=== PATIENT | female | born 1945 | race Caucasian/White ===

== ENCOUNTER → 2016-03-18 | Outpatient (CLI) | payer BC | END | disposition home or self-care (01) | LOC: LABWHC1 08:47 | PROVIDERS: ATTEND Internal Medicine Endocrinology, Diabetes & Metabolism | DX: E11.65 Type 2 diabetes mellitus with hyperglycemia (principal) | CPT/HCPCS: 36415; 82024; 82533 ==

== ENCOUNTER → 2016-03-22 | Outpatient (CLI) | payer BC ==
[2016-03-22 12:42] LABS: Basophils % (A) 0 %; CH 28.1; CHCM 30.5; Eosinophils # (A) 0.1 k/uL (0-0.7); Eosinophils % (A) 1 %; HCT 36.7 % (34.0-46.0); HDW 2.59; HGB 11.2 gm/dL (11.4-16.0); Hypochromasia Moderate; Luc # (Auto) 0.31; Luc % (Auto) 2; Lymphocytes # (A) 1.9 k/uL (1.0-4.8); Lymphocytes % (A) 14 %; MCH 28.3 pg (25.0-35.0); MCHC 30.6 g/dL (31.0-37.0); MCV 92.6 fL (80.0-100.0); Mean Platelet Volume 6.8; Monocytes # (A) 0.6 k/uL (0-1.0); Monocytes % (A) 5 %; Neutrophils # (A) 10.2 k/uL (1.3-7.7); Neutrophils % (A) 78 %; RBC 3.96 m/uL (3.80-5.40); RDW 13.5 % (11.5-15.5); WBC 13.2 k/uL (3.8-10.6); WBC (Perox) 13.33
[2016-03-22 12:56] LABS: Calcium 9.6 mg/dL (8.4-10.2); Magnesium 2.4 mg/dL (1.6-2.3); Phosphorous 4.3 mg/dL (2.5-4.5); Potassium 5.6 mmol/L (3.5-5.1)
[2016-03-22 13:05] LABS: % Iron Saturation 13.6 % (20-50)
[2016-03-22 13:43] LABS: Appearance,Urine Turbid (Clear); Bacteria,Urine Many /hpf; Bilirubin,Urine Negative (Negative); Glucose,Urine (UA) Negative (Negative); Ketones,Urine Negative (Negative); Leukocyte Esterase,Urine Large (Negative); Nitrite,Urine Negative (Negative); PH, Urine 5.5 (5.0-8.0); Particle Count 55118; Protein,Urine 3+ (Negative); RBC,Urine 21 /hpf (0-5); UA Billing (MACRO vs. MICRO) MICRO; WBC,Urine >182 /hpf (0-5)
[2016-03-22 13:49] LABS: Specific Gravity,Urine 1.022 (1.001-1.035)
== END | disposition home or self-care (01) ==
LOC: LABWHC1 12:08
PROVIDERS: ATTEND Nurse Practitioner Family
DX: N18.3 Chronic kidney disease, stage 3 (moderate) (principal); D64.9 Anemia, unspecified; N39.0 Urinary tract infection, site not specified; E55.9 Vitamin D deficiency, unspecified; M10.9 Gout, unspecified
CPT/HCPCS: 36415; 80048; 81001; 82306; 82728; 83540; 83550; 83735; 83970; 84100; 84550; 85025

== ENCOUNTER 2016-03-23 13:44 | Emergency (ER) | payer BC ==
[2016-03-23 15:06] LABS: Glucose,Whole Blood 53 mg/dL (75-99)
--- NOTE | 2016-03-23 15:11 | XR ---
EXAMINATION TYPE: XR chest 1V portable DATE OF EXAM: 03/23/2016 3:04 PM COMPARISON: NONE HISTORY: Altered mental status TECHNIQUE: Single frontal view of the chest is obtained. FINDINGS: Heart and mediastinum are normal. Lungs are clear. Diaphragm is normal. Bony thorax is int act. There are small calcified granulomata in the right lung. IMPRESSION: No active cardiopulmonary disease.
[2016-03-23] MEDS ORDERED: DEXTROSE 50%-WATER 50 ML SYRINGE IVP STA (15:36)
[2016-03-23 15:50] LABS: Glucose,Whole Blood 108 mg/dL (75-99)
[2016-03-23 15:57] LABS: Basophils % (A) 0 %; CH 28.3; CHCM 31.4; Eosinophils # (A) 0.1 k/uL (0-0.7); Eosinophils % (A) 1 %; HCT 34.7 % (34.0-46.0); HDW 2.73; HGB 10.7 gm/dL (11.4-16.0); Hypochromasia Slight; Luc # (Auto) 0.17; Luc % (Auto) 2; Lymphocytes # (A) 0.9 k/uL (1.0-4.8); Lymphocytes % (A) 9 %; MCH 27.9 pg (25.0-35.0); MCHC 30.9 g/dL (31.0-37.0); MCV 90.6 fL (80.0-100.0); Mean Platelet Volume 7.5; Monocytes # (A) 0.5 k/uL (0-1.0); Monocytes % (A) 5 %; Neutrophils # (A) 8.2 k/uL (1.3-7.7); Neutrophils % (A) 84 %; RBC 3.83 m/uL (3.80-5.40); RDW 13.5 % (11.5-15.5); WBC 9.8 k/uL (3.8-10.6); WBC (Perox) 10.24
[2016-03-23 16:06] LABS: INR 1.2 (<1.1); Partial Thromboplastin Time 23.4 sec (22.0-30.0); Prothrombin Time 11.6 sec (9.0-12.0)
--- NOTE | 2016-03-23 16:26 | ED ---
General Adult HPI - General Source: patient, EMS Mode of arrival: EMS - History of Present Illness -: week(s) Improves with: none Worsens with: none Associated Symptoms: denies other symptoms <Michele Marcus - Last Filed: 03/23/16 16:22> <Fransisco Childress - Last Filed: 03/23/16 18:55> - General Chief complaint: Recheck/Abnormal Lab/Rx Stated complaint: sugar is low Time Seen by Provider: 03/23/16 14:00 - History of Present Illness Initial comments: This patient is a 70-year-old woman who presents with complaint of hypoglycemia. The patient states that for approximately 2 weeks her sugar measurements have been trending low. She has been in touch with her physician who has adjusted her insulin pump dosing, but she continues to have episodes of hypoglycemia. The patient states that she believes is because she is not eating very much. The patient states she has had loss of appetite, and that she hasn't really eaten today since yesterday. The patient has had some chills as well today, but she attributed to this to waiting outside for a period of time. The patient is denying signs and symptoms of infection. She has not had fevers. She is not having congestion, rhinorrhea, sore throat, cough, chest pain or dyspnea. Patient is not having abdominal pain, nausea or vomiting. She denies change in urination. (Michele Marcus) - Related Data Home Medications Medication Instructions Recorded Confirmed Levothyroxine Sodium [Synthroid] 88 mcg PO DAILY 02/22/16 03/23/16 Metoprolol Tartrate 25 mg PO BID 02/22/16 03/23/16 Sertraline HCl [Zoloft] 50 mg PO DAILY 02/22/16 03/23/16 Doxercalciferol [Hectorol] 0.5 mcg PO Q7D 03/23/16 03/23/16 Insulin Aspart (For Pump) [NovoLOG 0.01 unit SQ-PUMP CONTINUOUS 03/23/16 (For Pump)] Lisinopril [Zestril] 10 mg PO DAILY 03/23/16 03/23/16 amLODIPine [Norvasc] 5 mg PO DAILY 03/23/16 03/23/16 Allergies Allergy/AdvReac Type Severity Reaction Status Date / Time Penicillins Allergy Rash/Hives Verified 03/23/16 14:04 Review of Systems ROS Other: All systems not noted in ROS Statement are negative. Constitutional: Reports: as per HPI, chills. Denies: fever ENT: Denies: throat pain, congestion Respiratory: Denies: cough, dyspnea Cardiovascular: Denies: chest pain, palpitations, edema, syncope Gastrointestinal: Denies: abdominal pain, vomiting, diarrhea Genitourinary: Denies: dysuria, frequency, hematuria Musculoskeletal: Denies: back pain Skin: Denies: rash Neurological: Denies: headache, weakness, numbness <AmritMichele - Last Filed: 03/23/16 16:22> ROS Other: All systems not noted in ROS Statement are negative. <Fransisco Childress - Last Filed: 03/23/16 18:55> ROS Statement: Those systems with pertinent positive or pertinent negative responses have been documented in the HPI. Past Medical History Past Medical History: Diabetes Mellitus, Hyperlipidemia, Hypertension, Thyroid Disorder History of Any Multi-Drug Resistant Organisms: None Reported Past Surgical History: Hysterectomy Past Psychological History: Depression Smoking Status: Former smoker Past Alcohol Use History: None Reported Past Drug Use History: None Reported <AmritMichele - Last Filed: 03/23/16 16:22> General Exam General appearance: alert, in no apparent distress Head exam: Present: atraumatic, normocephalic Eye exam: Present: normal appearance. Absent: scleral icterus, conjunctival injection ENT exam: Present: mucous membranes dry Neck exam: Present: normal inspection, full ROM Respiratory exam: Present: normal lung sounds bilaterally. Absent: respiratory distress, wheezes, rales, rhonchi, stridor Cardiovascular Exam: Present: regular rate, normal rhythm, normal heart sounds. Absent: systolic murmur, diastolic murmur, rubs, gallop GI/Abdominal exam: Present: soft. Absent: distended, tenderness, guarding, rebound, mass, pulsatile mass, hernia Extremities exam: Present: normal inspection, normal capillary refill. Absent: pedal edema, calf tenderness Back exam: Present: normal inspection. Absent: CVA tenderness (R), CVA tenderness (L) Neurological exam: Present: alert, oriented X3 Skin exam: Present: warm, dry, intact, pallor. Absent: rash, cyanosis, diaphoretic, erythema, petechiae, mottled <AmritMichele - Last Filed: 03/23/16 16:22> Medical Decision Making - Lab Data Result diagrams: 03/23/16 15:46 <Michele Marcus - Last Filed: 03/23/16 16:22> - Lab Data Result diagrams: 03/23/16 15:46 03/23/16 15:46 <Fransisco Childress - Last Filed: 03/23/16 18:55> - Lab Data Lab Results 03/23/16 03/23/16 03/23/16 Range/Units 13:48 15:41 15:46 WBC 9.8 (3.8-10.6) k/uL RBC 3.83 (3.80-5.40) m/uL Hgb 10.7 L (11.4-16.0) gm/dL Hct 34.7 (34.0-46.0) % MCV 90.6 (80.0-100.0) fL MCH 27.9 (25.0-35.0) pg MCHC 30.9 L (31.0-37.0) g/dL RDW 13.5 (11.5-15.5) % Plt Count 472 H (150-450) k/uL Neutrophils % 84 % Lymphocytes % 9 % Monocytes % 5 % Eosinophils % 1 % Basophils % 0 % Neutrophils # 8.2 H (1.3-7.7) k/uL Lymphocytes # 0.9 L (1.0-4.8) k/uL Monocytes # 0.5 (0-1.0) k/uL Eosinophils # 0.1 (0-0.7) k/uL Basophils # 0.0 (0-0.2) k/uL Hypochromasia Slight PT (9.0-12.0) sec INR (<1.1) APTT (22.0-30.0) sec Sodium (137-145) mmol/L Potassium (3.5-5.1) mmol/L Chloride (98-107) mmol/L Carbon Dioxide (22-30) mmol/L Anion Gap mmol/L BUN (7-17) mg/dL Creatinine (0.52-1.04) mg/dL Est GFR (MDRD) Af Amer (>60 ml/min/1.73 sqM) Est GFR (MDRD) Non-Af (>60 ml/min/1.73 sqM) Glucose (74-99) mg/dL POC Glucose (mg/dL) 53 L 108 H (75-99) mg/dL POC Glu Lock Stitch Channeler Lucy Leal Kristen Plasma Lactic Acid Steve (0.7-2.0) mmol/L Calcium (8.4-10.2) mg/dL Total Bilirubin (0.2-1.3) mg/dL AST (14-36) U/L ALT (9-52) U/L Alkaline Phosphatase (38-126) U/L Troponin I (0.000-0.034) ng/mL Total Protein (6.3-8.2) g/dL Albumin (3.5-5.0) g/dL Urine Color Urine Appearance (Clear) Urine pH (5.0-8.0) Ur Specific Orange (1.001-1.035) Urine Protein (Negative) Urine Glucose (UA) (Negative) Urine Ketones (Negative) Urine Blood (Negative) Urine Nitrate (Negative) Urine Bilirubin (Negative) Urine Urobilinogen (<2.0) mg/dL Ur Leukocyte Esterase (Negative) Urine RBC (0-5) /hpf Urine WBC (0-5) /hpf Urine WBC Clumps (None) /hpf Ur Squamous Epith Cells (0-4) /hpf Amorphous Sediment (None) /hpf Urine Bacteria (None) /hpf Hyaline Casts (0-2) /lpf Urine Mucus (None) /hpf 03/23/16 03/23/16 03/23/16 Range/Units 15:46 15:46 15:46 WBC (3.8-10.6) k/uL RBC (3.80-5.40) m/uL Hgb (11.4-16.0) gm/dL Hct (34.0-46.0) % MCV (80.0-100.0) fL MCH (25.0-35.0) pg MCHC (31.0-37.0) g/dL RDW (11.5-15.5) % Plt Count (150-450) k/uL Neutrophils % % Lymphocytes % % Monocytes % % Eosinophils % % Basophils % % Neutrophils # (1.3-7.7) k/uL Lymphocytes # (1.0-4.8) k/uL Monocytes # (0-1.0) k/uL Eosinophils # (0-0.7) k/uL Basophils # (0-0.2) k/uL Hypochromasia PT 11.6 (9.0-12.0) sec INR 1.2 (<1.1) APTT 23.4 (22.0-30.0) sec Sodium 145 (137-145) mmol/L Potassium 5.8 H (3.5-5.1) mmol/L Chloride 109 H (98-107) mmol/L Carbon Dioxide 24 (22-30) mmol/L Anion Gap 12 mmol/L BUN 30 H (7-17) mg/dL Creatinine 1.22 H (0.52-1.04) mg/dL Est GFR (MDRD) Af Amer 53 (>60 ml/min/1.73 sqM) Est GFR (MDRD) Non-Af 44 (>60 ml/min/1.73 sqM) Glucose 115 H (74-99) mg/dL POC Glucose (mg/dL) (75-99) mg/dL POC Glu Lock Stitch Channeler ID Plasma Lactic Acid Steve 1.3 (0.7-2.0) mmol/L Calcium 9.4 (8.4-10.2) mg/dL Total Bilirubin 0.5 (0.2-1.3) mg/dL AST 22 (14-36) U/L ALT 28 (9-52) U/L Alkaline Phosphatase 61 (38-126) U/L Troponin I (0.000-0.034) ng/mL Total Protein 7.3 (6.3-8.2) g/dL Albumin 3.4 L (3.5-5.0) g/dL Urine Color Urine Appearance (Clear) Urine pH (5.0-8.0) Ur Specific Orange (1.001-1.035) Urine Protein (Negative) Urine Glucose (UA) (Negative) Urine Ketones (Negative) Urine Blood (Negative) Urine Nitrate (Negative) Urine Bilirubin (Negative) Urine Urobilinogen (<2.0) mg/dL Ur Leukocyte Esterase (Negative) Urine RBC (0-5) /hpf Urine WBC (0-5) /hpf Urine WBC Clumps (None) /hpf Ur Squamous Epith Cells (0-4) /hpf Amorphous Sediment (None) /hpf Urine Bacteria (None) /hpf Hyaline Casts (0-2) /lpf Urine Mucus (None) /hpf 03/23/16 03/23/16 03/23/16 Range/Units 15:46 17:00 18:09 WBC (3.8-10.6) k/uL RBC (3.80-5.40) m/uL Hgb (11.4-16.0) gm/dL Hct (34.0-46.0) % MCV (80.0-100.0) fL MCH (25.0-35.0) pg MCHC (31.0-37.0) g/dL RDW (11.5-15.5) % Plt Count (150-450) k/uL Neutrophils % % Lymphocytes % % Monocytes % % Eosinophils % % Basophils % % Neutrophils # (1.3-7.7) k/uL Lymphocytes # (1.0-4.8) k/uL Monocytes # (0-1.0) k/uL Eosinophils # (0-0.7) k/uL Basophils # (0-0.2) k/uL Hypochromasia PT (9.0-12.0) sec INR (<1.1) APTT (22.0-30.0) sec Sodium (137-145) mmol/L Potassium (3.5-5.1) mmol/L Chloride (98-107) mmol/L Carbon Dioxide (22-30) mmol/L Anion Gap mmol/L BUN (7-17) mg/dL Creatinine (0.52-1.04) mg/dL Est GFR (MDRD) Af Amer (>60 ml/min/1.73 sqM) Est GFR (MDRD) Non-Af (>60 ml/min/1.73 sqM) Glucose (74-99) mg/dL POC Glucose (mg/dL) 234 H (75-99) mg/dL POC Glu Lock Stitch Channeler ID Phoebe Villasenor Plasma Lactic Acid Steve (0.7-2.0) mmol/L Calcium (8.4-10.2) mg/dL Total Bilirubin (0.2-1.3) mg/dL AST (14-36) U/L ALT (9-52) U/L Alkaline Phosphatase (38-126) U/L Troponin I <0.012 (0.000-0.034) ng/mL Total Protein (6.3-8.2) g/dL Albumin (3.5-5.0) g/dL Urine Color Yellow Urine Appearance Cloudy H (Clear) Urine pH 5.0 (5.0-8.0) Ur Specific Orange 1.015 (1.001-1.035) Urine Protein 1+ H (Negative) Urine Glucose (UA) 3+ H (Negative) Urine Ketones Negative (Negative) Urine Blood Negative (Negative) Urine Nitrate Positive H (Negative) Urine Bilirubin Negative (Negative) Urine Urobilinogen <2.0 (<2.0) mg/dL Ur Leukocyte Esterase Large H (Negative) Urine RBC 12 H (0-5) /hpf Urine WBC >182 H (0-5) /hpf Urine WBC Clumps Many H (None) /hpf Ur Squamous Epith Cells 9 H (0-4) /hpf Amorphous Sediment Occasional H (None) /hpf Urine Bacteria Many H (None) /hpf Hyaline Casts 10 H (0-2) /lpf Urine Mucus Rare H (None) /hpf Disposition <Michele Marcus - Last Filed: 03/23/16 16:22> <Fransisco Childress - Last Filed: 03/23/16 18:55> Clinical Impression: Hypoglycemia, UTI (urinary tract infection) Disposition: HOME SELF-CARE Condition: Good Instructions: Hypoglycemia in a Person with Diabetes (ED), Urinary Tract Infection in Women (ED) Referrals: Osbaldo Mace DO [Primary Care Provider] - 1-2 days
[2016-03-23 16:28] LABS: Calcium 9.4 mg/dL (8.4-10.2); Potassium 5.8 mmol/L (3.5-5.1); Total Bilirubin 0.5 mg/dL (0.2-1.3); Total Protein 7.3 g/dL (6.3-8.2)
[2016-03-23 16:59] VITALS: RESP 18
[2016-03-23] MEDS ORDERED: SODIUM POLYSTYRENE SULFONATE 15 GM/60 ML BOTTLE PO STA (17:11)
[2016-03-23 18:08] LABS: Amorphous Sediment,Urine Occasional /hpf; Appearance,Urine Cloudy (Clear); Bacteria,Urine Many /hpf; Bilirubin,Urine Negative (Negative); Glucose,Urine (UA) 3+ (Negative); Ketones,Urine Negative (Negative); Leukocyte Esterase,Urine Large (Negative); Mucus,Urine Rare /hpf; Nitrite,Urine Positive (Negative); Particle Count 14804; Protein,Urine 1+ (Negative); RBC,Urine 12 /hpf (0-5); Specific Gravity,Urine 1.015 (1.001-1.035); Squamous Epithelial Cell,Urine 9 /hpf (0-4); UA Billing (MACRO vs. MICRO) MICRO; Urobilinogen,Urine <2.0 mg/dL (<2.0); WBC,Urine >182 /hpf (0-5)
[2016-03-23 18:14] LABS: Glucose,Whole Blood 234 mg/dL (75-99)
[2016-03-23] MEDS ORDERED: NITROFURANTOIN MONOHYD/M-CRYST 100 MG CAP PO STA (18:56)
[2016-03-23 19:13] VITALS: BP 151/75; PULSE 75; TEMP 98.4
== END 2016-03-23 19:13 | disposition home or self-care (01) ==
LOC: EC 13:44
DX: E11.649 Type 2 diabetes mellitus with hypoglycemia without coma (principal); N39.0 Urinary tract infection, site not specified; I10 Essential (primary) hypertension; E07.9 Disorder of thyroid, unspecified; F32.9 Major depressive disorder, single episode, unspecified; E78.5 Hyperlipidemia, unspecified; Z87.891 Personal history of nicotine dependence; Z79.4 Long term (current) use of insulin; Z79.52 Long term (current) use of systemic steroids; Z79.899 Other long term (current) drug therapy; Z88.0 Allergy status to penicillin
CPT/HCPCS: 36415; 71010; 80053; 81001; 83605; 84484; 85025; 85610; 85730; 96374; 99285

== ENCOUNTER → 2016-03-31 | Outpatient (CLI) | payer BC ==
[2016-03-31 09:23] LABS: Calcium 9.7 mg/dL (8.4-10.2); Potassium 4.9 mmol/L (3.5-5.1); Total Bilirubin 0.6 mg/dL (0.2-1.3); Total Protein 7.4 g/dL (6.3-8.2)
== END | disposition home or self-care (01) ==
LOC: LABWHC1 08:13
PROVIDERS: ATTEND Internal Medicine Endocrinology, Diabetes & Metabolism
DX: N18.3 Chronic kidney disease, stage 3 (moderate) (principal); E11.65 Type 2 diabetes mellitus with hyperglycemia
CPT/HCPCS: 36415; 80053; 84681; 86337

== ENCOUNTER → 2016-07-25 | Outpatient (CLI) | payer BC ==
--- NOTE | 2016-07-25 14:09 | US ---
EXAMINATION TYPE: US thyroid st tissue head/neck DATE OF EXAM: 07/25/2016 COMPARISON: Previous study dated 01/02/2016. CLINICAL HISTORY: E04.1 SINGLE THYROID NODULE;Takes levothyroxin GLAND SIZE: Right Lobe: 4.6 x 1.2 x 1.1 cm Overall Parenchyma: homogenous Left Lobe: 4.4 x 1.0 x 1.1 cm Overall Parenchyma: homogeneous Isthmus Thickness: 0.3 cm NODULES RIGHT: # of nodules measured on right: 2 1. 0.9 x X 0.6 x 0.6 cm echogenic solid nodule at the lower pole with well-defined margins. This nodule is wide as is tall and shows no intranodular vascularity. Prior size: 1.1 x 0.7 x 0.8 cm 2. 0.6 X 0.4 x 0.4 cm echogenic solid nodule at the lower pole with well-defined margins. This nodu le is wide as is tall and shows no intranodular vascularity. Prior size: not seen prior US LEFT: # of nodules measured on left: 0 ISTHMUS: # of nodules measured in the isthmus: 1 1. 0.4 X 0.3 x 0.2 cm hypoechoic cystic nodule at the right lower pole with well-defined margins. T his nodule is wider than tall and shows no intranodular vascularity. Prior size: not seen Bilateral neck scanned, no evidence of lymphadenopathy. IMPRESSION: MULTINODULAR GOITER.
== END | disposition home or self-care (01) ==
LOC: RADUSWWP 13:17
PROVIDERS: ATTEND Family Medicine
DX: E04.2 Nontoxic multinodular goiter (principal)
CPT/HCPCS: 76536

== ENCOUNTER → 2016-08-07 | Outpatient (CLI) | payer BC ==
[2016-08-07 07:55] LABS: Basophils % (A) 1 %; CH 28.8; CHCM 32.4; Eosinophils # (A) 0.2 k/uL (0-0.7); Eosinophils % (A) 2 %; HCT 41.7 % (34.0-46.0); HDW 2.62; HGB 13.8 gm/dL (11.4-16.0); Luc # (Auto) 0.19; Luc % (Auto) 2; Lymphocytes # (A) 2.2 k/uL (1.0-4.8); Lymphocytes % (A) 27 %; MCH 29.5 pg (25.0-35.0); MCV 89.4 fL (80.0-100.0); Mean Platelet Volume 7.3; Monocytes # (A) 0.5 k/uL (0-1.0); Monocytes % (A) 6 %; Neutrophils # (A) 5.2 k/uL (1.3-7.7); Neutrophils % (A) 62 %; RBC 4.67 m/uL (3.80-5.40); RDW 14.2 % (11.5-15.5); WBC 8.3 k/uL (3.8-10.6); WBC (Perox) 8.25
[2016-08-07 08:08] LABS: Appearance,Urine Cloudy (Clear); Bacteria,Urine Few /hpf; Bilirubin,Urine Negative (Negative); Glucose,Urine (UA) 4+ (Negative); Ketones,Urine Negative (Negative); Leukocyte Esterase,Urine Large (Negative); Mucus,Urine Rare /hpf; Nitrite,Urine Positive (Negative); PH, Urine 5.5 (5.0-8.0); Particle Count 20387; Protein,Urine Trace (Negative); RBC,Urine 6 /hpf (0-5); Squamous Epithelial Cell,Urine 2 /hpf (0-4); UA Billing (MACRO vs. MICRO) MICRO; Urobilinogen,Urine <2.0 mg/dL (<2.0); WBC,Urine >182 /hpf (0-5)
[2016-08-07 11:11] LABS: Calcium 9.9 mg/dL (8.4-10.2); Magnesium 2.1 mg/dL (1.6-2.3); Phosphorous 4.4 mg/dL (2.5-4.5); Potassium 5.7 mmol/L (3.5-5.1); Total Bilirubin 0.5 mg/dL (0.2-1.3); Total Protein 7.1 g/dL (6.3-8.2); Uric Acid 5.7 mg/dL (3.7-7.4)
[2016-08-07 11:25] LABS: % Iron Saturation 22.4 % (20-50)
== END | disposition home or self-care (01) ==
LOC: LABWHC1 07:16
PROVIDERS: ATTEND Internal Medicine Endocrinology, Diabetes & Metabolism
DX: N39.0 Urinary tract infection, site not specified (principal); N18.3 Chronic kidney disease, stage 3 (moderate); D64.9 Anemia, unspecified; E11.65 Type 2 diabetes mellitus with hyperglycemia; E55.9 Vitamin D deficiency, unspecified; E03.8 Other specified hypothyroidism; E21.3 Hyperparathyroidism, unspecified; M10.9 Gout, unspecified
CPT/HCPCS: 36415; 80053; 80061; 81001; 82043; 82306; 82728; 83540; 83550; 83735; 83970; 84100; 84443; 84550; 85025; 87077; 87086; 87186

== ENCOUNTER → 2016-08-14 | Outpatient (CLI) | payer BC ==
[2016-08-14 08:07] LABS: Anion Gap 11 mmol/L; Blood Urea Nitrogen 21 mg/dL (7-17); Calcium 9.8 mg/dL (8.4-10.2); Carbon Dioxide 27 mmol/L (22-30); Chloride 105 mmol/L (98-107); Glucose 174 mg/dL (74-99); Non-African American GFR(MDRD) 52 (>60 ml/min/1.73 sqM); Potassium 5.1 mmol/L (3.5-5.1); Sodium 143 mmol/L (137-145)
[2016-08-14 08:16] LABS: Appearance,Urine Cloudy (Clear); Bacteria,Urine Many /hpf; Bilirubin,Urine Negative (Negative); Glucose,Urine (UA) Negative (Negative); Ketones,Urine Negative (Negative); Leukocyte Esterase,Urine Large (Negative); Mucus,Urine Rare /hpf; Nitrite,Urine Positive (Negative); PH, Urine 5.5 (5.0-8.0); Particle Count 14562; Protein,Urine Trace (Negative); RBC,Urine 6 /hpf (0-5); Specific Gravity,Urine 1.012 (1.001-1.035); Squamous Epithelial Cell,Urine 1 /hpf (0-4); UA Billing (MACRO vs. MICRO) MICRO; Urobilinogen,Urine <2.0 mg/dL (<2.0); WBC,Urine >182 /hpf (0-5)
== END | disposition home or self-care (01) ==
LOC: LABWHC1 06:51
PROVIDERS: ATTEND Family Medicine
DX: N39.0 Urinary tract infection, site not specified (principal); N18.9 Chronic kidney disease, unspecified
CPT/HCPCS: 36415; 80048; 81001; 87077; 87086; 87186

== ENCOUNTER → 2016-08-14 | Outpatient (CLI) | payer BC ==
--- NOTE | 2016-08-15 13:41 | MM ---
Reason for exam: screening (asymptomatic). Last mammogram was performed 1 year and 3 months ago. History: Patient is postmenopausal. Family history of breast cancer in mother at age 84. Took estrogen for 13 years 5 months. Physical Findings: A clinical breast exam by your physician is recommended on an annual basis and results should be correlated with mammographic findings. MG 3D Screening Mammo W/Cad Bilateral CC and MLO view(s) were taken. Prior study comparison: May 07, 2015, bilateral MG screening mammo w CAD. August 04, 2013, bilateral MG screening mammo w CAD. August 05, 2012, [facility] DIGITAL RIGHT MAMMOGRAM w/CAD. There are scattered fibroglandular densities. Finding: There are typically benign vascular, round calcifications in both breasts. There is no discrete abnormality. ASSESSMENT: Benign, BI-RAD 2 RECOMMENDATION: Routine screening mammogram of both breasts in 1 year.
== END | disposition home or self-care (01) ==
LOC: RADMAMWWP 07:12
PROVIDERS: ATTEND Family Medicine
DX: Z12.31 Encounter for screening mammogram for malignant neoplasm of breast (principal)
CPT/HCPCS: 77063; G0202

== ENCOUNTER → 2016-09-08 | Outpatient (CLI) | payer BC ==
--- NOTE | 2016-09-08 17:29 | US ---
EXAMINATION TYPE: US kidneys/renal and bladder DATE OF EXAM: 09/08/2016 COMPARISON: Previous study dated 02/08/2013. CLINICAL HISTORY: Chronic Kidney Disease Stage 3 N18.3. EXAM MEASUREMENTS: Right Kidney: 11.6 x 5.6 x 5.8 cm Left Kidney: 10.9 x 4.7 x 4.9 cm Right Kidney: cortical lobulation, heterogeneous cortex Left Kidney: cortical lobulation, heterogeneous cortex Bladder: wnl as seen There is no evidence of hydronephrosis or nephrolithiasis. The bladder is unremarkable. Neither urete ral jet was visualized. IMPRESSION: NO EVIDENCE OF HYDRONEPHROSIS OR NEPHROLITHIASIS.
== END | disposition home or self-care (01) ==
LOC: RADUSWWP 15:42
PROVIDERS: ATTEND Internal Medicine Nephrology
DX: N18.3 Chronic kidney disease, stage 3 (moderate) (principal)
CPT/HCPCS: 76770

== ENCOUNTER → 2017-06-17 | Outpatient (CLI) | payer MEDICARE | END | disposition home or self-care (01) | LOC: LABWHC1 07:33 | PROVIDERS: ATTEND Internal Medicine Endocrinology, Diabetes & Metabolism | DX: E78.5 Hyperlipidemia, unspecified (principal); E11.65 Type 2 diabetes mellitus with hyperglycemia | CPT/HCPCS: 36415; 82947; 84681 ==

== ENCOUNTER → 2017-06-29 | Outpatient (CLI) | payer MEDICARE ==
[2017-06-29 11:14] LABS: Basophils # (A) 0.1 k/uL (0-0.2); Basophils % (A) 1 %; Eosinophils # (A) 0.2 k/uL (0-0.7); Eosinophils % (A) 2 %; HCT 41.9 % (34.0-46.0); HGB 13.8 gm/dL (11.4-16.0); Lymphocytes # (A) 2.4 k/uL (1.0-4.8); Lymphocytes % (A) 25 %; MCH 28.7 pg (25.0-35.0); MCV 87.1 fL (80.0-100.0); Mean Platelet Volume 7.5; Monocytes # (A) 0.6 k/uL (0-1.0); Monocytes % (A) 7 %; Neutrophils % (A) 64 %; Platelet Count 306 k/uL (150-450); RBC 4.81 m/uL (3.80-5.40); RDW 13.7 % (11.5-15.5); WBC 9.3 k/uL (3.8-10.6)
[2017-06-29 11:31] LABS: Appearance,Urine Cloudy (Clear); Bacteria,Urine Occasional /hpf; Bilirubin,Urine Negative (Negative); Blood,Urine Trace (Negative); Color,Urine Yellow; Glucose,Urine (UA) Negative (Negative); Ketones,Urine Negative (Negative); Leukocyte Esterase,Urine Large (Negative); Mucus,Urine Rare /hpf; Nitrite,Urine Negative (Negative); PH, Urine 5.5 (5.0-8.0); Protein,Urine Trace (Negative); RBC,Urine 5 /hpf (0-5); Specific Gravity,Urine 1.015 (1.001-1.035); Squamous Epithelial Cell,Urine 5 /hpf (0-4); Urobilinogen,Urine <2.0 mg/dL (<2.0); WBC,Urine 8 /hpf (0-5)
[2017-06-29 11:37] LABS: Calcium 10.3 mg/dL (8.4-10.2); Potassium 4.7 mmol/L (3.5-5.1); Uric Acid 6.4 mg/dL (3.7-7.4)
[2017-06-29 17:42] LABS: Iron Saturation 19.78 (12.00-45.00); Parathyroid Hormone Intact 53.3 pg/mL (14.0-72.0)
[2017-06-29 17:55] LABS: Vitamin D 25 Hydroxy 12.6 ng/mL (30.0-100.0)
== END | disposition home or self-care (01) ==
LOC: LABWHC1 10:23
PROVIDERS: ATTEND Nurse Practitioner Family
DX: M10.9 Gout, unspecified (principal); N39.0 Urinary tract infection, site not specified; N25.81 Secondary hyperparathyroidism of renal origin; E55.9 Vitamin D deficiency, unspecified; D63.1 Anemia in chronic kidney disease; N18.3 Chronic kidney disease, stage 3 (moderate)
CPT/HCPCS: 36415; 80048; 81001; 82306; 82728; 83540; 83550; 83970; 84550; 85025

== ENCOUNTER → 2017-08-12 | Outpatient (CLI) | payer MEDICARE ==
[2017-08-12 17:29] LABS: Albumin 4.4 g/dL (3.5-5.0); Calcium 10.2 mg/dL (8.4-10.2); Potassium 5.3 mmol/L (3.5-5.1); Total Bilirubin 0.3 mg/dL (0.2-1.3); Total Protein 7.4 g/dL (6.3-8.2)
== END | disposition home or self-care (01) ==
LOC: LABWHC1 16:20
PROVIDERS: ATTEND Internal Medicine Endocrinology, Diabetes & Metabolism
DX: E11.65 Type 2 diabetes mellitus with hyperglycemia (principal); E78.5 Hyperlipidemia, unspecified
CPT/HCPCS: 36415; 80053

== ENCOUNTER → 2017-12-22 | Outpatient (CLI) | payer MEDICARE ==
[2017-12-22 11:24] LABS: Appearance,Urine Clear (Clear); Bacteria,Urine Rare /hpf; Bilirubin,Urine Negative (Negative); Blood,Urine Negative (Negative); Color,Urine Yellow; Glucose,Urine (UA) Negative (Negative); Ketones,Urine Negative (Negative); Leukocyte Esterase,Urine Large (Negative); Mucus,Urine Rare /hpf; Nitrite,Urine Negative (Negative); Protein,Urine Trace (Negative); RBC,Urine 1 /hpf (0-5); Specific Gravity,Urine 1.016 (1.001-1.035); Squamous Epithelial Cell,Urine 1 /hpf (0-4); Urobilinogen,Urine <2.0 mg/dL (<2.0); WBC,Urine 14 /hpf (0-5)
[2017-12-22 11:31] LABS: Basophils # (A) 0.1 k/uL (0-0.2); Basophils % (A) 1 %; Eosinophils # (A) 0.2 k/uL (0-0.7); Eosinophils % (A) 2 %; HCT 41.7 % (34.0-46.0); HGB 13.2 gm/dL (11.4-16.0); Lymphocytes # (A) 2.4 k/uL (1.0-4.8); Lymphocytes % (A) 26 %; MCH 29.8 pg (25.0-35.0); MCHC 31.7 g/dL (31.0-37.0); MCV 93.9 fL (80.0-100.0); Mean Platelet Volume 7.1; Monocytes # (A) 0.5 k/uL (0-1.0); Monocytes % (A) 6 %; Neutrophils % (A) 64 %; Platelet Count 313 k/uL (150-450); RBC 4.44 m/uL (3.80-5.40); WBC 9.4 k/uL (3.8-10.6)
[2017-12-22 16:49] LABS: Albumin 4.6 g/dL (3.80-4.90); Albumin/Globulin Ratio 1.84 (1.20-2.10); Anion Gap 9.2 mmol/L (4.00-12.00); Calcium 9.8 mg/dL (8.7-10.3); Carbon Dioxide 26.8 mmol/L (21.6-31.8); Globulin 2.5 g/dL (2.1-3.7); LDL Cholesterol,Calculated 102.2 mg/dL (0.0-131.0); Potassium 5.4 mmol/L (3.5-5.5); Total Bilirubin 0.4 mg/dL (0.3-1.2); Total Protein 7.1 g/dL (6.2-8.2); VLDL Calculation 27.8 mg/dL (5.00-40.00)
[2017-12-22 17:00] LABS: Uric Acid 6.4 mg/dL (2.9-7.7)
[2017-12-22 17:04] LABS: Parathyroid Hormone Intact 61.9 pg/mL (14.0-72.0)
[2017-12-22 17:52] LABS: Iron Saturation 18.52 (12.00-45.00)
[2017-12-22 17:59] LABS: Vitamin D 25 Hydroxy 57.7 ng/mL (30.0-100.0)
[2017-12-22 18:31] LABS: Hemoglobin A1C 8.5 % (4.0-6.0)
== END | disposition home or self-care (01) ==
LOC: LABWHC1 09:57
PROVIDERS: ATTEND Internal Medicine Endocrinology, Diabetes & Metabolism
DX: E11.22 Type 2 diabetes mellitus with diabetic chronic kidney disease (principal); N18.3 Chronic kidney disease, stage 3 (moderate); D63.1 Anemia in chronic kidney disease; E11.65 Type 2 diabetes mellitus with hyperglycemia; E55.9 Vitamin D deficiency, unspecified; E21.3 Hyperparathyroidism, unspecified; M10.9 Gout, unspecified; N39.0 Urinary tract infection, site not specified
CPT/HCPCS: 36415; 80053; 80061; 81001; 82043; 82306; 82570; 82728; 83036; 83540; 83550; 83970; 84550; 85025

== ENCOUNTER → 2018-04-20 | Outpatient (CLI) | payer MEDICARE ==
[2018-04-20 11:36] LABS: Basophils % (A) 0 %; Eosinophils # (A) 0.3 k/uL (0-0.7); Eosinophils % (A) 4 %; HCT 39.7 % (34.0-46.0); HGB 12.7 gm/dL (11.4-16.0); Lymphocytes # (A) 2.3 k/uL (1.0-4.8); Lymphocytes % (A) 28 %; MCV 93.6 fL (80.0-100.0); Mean Platelet Volume 6.8; Monocytes # (A) 0.5 k/uL (0-1.0); Monocytes % (A) 6 %; Neutrophils % (A) 60 %; Platelet Count 302 k/uL (150-450); RBC 4.25 m/uL (3.80-5.40); RDW 13.3 % (11.5-15.5); WBC 8.2 k/uL (3.8-10.6)
[2018-04-20 13:04] LABS: Appearance,Urine Clear (Clear); Bacteria,Urine Few /hpf; Bilirubin,Urine Negative (Negative); Blood,Urine Negative (Negative); Color,Urine Yellow; Glucose,Urine (UA) Negative (Negative); Ketones,Urine Negative (Negative); Leukocyte Esterase,Urine Large (Negative); Mucus,Urine Rare /hpf; Nitrite,Urine Positive (Negative); Protein,Urine Trace (Negative); RBC,Urine 1 /hpf (0-5); Specific Gravity,Urine 1.016 (1.001-1.035); Squamous Epithelial Cell,Urine 2 /hpf (0-4); Urobilinogen,Urine <2.0 mg/dL (<2.0); WBC,Urine 28 /hpf (0-5)
[2018-04-20 16:05] LABS: Iron Saturation 19.36 (12.00-45.00)
[2018-04-20 16:06] LABS: Anion Gap 10.7 mmol/L (4.00-12.00); Calcium 10.2 mg/dL (8.7-10.3); Carbon Dioxide 28.3 mmol/L (21.6-31.8); Potassium 5.4 mmol/L (3.5-5.5); Uric Acid 6.5 mg/dL (2.9-7.7)
[2018-04-20 16:13] LABS: Vitamin D 25 Hydroxy 78.4 ng/mL (30.0-100.0)
[2018-04-20 16:16] LABS: Parathyroid Hormone Intact 63.8 pg/mL (14.0-72.0)
== END | disposition home or self-care (01) ==
LOC: LABWHC1 10:20
PROVIDERS: ATTEND Nurse Practitioner Family
DX: N18.3 Chronic kidney disease, stage 3 (moderate) (principal); D63.1 Anemia in chronic kidney disease; E55.9 Vitamin D deficiency, unspecified; E21.3 Hyperparathyroidism, unspecified; M10.9 Gout, unspecified; N39.0 Urinary tract infection, site not specified
CPT/HCPCS: 36415; 80048; 81001; 82306; 82728; 83540; 83550; 83970; 84550; 85025

== ENCOUNTER → 2018-06-11 | Outpatient (CLI) | payer MEDICARE ==
--- NOTE | 2018-06-11 15:20 | US ---
EXAMINATION TYPE: US thyroid st tissue head/neck DATE OF EXAM: 06/11/2018 COMPARISON: 07/25/2016 CLINICAL HISTORY: E04.1 Nontoxic single nodule. GLAND SIZE: Right Lobe: 4.6 x 1.3 x 1.6 cm Overall Parenchyma: heterogenous Left Lobe: 3.4 x 1.7 x 0.9 cm Overall Parenchyma: heterogeneous Isthmus Thickness: 0.2 cm NODULES RIGHT: # of nodules measured on right: 1. 0.9 X 0.5 x 0.9 cm echogenic solid nodule at the lower pole with well-defined margins. This nod ule is wider than tall and shows no intranodular vascularity. Prior size: 0.9 x 0.6 x 0.6 cm LEFT: # of nodules measured on left: 0 ISTHMUS: # of nodules measured in the isthmus: 0 Bilateral neck scanned, no evidence of lymphadenopathy. Subcentimeter nodules seen on previous not identified on today's scan. IMPRESSION: Similar size of the 9 mm right thyroid nodule the prior of 07/26/2011. The other subcentimeter thyroid nodules were not reproduced on today's exam.
== END | disposition home or self-care (01) ==
LOC: RADUSWWP 14:07
PROVIDERS: ATTEND Family Medicine
DX: E04.1 Nontoxic single thyroid nodule (principal)
CPT/HCPCS: 76536

== ENCOUNTER → 2018-08-16 | Outpatient (CLI) | payer MEDICARE ==
[2018-08-16 09:13] LABS: Basophils % (A) 0 %; Eosinophils # (A) 0.2 k/uL (0-0.7); Eosinophils % (A) 3 %; HCT 38.5 % (34.0-46.0); HGB 12.4 gm/dL (11.4-16.0); Lymphocytes # (A) 2.1 k/uL (1.0-4.8); Lymphocytes % (A) 29 %; MCH 29.6 pg (25.0-35.0); MCHC 32.1 g/dL (31.0-37.0); MCV 92.2 fL (80.0-100.0); Mean Platelet Volume 7.7; Monocytes # (A) 0.5 k/uL (0-1.0); Monocytes % (A) 6 %; Neutrophils # (A) 4.2 k/uL (1.3-7.7); Neutrophils % (A) 59 %; Platelet Count 280 k/uL (150-450); RBC 4.18 m/uL (3.80-5.40); RDW 14.4 % (11.5-15.5); WBC 7.2 k/uL (3.8-10.6)
[2018-08-16 16:50] LABS: Iron Saturation 22.49 (12.00-45.00)
[2018-08-16 16:55] LABS: Uric Acid 6.2 mg/dL (2.9-7.7)
[2018-08-16 16:56] LABS: African American GFR (CKD) 47.8 (60.0-200.0); Albumin 4.2 g/dL (3.80-4.90); Albumin/Globulin Ratio 1.62 (1.60-3.17); Anion Gap 5.1 mmol/L (4.00-12.00); BUN/Creat Ratio 20.77 Ratio (12.00-20.00); Calcium 9.8 mg/dL (8.7-10.3); Carbon Dioxide 27.9 mmol/L (21.6-31.8); Globulin 2.6 g/dL (1.6-3.3); LDL Cholesterol,Calculated 100.8 mg/dL (0.0-131.0); Phosphorus 4.1 mg/dL (2.4-5.1); Potassium 5.5 mmol/L (3.5-5.5); Total Bilirubin 0.3 mg/dL (0.3-1.2); Total Protein 6.8 g/dL (6.2-8.2); VLDL Calculation 25.2 mg/dL (5.00-40.00)
[2018-08-16 16:58] LABS: Vitamin D 25 Hydroxy 49.8 ng/mL (30.0-100.0)
[2018-08-16 19:02] LABS: Hemoglobin A1C 9.3 % (4.0-6.0)
== END | disposition home or self-care (01) ==
LOC: LABWHC1 08:33
PROVIDERS: ATTEND Internal Medicine Endocrinology, Diabetes & Metabolism
DX: E11.65 Type 2 diabetes mellitus with hyperglycemia (principal); E55.9 Vitamin D deficiency, unspecified; M10.9 Gout, unspecified; R80.9 Proteinuria, unspecified; N18.3 Chronic kidney disease, stage 3 (moderate); D63.1 Anemia in chronic kidney disease
CPT/HCPCS: 36415; 80053; 80061; 82043; 82306; 82570; 82728; 83036; 83540; 83550; 83735; 84100; 84443; 84550; 85025

== ENCOUNTER → 2018-09-27 | Outpatient (CLI) | payer MEDICARE ==
[2018-09-27 16:14] LABS: African American GFR (CKD) 47.8 (60.0-200.0); Anion Gap 7.3 mmol/L (4.00-12.00); BUN/Creat Ratio 20.77 Ratio (12.00-20.00); Calcium 9.6 mg/dL (8.7-10.3); Carbon Dioxide 25.7 mmol/L (21.6-31.8)
== END | disposition home or self-care (01) ==
LOC: LABWHC1 10:04
PROVIDERS: ATTEND Internal Medicine Nephrology
DX: N18.3 Chronic kidney disease, stage 3 (moderate) (principal)
CPT/HCPCS: 36415; 80048

== ENCOUNTER → 2018-10-05 | Outpatient (CLI) | payer MEDICARE | END | disposition home or self-care (01) | LOC: LABWHC1 15:21 | PROVIDERS: ATTEND Internal Medicine Nephrology | DX: E87.5 Hyperkalemia (principal) | CPT/HCPCS: 36415; 84132 ==

== ENCOUNTER → 2018-10-13 | Outpatient (CLI) | payer MEDICARE | END | disposition home or self-care (01) | LOC: LABWHC1 09:11 | PROVIDERS: ATTEND Internal Medicine Nephrology | DX: E87.5 Hyperkalemia (principal) | CPT/HCPCS: 36415; 84132 ==

== ENCOUNTER → 2018-12-27 | Outpatient (CLI) | payer MEDICARE ==
[2018-12-27 17:53] LABS: African American GFR (CKD) 52.3 (60.0-200.0); Albumin 4.6 g/dL (3.80-4.90); Albumin/Globulin Ratio 1.92 (1.60-3.17); Anion Gap 7.9 mmol/L (4.00-12.00); Calcium 9.7 mg/dL (8.7-10.3); Carbon Dioxide 28.1 mmol/L (21.6-31.8); Chol/HDL Ratio 3.49; Globulin 2.4 g/dL (1.6-3.3); LDL Cholesterol,Calculated 92.8 mg/dL (0.0-131.0); Potassium 5.6 mmol/L (3.5-5.5); Total Bilirubin 0.3 mg/dL (0.3-1.2); VLDL Calculation 19.2 mg/dL (5.00-40.00)
[2018-12-27 19:44] LABS: Hemoglobin A1C 8.7 % (4.0-6.0)
== END | disposition home or self-care (01) ==
LOC: LABWHC1 09:40
PROVIDERS: ATTEND Internal Medicine Endocrinology, Diabetes & Metabolism
DX: E11.65 Type 2 diabetes mellitus with hyperglycemia (principal)
CPT/HCPCS: 36415; 80053; 80061; 82043; 82570; 83036; 84443

== ENCOUNTER → 2019-01-17 | Outpatient (CLI) | payer MEDICARE ==
[2019-01-17 08:17] LABS: Basophils % (A) 0 %; Eosinophils # (A) 0.2 k/uL (0-0.7); Eosinophils % (A) 2 %; HCT 39.2 % (34.0-46.0); HGB 12.1 gm/dL (11.4-16.0); Lymphocytes % (A) 25 %; MCH 29.2 pg (25.0-35.0); MCHC 30.8 g/dL (31.0-37.0); MCV 94.8 fL (80.0-100.0); Mean Platelet Volume 7.4; Monocytes # (A) 0.4 k/uL (0-1.0); Monocytes % (A) 5 %; Neutrophils # (A) 5.1 k/uL (1.3-7.7); Neutrophils % (A) 66 %; Platelet Count 263 k/uL (150-450); RBC 4.13 m/uL (3.80-5.40); RDW 13.1 % (11.5-15.5); WBC 7.8 k/uL (3.8-10.6)
[2019-01-17 09:18] LABS: Appearance,Urine Clear (Clear); Bacteria,Urine Rare /hpf; Bilirubin,Urine Negative (Negative); Blood,Urine Negative (Negative); Color,Urine Light Yellow; Glucose,Urine (UA) 4+ (Negative); Ketones,Urine Negative (Negative); Leukocyte Esterase,Urine Large (Negative); Mucus,Urine Rare /hpf; Nitrite,Urine Negative (Negative); PH, Urine 5.5 (5.0-8.0); Protein,Urine Negative (Negative); RBC,Urine 3 /hpf (0-5); Specific Gravity,Urine 1.021 (1.001-1.035); Squamous Epithelial Cell,Urine 2 /hpf (0-4); Urobilinogen,Urine <2.0 mg/dL (<2.0); WBC,Urine 39 /hpf (0-5)
[2019-01-17 11:36] LABS: Ferritin 145.2 ng/mL (10.0-291.0)
[2019-01-17 11:56] LABS: % Iron Saturation 18.21 (12.00-45.00); African American GFR (CKD) 47.5 (60.0-200.0); Albumin 4.1 g/dL (3.80-4.90); Anion Gap 5.9 mmol/L (4.00-12.00); BUN/Creat Ratio 20.77 Ratio (12.00-20.00); Calcium 9.7 mg/dL (8.7-10.3); Carbon Dioxide 27.1 mmol/L (21.6-31.8); Magnesium 1.8 mg/dL (1.5-2.4); Phosphorus 3.9 mg/dL (2.4-5.1); Potassium 5.2 mmol/L (3.5-5.5); Uric Acid 6.6 mg/dL (2.9-7.7)
[2019-01-17 18:02] LABS: Creatinine,Urine Random 60.2 mg/dL
[2019-01-17 18:03] LABS: Total Protein,Urine Random 19.3 mg/dL (0.0-13.5)
== END | disposition home or self-care (01) ==
LOC: LABWHC1 07:45
PROVIDERS: ATTEND Internal Medicine Nephrology
DX: E55.9 Vitamin D deficiency, unspecified (principal); N25.81 Secondary hyperparathyroidism of renal origin; M10.9 Gout, unspecified; N39.0 Urinary tract infection, site not specified; D64.9 Anemia, unspecified; N18.3 Chronic kidney disease, stage 3 (moderate); R80.9 Proteinuria, unspecified
CPT/HCPCS: 36415; 80048; 81001; 82040; 82306; 82570; 82728; 83540; 83550; 83735; 83970; 84100; 84156; 84550; 85025

== ENCOUNTER → 2019-03-07 | Outpatient (CLI) | payer MEDICARE ==
--- NOTE | 2019-03-08 14:10 | MM ---
Reason for exam: screening (asymptomatic). Last mammogram was performed 2 years and 7 months ago. History: Patient is postmenopausal. Family history of breast cancer in mother at age 84. Took estrogen for 13 years 5 months. Physical Findings: A clinical breast exam by your physician is recommended on an annual basis and results should be correlated with mammographic findings. MG 3D Screening Mammo W/Cad Bilateral CC and MLO view(s) were taken. Prior study comparison: August 14, 2016, bilateral MG 3d screening mammo w/cad. May 07, 2015, bilateral MG screening mammo w CAD. There are scattered fibroglandular densities. No significant changes when compared with prior studies. ASSESSMENT: Negative, BI-RAD 1 RECOMMENDATION: Routine screening mammogram of both breasts in 1 year.
== END | disposition home or self-care (01) ==
LOC: RADMAMWWP 14:25
PROVIDERS: ATTEND Family Medicine
DX: Z12.31 Encounter for screening mammogram for malignant neoplasm of breast (principal)
CPT/HCPCS: 77063; 77067

== ENCOUNTER → 2019-07-26 | Outpatient (CLI) | payer MEDICARE ==
[2019-07-26 09:58] LABS: Basophils % (A) 1 %; Eosinophils # (A) 0.2 k/uL (0-0.7); Eosinophils % (A) 3 %; HGB 13.5 gm/dL (11.4-16.0); Lymphocytes # (A) 2.3 k/uL (1.0-4.8); Lymphocytes % (A) 26 %; MCH 30.6 pg (25.0-35.0); MCHC 32.2 g/dL (31.0-37.0); MCV 95.2 fL (80.0-100.0); Mean Platelet Volume 7.8; Monocytes # (A) 0.6 k/uL (0-1.0); Monocytes % (A) 6 %; Neutrophils # (A) 5.5 k/uL (1.3-7.7); Neutrophils % (A) 63 %; Platelet Count 318 k/uL (150-450); RBC 4.41 m/uL (3.80-5.40); RDW 13.4 % (11.5-15.5); WBC 8.8 k/uL (3.8-10.6)
[2019-07-26 10:07] LABS: Protein/Creatinine Ratio,Urine 0.124
[2019-07-26 10:14] LABS: Appearance,Urine Clear (Clear); Bacteria,Urine Moderate /hpf; Bilirubin,Urine Negative (Negative); Blood,Urine Negative (Negative); Color,Urine Yellow; Glucose,Urine (UA) Negative (Negative); Ketones,Urine Negative (Negative); Leukocyte Esterase,Urine Large (Negative); Mucus,Urine Rare /hpf; Nitrite,Urine Negative (Negative); Protein,Urine Trace (Negative); RBC,Urine 3 /hpf (0-5); Specific Gravity,Urine 1.018 (1.001-1.035); Squamous Epithelial Cell,Urine 2 /hpf (0-4); Urobilinogen,Urine <2.0 mg/dL (<2.0); WBC,Urine 16 /hpf (0-5)
[2019-07-26 18:04] LABS: Ferritin 118.5 ng/mL (10.0-291.0)
[2019-07-26 18:05] LABS: % Iron Saturation 20.33 (12.00-45.00); African American GFR (CKD) 47.5 (60.0-200.0); Albumin 4.2 g/dL (3.80-4.90); Albumin/Globulin Ratio 1.62 (1.60-3.17); Anion Gap 6.3 mmol/L (4.00-12.00); BUN/Creat Ratio 17.69 Ratio (12.00-20.00); Calcium 9.8 mg/dL (8.7-10.3); Carbon Dioxide 26.7 mmol/L (21.6-31.8); Chol/HDL Ratio 4.04; Globulin 2.6 g/dL (1.6-3.3); LDL Cholesterol,Calculated 108.4 mg/dL (0.0-131.0); Potassium 4.7 mmol/L (3.5-5.5); Total Bilirubin 0.4 mg/dL (0.3-1.2); Total Protein 6.8 g/dL (6.2-8.2); VLDL Calculation 28.6 mg/dL (5.00-40.00)
[2019-07-26 18:09] LABS: Hemoglobin A1C 9.8 % (4.0-6.0)
[2019-07-27 00:39] LABS: Urine Creatinine 117.4 mg/dL
== END | disposition home or self-care (01) ==
LOC: LABWHC1 08:59
PROVIDERS: ATTEND Nurse Practitioner Family
DX: E11.65 Type 2 diabetes mellitus with hyperglycemia (principal); N18.3 Chronic kidney disease, stage 3 (moderate); D63.1 Anemia in chronic kidney disease; E11.22 Type 2 diabetes mellitus with diabetic chronic kidney disease; R80.9 Proteinuria, unspecified; E55.9 Vitamin D deficiency, unspecified; N39.0 Urinary tract infection, site not specified
CPT/HCPCS: 36415; 80053; 80061; 81001; 82043; 82306; 82570; 82728; 83036; 83540; 83550; 84156; 84443; 85025

== ENCOUNTER → 2020-01-04 | Outpatient (CLI) | payer MEDICARE ==
[2020-01-04 09:26] LABS: Basophils # (A) 0.1 k/uL (0-0.2); Basophils % (A) 1 %; Eosinophils # (A) 0.2 k/uL (0-0.7); Eosinophils % (A) 3 %; HCT 39.6 % (34.0-46.0); HGB 12.9 gm/dL (11.4-16.0); Lymphocytes # (A) 2.2 k/uL (1.0-4.8); Lymphocytes % (A) 32 %; MCH 30.8 pg (25.0-35.0); MCHC 32.6 g/dL (31.0-37.0); MCV 94.6 fL (80.0-100.0); Mean Platelet Volume 7.9; Monocytes # (A) 0.5 k/uL (0-1.0); Monocytes % (A) 7 %; Neutrophils # (A) 3.8 k/uL (1.3-7.7); Neutrophils % (A) 55 %; Platelet Count 278 k/uL (150-450); RBC 4.19 m/uL (3.80-5.40); WBC 6.9 k/uL (3.8-10.6)
[2020-01-04 14:14] LABS: Appearance,Urine Cloudy (Clear); Bacteria,Urine Many /hpf; Bilirubin,Urine Negative (Negative); Blood,Urine Trace (Negative); Color,Urine Yellow; Glucose,Urine (UA) Negative (Negative); Ketones,Urine Negative (Negative); Leukocyte Esterase,Urine Large (Negative); Mucus,Urine Rare /hpf; Nitrite,Urine Negative (Negative); Protein,Urine Trace (Negative); RBC,Urine 16 /hpf (0-5); Specific Gravity,Urine 1.022 (1.001-1.035); Squamous Epithelial Cell,Urine 12 /hpf (0-4); Urobilinogen,Urine <2.0 mg/dL (<2.0); WBC,Urine >182 /hpf (0-5)
[2020-01-04 15:00] LABS: % Iron Saturation 20.63 (12.00-45.00); African American GFR (CKD) 39.6 (60.0-200.0); Anion Gap 8.3 mmol/L (4.00-12.00); Calcium 9.7 mg/dL (8.7-10.3); Carbon Dioxide 26.7 mmol/L (21.6-31.8); Non-African American GFR(CKD) 34.2 (60.0-200.0); Phosphorus 4.8 mg/dL (2.4-5.1); Potassium 4.7 mmol/L (3.5-5.5)
[2020-01-04 15:09] LABS: Ferritin 137.1 ng/mL (10.0-291.0)
[2020-01-04 22:06] LABS: Creatinine,Urine Random 148.5 mg/dL
[2020-01-04 22:10] LABS: Total Protein,Urine Random 37.5 mg/dL (0.0-13.5)
== END | disposition home or self-care (01) ==
LOC: LABWHC1 08:06
PROVIDERS: ATTEND Nurse Practitioner Family
DX: N18.30 Chronic kidney disease, stage 3 unspecified (principal); E55.9 Vitamin D deficiency, unspecified; N39.0 Urinary tract infection, site not specified; D64.9 Anemia, unspecified; R80.9 Proteinuria, unspecified; N25.81 Secondary hyperparathyroidism of renal origin
CPT/HCPCS: 36415; 80048; 81001; 82306; 82570; 82728; 83540; 83550; 83735; 83970; 84100; 84156; 85025

== ENCOUNTER → 2020-02-09 | Outpatient (CLI) | payer MEDICARE ==
[2020-02-09 15:13] LABS: African American GFR (CKD) 47.1 (60.0-200.0); Anion Gap 4.7 mmol/L (4.00-12.00); BUN/Creat Ratio 24.62 Ratio (12.00-20.00); Calcium 9.2 mg/dL (8.7-10.3); Carbon Dioxide 28.3 mmol/L (21.6-31.8); Non-African American GFR(CKD) 40.7 (60.0-200.0); Potassium 4.8 mmol/L (3.5-5.5)
== END | disposition home or self-care (01) ==
LOC: LABWHC1 09:01
PROVIDERS: ATTEND Internal Medicine Nephrology
DX: N18.32 Chronic kidney disease, stage 3b (principal); E55.9 Vitamin D deficiency, unspecified
CPT/HCPCS: 36415; 80048; 82306

== ENCOUNTER 2020-04-21 17:59 | Inpatient (IN) | payer MEDICARE ==
[2020-04-21] MEDS ORDERED: SODIUM CHLORIDE 0.9% 1,000 ML IV STA (18:23)
[2020-04-21 18:25] LABS: Glucose,Whole Blood 569 mg/dL (75-99)
--- NOTE | 2020-04-21 18:26 | ED ---
General Adult HPI - General Chief complaint: Weakness Stated complaint: possible DKA Time Seen by Provider: 04/21/20 18:22 Source: patient, EMS Mode of arrival: EMS Limitations: no limitations - History of Present Illness Initial comments: Dictation was produced using [employer] dictation software. please excuse any grammatical, word or spelling errors. This patient was cared for during a federal and state declared state of emergency secondary to Covid 19 Chief Complaint: 74-year-old female presents with weakness and tremulousness History of Present Illness: 74-year-old female she has past medical history of insulin-dependent diabetes. Over the last week she's been feeling ill. She's been feeling very weak. Patient has insulin pump. She states over last 48 hours for symptoms of been progressively worse. Today she was in the bathroom after using the toilet when she stood up and felt severely weak. She had to sit back down in the chair. EMS was called by family patient was brought to the emergency department. As no pain complaints. She describes some mild nausea. No vomiting. States that she just had her insulin pump changed recently. Point of care blood glucose was measured by EMS was found to be over 600. The ROS documented in this emergency department record has been reviewed and confirmed by me. Those systems with pertinent positive or negative responses have been documented in the HPI. All other systems are other negative and/or noncontributory. PHYSICAL EXAM: General Impression: Alert and oriented x3, tremulous, smell of acetone HEENT: Normocephalic atraumatic, extra-ocular movements intact, pupils equal and reactive to light bilaterally, dry mucous membranes Cardiovascular: Tachycardic Chest: Able to complete full sentences, no retractions, no tachypnea Abdomen: abdomen soft, non-tender, non-distended, no organomegaly Musculoskeletal: Pulses present and equal in all extremities, no peripheral edema Motor: no focal deficits noted Neurological: CN II-XII grossly intact, no focal motor or sensory deficits noted Skin: Intact with no visualized rashes Psych: Normal affect and mood Insulin pump: It appears that there is no medicine and patient's insulin pump ED course: 74-year-old female presents today with generalized weakness and tremulousness. Vital signs upon arrival shows heart rate of 102, rest of vital signs within acceptable limits. Bony care blood glucose shows sugar of 569. Laboratory evaluation obtained. CBC is unremarkable. Venous blood gas shows pH of 7.28 with a bicarb of 20. Sodium 132, potassium 6.5, bicarb 19 with a gap of 17. Elevated renal markers. Glucose 593. Lactic acidosis 3.2. Urinalysis positive for nitrites and 180 white blood cells. Patient started on IV fluid boluses. She is given 1 g ceftriaxone started on insulin drip. Patient re evaluated at bedside approximately 9:10 PM in stable medical condition. Case was discussed with data conversion analyst Dr. Saldivar does not feel patient meets criteria for ICU admission. Patient will be admitted to cardiac telemetry. Case was discussed with Munira Montoya who is willing to accept patients care on behalf of [facility]. EKG interpretation: Ventricular rate 94 normal sinus rhythm, WI interval 176, QRS 80, QTC 427. No WI prolongation, no QTC prolongation, no ST or T-wave changes noted. No EKG for comparison. Overall, this EKG is unremarkable - Related Data Home Medications Medication Instructions Recorded Confirmed Levothyroxine Sodium [Synthroid] 88 mcg PO DAILY 02/22/16 04/21/20 Insulin Aspart (For Pump) [NovoLOG 0.01 unit SQ-PUMP CONTINUOUS 03/23/16 04/21/20 (For Pump)] Acetaminophen Tab [Tylenol Tab] 500 mg PO Q6H PRN 04/21/20 04/21/20 Carvedilol [Coreg] 12.5 mg PO BID 04/21/20 04/21/20 Ergocalciferol [Vitamin D2 (1250 See Taper PO DIRECTED 04/21/20 04/21/20 Mcg = [id number] Iu)] Pioglitazone [Actos] 15 mg PO DAILY 04/21/20 04/21/20 Simvastatin 80 mg PO HS 04/21/20 04/21/20 amLODIPine [Norvasc] 10 mg PO DAILY 04/21/20 04/21/20 metFORMIN HCL ER [Glucophage Xr] 500 mg PO BID 04/21/20 04/21/20 Allergies Allergy/AdvReac Type Severity Reaction Status Date / Time Penicillins Allergy Rash/Hives Verified 04/21/20 19:14 Review of Systems ROS Statement: Those systems with pertinent positive or pertinent negative responses have been documented in the HPI. ROS Other: All systems not noted in ROS Statement are negative. Past Medical History Past Medical History: Diabetes Mellitus, Hyperlipidemia, Hypertension, Thyroid Disorder History of Any Multi-Drug Resistant Organisms: None Reported Past Surgical History: Hysterectomy Past Psychological History: Depression Smoking Status: Smoker, current status unknown Past Alcohol Use History: None Reported Past Drug Use History: None Reported General Exam Limitations: no limitations Course Vital Signs 04/21/20 04/21/20 04/21/20 18:07 18:22 20:00 Temperature 97.7 F Pulse Rate 102 H 90 Respiratory 24 24 18 Rate Blood Pressure 165/66 152/40 O2 Sat by Pulse 93 L 92 L Oximetry Medical Decision Making - Lab Data Result diagrams: 04/21/20 18:39 04/21/20 18:39 Lab Results 04/21/20 04/21/20 04/21/20 Range/Units 18:19 18:39 18:39 WBC 8.2 (3.8-10.6) k/uL RBC 4.56 (3.80-5.40) m/uL Hgb 13.9 (11.4-16.0) gm/dL Hct 42.7 (34.0-46.0) % MCV 93.6 (80.0-100.0) fL MCH 30.5 (25.0-35.0) pg MCHC 32.6 (31.0-37.0) g/dL RDW 13.5 (11.5-15.5) % Plt Count 151 (150-450) k/uL MPV 8.8 Neutrophils % 83 % Lymphocytes % 10 % Monocytes % 4 % Eosinophils % 1 % Basophils % 1 % Neutrophils # 6.8 (1.3-7.7) k/uL Lymphocytes # 0.8 L (1.0-4.8) k/uL Monocytes # 0.4 (0-1.0) k/uL Eosinophils # 0.1 (0-0.7) k/uL Basophils # 0.1 (0-0.2) k/uL VBG pH (7.31-7.41) VBG pCO2 (37-51) mmHg VBG HCO3 (24-28) mmol/L Sodium 132 L (137-145) mmol/L Potassium 6.5 H* (3.5-5.1) mmol/L Chloride 96 L (98-107) mmol/L Carbon Dioxide 19 L (22-30) mmol/L Anion Gap 17 mmol/L BUN 67 H (7-17) mg/dL Creatinine 1.99 H (0.52-1.04) mg/dL Est GFR (CKD-EPI)AfAm 28 (>60 ml/min/1.73 sqM) Est GFR (CKD-EPI)NonAf 24 (>60 ml/min/1.73 sqM) Glucose 593 H* (74-99) mg/dL POC Glucose (mg/dL) 569 H (75-99) mg/dL POC Glu [employer] ID Trisha South Plasma Lactic Acid Steve (0.7-2.0) mmol/L Calcium 8.9 (8.4-10.2) mg/dL Magnesium 2.6 H (1.6-2.3) mg/dL Total Bilirubin 0.8 (0.2-1.3) mg/dL AST 81 H (14-36) U/L ALT 35 H (4-34) U/L Alkaline Phosphatase 46 (38-126) U/L Total Protein 7.7 (6.3-8.2) g/dL Albumin 4.4 (3.5-5.0) g/dL Urine Color Urine Appearance (Clear) Urine pH (5.0-8.0) Ur Specific [place] (1.001-1.035) Urine Protein (Negative) Urine Glucose (UA) (Negative) Urine Ketones (Negative) Urine Blood (Negative) Urine Nitrite (Negative) Urine Bilirubin (Negative) Urine Urobilinogen (<2.0) mg/dL Ur Leukocyte Esterase (Negative) Urine RBC (0-5) /hpf Urine WBC (0-5) /hpf Urine WBC Clumps (None) /hpf Amorphous Sediment (None) /hpf Urine Bacteria (None) /hpf Urine Yeast (Budding) (None) /hpf 04/21/20 04/21/20 04/21/20 Range/Units 18:39 18:39 20:04 WBC (3.8-10.6) k/uL RBC (3.80-5.40) m/uL Hgb (11.4-16.0) gm/dL Hct (34.0-46.0) % MCV (80.0-100.0) fL MCH (25.0-35.0) pg MCHC (31.0-37.0) g/dL RDW (11.5-15.5) % Plt Count (150-450) k/uL MPV Neutrophils % % Lymphocytes % % Monocytes % % Eosinophils % % Basophils % % Neutrophils # (1.3-7.7) k/uL Lymphocytes # (1.0-4.8) k/uL Monocytes # (0-1.0) k/uL Eosinophils # (0-0.7) k/uL Basophils # (0-0.2) k/uL VBG pH 7.28 L (7.31-7.41) VBG pCO2 44 (37-51) mmHg VBG HCO3 20 L (24-28) mmol/L Sodium (137-145) mmol/L Potassium (3.5-5.1) mmol/L Chloride (98-107) mmol/L Carbon Dioxide (22-30) mmol/L Anion Gap mmol/L BUN (7-17) mg/dL Creatinine (0.52-1.04) mg/dL Est GFR (CKD-EPI)AfAm (>60 ml/min/1.73 sqM) Est GFR (CKD-EPI)NonAf (>60 ml/min/1.73 sqM) Glucose (74-99) mg/dL POC Glucose (mg/dL) (75-99) mg/dL POC Glu [employer] ID Plasma Lactic Acid Steve 3.2 H* (0.7-2.0) mmol/L Calcium (8.4-10.2) mg/dL Magnesium (1.6-2.3) mg/dL Total Bilirubin (0.2-1.3) mg/dL AST (14-36) U/L ALT (4-34) U/L Alkaline Phosphatase (38-126) U/L Total Protein (6.3-8.2) g/dL Albumin (3.5-5.0) g/dL Urine Color Light Yellow Urine Appearance Cloudy H (Clear) Urine pH 5.5 (5.0-8.0) Ur Specific [place] 1.019 (1.001-1.035) Urine Protein 1+ H (Negative) Urine Glucose (UA) 4+ H (Negative) Urine Ketones 1+ H (Negative) Urine Blood Moderate H (Negative) Urine Nitrite Positive H (Negative) Urine Bilirubin Negative (Negative) Urine Urobilinogen <2.0 (<2.0) mg/dL Ur Leukocyte Esterase Large H (Negative) Urine RBC 5 (0-5) /hpf Urine WBC 180 H (0-5) /hpf Urine WBC Clumps Many H (None) /hpf Amorphous Sediment Rare H (None) /hpf Urine Bacteria Many H (None) /hpf Urine Yeast (Budding) Rare H (None) /hpf 04/21/20 Range/Units 20:27 WBC (3.8-10.6) k/uL RBC (3.80-5.40) m/uL Hgb (11.4-16.0) gm/dL Hct (34.0-46.0) % MCV (80.0-100.0) fL MCH (25.0-35.0) pg MCHC (31.0-37.0) g/dL RDW (11.5-15.5) % Plt Count (150-450) k/uL MPV Neutrophils % % Lymphocytes % % Monocytes % % Eosinophils % % Basophils % % Neutrophils # (1.3-7.7) k/uL Lymphocytes # (1.0-4.8) k/uL Monocytes # (0-1.0) k/uL Eosinophils # (0-0.7) k/uL Basophils # (0-0.2) k/uL VBG pH (7.31-7.41) VBG pCO2 (37-51) mmHg VBG HCO3 (24-28) mmol/L Sodium (137-145) mmol/L Potassium (3.5-5.1) mmol/L Chloride (98-107) mmol/L Carbon Dioxide (22-30) mmol/L Anion Gap mmol/L BUN (7-17) mg/dL Creatinine (0.52-1.04) mg/dL Est GFR (CKD-EPI)AfAm (>60 ml/min/1.73 sqM) Est GFR (CKD-EPI)NonAf (>60 ml/min/1.73 sqM) Glucose (74-99) mg/dL POC Glucose (mg/dL) 555 H (75-99) mg/dL POC Glu Dean Of [employer] ID Corey Potts Plasma Lactic Acid Steve (0.7-2.0) mmol/L Calcium (8.4-10.2) mg/dL Magnesium (1.6-2.3) mg/dL Total Bilirubin (0.2-1.3) mg/dL AST (14-36) U/L ALT (4-34) U/L Alkaline Phosphatase (38-126) U/L Total Protein (6.3-8.2) g/dL Albumin (3.5-5.0) g/dL Urine Color Urine Appearance (Clear) Urine pH (5.0-8.0) Ur Specific [place] (1.001-1.035) Urine Protein (Negative) Urine Glucose (UA) (Negative) Urine Ketones (Negative) Urine Blood (Negative) Urine Nitrite (Negative) Urine Bilirubin (Negative) Urine Urobilinogen (<2.0) mg/dL Ur Leukocyte Esterase (Negative) Urine RBC (0-5) /hpf Urine WBC (0-5) /hpf Urine WBC Clumps (None) /hpf Amorphous Sediment (None) /hpf Urine Bacteria (None) /hpf Urine Yeast (Budding) (None) /hpf Disposition Clinical Impression: DKA (diabetic ketoacidoses), UTI (urinary tract infection) Disposition: ADMITTED IP TO THIS [facility] Condition: Fair Referrals: Osbaldo Maec DO [Primary Care Provider] - 1-2 days Decision Time: 21:10
[2020-04-21 19:22] LABS: Basophils # (A) 0.1 k/uL (0-0.2); Basophils % (A) 1 %; Eosinophils # (A) 0.1 k/uL (0-0.7); Eosinophils % (A) 1 %; HCT 42.7 % (34.0-46.0); HGB 13.9 gm/dL (11.4-16.0); Lymphocytes # (A) 0.8 k/uL (1.0-4.8); Lymphocytes % (A) 10 %; MCH 30.5 pg (25.0-35.0); MCHC 32.6 g/dL (31.0-37.0); MCV 93.6 fL (80.0-100.0); Mean Platelet Volume 8.8; Monocytes # (A) 0.4 k/uL (0-1.0); Monocytes % (A) 4 %; Neutrophils # (A) 6.8 k/uL (1.3-7.7); Neutrophils % (A) 83 %; Platelet Count 151 k/uL (150-450); RBC 4.56 m/uL (3.80-5.40); RDW 13.5 % (11.5-15.5); WBC 8.2 k/uL (3.8-10.6)
[2020-04-21 19:27] LABS: VBG PH 7.28 (7.31-7.41)
[2020-04-21 19:45] LABS: Albumin 4.4 g/dL (3.5-5.0); Calcium 8.9 mg/dL (8.4-10.2); Magnesium 2.6 mg/dL (1.6-2.3); Total Bilirubin 0.8 mg/dL (0.2-1.3); Total Protein 7.7 g/dL (6.3-8.2)
[2020-04-21 19:46] LABS: Potassium 6.5 mmol/L (3.5-5.1)
[2020-04-21] MEDS ORDERED: INSULIN REGULAR BOLUS (FROM DRIP BAG) IV ONE (20:06)
[2020-04-21] MEDS ORDERED: INSULIN REGULAR 100 UNIT in SODIUM CHLORIDE 0.9% 100 ML IV SCH (20:15)
[2020-04-21] MEDS ORDERED: SODIUM CHLORIDE 0.9% 1,000 ML IV SCH (20:15)
[2020-04-21 20:20] LABS: Amorphous Sediment,Urine Rare /hpf; Appearance,Urine Cloudy (Clear); Bacteria,Urine Many /hpf; Bilirubin,Urine Negative (Negative); Blood,Urine Moderate (Negative); Budding Yeast,Urine Rare /hpf; Color,Urine Light Yellow; Glucose,Urine (UA) 4+ (Negative); Ketones,Urine 1+ (Negative); Leukocyte Esterase,Urine Large (Negative); Nitrite,Urine Positive (Negative); PH, Urine 5.5 (5.0-8.0); Protein,Urine 1+ (Negative); RBC,Urine 5 /hpf (0-5); Specific Gravity,Urine 1.019 (1.001-1.035); Urobilinogen,Urine <2.0 mg/dL (<2.0); WBC,Urine 180 /hpf (0-5)
[2020-04-21 20:28] LABS: Glucose,Whole Blood 555 mg/dL (75-99)
[2020-04-21] MEDS ORDERED: cefTRIAXone IN SWFI 1,000 MG/10 ML SYRINGE IVP STA (20:57)
[2020-04-21] MEDS ORDERED: NALOXONE 0.4 MG/ML 1 ML VIAL IV PRN (21:10)
[2020-04-21 21:36] LABS: Glucose,Whole Blood 474 mg/dL (75-99)
[2020-04-21 23:09] LABS: Glucose,Whole Blood 382 mg/dL (75-99)
[2020-04-21] MEDS ORDERED: Potassium Replacement Protocol 1 EACH MISC MISCELLANE PRN (23:17)
[2020-04-21] MEDS ORDERED: Magnesium Replacement Protocol 1 EACH MISC MISCELLANE PRN (23:17)
[2020-04-21] MEDS: SODIUM CHLORIDE 0.9% 1,000 ML IV SCH (23:30)
[2020-04-21] MEDS: INSULIN REGULAR 100 UNIT in SODIUM CHLORIDE 0.9% 100 ML IV SCH (23:32)
[2020-04-21 23:58] LABS: Glucose,Whole Blood 367 mg/dL (75-99)
[2020-04-22] MEDS: SODIUM CHLORIDE 0.9% 1,000 ML IV SCH ×3 (00:06→12:53)
[2020-04-22 00:52] LABS: African American GFR (CKD) 34 (>60 ml/min/1.73 sqM); Anion Gap 14 mmol/L; Blood Urea Nitrogen 60 mg/dL (7-17); Carbon Dioxide 17 mmol/L (22-30); Chloride 105 mmol/L (98-107); Glucose 432 mg/dL (74-99); Non-African American GFR(CKD) 30 (>60 ml/min/1.73 sqM); Phosphorus 2.8 mg/dL (2.5-4.5); Potassium 5.1 mmol/L (3.5-5.1); Sodium 136 mmol/L (137-145)
[2020-04-22 00:56] LABS: Glucose,Whole Blood 325 mg/dL (75-99)
[2020-04-22 01:57] LABS: Glucose,Whole Blood 281 mg/dL (75-99)
[2020-04-22 03:03] LABS: Glucose,Whole Blood 267 mg/dL (75-99)
[2020-04-22 04:13] LABS: Glucose,Whole Blood 195 mg/dL (75-99)
[2020-04-22 04:37] LABS: Phosphorus 2.5 mg/dL (2.5-4.5); Potassium 4.8 mmol/L (3.5-5.1)
[2020-04-22 05:17] LABS: Glucose,Whole Blood 167 mg/dL (75-99)
[2020-04-22 06:00] LABS: Glucose,Whole Blood 108 mg/dL (75-99)
[2020-04-22 07:18] LABS: Glucose,Whole Blood 73 mg/dL (75-99)
[2020-04-22 08:02] LABS: Glucose,Whole Blood 87 mg/dL (75-99)
[2020-04-22 08:36] LABS: Glucose,Whole Blood 104 mg/dL (75-99)
[2020-04-22] MEDS: ACETAMINOPHEN TAB 325 MG TAB PO PRN (08:48)
[2020-04-22 09:37] LABS: Glucose,Whole Blood 130 mg/dL (75-99)
[2020-04-22] MEDS ORDERED: ACETAMINOPHEN IV (For NPO) 1,000 MG in EMPTY BAG 1 BAG IVPB ONE (10:01)
[2020-04-22 10:40] LABS: Glucose,Whole Blood 137 mg/dL (75-99)
[2020-04-22] MEDS ORDERED: INSULIN DETEMIR (LEVEMIR) 100 UNIT/ML SYR SQ SCH (11:00)
[2020-04-22 11:34] LABS: Glucose,Whole Blood 188 mg/dL (75-99)
[2020-04-22] MEDS: ASCORBIC ACID 500 MG TAB PO SCH (11:38)
[2020-04-22] MEDS: dexAMETHasone 2 MG TAB PO SCH (11:38)
[2020-04-22] MEDS: ZINC SULFATE 220 MG CAP PO SCH (11:38)
[2020-04-22] MEDS: INSULIN ASPART (NovoLOG) 100 UNIT/ML VIAL SQ SCH ×6 (11:41→20:46)
[2020-04-22 11:50] LABS: Albumin 2.9 g/dL (3.5-5.0); Calcium 7.9 mg/dL (8.4-10.2); Potassium 4.8 mmol/L (3.5-5.1); Total Bilirubin 0.4 mg/dL (0.2-1.3); Total Protein 5.7 g/dL (6.3-8.2)
[2020-04-22] MEDS ORDERED: REMDESIVIR 200 MG in SODIUM CHLORIDE 0.9% 250 ML IVPB ONE (12:00)
[2020-04-22 12:08] LABS: C Reactive Protein 143.7 mg/L (<10.0)
--- NOTE | 2020-04-22 12:22 | XR ---
EXAMINATION TYPE: XR chest 1V portable DATE OF EXAM: 04/22/2020 CLINICAL HISTORY: Difficulty breathing progress study. Covid +. TECHNIQUE: Single AP portable upright view of the chest is obtained. COMPARISON: Chest x-ray from March 23, 2016 FINDINGS: There is diminished inspiration with multifocal bilateral opacities greatest in the left l [place]. No significant pleural effusion or pneumothorax seen bilaterally. Cardiac silhouette size f elt to remain within normal limits, silhouetting of left heart border noted. Osseous structures are i ntact. IMPRESSION: Diminished inspiration with bilateral multifocal acute opacities consistent with history of covid 19 infection.
[2020-04-22] MEDS: INSULIN REGULAR 100 UNIT in SODIUM CHLORIDE 0.9% 100 ML IV SCH (12:35)
[2020-04-22] MEDS: CHOLECALCIFEROL 10 MCG (400 IU) TABLET PO SCH (12:52)
--- NOTE | 2020-04-22 13:20 | P.CNPUL ---
History of Present Illness Consult date: 04/22/20 Requesting physician: Ernesto Portillo Reason for consult: dyspnea, abnormal CXR/CT Chief complaint: Generalized weakness, fatigue History of present illness: This is a pleasant 74-year-old female patient who follows with Dr. Mace as her primary care physician. She has a history of hypertension, hyperlipidemia, hypothyroidism, depression, chronic tobacco dependence, diabetes mellitus with insulin pump. Yesterday she was brought into the emergency room via EMS after developing progressive weakness over the past week. She was unable to get herself up from a chair. Point of care blood glucose measured by EMS was over 600. Urine was positive for nitrates and 180 WBCs. She was given IV fluid boluses. Ceftriaxone and initiated on a heparin drip and admitted to the selective care unit. White count 8.2. Hemoglobin 13.9. Lymphocytes 0.8. Sodium 132. Potassium initially 6.5, currently 4.8 bicarb 19. Anion gap 17 currently 6. Creatinine 1.99. Improved to 1.43. She was found to be positive for munoz virus by PCR. He is seen today in consultation as her oxygen requirements have increased from 6 L to AirVo this morning. Presently on 60 L and 90% FiO2. Temperature 101.7. She is quite weak and fatigued. Chest x-ray revealing bilateral multifocal acute opacities consistent with CoVID 19 infection. Stat labs revealed a d-dimer of 0.83. LDH 1518. C-reactive protein 143. Review of Systems REVIEW OF SYSTEMS: CONSTITUTIONAL: Generalized weakness, fatigue. Denies any recent significant weight loss or weight gain. EYES: Denies change in vision. EARS, NOSE, MOUTH, THROAT: Denies headaches, denies sore throat. CARDIOVASCULAR: Denies chest pain, palpitations or syncopal episodes. RESPIRATORY: Positive for shortness of breath, cough, congestion no hemoptysis. GASTROINTESTINAL: Positive for nausea, no vomiting GENITOURINARY: Denies hematuria, denies infections. MUSKULOSKELETAL: Denies pain, denies swelling. INTEGUMENTARY: Denies rash, denies eczema. NEUROLOGICAL: Denies recent memory loss, no recent seizure activity. PSYCHIATRIC: Denies anxiety, denies depression. HEMATOLOGIC/LYMPHATIC: Denies anemia, denies enlarged lymph nodes. Past Medical History Past Medical History: Diabetes Mellitus, Hyperlipidemia, Hypertension, Thyroid Disorder History of Any Multi-Drug Resistant Organisms: None Reported Past Surgical History: Hysterectomy Past Anesthesia/Blood Transfusion Reactions: No Reported Reaction Past Psychological History: Depression Smoking Status: Former smoker, Smoker, current status unknown Past Alcohol Use History: None Reported Past Drug Use History: None Reported Medications and Allergies Home Medications Medication Instructions Recorded Confirmed Type Levothyroxine Sodium [Synthroid] 88 mcg PO DAILY 02/22/16 04/21/20 History Insulin Aspart (For Pump) [NovoLOG 0.01 unit SQ-PUMP CONTINUOUS 03/23/16 04/21/20 History (For Pump)] Acetaminophen Tab [Tylenol Tab] 500 mg PO Q6H PRN 04/21/20 04/21/20 History Carvedilol [Coreg] 12.5 mg PO BID 04/21/20 04/21/20 History Ergocalciferol [Vitamin D2 (1250 See Taper PO DIRECTED 04/21/20 04/21/20 History Mcg = 18665 Iu)] Pioglitazone [Actos] 15 mg PO DAILY 04/21/20 04/21/20 History Simvastatin 80 mg PO HS 04/21/20 04/21/20 History amLODIPine [Norvasc] 10 mg PO DAILY 04/21/20 04/21/20 History metFORMIN HCL ER [Glucophage Xr] 500 mg PO BID 04/21/20 04/21/20 History Allergies Allergy/AdvReac Type Severity Reaction Status Date / Time Penicillins Allergy Rash/Hives Verified 04/21/20 19:14 Physical Exam Vitals: Vital Signs Temp Pulse Pulse Resp BP BP Pulse Ox 04/22/20 12:00 98.9 F 79 26 H 114/56 04/22/20 11:10 91 L 04/22/20 10:35 101.7 F H 04/22/20 10:13 91 L 04/22/20 09:14 94 L 04/22/20 08:50 26 H 93 L 04/22/20 08:40 103.2 F H 79 26 H 137/51 77 L 04/22/20 04:16 90 L 04/22/20 03:39 98.9 F 86 22 112/52 89 L 04/22/20 01:52 80 28 H 04/22/20 00:00 80 28 H 126/52 89 L 04/21/20 22:52 99.2 F 80 28 H 126/52 89 L 04/21/20 22:29 92 16 133/84 92 L 04/21/20 21:32 84 18 155/67 91 L 04/21/20 20:00 90 18 152/40 92 L 04/21/20 18:22 24 04/21/20 18:07 97.7 F 102 H 24 165/66 93 L Intake and Output 04/21/20 04/22/20 04/22/20 22:59 06:59 14:59 Intake Total 73.718 2413.737 Output Total 225 400 Balance -766.050 9398.737 Intake: IV 1600 Sodium Chloride 0.9% 1, 1600 000 ml @ 200 mls/hr IV . Q5H FIORDALIZA Rx#:[id number] Intake, IV Titration 73.718 13.737 Amount Insulin Regular 100 unit 73.718 13.737 In Sodium Chloride 0.9% 100 ml @ 0.1 UNITS/KG/HR 8.475 mls/hr IV .[id number] FIORDALIZA Rx#:[id number] Oral 800 Output: Urine 225 400 Other: Voiding Method Indwelling Catheter Indwelling Catheter Weight 83.915 kg 107.5 kg GENERAL EXAM: Alert, weak, fatigued 74-year-old female patient, on AirVo at 60 L and 90% FiO2, and mild aspiratory distress. HEAD: Normocephalic. EYES: Normal reaction of pupils, equal size. NOSE: Clear with pink turbinates. THROAT: No erythema or exudates. NECK: No masses, no JVD. CHEST: No chest wall deformity. LUNGS: Bilateral scattered rhonchi. CVS: S1 and S2 normal with no audible murmur, regular rhythm. ABDOMEN: No hepatosplenomegaly, normal bowel sounds, no guarding or rigidity. SPINE: No scoliosis or deformity SKIN: No rashes CENTRAL NERVOUS SYSTEM: No focal deficits, tone is normal in all 4 extremities. EXTREMITIES: There is no peripheral edema. No clubbing, no cyanosis. Peripheral pulses are intact. Results - Laboratory Findings CBC and BMP: 04/21/20 18:39 04/22/20 11:13 PT/INR, D-dimer D-Dimer 0.83 mg/L FEU (<0.60) H 04/22/20 11:13 Abnormal lab findings: Abnormal Labs 04/21/20 04/21/20 04/21/20 18:19 18:39 18:39 Lymphocytes # 0.8 L D-Dimer VBG pH VBG HCO3 Sodium 132 L Potassium 6.5 H* Chloride 96 L Carbon Dioxide 19 L BUN 67 H Creatinine 1.99 H Glucose 593 H* POC Glucose (mg/dL) 569 H Plasma Lactic Acid Steve Calcium Magnesium 2.6 H AST 81 H ALT 35 H Alkaline Phosphatase Lactate Dehydrogenase C-Reactive Protein Total Protein Albumin Urine Appearance Urine Protein Urine Glucose (UA) Urine Ketones Urine Blood Urine Nitrite Ur Leukocyte Esterase Urine WBC Urine WBC Clumps Amorphous Sediment Urine Bacteria Urine Yeast (Budding) Coronavirus (PCR) 04/21/20 04/21/20 04/21/20 18:39 18:39 20:04 Lymphocytes # D-Dimer VBG pH 7.28 L VBG HCO3 20 L Sodium Potassium Chloride Carbon Dioxide BUN Creatinine Glucose POC Glucose (mg/dL) Plasma Lactic Acid Steve 3.2 H* Calcium Magnesium AST ALT Alkaline Phosphatase Lactate Dehydrogenase C-Reactive Protein Total Protein Albumin Urine Appearance Cloudy H Urine Protein 1+ H Urine Glucose (UA) 4+ H Urine Ketones 1+ H Urine Blood Moderate H Urine Nitrite Positive H Ur Leukocyte Esterase Large H Urine WBC 180 H Urine WBC Clumps Many H Amorphous Sediment Rare H Urine Bacteria Many H Urine Yeast (Budding) Rare H Coronavirus (PCR) 04/21/20 04/21/20 04/21/20 20:27 21:27 21:34 Lymphocytes # D-Dimer VBG pH VBG HCO3 Sodium Potassium Chloride Carbon Dioxide BUN Creatinine Glucose POC Glucose (mg/dL) 555 H 474 H Plasma Lactic Acid Steve Calcium Magnesium AST ALT Alkaline Phosphatase Lactate Dehydrogenase C-Reactive Protein Total Protein Albumin Urine Appearance Urine Protein Urine Glucose (UA) Urine Ketones Urine Blood Urine Nitrite Ur Leukocyte Esterase Urine WBC Urine WBC Clumps Amorphous Sediment Urine Bacteria Urine Yeast (Budding) Coronavirus (PCR) Detected A 04/21/20 04/21/20 04/22/20 23:08 23:56 00:27 Lymphocytes # D-Dimer VBG pH VBG HCO3 Sodium 136 L Potassium Chloride Carbon Dioxide 17 L BUN 60 H Creatinine 1.70 H Glucose 432 H POC Glucose (mg/dL) 382 H 367 H Plasma Lactic Acid Steve Calcium Magnesium AST ALT Alkaline Phosphatase Lactate Dehydrogenase C-Reactive Protein Total Protein Albumin Urine Appearance Urine Protein Urine Glucose (UA) Urine Ketones Urine Blood Urine Nitrite Ur Leukocyte Esterase Urine WBC Urine WBC Clumps Amorphous Sediment Urine Bacteria Urine Yeast (Budding) Coronavirus (PCR) 04/22/20 04/22/20 04/22/20 00:55 01:56 03:01 Lymphocytes # D-Dimer VBG pH VBG HCO3 Sodium Potassium Chloride Carbon Dioxide BUN Creatinine Glucose POC Glucose (mg/dL) 325 H 281 H 267 H Plasma Lactic Acid Steve Calcium Magnesium AST ALT Alkaline Phosphatase Lactate Dehydrogenase C-Reactive Protein Total Protein Albumin Urine Appearance Urine Protein Urine Glucose (UA) Urine Ketones Urine Blood Urine Nitrite Ur Leukocyte Esterase Urine WBC Urine WBC Clumps Amorphous Sediment Urine Bacteria Urine Yeast (Budding) Coronavirus (PCR) 04/22/20 04/22/20 04/22/20 04:10 04:13 05:16 Lymphocytes # D-Dimer VBG pH VBG HCO3 Sodium Potassium Chloride Carbon Dioxide BUN 55 H Creatinine 1.54 H Glucose 221 H POC Glucose (mg/dL) 195 H 167 H Plasma Lactic Acid Steve Calcium Magnesium AST ALT Alkaline Phosphatase Lactate Dehydrogenase C-Reactive Protein Total Protein Albumin Urine Appearance Urine Protein Urine Glucose (UA) Urine Ketones Urine Blood Urine Nitrite Ur Leukocyte Esterase Urine WBC Urine WBC Clumps Amorphous Sediment Urine Bacteria Urine Yeast (Budding) Coronavirus (PCR) 04/22/20 04/22/20 04/22/20 05:59 07:16 08:24 Lymphocytes # D-Dimer VBG pH VBG HCO3 Sodium Potassium Chloride Carbon Dioxide BUN Creatinine Glucose POC Glucose (mg/dL) 108 H 73 L 104 H Plasma Lactic Acid Steve Calcium Magnesium AST ALT Alkaline Phosphatase Lactate Dehydrogenase C-Reactive Protein Total Protein Albumin Urine Appearance Urine Protein Urine Glucose (UA) Urine Ketones Urine Blood Urine Nitrite Ur Leukocyte Esterase Urine WBC Urine WBC Clumps Amorphous Sediment Urine Bacteria Urine Yeast (Budding) Coronavirus (PCR) 04/22/20 04/22/20 04/22/20 09:25 10:28 11:13 Lymphocytes # D-Dimer VBG pH VBG HCO3 Sodium Potassium Chloride 111 H Carbon Dioxide 21 L BUN 44 H Creatinine 1.43 H Glucose 138 H POC Glucose (mg/dL) 130 H 137 H Plasma Lactic Acid Steve Calcium 7.9 L Magnesium AST 65 H ALT Alkaline Phosphatase 31 L Lactate Dehydrogenase 1518 H C-Reactive Protein 143.7 H Total Protein 5.7 L Albumin 2.9 L Urine Appearance Urine Protein Urine Glucose (UA) Urine Ketones Urine Blood Urine Nitrite Ur Leukocyte Esterase Urine WBC Urine WBC Clumps Amorphous Sediment Urine Bacteria Urine Yeast (Budding) Coronavirus (PCR) 04/22/20 04/22/20 11:13 11:33 Lymphocytes # D-Dimer 0.83 H VBG pH VBG HCO3 Sodium Potassium Chloride Carbon Dioxide BUN Creatinine Glucose POC Glucose (mg/dL) 188 H Plasma Lactic Acid Steve Calcium Magnesium AST ALT Alkaline Phosphatase Lactate Dehydrogenase C-Reactive Protein Total Protein Albumin Urine Appearance Urine Protein Urine Glucose (UA) Urine Ketones Urine Blood Urine Nitrite Ur Leukocyte Esterase Urine WBC Urine WBC Clumps Amorphous Sediment Urine Bacteria Urine Yeast (Budding) Coronavirus (PCR) - Diagnostic Findings Chest x-ray: image reviewed Assessment and Plan Assessment: 1 Generalized weakness and fatigue secondary to hyperglycemia, maintained on insulin pump in the outpatient setting 2 Acute hypoxic respiratory failure secondary to acute CoVID 19 pneumonia. Currently on AirVo high flow at 60 L and 90% FiO2 3 Acute CoVID 19 infection, initiated on Remdesivir and convalescent plasma 04/22/2020 4 Elevated inflammatory markers secondary to above 5 Febrile illness secondary to above 6 Acute urinary tract infection, cultures pending 7 Diabetes mellitus 8 History of hypertension 9 Hyperlipidemia 10 Vitamin D deficiency Plan: The patient was seen and evaluated by Dr. Saldivar Chest x-ray and labs reviewed Transfer the patient to the intensive care unit Initiate Remdesivir, convalescent plasma Started on dexamethasone, Lovenox, vitamin supplements Continue AirVo, titrate FiO2 as tolerated Repeat chest x-ray and labs in a.m. Condition is guarded We'll continue to follow and make further recommendations based on her clinical status I, the cosigning physician, performed a history & physical examination of the patient. Lungs sounds bilateral scattered rhonchi. Maintaining good O2 saturations in the 90s on AirVo high flow at 60 L and 90% FiO2. I discussed the assessment and plan of care with my nurse practitioner, Mojgan Weston. I attest to the above consultation as dictated by her. Time with Patient: Greater than 30
[2020-04-22 13:29] LABS: Glucose,Whole Blood 187 mg/dL (75-99)
--- NOTE | 2020-04-22 14:08 | P.HPIM ---
History of Present Illness Patient is a pleasant 74-year-old the female came in with compensative generalized weakness and tiredness. Patient is found to be in diabetic ketoacidosis with anion gap of around 17 patient sugars was in 600 patient was started on DKA protocol was started on IV insulin. Patient also having fevers and patient is in respiratory failure requiring high flow oxygen via airvo. Patient is found to have elevated inflammatory markers and was found to have positive cough with 19. Presently anion gap resolved patient will be transiti oned to subcutaneous insulin. She does use insulin pump and patient is a poor historian cannot give me a very good history because of which I cannot figure out how much insulin she takes. Patient will be empirically started on 30 units of long-acting insulin as patient is being started on Decadron as well. Along with fair 5 units of pre-meal insulin and sliding scale. Patient will be closely monitored. Patient is also found to be in acute renal failure creatinine of 1.9 and improved to 1.43. Review of Systems Except those mentioned above rest of the review of systems is negative I would opt and much of the review of systems because of her overall clinical condition and the Past Medical History Past Medical History: Diabetes Mellitus, Hyperlipidemia, Hypertension, Thyroid Disorder History of Any Multi-Drug Resistant Organisms: None Reported Past Surgical History: Hysterectomy Past Anesthesia/Blood Transfusion Reactions: No Reported Reaction Past Psychological History: Depression Smoking Status: Former smoker, Smoker, current status unknown Past Alcohol Use History: None Reported Past Drug Use History: None Reported Medications and Allergies Home Medications Medication Instructions Recorded Confirmed Type Levothyroxine Sodium [Synthroid] 88 mcg PO DAILY 02/22/16 04/21/20 History Insulin Aspart (For Pump) [NovoLOG 0.01 unit SQ-PUMP CONTINUOUS 03/23/16 04/21/20 History (For Pump)] Acetaminophen Tab [Tylenol Tab] 500 mg PO Q6H PRN 04/21/20 04/21/20 History Carvedilol [Coreg] 12.5 mg PO BID 04/21/20 04/21/20 History Ergocalciferol [Vitamin D2 (1250 See Taper PO DIRECTED 04/21/20 04/21/20 History Mcg = 47341 Iu)] Pioglitazone [Actos] 15 mg PO DAILY 04/21/20 04/21/20 History Simvastatin 80 mg PO HS 04/21/20 04/21/20 History amLODIPine [Norvasc] 10 mg PO DAILY 04/21/20 04/21/20 History metFORMIN HCL ER [Glucophage Xr] 500 mg PO BID 04/21/20 04/21/20 History Allergies Allergy/AdvReac Type Severity Reaction Status Date / Time Penicillins Allergy Rash/Hives Verified 04/21/20 19:14 Physical Exam Vitals: Vital Signs Temp Pulse Pulse Resp BP BP Pulse Ox 04/22/20 12:00 98.9 F 79 26 H 114/56 04/22/20 11:10 91 L 04/22/20 10:35 101.7 F H 04/22/20 10:13 91 L 04/22/20 09:14 94 L 04/22/20 08:50 26 H 93 L 04/22/20 08:40 103.2 F H 79 26 H 137/51 77 L 04/22/20 04:16 90 L 04/22/20 03:39 98.9 F 86 22 112/52 89 L 04/22/20 01:52 80 28 H 04/22/20 00:00 80 28 H 126/52 89 L 04/21/20 22:52 99.2 F 80 28 H 126/52 89 L 04/21/20 22:29 92 16 133/84 92 L 04/21/20 21:32 84 18 155/67 91 L 04/21/20 20:00 90 18 152/40 92 L 04/21/20 18:22 24 04/21/20 18:07 97.7 F 102 H 24 165/66 93 L Intake and Output 04/21/20 04/22/20 04/22/20 22:59 06:59 14:59 Intake Total 73.718 2413.737 Output Total 225 400 Balance -385.372 3809.737 Intake: IV 1600 Sodium Chloride 0.9% 1, 1600 000 ml @ 200 mls/hr IV . Q5H FIORDALIZA Rx#:[id number] Intake, IV Titration 73.718 13.737 Amount Insulin Regular 100 unit 73.718 13.737 In Sodium Chloride 0.9% 100 ml @ 0.1 UNITS/KG/HR 8.475 mls/hr IV .[id number] FIORDALIZA Rx#:[id number] Oral 800 Output: Urine 225 400 Other: Voiding Method Indwelling Catheter Indwelling Catheter Weight 83.915 kg 107.5 kg PHYSICAL EXAMINATION: GENERAL: The patient is alert not in any acute distress. Well developed, well nourished. She is on high flow oxygen as mentioned above is in mild respiratory distress in spite of that HEENT: Pupils are round and equally reacting to light. EOMI. No scleral icterus. No conjunctival pallor. Normocephalic, atraumatic. No pharyngeal erythema. No thyromegaly. CARDIOVASCULAR: S1 and S2 present. No murmurs, rubs, or gallops. PULMONARY: Bilateral rhonchi crackles. ABDOMEN: Soft, nontender, nondistended, normoactive bowel sounds. No palpable organomegaly. MUSCULOSKELETAL: No joint swelling or deformity. EXTREMITIES: No cyanosis, clubbing, or pedal edema. NEUROLOGICAL: Gross neurological examination did not reveal any focal deficits. SKIN: No rashes. Results CBC & Chem 7: 04/21/20 18:39 04/22/20 11:13 Labs: Abnormal Lab Results - Last 24 Hours (Table) 04/21/20 04/21/20 04/21/20 Range/Units 18:19 18:39 18:39 Lymphocytes # 0.8 L (1.0-4.8) k/uL D-Dimer (<0.60) mg/L FEU VBG pH (7.31-7.41) VBG HCO3 (24-28) mmol/L Sodium 132 L (137-145) mmol/L Potassium 6.5 H* (3.5-5.1) mmol/L Chloride 96 L (98-107) mmol/L Carbon Dioxide 19 L (22-30) mmol/L BUN 67 H (7-17) mg/dL Creatinine 1.99 H (0.52-1.04) mg/dL Glucose 593 H* (74-99) mg/dL POC Glucose (mg/dL) 569 H (75-99) mg/dL Plasma Lactic Acid Steve (0.7-2.0) mmol/L Calcium (8.4-10.2) mg/dL Magnesium 2.6 H (1.6-2.3) mg/dL AST 81 H (14-36) U/L ALT 35 H (4-34) U/L Alkaline Phosphatase (38-126) U/L Lactate Dehydrogenase (313-618) U/L C-Reactive Protein (<10.0) mg/L Total Protein (6.3-8.2) g/dL Albumin (3.5-5.0) g/dL Urine Appearance (Clear) Urine Protein (Negative) Urine Glucose (UA) (Negative) Urine Ketones (Negative) Urine Blood (Negative) Urine Nitrite (Negative) Ur Leukocyte Esterase (Negative) Urine WBC (0-5) /hpf Urine WBC Clumps (None) /hpf Amorphous Sediment (None) /hpf Urine Bacteria (None) /hpf Urine Yeast (Budding) (None) /hpf Coronavirus (PCR) (Not Detectd) 04/21/20 04/21/20 04/21/20 Range/Units 18:39 18:39 20:04 Lymphocytes # (1.0-4.8) k/uL D-Dimer (<0.60) mg/L FEU VBG pH 7.28 L (7.31-7.41) VBG HCO3 20 L (24-28) mmol/L Sodium (137-145) mmol/L Potassium (3.5-5.1) mmol/L Chloride (98-107) mmol/L Carbon Dioxide (22-30) mmol/L BUN (7-17) mg/dL Creatinine (0.52-1.04) mg/dL Glucose (74-99) mg/dL POC Glucose (mg/dL) (75-99) mg/dL Plasma Lactic Acid Steve 3.2 H* (0.7-2.0) mmol/L Calcium (8.4-10.2) mg/dL Magnesium (1.6-2.3) mg/dL AST (14-36) U/L ALT (4-34) U/L Alkaline Phosphatase (38-126) U/L Lactate Dehydrogenase (313-618) U/L C-Reactive Protein (<10.0) mg/L Total Protein (6.3-8.2) g/dL Albumin (3.5-5.0) g/dL Urine Appearance Cloudy H (Clear) Urine Protein 1+ H (Negative) Urine Glucose (UA) 4+ H (Negative) Urine Ketones 1+ H (Negative) Urine Blood Moderate H (Negative) Urine Nitrite Positive H (Negative) Ur Leukocyte Esterase Large H (Negative) Urine WBC 180 H (0-5) /hpf Urine WBC Clumps Many H (None) /hpf Amorphous Sediment Rare H (None) /hpf Urine Bacteria Many H (None) /hpf Urine Yeast (Budding) Rare H (None) /hpf Coronavirus (PCR) (Not Detectd) 04/21/20 04/21/20 04/21/20 Range/Units 20:27 21:27 21:34 Lymphocytes # (1.0-4.8) k/uL D-Dimer (<0.60) mg/L FEU VBG pH (7.31-7.41) VBG HCO3 (24-28) mmol/L Sodium (137-145) mmol/L Potassium (3.5-5.1) mmol/L Chloride (98-107) mmol/L Carbon Dioxide (22-30) mmol/L BUN (7-17) mg/dL Creatinine (0.52-1.04) mg/dL Glucose (74-99) mg/dL POC Glucose (mg/dL) 555 H 474 H (75-99) mg/dL Plasma Lactic Acid Steve (0.7-2.0) mmol/L Calcium (8.4-10.2) mg/dL Magnesium (1.6-2.3) mg/dL AST (14-36) U/L ALT (4-34) U/L Alkaline Phosphatase (38-126) U/L Lactate Dehydrogenase (313-618) U/L C-Reactive Protein (<10.0) mg/L Total Protein (6.3-8.2) g/dL Albumin (3.5-5.0) g/dL Urine Appearance (Clear) Urine Protein (Negative) Urine Glucose (UA) (Negative) Urine Ketones (Negative) Urine Blood (Negative) Urine Nitrite (Negative) Ur Leukocyte Esterase (Negative) Urine WBC (0-5) /hpf Urine WBC Clumps (None) /hpf Amorphous Sediment (None) /hpf Urine Bacteria (None) /hpf Urine Yeast (Budding) (None) /hpf Coronavirus (PCR) Detected A (Not Detectd) 04/21/20 04/21/20 04/22/20 Range/Units 23:08 23:56 00:27 Lymphocytes # (1.0-4.8) k/uL D-Dimer (<0.60) mg/L FEU VBG pH (7.31-7.41) VBG HCO3 (24-28) mmol/L Sodium 136 L (137-145) mmol/L Potassium (3.5-5.1) mmol/L Chloride (98-107) mmol/L Carbon Dioxide 17 L (22-30) mmol/L BUN 60 H (7-17) mg/dL Creatinine 1.70 H (0.52-1.04) mg/dL Glucose 432 H (74-99) mg/dL POC Glucose (mg/dL) 382 H 367 H (75-99) mg/dL Plasma Lactic Acid Steve (0.7-2.0) mmol/L Calcium (8.4-10.2) mg/dL Magnesium (1.6-2.3) mg/dL AST (14-36) U/L ALT (4-34) U/L Alkaline Phosphatase (38-126) U/L Lactate Dehydrogenase (313-618) U/L C-Reactive Protein (<10.0) mg/L Total Protein (6.3-8.2) g/dL Albumin (3.5-5.0) g/dL Urine Appearance (Clear) Urine Protein (Negative) Urine Glucose (UA) (Negative) Urine Ketones (Negative) Urine Blood (Negative) Urine Nitrite (Negative) Ur Leukocyte Esterase (Negative) Urine WBC (0-5) /hpf Urine WBC Clumps (None) /hpf Amorphous Sediment (None) /hpf Urine Bacteria (None) /hpf Urine Yeast (Budding) (None) /hpf Coronavirus (PCR) (Not Detectd) 04/22/20 04/22/20 04/22/20 Range/Units 00:55 01:56 03:01 Lymphocytes # (1.0-4.8) k/uL D-Dimer (<0.60) mg/L FEU VBG pH (7.31-7.41) VBG HCO3 (24-28) mmol/L Sodium (137-145) mmol/L Potassium (3.5-5.1) mmol/L Chloride (98-107) mmol/L Carbon Dioxide (22-30) mmol/L BUN (7-17) mg/dL Creatinine (0.52-1.04) mg/dL Glucose (74-99) mg/dL POC Glucose (mg/dL) 325 H 281 H 267 H (75-99) mg/dL Plasma Lactic Acid Steve (0.7-2.0) mmol/L Calcium (8.4-10.2) mg/dL Magnesium (1.6-2.3) mg/dL AST (14-36) U/L ALT (4-34) U/L Alkaline Phosphatase (38-126) U/L Lactate Dehydrogenase (313-618) U/L C-Reactive Protein (<10.0) mg/L Total Protein (6.3-8.2) g/dL Albumin (3.5-5.0) g/dL Urine Appearance (Clear) Urine Protein (Negative) Urine Glucose (UA) (Negative) Urine Ketones (Negative) Urine Blood (Negative) Urine Nitrite (Negative) Ur Leukocyte Esterase (Negative) Urine WBC (0-5) /hpf Urine WBC Clumps (None) /hpf Amorphous Sediment (None) /hpf Urine Bacteria (None) /hpf Urine Yeast (Budding) (None) /hpf Coronavirus (PCR) (Not Detectd) 04/22/20 04/22/20 04/22/20 Range/Units 04:10 04:13 05:16 Lymphocytes # (1.0-4.8) k/uL D-Dimer (<0.60) mg/L FEU VBG pH (7.31-7.41) VBG HCO3 (24-28) mmol/L Sodium (137-145) mmol/L Potassium (3.5-5.1) mmol/L Chloride (98-107) mmol/L Carbon Dioxide (22-30) mmol/L BUN 55 H (7-17) mg/dL Creatinine 1.54 H (0.52-1.04) mg/dL Glucose 221 H (74-99) mg/dL POC Glucose (mg/dL) 195 H 167 H (75-99) mg/dL Plasma Lactic Acid Steve (0.7-2.0) mmol/L Calcium (8.4-10.2) mg/dL Magnesium (1.6-2.3) mg/dL AST (14-36) U/L ALT (4-34) U/L Alkaline Phosphatase (38-126) U/L Lactate Dehydrogenase (313-618) U/L C-Reactive Protein (<10.0) mg/L Total Protein (6.3-8.2) g/dL Albumin (3.5-5.0) g/dL Urine Appearance (Clear) Urine Protein (Negative) Urine Glucose (UA) (Negative) Urine Ketones (Negative) Urine Blood (Negative) Urine Nitrite (Negative) Ur Leukocyte Esterase (Negative) Urine WBC (0-5) /hpf Urine WBC Clumps (None) /hpf Amorphous Sediment (None) /hpf Urine Bacteria (None) /hpf Urine Yeast (Budding) (None) /hpf Coronavirus (PCR) (Not Detectd) 04/22/20 04/22/20 04/22/20 Range/Units 05:59 07:16 08:24 Lymphocytes # (1.0-4.8) k/uL D-Dimer (<0.60) mg/L FEU VBG pH (7.31-7.41) VBG HCO3 (24-28) mmol/L Sodium (137-145) mmol/L Potassium (3.5-5.1) mmol/L Chloride (98-107) mmol/L Carbon Dioxide (22-30) mmol/L BUN (7-17) mg/dL Creatinine (0.52-1.04) mg/dL Glucose (74-99) mg/dL POC Glucose (mg/dL) 108 H 73 L 104 H (75-99) mg/dL Plasma Lactic Acid Steve (0.7-2.0) mmol/L Calcium (8.4-10.2) mg/dL Magnesium (1.6-2.3) mg/dL AST (14-36) U/L ALT (4-34) U/L Alkaline Phosphatase (38-126) U/L Lactate Dehydrogenase (313-618) U/L C-Reactive Protein (<10.0) mg/L Total Protein (6.3-8.2) g/dL Albumin (3.5-5.0) g/dL Urine Appearance (Clear) Urine Protein (Negative) Urine Glucose (UA) (Negative) Urine Ketones (Negative) Urine Blood (Negative) Urine Nitrite (Negative) Ur Leukocyte Esterase (Negative) Urine WBC (0-5) /hpf Urine WBC Clumps (None) /hpf Amorphous Sediment (None) /hpf Urine Bacteria (None) /hpf Urine Yeast (Budding) (None) /hpf Coronavirus (PCR) (Not Detectd) 04/22/20 04/22/20 04/22/20 Range/Units 09:25 10:28 11:13 Lymphocytes # (1.0-4.8) k/uL D-Dimer (<0.60) mg/L FEU VBG pH (7.31-7.41) VBG HCO3 (24-28) mmol/L Sodium (137-145) mmol/L Potassium (3.5-5.1) mmol/L Chloride 111 H (98-107) mmol/L Carbon Dioxide 21 L (22-30) mmol/L BUN 44 H (7-17) mg/dL Creatinine 1.43 H (0.52-1.04) mg/dL Glucose 138 H (74-99) mg/dL POC Glucose (mg/dL) 130 H 137 H (75-99) mg/dL Plasma Lactic Acid Steve (0.7-2.0) mmol/L Calcium 7.9 L (8.4-10.2) mg/dL Magnesium (1.6-2.3) mg/dL AST 65 H (14-36) U/L ALT (4-34) U/L Alkaline Phosphatase 31 L (38-126) U/L Lactate Dehydrogenase 1518 H (313-618) U/L C-Reactive Protein 143.7 H (<10.0) mg/L Total Protein 5.7 L (6.3-8.2) g/dL Albumin 2.9 L (3.5-5.0) g/dL Urine Appearance (Clear) Urine Protein (Negative) Urine Glucose (UA) (Negative) Urine Ketones (Negative) Urine Blood (Negative) Urine Nitrite (Negative) Ur Leukocyte Esterase (Negative) Urine WBC (0-5) /hpf Urine WBC Clumps (None) /hpf Amorphous Sediment (None) /hpf Urine Bacteria (None) /hpf Urine Yeast (Budding) (None) /hpf Coronavirus (PCR) (Not Detectd) 04/22/20 04/22/20 04/22/20 Range/Units 11:13 11:33 13:17 Lymphocytes # (1.0-4.8) k/uL D-Dimer 0.83 H (<0.60) mg/L FEU VBG pH (7.31-7.41) VBG HCO3 (24-28) mmol/L Sodium (137-145) mmol/L Potassium (3.5-5.1) mmol/L Chloride (98-107) mmol/L Carbon Dioxide (22-30) mmol/L BUN (7-17) mg/dL Creatinine (0.52-1.04) mg/dL Glucose (74-99) mg/dL POC Glucose (mg/dL) 188 H 187 H (75-99) mg/dL Plasma Lactic Acid Steve (0.7-2.0) mmol/L Calcium (8.4-10.2) mg/dL Magnesium (1.6-2.3) mg/dL AST (14-36) U/L ALT (4-34) U/L Alkaline Phosphatase (38-126) U/L Lactate Dehydrogenase (313-618) U/L C-Reactive Protein (<10.0) mg/L Total Protein (6.3-8.2) g/dL Albumin (3.5-5.0) g/dL Urine Appearance (Clear) Urine Protein (Negative) Urine Glucose (UA) (Negative) Urine Ketones (Negative) Urine Blood (Negative) Urine Nitrite (Negative) Ur Leukocyte Esterase (Negative) Urine WBC (0-5) /hpf Urine WBC Clumps (None) /hpf Amorphous Sediment (None) /hpf Urine Bacteria (None) /hpf Urine Yeast (Budding) (None) /hpf Coronavirus (PCR) (Not Detectd) Microbiology - Last 24 Hours (Table) 04/21/20 20:04 Urine Culture - Preliminary Urine,Voided Thrombosis Risk Factor Assmnt - Choose All That Apply Any of the Below Risk Factors Present?: No Other Risk Factors: Yes Each Risk Factor Represents 2 Points: Age 61-74 years Other congenital or acquired thrombophilia - If yes, enter type in comment: No Thrombosis Risk Factor Assessment Total Risk Factor Score: 2 Thrombosis Risk Factor Assessment Level: Low Risk Assessment and Plan Plan: Sepsis secondary to Covid 19 infection. Patient was started on Decadron, Remdesivir, will receive convalescent plasma patient was also started on iron supplementation and Lovenox. -Acute hypoxic respiratory failure secondary to Covid 19 infection. -Possible asymptomatic bacteriuria although I cannot completely rule out a urinary tract infection patient was started on antibiotics by neurology that is Rocephin 1 g daily which will be continued -Type 2 diabetes mellitus uncontrolled I precipitous and diabetic ketoacidosis. Patient is insulin deficient type II diabetic patient's DKA resolved patient will be transitioned to subcutaneous insulin and patient will be started on normal saline. -Diabetic ketoacidosis -Hyperlipidemia - inflammatory markers secondary to Covid 19 - chronic kidney disease stage III secondary to diabetic nephropathy patient baseline creatinine is around 1.3. - hyperkalemia secondary to a colic acidosis and renal failure. -Acute renal failure secondary to prerenal azotemia from severe dehydration. Which improved at this time. -Hyponatremia pseudohyponatremia improved -DVT prophylaxis with Lovenox
[2020-04-22 17:03] LABS: Glucose,Whole Blood 295 mg/dL (75-99)
[2020-04-22 20:27] LABS: Glucose,Whole Blood 270 mg/dL (75-99)
[2020-04-22] MEDS: ATORVASTATIN 40 MG TAB PO SCH (20:46)
[2020-04-23] MEDS: SODIUM CHLORIDE 0.9% 1,000 ML IV SCH ×2 (00:18→12:12)
[2020-04-23 04:25] LABS: HCT 36.5 % (34.0-46.0); HGB 11.9 gm/dL (11.4-16.0); MCH 30.1 pg (25.0-35.0); MCHC 32.6 g/dL (31.0-37.0); MCV 92.5 fL (80.0-100.0); Mean Platelet Volume 8.8; Platelet Count 133 k/uL (150-450); RBC 3.94 m/uL (3.80-5.40); RDW 13.6 % (11.5-15.5); WBC 6.6 k/uL (3.8-10.6)
[2020-04-23 04:39] LABS: Calcium 8.1 mg/dL (8.4-10.2); Potassium 5.1 mmol/L (3.5-5.1)
[2020-04-23 04:58] LABS: C Reactive Protein 139.9 mg/L (<10.0)
[2020-04-23 06:40] LABS: Glucose,Whole Blood 232 mg/dL (75-99)
[2020-04-23] MEDS: LEVOTHYROXINE 88 MCG TAB PO SCH (06:41)
[2020-04-23] MEDS: INSULIN ASPART (NovoLOG) 100 UNIT/ML VIAL SQ SCH ×7 (06:41→21:18)
[2020-04-23] MEDS ORDERED: INSULIN DETEMIR (LEVEMIR) 100 UNIT/ML SYR SQ SCH (07:00)
--- NOTE | 2020-04-23 07:38 | XR ---
EXAMINATION TYPE: XR chest 1V portable DATE OF EXAM: 04/23/2020 Comparison: 04/22/2020 Clinical History: 74-year-old female CoVID pneumonia Findings: Heart normal size. Diffuse interstitial opacities and patchy peripheral and basilar opacities, left g reater than right show no significant change. No sizable effusion. Impression: Diffuse interstitial infiltrates and patchy peripheral and lower lung opacities, left greater than ri ght remain unchanged.
[2020-04-23] MEDS: ZINC SULFATE 220 MG CAP PO SCH (08:12)
[2020-04-23] MEDS: CHOLECALCIFEROL 10 MCG (400 IU) TABLET PO SCH (08:12)
[2020-04-23] MEDS: dexAMETHasone 2 MG TAB PO SCH ×2 (08:12→20:49)
[2020-04-23] MEDS: ASCORBIC ACID 500 MG TAB PO SCH (08:12)
[2020-04-23] MEDS ORDERED: TOCILIZUMAB 400 MG in SODIUM CHLORIDE 0.9% 80 ML IV ONE ×2 (10:02→23:00)
--- NOTE | 2020-04-23 10:03 | P.PN ---
Subjective Progress Note Date: 04/23/20 This is a pleasant 74-year-old female patient who follows with Dr. Mace as h er primary care physician. She has a history of hypertension, hyperlipidemia, hypothyroidism, depression, chronic tobacco dependence, diabetes mellitus with insulin pump. Yesterday she was brought into the emergency room via EMS after developing progressive weakness over the past week. She was unable to get herself up from a chair. Point of care blood glucose measured by EMS was over 600. Urine was positive for nitrates and 180 WBCs. She was given IV fluid boluses. Ceftriaxone and initiated on a heparin drip and admitted to the selective care unit. White count 8.2. Hemoglobin 13.9. Lymphocytes 0.8. Sodium 132. Potassium initially 6.5, currently 4.8 bicarb 19. Anion gap 17 currently 6. Creatinine 1.99. Improved to 1.43. She was found to be positive for munoz virus by PCR. He is seen today in consultation as her oxygen requirements have increased from 6 L to AirVo this morning. Presently on 60 L and 90% FiO2. Temperature 101.7. She is quite weak and fatigued. Chest x-ray revealing bilateral multifocal acute opacities consistent with CoVID 19 infection. Stat labs revealed a d-dimer of 0.83. LDH 1518. C-reactive protein 143. On today's evaluation of 04/23/2020, the patient remains on a combination of high flow oxygen and 100% nonrebreather facemask. The patient is on high flow oxygen at 60 L with an FiO2 of 90% and the patient is also on 100% nonrebreather facemask. Her pulse ox in the order of 92%. Her previous inflammatory markers including CRP and LDH were quite elevated. Repeat chest x-ray was done today and a chest x-ray was reviewed and revealed bilateral multifocal pulmonary opacities/infiltrates consistent with Covid 19 related pneumonia. The patient's is currently laying down supine in bed. She seems to be comfortable and there is no significant respiratory distress and her current pulse ox in the order of 92%. Upon comparing the chest x-rays, no major interval change compared to yesterday's findings. Meanwhile, the patient had further increase for LVH which is up to 1684 and the CRP is at 139. White cell count of 6.6. The patient is currently on Decadron 6 mg, Remdesivir and she is a #2 of treatment. She is also on anticoagulation and she is receiving not receiving anticoagulation and the d-dimer today is at 1.03. Lovenox will be started. She has no specific complaints. She feels tired. She is alert and orientated 3. She is diabetic and she is on a insulin pump on outpatient basis and currently she is receiving Levemir insulin 30 units daily along with NovoLog 7 units 3 times a day with meals and a sliding scale coverage. Blood sugars are in the 200 range and the patient is not having adequate amount of food. She had an acute kidney injury which recovered and the creatinine is normalized. She has a gram-negative bacillus in her urine and the patient is currently on Rocephin. Objective - Vital Signs Vital signs: Vital Signs Temp 98.7 F 04/23/20 08:00 Pulse 61 04/23/20 09:00 Resp 24 04/23/20 09:00 BP 127/57 04/23/20 09:00 Pulse Ox 91 L 04/23/20 09:20 Intake & Output 04/22/20 04/23/20 04/23/20 18:59 06:59 18:59 Intake Total 3314.737 1200 200 Output Total 720 930 200 Balance 2594.737 270 0 Weight 108 kg Intake: IV 2200 200 200 Sodium Chloride 0.9% 1, 200 000 ml @ 100 mls/hr IV . Q10H [facility] Rx#:[id number] Sodium Chloride 0.9% 1, 2200 200 000 ml @ 200 mls/hr IV . Q5H [facility] Rx#:[id number] Intake, IV Titration 13.737 1000 Amount Insulin Regular 100 unit 13.737 In Sodium Chloride 0.9% 100 ml @ 0.1 UNITS/KG/HR 8.475 mls/hr IV .[id number] [facility] Rx#:[id number] Sodium Chloride 0.9% 1, 1000 000 ml @ 100 mls/hr IV . Q10H [facility] Rx#:[id number] Oral 800 Blood Product 301 Ffp Convalescent Plasma 301 Cpd Unit [id number] Output: Urine 720 930 200 Other: Voiding Method Indwelling Catheter Indwelling Catheter Indwelling Catheter - Exam GENERAL EXAM: Alert, weak, fatigued 74-year-old female patient, on AirVo at 60 L and 90% FiO2, and mild aspiratory distress. HEAD: Normocephalic. EYES: Normal reaction of pupils, equal size. NOSE: Clear with pink turbinates. THROAT: No erythema or exudates. NECK: No masses, no JVD. CHEST: No chest wall deformity. LUNGS: Bilateral scattered rhonchi. CVS: S1 and S2 normal with no audible murmur, regular rhythm. ABDOMEN: No hepatosplenomegaly, normal bowel sounds, no guarding or rigidity. SPINE: No scoliosis or deformity SKIN: No rashes CENTRAL NERVOUS SYSTEM: No focal deficits, tone is normal in all 4 extremities. EXTREMITIES: There is no peripheral edema. No clubbing, no cyanosis. Peripheral pulses are intact. - Labs CBC & Chem 7: 04/23/20 03:22 04/23/20 03:22 Labs: Abnormal Lab Results - Last 24 Hours (Table) 04/22/20 04/22/20 04/22/20 Range/Units 10:28 11:13 11:13 Plt Count (150-450) k/uL D-Dimer 0.83 H (<0.60) mg/L FEU Chloride 111 H (98-107) mmol/L Carbon Dioxide 21 L (22-30) mmol/L BUN 44 H (7-17) mg/dL Creatinine 1.43 H (0.52-1.04) mg/dL Glucose 138 H (74-99) mg/dL POC Glucose (mg/dL) 137 H (75-99) mg/dL Calcium 7.9 L (8.4-10.2) mg/dL AST 65 H (14-36) U/L Alkaline Phosphatase 31 L (38-126) U/L Lactate Dehydrogenase 1518 H (313-618) U/L C-Reactive Protein 143.7 H (<10.0) mg/L Total Protein 5.7 L (6.3-8.2) g/dL Albumin 2.9 L (3.5-5.0) g/dL Procalcitonin (0.02-0.09) ng/mL 04/22/20 04/22/20 04/22/20 Range/Units 11:13 11:33 13:17 Plt Count (150-450) k/uL D-Dimer (<0.60) mg/L FEU Chloride (98-107) mmol/L Carbon Dioxide (22-30) mmol/L BUN (7-17) mg/dL Creatinine (0.52-1.04) mg/dL Glucose (74-99) mg/dL POC Glucose (mg/dL) 188 H 187 H (75-99) mg/dL Calcium (8.4-10.2) mg/dL AST (14-36) U/L Alkaline Phosphatase (38-126) U/L Lactate Dehydrogenase (313-618) U/L C-Reactive Protein (<10.0) mg/L Total Protein (6.3-8.2) g/dL Albumin (3.5-5.0) g/dL Procalcitonin 1.18 H (0.02-0.09) ng/mL 04/22/20 04/22/20 04/23/20 Range/Units 17:02 20:26 03:22 Plt Count 133 L (150-450) k/uL D-Dimer (<0.60) mg/L FEU Chloride (98-107) mmol/L Carbon Dioxide (22-30) mmol/L BUN (7-17) mg/dL Creatinine (0.52-1.04) mg/dL Glucose (74-99) mg/dL POC Glucose (mg/dL) 295 H 270 H (75-99) mg/dL Calcium (8.4-10.2) mg/dL AST (14-36) U/L Alkaline Phosphatase (38-126) U/L Lactate Dehydrogenase (313-618) U/L C-Reactive Protein (<10.0) mg/L Total Protein (6.3-8.2) g/dL Albumin (3.5-5.0) g/dL Procalcitonin (0.02-0.09) ng/mL 04/23/20 04/23/20 04/23/20 Range/Units 03:22 03:22 06:39 Plt Count (150-450) k/uL D-Dimer 1.03 H (<0.60) mg/L FEU Chloride 110 H (98-107) mmol/L Carbon Dioxide 21 L (22-30) mmol/L BUN 37 H (7-17) mg/dL Creatinine 1.08 H (0.52-1.04) mg/dL Glucose 225 H (74-99) mg/dL POC Glucose (mg/dL) 232 H (75-99) mg/dL Calcium 8.1 L (8.4-10.2) mg/dL AST (14-36) U/L Alkaline Phosphatase (38-126) U/L Lactate Dehydrogenase 1684 H (313-618) U/L C-Reactive Protein 139.9 H (<10.0) mg/L Total Protein (6.3-8.2) g/dL Albumin (3.5-5.0) g/dL Procalcitonin (0.02-0.09) ng/mL Microbiology - Last 24 Hours (Table) 04/21/20 20:04 Urine Culture - Preliminary Urine,Voided Gram Neg Bacilli Assessment and Plan Plan: 1 DKA Generalized weakness and fatigue secondary to DKA/ hyperglycemia, maintained on insulin pump in the outpatient setting, the AG has closed and the patient has been switched to Levemir insulin for BS control remained insulin. The Levemir was started today and we'll going to monitor the blood sugars. 2 Acute hypoxic respiratory failure secondary to acute CoVID 19 pneumonia. Currently on AirVo high flow at 60 L and 90% FiO2 the patient is also on THE PERCENT NONREBREATHER FACEMASK. UPON FURTHER INQUIRY , the patient was sick around to 3 weeks prior to her hospital stay and I suspect that she was infected with Covid earlier. Nevertheless, she got confirmed with Covid 19 on 04/21/2020. 3 Acute CoVID 19 infection, initiated on Remdesivir , Decadron and convalescent plasma 04/22/2020, 1 unit 4 Elevated inflammatory markers secondary to above 5 Febrile illness secondary to above 6 Acute urinary tract infection, cultures pending, gram-negative bacteria 7 Diabetes mellitus 8 History of hypertension 9 Hyperlipidemia 10 Vitamin D deficiency Plan: Continue Decadron and Remdesivir date 2, and the patient was given convalescent plasma (1 unit) Lovenox started at a dose of 40 mg subcu daily vitamin supplements Continue AirVo, titrate FiO2 as tolerated, and the patient is also on 100% nonrebreather facemask Repeat chest x-ray and labs in a.m. and repeat inflammatory markers in a.m. Will discuss the possibility of putting this patient also on Actemra, LEVEL IS AT 1.18, and the patient is also on IV Rocephin Condition is guarded We'll continue to follow and make further recommendations based on her clinical status
[2020-04-23 11:33] LABS: Glucose,Whole Blood 203 mg/dL (75-99)
[2020-04-23] MEDS: REMDESIVIR 100 MG in SODIUM CHLORIDE 0.9% 250 ML IVPB SCH (12:09)
[2020-04-23] MEDS: ENOXAPARIN 40 MG/0.4 ML SYRINGE SQ SCH (14:49)
[2020-04-23 16:36] LABS: Glucose,Whole Blood 224 mg/dL (75-99)
--- NOTE | 2020-04-23 18:32 | PN ---
PROGRESS NOTE DATE OF SERVICE: 04/23/2020 This 74-year-old woman who was admitted with acute diabetic ketoacidosis also had bilateral COVID-19 pneumonia with sepsis as well as hypoxia. The patient was evaluated by Dr. Bobo. The patient was started on remdesivir and the usual medications, including dexamethasone and zinc. The patient is also on Rocephin. The C-reactive protein is 139.9. D-dimer is also elevated. I ordered a CT scan of the chest and V/Q scan to complete the workup at this time. The patient is on AIRVO and the patient is monitored in ICU at this time. Past medical history reviewed. REVIEW OF SYSTEMS: CARDIOVASCULAR SYSTEM: No angina, palpitations. RESPIRATORY SYSTEM: As mentioned earlier. GI: As mentioned earlier. : No dysuria or retention. NERVOUS SYSTEM: No numbness, weakness. CURRENT MEDICATIONS: Reviewed. They include Tylenol, vitamin C, Lipitor, Rocephin, Hexadrol, Lovenox, NovoLog, Levemir, Synthroid. Doses are reviewed. Remdesivir. PHYSICAL EXAMINATION: Patient alert and oriented x3. Pulse 75, blood pressure 111/63, respiration 20, temperature normal, pulse ox 87% on high-flow oxygen . HEENT: Conjunctivae normal. NECK: No jugular venous distention. CARDIOVASCULAR SYSTEM: S1, S2 muffled. RESPIRATORY SYSTEM: Breath sounds diminished at the bases. Bilateral scattered rhonchi and crackles. ABDOMEN: Soft, non-tender. NERVOUS SYSTEM: No focal deficit. LABS: WBC 6.6, hemoglobin 11.9, platelets 133. Sodium 140, potassium 5.1. D-dimer is 1.03, glucose 225. LDH is 1684. C-reactive protein is 139.9. ASSESSMENT: 1. Acute COVID-19 infection with bilateral interstitial pneumonia with acute hypoxic respiratory failure, on high-flow oxygen, with sepsis. 2. Urinary tract infection. 3. Diabetes mellitus, type 2. 4. Acute diabetic ketoacidosis. 5. Hyperlipidemia. 6. Elevated inflammatory markers secondary to COVID-19. 7. Chronic kidney disease, stage 3. 8. Hyperkalemia. 9. Acute renal failure. 10.Hyponatremia. 11.History of hypertension. 12.Depression. 13.Remote history of nicotine dependence. 14.Obesity with body mass index of 40.9. 15.Mild thrombocytopenia. 16.Elevated D-dimer. 17.Elevated ALT, AST. RECOMMENDATIONS AND DISCUSSION: In this 74-year-old woman who presented with multiple complex medical issues, we will monitor the patient closely, continue the current medications. Continue with symptomatic treatment. Continue the remdesivir. Continue with empiric antibiotics. Continue the dexamethasone. Monitor blood sugars closely. Continue with zinc. Continue the rest of the medications. The patient is also on Lovenox. The patient is on Levemir 30 units subcutaneously daily. I will increase the dose to 40 daily for better glucose control. Otherwise, prognosis is extremely guarded because of multiple complex medical issues. Further recommendations to follow. A copy of this dictation is being forwarded to Dr. Mace, who is the primary physician. PAMELA / ELÍAS: [id number] / MTDD
[2020-04-23] MEDS: ACETAMINOPHEN TAB 325 MG TAB PO PRN (20:48)
[2020-04-23] MEDS: ATORVASTATIN 40 MG TAB PO SCH (20:49)
[2020-04-23 20:56] LABS: Glucose,Whole Blood 247 mg/dL (75-99)
--- NOTE | 2020-04-23 23:54 | CONS ---
CONSULTATION DATE OF SERVICE: 04/23/2020 REASON FOR CONSULTATION: COVID-19 infection, UTI. HISTORY OF PRESENT ILLNESS: The patient is a 74-year-old female who presented to the ER on April 21 for evaluation of not feeling well. The patient has been feeling very weak and her symptoms have been getting worse for 48 hours before presentation to hospital. The patient went to the bathroom, afterwards on the toilet, she stood up and felt severely weak. She sat back down in her chair. EMS was called and the patient subsequently was brought into the ER. On arrival to the ER, the patient blood sugar checked more than 600. The patient denies having any headache or URI symptoms. No chest pain. Has been complaining of shortness of breath with occasional cough. No sputum production, nausea, but no vomiting. No abdominal pain. No diarrhea. The patient on presentation to the hospital was afebrile. Subsequently, spiked a fever of 103 degrees Fahrenheit. The patient was hypoxic, requiring high-flow oxygen and is currently on BiPAP. The patient Covid testing came back positive and the patient started on Remdesivir. The patient also had a positive UA with urine now showing Gram- negative bacilli. The patient is on Rocephin. Infectious Disease was consulted for further management of antibiotic therapy. REVIEW OF SYSTEMS: Positive points have been mentioned in HPI. Rest of systems are negative. PAST MEDICAL HISTORY: Insulin dependent diabetes mellitus, hypertension, hyperlipidemia, hypothyroidism, and depression. PAST SURGICAL HISTORY: Hysterectomy. SOCIAL HISTORY: No drinking or drug use. FAMILY HISTORY: No pertinent findings noticed. ALLERGIES: TO PENICILLIN with a rash. No history of anaphylaxis. MEDICATION: Include the patient is currently on Tylenol, vitamin C, Lipitor, Rocephin 1 g daily, vitamin D3, Dexamethasone, Lovenox, NovoLog, Levemir, Synthroid, Narcan and zinc. PHYSICAL EXAMINATION: Blood pressure is 119/68 with a pulse of 73, temperature 98.1. She is 94% on BiPAP. General description is an elderly female lying in bed in no distress. HEENT examination: No pallor or scleral icterus. Oral mucosal membranes dry. NECK: Trachea central. No thyromegaly. LUNGS: Unlabored breathing, decreased breath sounds in the base, with no wheeze. HEART S1, S2. Regular rate and rhythm. ABDOMEN: Soft, no tenderness. No guarding. No rigidity. EXTREMITIES: No edema of the feet. SKIN examination: No rash or mass palpable. NEUROLOGICAL: The patient is currently awake, alert, oriented times three. Mood and affect normal. LABS: Hemoglobin 11.8, white count 6.6, BUN of 37, creatinine 1.08, and CRP are elevated. AST mildly elevated. Yu PCR was positive. Urine is positive. Urine culture with E coli. DIAGNOSTIC IMPRESSION AND PLAN: 1. Patient admitted to the hospital with generalized weakness which is likely multifactorial in this patient who did have evidence of COVID-19 infection with worsening respiratory status requiring a BiPAP and high-flow oxygen. Overall no clinical improvement with Remdesivir in this Covid therapy and no evidence of any secondary bacterial pneumonia. 2. Patient with E coli urinary tract infection contributing to some of her symptoms during this admission. PLAN: 1. Rocephin 1 g IV piggyback daily to continue. 2. For her Covid 19 infection, patient is covered with Remdesivir, zinc, Dexamethasone and Lovenox. 3. Droplet isolation and respiratory support. 4. We will follow on clinical condition and further adjust medication if needed. Thank you for this consultation. We will follow this patient along with you. MMODL / IJN: [id number] / MTDD
[2020-04-24 04:19] LABS: Basophils % (A) 0 %; Eosinophils % (A) 0 %; HCT 35.5 % (34.0-46.0); HGB 11.4 gm/dL (11.4-16.0); Lymphocytes # (A) 0.9 k/uL (1.0-4.8); Lymphocytes % (A) 9 %; MCH 29.7 pg (25.0-35.0); MCHC 32.2 g/dL (31.0-37.0); MCV 92.4 fL (80.0-100.0); Monocytes # (A) 0.4 k/uL (0-1.0); Monocytes % (A) 4 %; Neutrophils # (A) 8.9 k/uL (1.3-7.7); Neutrophils % (A) 85 %; Platelet Count 172 k/uL (150-450); RBC 3.84 m/uL (3.80-5.40); RDW 13.6 % (11.5-15.5); WBC 10.4 k/uL (3.8-10.6)
[2020-04-24 04:33] LABS: Albumin 2.8 g/dL (3.5-5.0); C Reactive Protein 68.7 mg/L (<10.0); Calcium 8.2 mg/dL (8.4-10.2); Potassium 5.1 mmol/L (3.5-5.1); Total Bilirubin 0.4 mg/dL (0.2-1.3); Total Protein 5.6 g/dL (6.3-8.2)
[2020-04-24 06:55] LABS: Glucose,Whole Blood 225 mg/dL (75-99)
[2020-04-24] MEDS: INSULIN ASPART (NovoLOG) 100 UNIT/ML VIAL SQ SCH ×7 (06:57→21:39)
[2020-04-24] MEDS: LEVOTHYROXINE 88 MCG TAB PO SCH (06:58)
[2020-04-24] MEDS ORDERED: INSULIN DETEMIR (LEVEMIR) 100 UNIT/ML SYR SQ SCH (07:00)
--- NOTE | 2020-04-24 08:05 | XR ---
EXAMINATION TYPE: XR chest 1V portable DATE OF EXAM: 04/24/2020 COMPARISON: 04/23/2020 INDICATION: COVID Pna TECHNIQUE: Single frontal view of the chest is obtained. FINDINGS: The heart size is normal. The pulmonary vasculature is prominent. There are patchy bilateral infiltrates which can be compatible with atypical pneumonia. IMPRESSION: 1. Patchy bilateral lung infiltrates, similar to prior
[2020-04-24] MEDS: CHOLECALCIFEROL 10 MCG (400 IU) TABLET PO SCH (08:21)
[2020-04-24] MEDS: ZINC SULFATE 220 MG CAP PO SCH (08:21)
[2020-04-24] MEDS: ENOXAPARIN 40 MG/0.4 ML SYRINGE SQ SCH (08:21)
[2020-04-24] MEDS: ASCORBIC ACID 500 MG TAB PO SCH (08:21)
[2020-04-24] MEDS: dexAMETHasone 2 MG TAB PO SCH ×2 (08:21→21:21)
--- NOTE | 2020-04-24 09:16 | P.PN ---
Subjective Progress Note Date: 04/24/20 This is a pleasant 74-year-old female patient who follows with Dr. Mace as her primary care physician. She has a history of hypertension, hyperlipidemia, hypothyroidism, depression, chronic tobacco dependence, diabetes mellitus with insulin pump. Yesterday she was brought into the emergency room via EMS after developing progressive weakness over the past week. She was unable to get herself up from a chair. Point of care blood glucose measured by EMS was over 600. Urine was positive for nitrates and 180 WBCs. She was given IV fluid boluses. Ceftriaxone and initiated on a heparin drip and admitted to the selective care unit. White count 8.2. Hemoglobin 13.9. Lymphocytes 0.8. Sodium 132. Potassium initially 6.5, currently 4.8 bicarb 19. Anion gap 17 currently 6. Creatinine 1.99. Improved to 1.43. She was found to be positive for munoz virus by PCR. He is seen today in consultation as her oxygen requirements have increased from 6 L to AirVo this morning. Presently on 60 L and 90% FiO2. Temperature 101.7. She is quite weak and fatigued. Chest x-ray revealing bilateral multifocal acute opacities consistent with CoVID 19 infection. Stat labs revealed a d-dimer of 0.83. LDH 1518. C-reactive protein 143. On today's evaluation of 04/23/2020, the patient remains on a combination of high flow oxygen and 100% nonrebreather facemask. The patient is on high flow oxygen at 60 L with an FiO2 of 90% and the patient is also on 100% nonrebreather facemask. Her pulse ox in the order of 92%. Her previous inflammatory markers including CRP and LDH were quite elevated. Repeat chest x-ray was done today and a chest x-ray was reviewed and revealed bilateral multifocal pulmonary opacities/infiltrates consistent with Covid 19 related pneumonia. The patient's is currently laying down supine in bed. She seems to be comfortable and there is no significant respiratory distress and her current pulse ox in the order of 92%. Upon comparing the chest x-rays, no major interval change compared to yesterday's findings. Meanwhile, the patient had further increase for LVH which is up to 1684 and the CRP is at 139. White cell count of 6.6. The patient is currently on Decadron 6 mg, Remdesivir and she is a #2 of treatment. She is also on anticoagulation and she is receiving not receiving anticoagulation and the d-dimer today is at 1.03. Lovenox will be started. She has no specific complaints. She feels tired. She is alert and orientated 3. She is diabetic and she is on a insulin pump on outpatient basis and currently she is receiving Levemir insulin 30 units daily along with NovoLog 7 units 3 times a day with meals and a sliding scale coverage. Blood sugars are in the 200 range and the patient is not having adequate amount of food. She had an acute kidney injury which recovered and the creatinine is normalized. She has a gram-negative bacillus in her urine and the patient is currently on Rocephin. On 04/24/2020, seeing the patient for a follow-up. As mentioned earlier, the patient is a case of Covid 19 infection with extensive bilateral pneumonia and hypoxic respiratory failure. The patient was 100% nonrebreather facemask addition to high flow oxygen. She was still hypoxemic and based on that the patient was switched to a BiPAP and currently pressures are 12/6 with an FiO2 of 100%. She seems to be much more comfortable with the setting of his saturations around 95% and her current respiratory rate is 21 with a minute ventilation of around 8-9 L. The patient is afebrile. The patient's inflammatory markers from today showed an LDH level which is on the rise at 2200 have any to and the CRP level is at 68.7. The patient's white cell count is at 10.4 with a hemoglobin of 11.4. The chest x-ray from today is showing diffuse bilateral pulmonary infiltrates and the infiltrates are essentially perihilar, very much compatible to the chest x-ray from yesterday without any interval worsening. The patient is on Decadron and will increase the dose up to 60 mg IV every 12 hours. The patient is on Lovenox 40 mg subcu for DVT prophylaxis d-dimer is at 1.04. Urine cultures still positive for E. coli and the patient is currently on IV Rocephin. She remains on Levemir insulin 40 units daily and she is also on NovoLog 7 units 3 times a day with meals. Monitor the blood sugar control otherwise for now. No other significant events overnight. She is awake. She is oriented. She is following commands. No nausea. No vomiting. She did have a bout of diarrhea. She is lethargic. Objective - Vital Signs Vital signs: Vital Signs Temp 98.5 F 04/24/20 04:00 Pulse 53 L 04/24/20 07:00 Resp 19 04/24/20 07:00 BP 114/57 04/24/20 07:00 Pulse Ox 96 04/24/20 07:00 Intake & Output 04/23/20 04/24/20 04/24/20 18:59 06:59 18:59 Intake Total 1300 1240 100 Output Total 1075 835 60 Balance 225 405 40 Weight 108 kg 107.5 kg Intake: IV 1300 1200 100 Remdesivir 100 mg In 250 Sodium Chloride 0.9% 250 ml @ 250 mls/hr IVPB DAILY@1200 [facility] Rx#: [id number] Sodium Chloride 0.9% 1, 950 1200 100 000 ml @ 100 mls/hr IV . Q10H [facility] Rx#:[id number] cefTRIAXone 1 gm In 100 Sodium Chloride 0.9% 50 ml @ 100 mls/hr IVPB Q24H [facility] Rx#:[id number] Oral 40 Output: Urine 1075 835 60 Other: Voiding Method Indwelling Catheter Indwelling Catheter - Exam GENERAL EXAM: Alert, weak, fatigued 74-year-old female patient, on BiPAP at a pressure of 12/6 cm of water with an FiO2 of 100% HEAD: Normocephalic. EYES: Normal reaction of pupils, equal size. NOSE: Clear with pink turbinates. THROAT: No erythema or exudates. NECK: No masses, no JVD. CHEST: No chest wall deformity. LUNGS: Bilateral scattered rhonchi. CVS: S1 and S2 normal with no audible murmur, regular rhythm. ABDOMEN: No hepatosplenomegaly, normal bowel sounds, no guarding or rigidity. SPINE: No scoliosis or deformity SKIN: No rashes CENTRAL NERVOUS SYSTEM: No focal deficits, tone is normal in all 4 extremities. EXTREMITIES: There is no peripheral edema. No clubbing, no cyanosis. Peripheral pulses are intact. - Labs CBC & Chem 7: 04/24/20 03:17 04/24/20 03:17 Labs: Abnormal Lab Results - Last 24 Hours (Table) 04/23/20 04/23/20 04/23/20 Range/Units 11:32 16:34 20:54 Neutrophils # (1.3-7.7) k/uL Lymphocytes # (1.0-4.8) k/uL D-Dimer (<0.60) mg/L FEU Chloride (98-107) mmol/L Carbon Dioxide (22-30) mmol/L BUN (7-17) mg/dL Glucose (74-99) mg/dL POC Glucose (mg/dL) 203 H 224 H 247 H (75-99) mg/dL Calcium (8.4-10.2) mg/dL AST (14-36) U/L Alkaline Phosphatase (38-126) U/L Lactate Dehydrogenase (313-618) U/L C-Reactive Protein (<10.0) mg/L Total Protein (6.3-8.2) g/dL Albumin (3.5-5.0) g/dL 04/24/20 04/24/20 04/24/20 Range/Units 03:17 03:17 03:17 Neutrophils # 8.9 H (1.3-7.7) k/uL Lymphocytes # 0.9 L (1.0-4.8) k/uL D-Dimer 1.04 H (<0.60) mg/L FEU Chloride 114 H (98-107) mmol/L Carbon Dioxide 21 L (22-30) mmol/L BUN 31 H (7-17) mg/dL Glucose 168 H (74-99) mg/dL POC Glucose (mg/dL) (75-99) mg/dL Calcium 8.2 L (8.4-10.2) mg/dL AST 88 H (14-36) U/L Alkaline Phosphatase 36 L (38-126) U/L Lactate Dehydrogenase 2272 H (313-618) U/L C-Reactive Protein 68.7 H (<10.0) mg/L Total Protein 5.6 L (6.3-8.2) g/dL Albumin 2.8 L (3.5-5.0) g/dL 04/24/20 Range/Units 06:53 Neutrophils # (1.3-7.7) k/uL Lymphocytes # (1.0-4.8) k/uL D-Dimer (<0.60) mg/L FEU Chloride (98-107) mmol/L Carbon Dioxide (22-30) mmol/L BUN (7-17) mg/dL Glucose (74-99) mg/dL POC Glucose (mg/dL) 225 H (75-99) mg/dL Calcium (8.4-10.2) mg/dL AST (14-36) U/L Alkaline Phosphatase (38-126) U/L Lactate Dehydrogenase (313-618) U/L C-Reactive Protein (<10.0) mg/L Total Protein (6.3-8.2) g/dL Albumin (3.5-5.0) g/dL Microbiology - Last 24 Hours (Table) 04/21/20 20:04 Urine Culture - Final Urine,Voided Escherichia coli Assessment and Plan Plan: 1 DKA Generalized weakness and fatigue secondary to DKA/ hyperglycemia, maintained on insulin pump in the outpatient setting, the AG has closed and the patient has been switched to Levemir insulin for BS control remained insulin. The Levemir was started today and we'll going to monitor the blood sugars. The patient is also on steroids in her Levemir insulin was increased up to 40 units and she is on 7 units 3 times a day with meals. She is also taking a sliding scale coverage. 2 Acute hypoxic respiratory failure secondary to acute CoVID 19 pneumonia. The patient was having hypoxemia despite being on high flow oxygen along with 100% nonrebreather patient was moved to a BiPAP currently at pressures of 12/6 with an FiO2 of 100% and the patient is able to maintain a saturation above 90%. She seems to be much more comfortable on the BiPAP for now. She is on treatment with a combination of Decadron 60 mg IV every 12 hours and the patient is also on Remdesivir date. The patient received a unit of convalescent plasma 3 Acute CoVID 19 infection, initiated on Remdesivir , Decadron and convalescent plasma 04/22/2020, 1 unit 4 Elevated inflammatory markers secondary to above 5 Febrile illness secondary to above 6 Acute urinary tract infection, cultures pending, gram-negative bacteria 7 Diabetes mellitus 8 History of hypertension 9 Hyperlipidemia 10 Vitamin D deficiency Plan: Continue Decadron and Remdesivir day 3, and the patient was given convalescent plasma (1 unit) Lovenox started at a dose of 40 mg subcu daily vitamin supplements Continue BiPAP therapy for respiratory support, the LDH level is elevated and minimal elevation of the d-dimer and the patient is on prophylactic dose of Lovenox, and the patient will be switched to a BiPAP at a pressure of 10/6 and FiO2 will be cut down to 80% and will monitor the oxygenation and wean down the FiO2 further to maintain a saturation above 90%. Repeat chest x-ray and labs in a.m. and repeat inflammatory markers in a.m. Condition is guarded, critical We'll continue to follow and make further recommendations based on her clinical status
[2020-04-24] MEDS: REMDESIVIR 100 MG in SODIUM CHLORIDE 0.9% 250 ML IVPB SCH (11:29)
[2020-04-24 11:34] LABS: Glucose,Whole Blood 247 mg/dL (75-99)
[2020-04-24] MEDS ORDERED: INSULIN DETEMIR (LEVEMIR) 100 UNIT/ML SYR SQ ONE (12:30)
--- NOTE | 2020-04-24 15:32 | PN ---
PROGRESS NOTE DATE OF SERVICE: 04/24/2020 This 74-year-old woman who was admitted with COVID-19 pneumonia as well as acute hypoxic respiratory failure also had diabetic ketoacidosis. The patient is being closely monitored. The patient is on remdesivir. The patient also had convalescent plasma and dexamethasone. Inflammatory markers for COVID-19 are elevated at this time. Procalcitonin is also elevated. The patient has also been covered with broad-spectrum IV antibiotics. Past medical history reviewed. REVIEW OF SYSTEMS: CARDIOVASCULAR SYSTEM: No angina, palpitations. RESPIRATORY SYSTEM: As mentioned earlier. GI: As mentioned earlier. : No dysuria or retention. NERVOUS SYSTEM: No numbness, weakness. CURRENT MEDICATIONS: Reviewed. They include Tylenol, vitamins, Lipitor, Rocephin, Hexadrol, NovoLog, Levemir, Synthroid. Doses are reviewed. PHYSICAL EXAMINATION: Patient alert and oriented x3. Pulse 72, blood pressure 130/60, respiration 14, temperature 97.6, pulse ox 91% on high-flow oxygen. BiPAP settings are noted. HEENT: Conjunctivae normal. NECK: No jugular venous distention. CARDIOVASCULAR SYSTEM: S1, S2 muffled. RESPIRATORY SYSTEM: Breath sounds diminished at the bases. Scattered rhonchi. ABDOMEN: Soft, non-tender. NERVOUS SYSTEM: No focal deficit. LABS: CBC within normal limits and D-dimer is 1.04. Other labs are noted. ASSESSMENT: 1. Acute COVID-19 infection with bilateral interstitial pneumonia with acute hypoxic respiratory failure, on high-flow oxygen and BiPAP, with sepsis. 2. Urinary tract infection. 3. Diabetic ketoacidosis, acute, present on admission. 4. Diabetes mellitus, type 2, uncontrolled with hyperglycemia. 5. Hyperlipidemia. 6. Elevated inflammatory markers secondary to COVID-19. 7. Chronic kidney disease, stage 3. 8. Hyperkalemia. 9. Acute renal failure. 10.Hyponatremia. 11.History of hypertension. 12.Depression. 13.Remote history of nicotine dependence. 14.Obesity with body mass index of 40.9. 15.Mild thrombocytopenia. 16.Elevated D-dimer. 17.Elevated ALT, AST. RECOMMENDATIONS AND DISCUSSION: I recommend to continue current medications, continue with the monitoring, symptomatic treatment. Continue with the bronchodilators. Continue with remdesivir. Continue with dexamethasone. Patient received convalescent plasma, also. Monitor electrolytes closely. Continue with BiPAP and weaning. Prognosis is guarded because of multiple complex medical issues. Further recommendations to follow. MMODL / IJN: [id number] /
[2020-04-24 16:25] LABS: Glucose,Whole Blood 187 mg/dL (75-99)
[2020-04-24] MEDS: ATORVASTATIN 40 MG TAB PO SCH (21:21)
[2020-04-24 21:40] LABS: Glucose,Whole Blood 136 mg/dL (75-99)
[2020-04-25 05:23] LABS: C Reactive Protein 57.2 mg/L (<10.0)
--- NOTE | 2020-04-25 07:35 | XR ---
EXAMINATION TYPE: XR chest 1V portable DATE OF EXAM: 04/25/2020 Comparison: 04/24/2020 Clinical History: 74-year-old female CoVID pneumonia Findings: Heart borderline in size. Patchy and confluent bilateral airspace opacities persist without significa nt change. No sizable effusion. Impression: Stable bilateral diffuse airspace disease.
[2020-04-25 07:47] LABS: Glucose,Whole Blood 173 mg/dL (75-99)
[2020-04-25 07:50] LABS: Basophils # (A) 0.1 k/uL (0-0.2); Basophils % (A) 0 %; Eosinophils % (A) 0 %; HCT 37.6 % (34.0-46.0); HGB 12.3 gm/dL (11.4-16.0); Lymphocytes # (A) 0.8 k/uL (1.0-4.8); Lymphocytes % (A) 5 %; MCH 30.2 pg (25.0-35.0); MCHC 32.7 g/dL (31.0-37.0); MCV 92.5 fL (80.0-100.0); Mean Platelet Volume 9.8; Monocytes # (A) 0.5 k/uL (0-1.0); Monocytes % (A) 4 %; Neutrophils # (A) 12.5 k/uL (1.3-7.7); Neutrophils % (A) 89 %; Platelet Count 232 k/uL (150-450); RBC 4.06 m/uL (3.80-5.40); RDW 13.7 % (11.5-15.5)
[2020-04-25 08:06] LABS: Albumin 2.7 g/dL (3.5-5.0); Calcium 8.6 mg/dL (8.4-10.2); Potassium 4.8 mmol/L (3.5-5.1); Total Bilirubin 0.5 mg/dL (0.2-1.3); Total Protein 5.7 g/dL (6.3-8.2)
--- NOTE | 2020-04-25 08:30 | P.PN ---
Subjective Progress Note Date: 04/25/20 This is a pleasant 74-year-old female patient who follows with Dr. Mace as her primary care physician. She has a history of hypertension, hyperlipidemia, hypothyroidism, depression, chronic tobacco dependence, diabetes mellitus with insulin pump. Yesterday she was brought into the emergency room via EMS after developing progressive weakness over the past week. She was unable to get herself up from a chair. Point of care blood glucose measured by EMS was over 600. Urine was positive for nitrates and 180 WBCs. She was given IV fluid boluses. Ceftriaxone and initiated on a heparin drip and admitted to the selective care unit. White count 8.2. Hemoglobin 13.9. Lymphocytes 0.8. Sodium 132. Potassium initially 6.5, currently 4.8 bicarb 19. Anion gap 17 currently 6. Creatinine 1.99. Improved to 1.43. She was found to be positive for munoz virus by PCR. He is seen today in consultation as her oxygen requirements have increased from 6 L to AirVo this morning. Presently on 60 L and 90% FiO2. Temperature 101.7. She is quite weak and fatigued. Chest x-ray revealing bilateral multifocal acute opacities consistent with CoVID 19 infection. Stat labs revealed a d-dimer of 0.83. LDH 1518. C-reactive protein 143. On today's evaluation of 04/23/2020, the patient remains on a combination of high flow oxygen and 100% nonrebreather facemask. The patient is on high flow oxygen at 60 L with an FiO2 of 90% and the patient is also on 100% nonrebreather facemask. Her pulse ox in the order of 92%. Her previous inflammatory markers including CRP and LDH were quite elevated. Repeat chest x-ray was done today and a chest x-ray was reviewed and revealed bilateral multifocal pulmonary opacities/infiltrates consistent with Covid 19 related pneumonia. The patient's is currently laying down supine in bed. She seems to be comfortable and there is no significant respiratory distress and her current pulse ox in the order of 92%. Upon comparing the chest x-rays, no major interval change compared to yesterday's findings. Meanwhile, the patient had further increase for LVH which is up to 1684 and the CRP is at 139. White cell count of 6.6. The patient is currently on Decadron 6 mg, Remdesivir and she is a #2 of treatment. She is also on anticoagulation and she is receiving not receiving anticoagulation and the d-dimer today is at 1.03. Lovenox will be started. She has no specific complaints. She feels tired. She is alert and orientated 3. She is diabetic and she is on a insulin pump on outpatient basis and currently she is receiving Levemir insulin 30 units daily along with NovoLog 7 units 3 times a day with meals and a sliding scale coverage. Blood sugars are in the 200 range and the patient is not having adequate amount of food. She had an acute kidney injury which recovered and the creatinine is normalized. She has a gram-negative bacillus in her urine and the patient is currently on Rocephin. On 04/24/2020, seeing the patient for a follow-up. As mentioned earlier, the patient is a case of Covid 19 infection with extensive bilateral pneumonia and hypoxic respiratory failure. The patient was 100% nonrebreather facemask addition to high flow oxygen. She was still hypoxemic and based on that the patient was switched to a BiPAP and currently pressures are 12/6 with an FiO2 of 100%. She seems to be much more comfortable with the setting of his saturations around 95% and her current respiratory rate is 21 with a minute ventilation of around 8-9 L. The patient is afebrile. The patient's inflammatory markers from today showed an LDH level which is on the rise at 2200 have any to and the CRP level is at 68.7. The patient's white cell count is at 10.4 with a hemoglobin of 11.4. The chest x-ray from today is showing diffuse bilateral pulmonary infiltrates and the infiltrates are essentially perihilar, very much compatible to the chest x-ray from yesterday without any interval worsening. The patient is on Decadron and will increase the dose up to 60 mg IV every 12 hours. The patient is on Lovenox 40 mg subcu for DVT prophylaxis d-dimer is at 1.04. Urine cultures still positive for E. coli and the patient is currently on IV Rocephin. She remains on Levemir insulin 40 units daily and she is also on NovoLog 7 units 3 times a day with meals. Monitor the blood sugar control otherwise for now. No other significant events overnight. She is awake. She is oriented. She is following commands. No nausea. No vomiting. She did have a bout of diarrhea. She is lethargic. 3 2020 the patient is being seen in a follow-up. This morning, the patient is on back on BiPAP. Note that yesterday afternoon she was able to go back to high flow oxygen and she was able to do that until p.m. and subsequently placed back on a BiPAP at a pressure of 10/6 with an FiO2 of 100%. This switch was changes the patient was getting more short of breath. The chest x-ray shows bilateral pulmonary infiltrates scattered throughout the lung franklin bilaterally, perihilar and affecting the upper and lower lobes. No major interval change compared to yesterday's chest x-ray. The patient is still on Decadron 6 mg IV every 12 hours. She is on day #4 of Remdesivir. Her LDH level is up to 2679 and the CRP level is down to 57.2. Her progesterone level was only at 0.42. Her d- dimer is at 0.93. Note that she has already received a unit of, less than plasma. She did not qualify for Actemra the patient had a suspected UTI with E. coli and she remains on IV Rocephin. Note that her pro-calcitonin level has been declining. In terms of blood sugar control, she is on Levemir insulin 60 units daily and she is also taking 7 units with meals and a sliding scale coverage. Unfortunately, her ability to eat is very limited as the patient is very much dependent on the BiPAP. She spent the entire night on BiPAP and this morning, she is able to a tidal volume of 500 and her respiratory rate is in the high 20s to low 30s and she is generating a minute ventilation of at least 15 L. Objective - Vital Signs Vital signs: Vital Signs Temp 98.9 F 04/25/20 04:00 Pulse 71 04/25/20 07:00 Resp 35 H 04/25/20 07:00 BP 141/74 04/25/20 07:00 Pulse Ox 89 L 04/25/20 07:00 Intake & Output 04/24/20 04/25/20 04/25/20 18:59 06:59 18:59 Intake Total 250 50 50 Output Total 885 930 50 Balance -635 -880 0 Weight 106.8 kg Intake: IV 100 Sodium Chloride 0.9% 1, 100 000 ml @ 100 mls/hr IV . Q10H [facility] Rx#:[id number] Oral 150 50 50 Output: Urine 885 930 50 Other: Voiding Method Indwelling Catheter Indwelling Catheter Indwelling Catheter # Bowel Movements 1 - Exam GENERAL EXAM: Alert, weak, fatigued 74-year-old female patient, on BiPAP at a pressure of 10/6 cm of water with an FiO2 of 100% HEAD: Normocephalic. EYES: Normal reaction of pupils, equal size. NOSE: Clear with pink turbinates. THROAT: No erythema or exudates. NECK: No masses, no JVD. CHEST: No chest wall deformity. LUNGS: Bilateral scattered rhonchi. The patient has practically lung base bilaterally and she end up having a coughing spell upon generating deep breath. CVS: S1 and S2 normal with no audible murmur, regular rhythm. ABDOMEN: No hepatosplenomegaly, normal bowel sounds, no guarding or rigidity. SPINE: No scoliosis or deformity SKIN: No rashes CENTRAL NERVOUS SYSTEM: No focal deficits, tone is normal in all 4 extremities. EXTREMITIES: There is no peripheral edema. No clubbing, no cyanosis. Peripheral pulses are intact. - Labs CBC & Chem 7: 04/25/20 03:50 04/25/20 03:50 Labs: Abnormal Lab Results - Last 24 Hours (Table) 04/24/20 04/24/20 04/24/20 Range/Units 03:17 11:33 16:24 WBC (3.8-10.6) k/uL Neutrophils # (1.3-7.7) k/uL Lymphocytes # (1.0-4.8) k/uL D-Dimer (<0.60) mg/L FEU Chloride (98-107) mmol/L BUN (7-17) mg/dL Glucose (74-99) mg/dL POC Glucose (mg/dL) 247 H 187 H (75-99) mg/dL AST (14-36) U/L Lactate Dehydrogenase (313-618) U/L C-Reactive Protein (<10.0) mg/L Total Protein (6.3-8.2) g/dL Albumin (3.5-5.0) g/dL Procalcitonin 0.42 H (0.02-0.09) ng/mL 04/24/20 04/25/20 04/25/20 Range/Units 21:37 03:50 03:50 WBC (3.8-10.6) k/uL Neutrophils # (1.3-7.7) k/uL Lymphocytes # (1.0-4.8) k/uL D-Dimer 0.93 H (<0.60) mg/L FEU Chloride (98-107) mmol/L BUN (7-17) mg/dL Glucose (74-99) mg/dL POC Glucose (mg/dL) 136 H (75-99) mg/dL AST (14-36) U/L Lactate Dehydrogenase 2679 H (313-618) U/L C-Reactive Protein 57.2 H (<10.0) mg/L Total Protein (6.3-8.2) g/dL Albumin (3.5-5.0) g/dL Procalcitonin (0.02-0.09) ng/mL 04/25/20 04/25/20 04/25/20 Range/Units 03:50 03:50 07:45 WBC 14.0 H (3.8-10.6) k/uL Neutrophils # 12.5 H (1.3-7.7) k/uL Lymphocytes # 0.8 L (1.0-4.8) k/uL D-Dimer (<0.60) mg/L FEU Chloride 113 H (98-107) mmol/L BUN 32 H (7-17) mg/dL Glucose 125 H (74-99) mg/dL POC Glucose (mg/dL) 173 H (75-99) mg/dL AST 82 H (14-36) U/L Lactate Dehydrogenase (313-618) U/L C-Reactive Protein (<10.0) mg/L Total Protein 5.7 L (6.3-8.2) g/dL Albumin 2.7 L (3.5-5.0) g/dL Procalcitonin (0.02-0.09) ng/mL Assessment and Plan Plan: 1 Covid 19 related pneumonia with secondary hypoxic respiratory failure. [facility] and the patient was pushed against a BiPAP which is running at a pressure of 10/6 with an FiO2 of 100%. X-rays showing stable bilateral pulmonary infiltrates. The patient is currently on Decadron 6 mg IV every 12 hours and the patient is also completing a course of Remdesivir and she is on day #4. Unfortunately, she was unable to tolerate high flow oxygen yesterday and she remains in the intensive care unit. She has already received 2 units of convalescent plasma. Not candidate for Actemra due to underlying infection 2 DM with DKA at the time of admission, recovered and the patient is currently on 60 units of Levemir insulin addition to 7 units with meals and his son's Coverage. 3 Acute CoVID 19 infection, initiated on Remdesivir , Decadron and convalescent plasma 04/22/2020, 1 unit 4 Elevated inflammatory markers secondary to above 5 Febrile illness secondary to above 6 Acute urinary tract infection, cultures pending, gram-negative bacteria with E. coli and the patient remains on IV Rocephin the pro-calcitonin level has been declining. 7 Diabetes mellitus, maintained on an insulin pump on outpatient basis 8 History of hypertension 9 Hyperlipidemia 10 Vitamin D deficiency Plan: Continue Decadron and Remdesivir day 4, and the patient was given convalescent plasma (1 unit) Decadron dose will be increased up to 20 mg IV and switch this patient an insulin drip for blood sugar control Lovenox started at a dose of 40 mg subcu daily vitamin supplements Continue BiPAP therapy for respiratory support, the LDH level is elevated and minimal elevation of the d-dimer and the patient is on prophylactic dose of Lovenox, and the patient will be switched to a BiPAP at a pressure of 10/6 and FiO2 will be cut down to 100% and will monitor the oxygenation and wean down the FiO2 further to maintain a saturation above 90%. Repeat chest x-ray and labs in a.m. and repeat inflammatory markers in a.m. the chest x-ray from today is essentially stable Condition is guarded, critical We'll continue to follow and make further recommendations based on her clinical status, I contacted the son and had a discussion with him. I told him that the patient's condition is very critical and borderline and she may ultimately require a mechanical ventilator. For the time being, she is hanging in there and she is still stable on BiPAP which will be continued. I will suggest insertion of a PICC line for any potential TPN at the later stages the patient is unable to keep up with her caloric requirements. She sees a BiPAP dependent and she can come off the BiPAP and as such she is unable to eat. Condition is critical. We'll continue to follow. Critical care time, more than 30 minutes, Time with Patient: Greater than 30
--- NOTE | 2020-04-25 08:33 | PN ---
PROGRESS NOTE DATE OF SERVICE: 04/24/2020 REASON FOR FOLLOWUP: 1. COVID-19 infection. 2. E coli urinary tract infection. INTERVAL HISTORY: The patient is currently afebrile. The patient remains on BiPAP. Denies having any chest pain , the patient did have occasional cough which is dry. No nausea, no vomiting, no abdominal pain or diarrhea. PHYSICAL EXAMINATION: Blood pressure 121/53 with a pulse of 57, temperature 98.4. She is 90% on BiPAP. General description is an elderly female lying in bed in no distress. RESPIRATORY SYSTEM: Unlabored breathing. Bilateral coarse breath sounds HEART: S1, S2. Regular rate and rhythm. ABDOMEN: Soft. No tenderness. LABS: Hemoglobin 11.4, white count 10.04, BUN of 31, creatinine 0.96. DIAGNOSTIC IMPRESSION AND PLAN: 1. Patient with acute respiratory failure, multifactorial, in this patient who did have COVID-19 infection, currently being treated with remdesivir along with zinc, vitamin C, Lovenox and dexamethasone. 2. Escherichia coli urinary tract infection, covered with Rocephin. Continue with supportive care. MMODL / IJN: [id number] / MTDD
[2020-04-25] MEDS: ZINC SULFATE 220 MG CAP PO SCH (08:38)
[2020-04-25] MEDS: INSULIN DETEMIR (LEVEMIR) 100 UNIT/ML SYR SQ SCH (08:38)
[2020-04-25] MEDS: INSULIN ASPART (NovoLOG) 100 UNIT/ML VIAL SQ SCH ×7 (08:39→20:40)
[2020-04-25] MEDS: ASCORBIC ACID 500 MG TAB PO SCH (08:40)
[2020-04-25] MEDS: LEVOTHYROXINE 88 MCG TAB PO SCH (08:40)
[2020-04-25] MEDS: ENOXAPARIN 40 MG/0.4 ML SYRINGE SQ SCH (08:41)
[2020-04-25] MEDS: CHOLECALCIFEROL 10 MCG (400 IU) TABLET PO SCH (08:41)
[2020-04-25] MEDS: DEXAMETHASONE SOD PHOSPHATE 10 MG/ML 1 ML VIAL IV SCH (08:45)
[2020-04-25] MEDS ORDERED: LIDOCAINE 1% INJ 10MG/ML (20 ML MDV) SQ ONE (10:11)
--- NOTE | 2020-04-25 11:04 | XR ---
EXAMINATION TYPE: XR chest 1V portable DATE OF EXAM: 04/25/2020 COMPARISON: Prior chest x-ray same dated earlier time HISTORY: There is interval line placement TECHNIQUE: Single frontal view of the chest is obtained. FINDINGS: Left-sided PICC line is been place, distal tip is coursing into the right innominate vein IMPRESSION: PICC line as described
--- NOTE | 2020-04-25 11:05 | XR ---
EXAMINATION TYPE: XR chest 1V portable DATE OF EXAM: 04/25/2020 COMPARISON: Prior chest x-rays same dated earlier time HISTORY: PICC line placement TECHNIQUE: Single frontal view of the chest is obtained. FINDINGS: Interval repositioning the PICC line is present, distal tip is at the level of the cavoatr ial junction. No significant interval change. IMPRESSION: No evident complication status post PICC line placement.
[2020-04-25] MEDS: REMDESIVIR 100 MG in SODIUM CHLORIDE 0.9% 250 ML IVPB SCH (11:15)
[2020-04-25 11:35] LABS: Glucose,Whole Blood 174 mg/dL (75-99)
--- NOTE | 2020-04-25 13:01 | IR ---
EXAMINATION TYPE: IR cvc insert >=5 years DATE OF EXAM: 04/25/2020 COMPARISON: NONE HISTORY: Needs long-term intravenous access for total parenteral nutrition FINDINGS: Maximal barrier technique was utilized. Hand hygiene obtained with soap and water and alco hol-based hand rub. The skin overlying the left basilic vein was localized with ultrasound and noted to be compressible and patent by ultrasound. An ultrasound image was obtained [facility]. Sterile technique utilized with the ultrasound machine. The skin overlying was prepped an d draped and Lidocaine used for local anesthesia. A skin tanna was made with a scalpel. Access was g ained to the vein under direct ultrasound guidance with a 21-gauge needle and a 0.018 inch wire was a dvanced. Access site was dilated with a peel-away sheath and the catheter tailored to length. Svetlana ter advanced centrally and a post procedure chest x-ray verified placement with the tip at the cavoat rial junction. Catheter was fixed to the skin and a sterile dressing placed. Hemostasis achieved an d the catheter was aspirated and flushed with sterile saline. The patient remained in stable conditi on. IMPRESSION: STATUS POST ULTRASOUND GUIDED PICC LINE PLACEMENT, READY FOR USE. THIS PROCEDURE WAS PER FORMED BY THE UNDERSIGNED.
[2020-04-25 15:13] LABS: Phosphorus 2.9 mg/dL (2.5-4.5)
--- NOTE | 2020-04-25 15:45 | PN ---
PROGRESS NOTE DATE OF SERVICE: 04/25/2020 This 74-year-old woman was admitted with COVID-19 pneumonia and bilateral extensive interstitial pneumonic process continues to be severely hypoxic. At this time, the patient is on BiPAP on 100% BiPAP and Dr. Bobo is following the patient closely. The patient is started on remdesivir and the patient also had diabetic ketoacidosis present on admission. High blood pressure is also elevated. Urine culture showed E. Coli. PAST MEDICAL HISTORY: Reviewed. REVIEW OF SYSTEMS: Could not be taken, the patient is on BiPAP. CURRENT MEDICATIONS: Current medications are reviewed and include: Tylenol, vitamin C, Lipitor, Rocephin, dexamethasone, Lovenox, NovoLog. Other medications reviewed. PHYSICAL EXAMINATION: The patient is alert. Pulse 80, blood pressure is 162/80, respiration 30, temperature 98.2, pulse ox 88% on 100%. HEENT: Conjunctivae normal. NECK: No jugular venous distention. CARDIOVASCULAR: S1, S2 muffled. RESPIRATORY: Breath sounds diminished at the bases. Bilateral scattered rhonchi and crackles. ABDOMEN: Soft, obese. LEGS: No edema, no swelling. NERVOUS SYSTEM: No focal deficits. LABS: WBC 14. D-dimer is 0.93. Glucose 173 and 174. LDH is ntd. C-reactive protein is 57.2. Albumin is 2.7. ASSESSMENT: 1. Acute COVID-19 infection with bilateral interstitial pneumonia with acute hypoxic respiratory failure on high-flow oxygen, BiPAP, sepsis. 2. Urinary tract infection with Escherichia coli. 3. Diabetic ketoacidosis, acute, present on admission. 4. Diabetes mellitus type 2, uncontrolled with hyperglycemia. 5. Hyperlipidemia. 6. Elevated inflammatory markers secondary to COVID-19. 7. Chronic kidney disease, stage 3. 8. Hyperkalemia. 9. Acute renal failure. 10.Hyponatremia. 11.History of hypertension. 12.Depression. 13.Remote history of nicotine dependence. 14.Obesity with body mass index of 40.9. 15.Mild thrombocytopenia. 16.Elevated D-dimer. 17.Elevated ALT, AST. RECOMMENDATIONS AND DISCUSSION: Recommend to continue current medications, continue symptomatic treatment, continue with remdesivir, continue the rest of the medications. Infectious Disease and Pulmonary are following the patient closely. Prognosis guarded. We will continue to monitor. We will also order a IL-6 level and will closely follow with Infectious Disease regarding that. The patient continues to be extremely sick at this time. MMODL / IJN: [id number] / IRMA
[2020-04-25] MEDS ORDERED: MVI, ADULT NO.4 WITH VIT K 10 ML, TRACE (CONC-1ML/DOSE) 1 ML in AMINO ACID 5%-D20W+LYTE... IV ONE ×3 (16:00)
[2020-04-25] MEDS ORDERED: FAT EMULSION 20% 250 ML in EMPTY BAG 1 BAG IV SCH (16:00)
[2020-04-25] MEDS: amLODIPine 10 MG TAB PO SCH (16:42)
[2020-04-25 17:03] LABS: Glucose,Whole Blood 128 mg/dL (75-99)
--- NOTE | 2020-04-25 18:50 | PN ---
PROGRESS NOTE DATE OF SERVICE: 04/25/2020 REASON FOR FOLLOWUP: COVID-19 infection. INTERVAL HISTORY: The patient is currently afebrile. The patient is hemodynamically stable, not on pressor support. The patient did have worsening of respiratory status requiring 100% FiO2 and BiPAP O2 sats are borderline. No vomiting, diarrhea or any other changes reported by the nursing staff. PHYSICAL EXAMINATION: Blood pressure 152/74 with a pulse of 74, temperature 98.5. She is 88% on 100% and BiPAP. General description is an elderly female up in the bed in no distress. No tachypnea or accessory muscle of respiration use. RESPIRATORY SYSTEM: Unlabored breathing. Bilateral scattered rhonchi. HEART: S1, S2. Regular rate and rhythm. ABDOMEN: Soft. No tenderness. EXTREMITIES: No edema of the feet. LABS: Hemoglobin is 12.3, white count 14,000. D-dimer is 0.93, creatinine 0.88. Did have elevated inflammatory markers with LDH of 2679. DIAGNOSTIC IMPRESSION AND PLAN: 1. Patient with acute respiratory failure secondary to acute COVID-19 infection. This patient seems to have shown worsening of her respiratory status, possibly progressing to cytokine storm, currently covered with decadron, Lovenox, and remdesivir along with zinc sulfate. May benefit from Actemra. Will discuss with Pulmonary. 2. Escherichia coli urinary tract infection. Continue with the Rocephin. MMODL / IJN: [id number] / MTDD
[2020-04-25 20:58] LABS: Glucose,Whole Blood 178 mg/dL (75-99)
[2020-04-25] MEDS: ATORVASTATIN 40 MG TAB PO SCH (21:05)
[2020-04-26 05:58] LABS: Basophils # (A) 0.1 k/uL (0-0.2); Basophils % (A) 0 %; Eosinophils % (A) 0 %; HCT 40.4 % (34.0-46.0); HGB 13.1 gm/dL (11.4-16.0); Lymphocytes # (A) 0.9 k/uL (1.0-4.8); Lymphocytes % (A) 5 %; MCH 29.5 pg (25.0-35.0); MCHC 32.5 g/dL (31.0-37.0); MCV 90.8 fL (80.0-100.0); Mean Platelet Volume 8.3; Monocytes # (A) 0.7 k/uL (0-1.0); Monocytes % (A) 4 %; Neutrophils # (A) 17.1 k/uL (1.3-7.7); Neutrophils % (A) 90 %; Platelet Count 307 k/uL (150-450); RBC 4.45 m/uL (3.80-5.40); RDW 13.8 % (11.5-15.5)
[2020-04-26 06:39] LABS: C Reactive Protein 62.5 mg/L (<10.0); Calcium 8.8 mg/dL (8.4-10.2); Magnesium 1.9 mg/dL (1.6-2.3); Phosphorus 3.5 mg/dL (2.5-4.5); Potassium 4.4 mmol/L (3.5-5.1); Total Bilirubin 0.6 mg/dL (0.2-1.3)
[2020-04-26 06:49] LABS: Glucose,Whole Blood 306 mg/dL (75-99)
[2020-04-26] MEDS: INSULIN ASPART (NovoLOG) 100 UNIT/ML VIAL SQ SCH ×7 (06:51→23:22)
[2020-04-26] MEDS: INSULIN DETEMIR (LEVEMIR) 100 UNIT/ML SYR SQ SCH (06:52)
[2020-04-26] MEDS: LEVOTHYROXINE 88 MCG TAB PO SCH (06:52)
[2020-04-26 07:06] LABS: Ionized Calcium 5.1 mg/dL (4.5-5.3)
--- NOTE | 2020-04-26 08:30 | P.PN ---
Subjective Progress Note Date: 04/26/20 This is a pleasant 74-year-old female patient who follows with Dr. Mace as her primary care physician. She has a history of hypertension, hyperlipidemia, hypothyroidism, depression, chronic tobacco dependence, diabetes mellitus with insulin pump. Yesterday she was brought into the emergency room via EMS after developing progressive weakness over the past week. She was unable to get herself up from a chair. Point of care blood glucose measured by EMS was over 600. Urine was positive for nitrates and 180 WBCs. She was given IV fluid boluses. Ceftriaxone and initiated on a heparin drip and admitted to the selective care unit. White count 8.2. Hemoglobin 13.9. Lymphocytes 0.8. Sodium 132. Potassium initially 6.5, currently 4.8 bicarb 19. Anion gap 17 currently 6. Creatinine 1.99. Improved to 1.43. She was found to be positive for munoz virus by PCR. He is seen today in consultation as her oxygen requirements have increased from 6 L to AirVo this morning. Presently on 60 L and 90% FiO2. Temperature 101.7. She is quite weak and fatigued. Chest x-ray revealing bilateral multifocal acute opacities consistent with CoVID 19 infection. Stat labs revealed a d-dimer of 0.83. LDH 1518. C-reactive protein 143. On today's evaluation of 04/23/2020, the patient remains on a combination of high flow oxygen and 100% nonrebreather facemask. The patient is on high flow oxygen at 60 L with an FiO2 of 90% and the patient is also on 100% nonrebreather facemask. Her pulse ox in the order of 92%. Her previous inflammatory markers including CRP and LDH were quite elevated. Repeat chest x-ray was done today and a chest x-ray was reviewed and revealed bilateral multifocal pulmonary opacities/infiltrates consistent with Covid 19 related pneumonia. The patient's is currently laying down supine in bed. She seems to be comfortable and there is no significant respiratory distress and her current pulse ox in the order of 92%. Upon comparing the chest x-rays, no major interval change compared to yesterday's findings. Meanwhile, the patient had further increase for LVH which is up to 1684 and the CRP is at 139. White cell count of 6.6. The patient is currently on Decadron 6 mg, Remdesivir and she is a #2 of treatment. She is also on anticoagulation and she is receiving not receiving anticoagulation and the d-dimer today is at 1.03. Lovenox will be started. She has no specific complaints. She feels tired. She is alert and orientated 3. She is diabetic and she is on a insulin pump on outpatient basis and currently she is receiving Levemir insulin 30 units daily along with NovoLog 7 units 3 times a day with meals and a sliding scale coverage. Blood sugars are in the 200 range and the patient is not having adequate amount of food. She had an acute kidney injury which recovered and the creatinine is normalized. She has a gram-negative bacillus in her urine and the patient is currently on Rocephin. On 04/24/2020, seeing the patient for a follow-up. As mentioned earlier, the patient is a case of Covid 19 infection with extensive bilateral pneumonia and hypoxic respiratory failure. The patient was 100% nonrebreather facemask addition to high flow oxygen. She was still hypoxemic and based on that the patient was switched to a BiPAP and currently pressures are 12/6 with an FiO2 of 100%. She seems to be much more comfortable with the setting of his saturations around 95% and her current respiratory rate is 21 with a minute ventilation of around 8-9 L. The patient is afebrile. The patient's inflammatory markers from today showed an LDH level which is on the rise at 2200 have any to and the CRP level is at 68.7. The patient's white cell count is at 10.4 with a hemoglobin of 11.4. The chest x-ray from today is showing diffuse bilateral pulmonary infiltrates and the infiltrates are essentially perihilar, very much compatible to the chest x-ray from yesterday without any interval worsening. The patient is on Decadron and will increase the dose up to 60 mg IV every 12 hours. The patient is on Lovenox 40 mg subcu for DVT prophylaxis d-dimer is at 1.04. Urine cultures still positive for E. coli and the patient is currently on IV Rocephin. She remains on Levemir insulin 40 units daily and she is also on NovoLog 7 units 3 times a day with meals. Monitor the blood sugar control otherwise for now. No other significant events overnight. She is awake. She is oriented. She is following commands. No nausea. No vomiting. She did have a bout of diarrhea. She is lethargic. 3 2020 the patient is being seen in a follow-up. This morning, the patient is on back on BiPAP. Note that yesterday afternoon she was able to go back to high flow oxygen and she was able to do that until p.m. and subsequently placed back on a BiPAP at a pressure of 10/6 with an FiO2 of 100%. This switch was changes the patient was getting more short of breath. The chest x-ray shows bilateral pulmonary infiltrates scattered throughout the lung franklin bilaterally, perihilar and affecting the upper and lower lobes. No major interval change compared to yesterday's chest x-ray. The patient is still on Decadron 6 mg IV every 12 hours. She is on day #4 of Remdesivir. Her LDH level is up to 2679 and the CRP level is down to 57.2. Her progesterone level was only at 0.42. Her d- dimer is at 0.93. Note that she has already received a unit of, less than plasma. She did not qualify for Actemra the patient had a suspected UTI with E. coli and she remains on IV Rocephin. Note that her pro-calcitonin level has been declining. In terms of blood sugar control, she is on Levemir insulin 60 units daily and she is also taking 7 units with meals and a sliding scale coverage. Unfortunately, her ability to eat is very limited as the patient is very much dependent on the BiPAP. She spent the entire night on BiPAP and this morning, she is able to a tidal volume of 500 and her respiratory rate is in the high 20s to low 30s and she is generating a minute ventilation of at least 15 L. 04/26/2020, the patient Is being seen in follow-up in the intensive care unit. As mentioned earlier, this is a case of bilateral pneumonia secondary to Covid 19. The patient respiratory failure. After being on high flow oxygen along with 100% the patient got switched to BiPAP initiated at pressures of 10/6 with an FiO2 of 100% and subsequently the pressure was brought up to 12/8 cm of water with an FiO2 of 100%. This morning her pulse ox was at 97%, I dropped her down to 90% and the current pulse ox is 93%. She continues to have a high respiratory rate and she was noted to have an elevated respiratory throughout the night. Her respiratory rate is in the mid 20s when she is calm and quiet and it goes up any time she is trying to talk or getting to move in bed. Her current respiratory rate is in the low to mid 30s. Tidal volumes above 700 and she has a high minute ventilation in the order of 18 L per minute. Hemodynamically stable. Afebrile. No significant tachycardia. Blood pressure is stable for now. She is awake and alert. She is a bit anxious. She is on IV fluids running at [employer] and she is on TPN for nutritional support and she is post PICC line insertion was inserted in the left upper extremity. TPN was initiated and the patient is unable to take any form of enteral feeding or oral feeding due to her extreme BiPAP dependence. I also increased her Decadron up to 20 mg IV on a daily basis and the patient is also onn Remdesivir day 5 and Lovenox at a dose of 40 mg by mouth daily. The inflammatory markers on today's evaluation show a d-dimer of 0.9 from yesterday, her CRP is up at 62.5 and LDH is still pending for now. Pro-calcitonin level is down to 0.4 as the patient is being treated for a E. coli urinary tract infection. I talked to her son yesterday and I updated her on the condition. She is extremely critical. We are still avoiding intubation mechanical ventilation on her as long as she is able to tolerate the BiPAP. Sugar is elevated. The patient would benefit from a insulin drip of the blood sugar is elevated. The patient is currently on Levemir insulin 60 units along with a sliding scale coverage. We'll evaluate her blood sugar during the day and decide on insulin drip Objective - Vital Signs Vital signs: Vital Signs Temp 98.2 F 04/26/20 00:00 Pulse 69 04/26/20 07:00 Resp 23 04/26/20 07:00 BP 159/73 04/26/20 07:00 Pulse Ox 96 04/26/20 07:00 Intake & Output 04/25/20 04/26/20 04/26/20 18:59 06:59 18:59 Intake Total 753 540 30 Output Total 1105 665 35 Balance -352 -125 -5 Weight 106.8 kg 107 kg Intake: IV 403 540 30 Fat Emulsion 20% 250 ml 63 210 In Empty Bag 1 bag @ 21 mls/hr IV MoWeFr@1600 [facility] Rx#:[id number] Mvi, Adult No.4 with Vit 90 330 30 K 10 ml Trace (Conc-1Ml/ Dose) 1 ml In Amino Acid 5%-D20w+Lytes*E* 1,000 ml @ 30 mls/hr IV .Q24H ONE Rx#:[id number] Remdesivir 100 mg In 250 Sodium Chloride 0.9% 250 ml @ 250 mls/hr IVPB DAILY@1200 [facility] Rx#: [id number] Oral 350 Output: Urine 1105 665 35 Other: Voiding Method Indwelling Catheter Indwelling Catheter Indwelling Catheter - Exam GENERAL EXAM: Alert, weak, fatigued 74-year-old female patient, on BiPAP at a pressure of 12/8 cm of water with an FiO2 of 90% the patient is anxious, the patient is tachypneic, she is hard to communicate with through her BiPAP mask, however she is awake and alert. She is following commands and answer simple questions. She is very much BiPAP dependent and she would easily desaturating get more short of breath if she is taken off. HEAD: Normocephalic. EYES: Normal reaction of pupils, equal size. NOSE: Clear with pink turbinates. THROAT: No erythema or exudates. NECK: No masses, no JVD. CHEST: No chest wall deformity. LUNGS: Bilateral scattered rhonchi. The patient has practically lung base bilaterally and she end up having a coughing spell upon generating deep breath. CVS: S1 and S2 normal with no audible murmur, regular rhythm. ABDOMEN: No hepatosplenomegaly, normal bowel sounds, no guarding or rigidity. SPINE: No scoliosis or deformity SKIN: No rashes CENTRAL NERVOUS SYSTEM: No focal deficits, tone is normal in all 4 extremities. EXTREMITIES: There is no peripheral edema. No clubbing, no cyanosis. Peripheral pulses are intact. The patient has a PICC line in the left upper extremity. - Labs CBC & Chem 7: 04/26/20 05:23 04/26/20 05:23 Labs: Abnormal Lab Results - Last 24 Hours (Table) 04/25/20 04/25/20 04/25/20 Range/Units 11:34 17:01 20:56 WBC (3.8-10.6) k/uL Neutrophils # (1.3-7.7) k/uL Lymphocytes # (1.0-4.8) k/uL BUN (7-17) mg/dL Glucose (74-99) mg/dL POC Glucose (mg/dL) 174 H 128 H 178 H (75-99) mg/dL AST (14-36) U/L C-Reactive Protein (<10.0) mg/L Total Protein (6.3-8.2) g/dL Albumin (3.5-5.0) g/dL 04/26/20 04/26/20 04/26/20 Range/Units 05:23 05:23 06:47 WBC 19.0 H (3.8-10.6) k/uL Neutrophils # 17.1 H (1.3-7.7) k/uL Lymphocytes # 0.9 L (1.0-4.8) k/uL BUN 26 H (7-17) mg/dL Glucose 297 H (74-99) mg/dL POC Glucose (mg/dL) 306 H (75-99) mg/dL AST 82 H (14-36) U/L C-Reactive Protein 62.5 H (<10.0) mg/L Total Protein 6.0 L (6.3-8.2) g/dL Albumin 3.0 L (3.5-5.0) g/dL Assessment and Plan Plan: 1 Covid 19 related pneumonia with secondary hypoxic respiratory failure. The p atient failed high flow oxygen and she is currently on BiPAP which is running at a pressure of 12/8 with an FiO2 of 90%. X-rays showing stable bilateral pulmonary infiltrates. The patient is currently on Decadron 20 mg IV every 24 hours and the patient is also completing a course of Remdesivir and she is on day #5. Unfortunately, she was unable to tolerate high flow oxygen yesterday and she remains in the intensive care unit. She has already received 1 units of convalescent plasma. Not candidate for Actemra due to underlying infection. I'm going to be discussed this again with pharmacy 9 of that infection is being treated with IV Rocephin and the patient has no septic signs of the patient's pro-calcitonin level is on the decline. 2 DM with DKA at the time of admission, recovered and the patient is currently on 60 units of Levemir insulin addition to 7 units with meals and his son's Coverage. 3 Acute CoVID 19 infection, initiated on Remdesivir , Decadron and convalescent plasma 04/22/2020, 1 units 4 Elevated inflammatory markers secondary to above 5 Febrile illness secondary to above 6 Acute urinary tract infection, cultures pending, gram-negative bacteria with E. coli and the patient remains on IV Rocephin the pro-calcitonin level has been declining. 7 Diabetes mellitus, maintained on an insulin pump on outpatient basis 8 History of hypertension 9 Hyperlipidemia 10 Vitamin D deficiency 11 TPN for nutritional support as the patient is unable to take any form of enteral nutrition. Blood sugar is elevated and may consider insulin drip. Currently she is on Levemir 60 units along with a scale. Plan: Continue Decadron 20 mg daily and Remdesivir day 5, and the patient was given convalescent plasma (1 unit) Will discuss IL-6 treatment, Actemra, especially the patient's infection is under control and the patient's UTI has been treated and appropriate calcitonin level is declining. Lovenox started at a dose of 40 mg subcu daily vitamin supplements Continue BiPAP therapy for respiratory support, the LDH level is elevated and minimal elevation of the d-dimer and the patient is on prophylactic dose of Lovenox, and the patient will be switched to a BiPAP at a pressure of 12/8 and FiO2 will be cut down to 90% and will monitor the oxygenation and wean down the FiO2 further to maintain a saturation above 90%. Repeat chest x-ray in am Awaiting LDH level Continue TPN for nutritional support May switched to an insulin drip for tighter blood sugar control discussed the case with the family and I had a lengthy discussion with her son and explained to her the critical nature of her condition and the possibility of her ending up by mechanical ventilator. Condition is guarded, critical Critical care time, more than 30 minutes, Time with Patient: Greater than 30
[2020-04-26] MEDS: DEXAMETHASONE SOD PHOSPHATE 10 MG/ML 1 ML VIAL IV SCH (08:57)
[2020-04-26] MEDS: ENOXAPARIN 40 MG/0.4 ML SYRINGE SQ SCH (08:57)
[2020-04-26] MEDS: ASCORBIC ACID 500 MG TAB PO SCH (08:57)
[2020-04-26] MEDS: amLODIPine 10 MG TAB PO SCH (08:57)
[2020-04-26] MEDS: ZINC SULFATE 220 MG CAP PO SCH (08:57)
[2020-04-26] MEDS: CHOLECALCIFEROL 10 MCG (400 IU) TABLET PO SCH (08:58)
[2020-04-26] MEDS: REMDESIVIR 100 MG in SODIUM CHLORIDE 0.9% 250 ML IVPB SCH (11:23)
[2020-04-26 11:33] LABS: Glucose,Whole Blood 300 mg/dL (75-99)
[2020-04-26] MEDS ORDERED: INSULIN DETEMIR (LEVEMIR) 100 UNIT/ML SYR SQ ONE (13:10)
--- NOTE | 2020-04-26 15:17 | PN ---
PROGRESS NOTE DATE OF SERVICE: 04/26/2020 This 74-year-old woman was admitted with severe COVID-19 pneumonia and acute hypoxic respiratory failure is being closely monitored at this time. The patient had bilateral extensive lesions, multiple consultants are following the patient closely. The patient has received remdesivir and convalescent plasma. The patient is on multiple medications for COVID as well. The patient is being closely monitored at this time. The patient is on BiPAP with 100% FiO2 and 12/8 reading could not be weaned off because of severe hypoxia. The pulse ox was dipping into 82s, while trying to wean off according to the staff. Jonasemra is being evaluated by Infectious Disease and Dr. Bobo. PAST MEDICAL HISTORY: Reviewed. REVIEW OF SYSTEMS: Could not be taken. CURRENT MEDICATIONS: Current medications are reviewed and include Tylenol, vitamin C, Norvasc, Lipitor, Rocephin, Decadron, NovoLog Narcan. PHYSICAL EXAMINATION: Patient is sedated. The pulse is 69, blood pressure is 131/62, respiration 25, temperature 98.5, pulse ox is 89% and 90% on 100% BiPAP at 12/8 setting. HEENT: Conjunctivae normal. NECK: No jugular venous distention. CARDIOVASCULAR: S1, S2 muffled. RESPIRATORY: Breath sounds diminished at the bases. A few scattered rhonchi and crackles. ABDOMEN: Soft, obese. LEGS: No edema. No swelling. NERVOUS SYSTEM: No focal deficits. LABS: WBC 19, sodium 140, potassium 4.4, otherwise other labs are noted. ASSESSMENT: 1. Acute COVID-19 infection with bilateral interstitial pneumonia with acute hypoxic respiratory failure on high-flow oxygen and BiPAP with sepsis, present on admission. 2. Urinary tract infection with Escherichia coli .. 3. Diabetic ketoacidosis, acute, present on admission. 4. Diabetes mellitus type 2, uncontrolled with hyperglycemia. 5. Hyperlipidemia. 6. Elevated inflammatory markers secondary to COVID-19. 7. Chronic kidney disease stage 3. 8. Hyperkalemia. 9. Acute renal failure. 10.Hyponatremia. 11.History of hypertension. 12.History of depression. 13.Remote history of nicotine dependence. 14.Obesity with body mass index of 40.9. 15.Mild thrombocytopenia. 16.Elevated D-dimer. 17.Elevated AST, ALT. RECOMMENDATIONS AND DISCUSSION: Recommend to continue current medication, continue symptomatic treatment. Otherwise, I would recommend continue with remdesivir. Monitor blood sugars closely. We will increase the dose to 75 mg. Patient is ordered on high-dose dexamethasone and we will also increase the dose of NovoLog scale also and continue to monitor. Prognosis guarded because of multiple complex medical issues. Further recommendations to follow. MMODL / IJN: [id number] /
[2020-04-26] MEDS ORDERED: 1: MVI, ADULT NO.4 WITH VIT K 10 ML, TRACE (CONC-1ML/DOSE) 1 ML in AMINO ACID 5%-D20W+LY IV SCH ×3 (16:00)
[2020-04-26 17:04] LABS: Glucose,Whole Blood 229 mg/dL (75-99)
[2020-04-26] MEDS: ATORVASTATIN 40 MG TAB PO SCH (20:14)
--- NOTE | 2020-04-26 23:04 | PN ---
PROGRESS NOTE DATE OF SERVICE: 04/26/2020 REASON FOR FOLLOWUP: Acute COVID-19 infection. INTERVAL HISTORY: The patient is currently afebrile. Patient is hemodynamically stable. The patient remains to be BiPAP dependent. Still tends to be hypoxic. No vomiting. No diarrhea or any other changes reported by the nursing staff. PHYSICAL EXAMINATION: Blood pressure 134/70 with a pulse of 77, temperature 98.6. She is 99% on BiPAP. General description is an elderly female who is lying in bed in no distress. Respiratory system: Unlabored breathing, bilateral scattered rhonchi. Heart: S1-S2 regular rate and rhythm. ABDOMEN: Soft. No tenderness. LABS: Hemoglobin 13.9, white count 19,000. BUN of 26, creatinine 0.79. DIAGNOSTIC IMPRESSION AND PLAN: 1. Patient with acute COVID-19 infection. This patient currently covered with dexamethasone, Lovenox, zinc, ascorbic acid, to continue. 2. Patient with E. coli urinary tract infection currently covered with Rocephin. 3. Monitor clinical course closely. MMODL / IJN: [id number] / MTDD
[2020-04-26 23:31] LABS: Glucose,Whole Blood 286 mg/dL (75-99)
[2020-04-27 05:00] LABS: ABG Base Excess 3.4 mmol/L; ABG HCO3 27 mmol/L (21-25); ABG Oxygen Saturation 93.6 % (94-97); ABG PCO2 36 mmHg (35-45); ABG PH 7.49 (7.35-7.45); ABG PO2 65 mmHg (83-108); ABG TCO2 28 mmol/L (19-24); Allen Test Performed? Yes
[2020-04-27 05:34] LABS: C Reactive Protein 61.5 mg/L (<10.0); Calcium 8.9 mg/dL (8.4-10.2); Magnesium 2.1 mg/dL (1.6-2.3); Phosphorus 3.4 mg/dL (2.5-4.5)
[2020-04-27 06:13] LABS: Glucose,Whole Blood 325 mg/dL (75-99)
[2020-04-27] MEDS ORDERED: LORazepam 2 MG/ML INJ IV PRN (06:13)
[2020-04-27] MEDS: INSULIN ASPART (NovoLOG) 100 UNIT/ML VIAL SQ SCH ×2 (06:17→06:18)
[2020-04-27] MEDS: LEVOTHYROXINE 88 MCG TAB PO SCH (06:48)
[2020-04-27] MEDS: DEXAMETHASONE SOD PHOSPHATE 10 MG/ML 1 ML VIAL IV SCH (08:06)
[2020-04-27] MEDS: ENOXAPARIN 40 MG/0.4 ML SYRINGE SQ SCH (08:06)
[2020-04-27] MEDS: CHOLECALCIFEROL 10 MCG (400 IU) TABLET PO SCH (08:07)
[2020-04-27] MEDS: amLODIPine 10 MG TAB PO SCH (08:07)
[2020-04-27] MEDS: ASCORBIC ACID 500 MG TAB PO SCH (08:07)
[2020-04-27] MEDS: INSULIN DETEMIR (LEVEMIR) 100 UNIT/ML SYR SQ SCH (08:08)
[2020-04-27] MEDS: ZINC SULFATE 220 MG CAP PO SCH (08:09)
[2020-04-27] MEDS ORDERED: NOREPINEPHRIN 4 MG-0.9% NS PMX 4 MG/250 ML ML IV ONE (08:25)
[2020-04-27] MEDS ORDERED: propofoL 50 ML IV ONE (08:25)
[2020-04-27] MEDS ORDERED: SUCCINYLCHOLINE CHLORIDE VIAL 200 MG/10 ML VIAL IV ONE (08:45)
[2020-04-27] MEDS ORDERED: ETOMIDATE 2 MG/ML 10 ML VIAL ONE (08:45)
[2020-04-27] MEDS ORDERED: ROCURONIUM 10 MG/ML (5 ML VIAL) IV ONE (08:45)
--- NOTE | 2020-04-27 08:54 | P.PN ---
Subjective Progress Note Date: 04/27/20 This is a pleasant 74-year-old female patient who follows with Dr. Mace as her primary care physician. She has a history of hypertension, hyperlipidemia, hypothyroidism, depression, chronic tobacco dependence, diabetes mellitus with insulin pump. Yesterday she was brought into the emergency room via EMS after developing progressive weakness over the past week. She was unable to get herself up from a chair. Point of care blood glucose measured by EMS was over 600. Urine was positive for nitrates and 180 WBCs. She was given IV fluid boluses. Ceftriaxone and initiated on a heparin drip and admitted to the selective care unit. White count 8.2. Hemoglobin 13.9. Lymphocytes 0.8. Sodium 132. Potassium initially 6.5, currently 4.8 bicarb 19. Anion gap 17 currently 6. Creatinine 1.99. Improved to 1.43. She was found to be positive for munoz virus by PCR. He is seen today in consultation as her oxygen requirements have increased from 6 L to AirVo this morning. Presently on 60 L and 90% FiO2. Temperature 101.7. She is quite weak and fatigued. Chest x-ray revealing bilateral multifocal acute opacities consistent with CoVID 19 infection. Stat labs revealed a d-dimer of 0.83. LDH 1518. C-reactive protein 143. On today's evaluation of 04/23/2020, the patient remains on a combination of high flow oxygen and 100% nonrebreather facemask. The patient is on high flow oxygen at 60 L with an FiO2 of 90% and the patient is also on 100% nonrebreather facemask. Her pulse ox in the order of 92%. Her previous inflammatory markers including CRP and LDH were quite elevated. Repeat chest x-ray was done today and a chest x-ray was reviewed and revealed bilateral multifocal pulmonary opacities/infiltrates consistent with Covid 19 related pneumonia. The patient's is currently laying down supine in bed. She seems to be comfortable and there is no significant respiratory distress and her current pulse ox in the order of 92%. Upon comparing the chest x-rays, no major interval change compared to yesterday's findings. Meanwhile, the patient had further increase for LVH which is up to 1684 and the CRP is at 139. White cell count of 6.6. The patient is currently on Decadron 6 mg, Remdesivir and she is a #2 of treatment. She is also on anticoagulation and she is receiving not receiving anticoagulation and the d-dimer today is at 1.03. Lovenox will be started. She has no specific complaints. She feels tired. She is alert and orientated 3. She is diabetic and she is on a insulin pump on outpatient basis and currently she is receiving Levemir insulin 30 units daily along with NovoLog 7 units 3 times a day with meals and a sliding scale coverage. Blood sugars are in the 200 range and the patient is not having adequate amount of food. She had an acute kidney injury which recovered and the creatinine is normalized. She has a gram-negative bacillus in her urine and the patient is currently on Rocephin. On 04/24/2020, seeing the patient for a follow-up. As mentioned earlier, the patient is a case of Covid 19 infection with extensive bilateral pneumonia and hypoxic respiratory failure. The patient was 100% nonrebreather facemask addition to high flow oxygen. She was still hypoxemic and based on that the patient was switched to a BiPAP and currently pressures are 12/6 with an FiO2 of 100%. She seems to be much more comfortable with the setting of his saturations around 95% and her current respiratory rate is 21 with a minute ventilation of around 8-9 L. The patient is afebrile. The patient's inflammatory markers from today showed an LDH level which is on the rise at 2200 have any to and the CRP level is at 68.7. The patient's white cell count is at 10.4 with a hemoglobin of 11.4. The chest x-ray from today is showing diffuse bilateral pulmonary infiltrates and the infiltrates are essentially perihilar, very much compatible to the chest x-ray from yesterday without any interval worsening. The patient is on Decadron and will increase the dose up to 60 mg IV every 12 hours. The patient is on Lovenox 40 mg subcu for DVT prophylaxis d-dimer is at 1.04. Urine cultures still positive for E. coli and the patient is currently on IV Rocephin. She remains on Levemir insulin 40 units daily and she is also on NovoLog 7 units 3 times a day with meals. Monitor the blood sugar control otherwise for now. No other significant events overnight. She is awake. She is oriented. She is following commands. No nausea. No vomiting. She did have a bout of diarrhea. She is lethargic. 3 2020 the patient is being seen in a follow-up. This morning, the patient is on back on BiPAP. Note that yesterday afternoon she was able to go back to high flow oxygen and she was able to do that until p.m. and subsequently placed back on a BiPAP at a pressure of 10/6 with an FiO2 of 100%. This switch was changes the patient was getting more short of breath. The chest x-ray shows bilateral pulmonary infiltrates scattered throughout the lung franklin bilaterally, perihilar and affecting the upper and lower lobes. No major interval change compared to yesterday's chest x-ray. The patient is still on Decadron 6 mg IV every 12 hours. She is on day #4 of Remdesivir. Her LDH level is up to 2679 and the CRP level is down to 57.2. Her progesterone level was only at 0.42. Her d- dimer is at 0.93. Note that she has already received a unit of, less than plasma. She did not qualify for Actemra the patient had a suspected UTI with E. coli and she remains on IV Rocephin. Note that her pro-calcitonin level has been declining. In terms of blood sugar control, she is on Levemir insulin 60 units daily and she is also taking 7 units with meals and a sliding scale coverage. Unfortunately, her ability to eat is very limited as the patient is very much dependent on the BiPAP. She spent the entire night on BiPAP and this morning, she is able to a tidal volume of 500 and her respiratory rate is in the high 20s to low 30s and she is generating a minute ventilation of at least 15 L. 04/26/2020, the patient Is being seen in follow-up in the intensive care unit. As mentioned earlier, this is a case of bilateral pneumonia secondary to Covid 19. The patient respiratory failure. After being on high flow oxygen along with 100% the patient got switched to BiPAP initiated at pressures of 10/6 with an FiO2 of 100% and subsequently the pressure was brought up to 12/8 cm of water with an FiO2 of 100%. This morning her pulse ox was at 97%, I dropped her down to 90% and the current pulse ox is 93%. She continues to have a high respiratory rate and she was noted to have an elevated respiratory throughout the night. Her respiratory rate is in the mid 20s when she is calm and quiet and it goes up any time she is trying to talk or getting to move in bed. Her current respiratory rate is in the low to mid 30s. Tidal volumes above 700 and she has a high minute ventilation in the order of 18 L per minute. Hemodynamically stable. Afebrile. No significant tachycardia. Blood pressure is stable for now. She is awake and alert. She is a bit anxious. She is on IV fluids running at [facility] and she is on TPN for nutritional support and she is post PICC line insertion was inserted in the left upper extremity. TPN was initiated and the patient is unable to take any form of enteral feeding or oral feeding due to her extreme BiPAP dependence. I also increased her Decadron up to 20 mg IV on a daily basis and the patient is also onn Remdesivir day 5 and Lovenox at a dose of 40 mg by mouth daily. The inflammatory markers on today's evaluation show a d-dimer of 0.9 from yesterday, her CRP is up at 62.5 and LDH is still pending for now. Pro-calcitonin level is down to 0.4 as the patient is being treated for a E. coli urinary tract infection. I talked to her son yesterday and I updated her on the condition. She is extremely critical. We are still avoiding intubation mechanical ventilation on her as long as she is able to tolerate the BiPAP. Sugar is elevated. The patient would benefit from a insulin drip of the blood sugar is elevated. The patient is currently on Levemir insulin 60 units along with a sliding scale coverage. We'll evaluate her blood sugar during the day and decide on insulin drip 2020, the patient is obviously decompensated and she's been having worsening shortness of breath and increased difficulty in breathing since yesterday evening. This started around 3 AM where she and some desaturation. At around 5 AM, blood gases was done that showed a pH of 7.49 with a pCO2 of 36 and pO2 of 65 and this was done on a BiPAP of 12/8 with an FiO2 of 100%. She is quite tachypneic with a high minute ventilation and she has become more confused and struggling to breathe and pulling on her lines. LDH level is up to 2947, CRP level is at 61.5. She is afebrile. She is on high dose Decadron and she is also completed one units of, less than plasma and the patient received Remdesi vir per protocol. The patient remains hemodynamically stable on no pressors. Based on the rest of the blood work, the patient has a stable renal function with a creatinine of 0.8 with a mean of 32. Electrodes are all within normal limits. The white cell count today is at 19 and this was not listed from yesterday. The d-dimer is up to 3.89. The patient is on Lovenox prophylactic dose of 40 mg subcu every 12 hours. Objective - Vital Signs Vital signs: Vital Signs Temp 98.4 F 04/27/20 04:00 Pulse 101 H 04/27/20 07:00 Resp 35 H 04/27/20 07:00 BP 151/97 04/27/20 07:00 Pulse Ox 89 L 04/27/20 07:00 Intake & Output 04/26/20 04/27/20 04/27/20 18:59 06:59 18:59 Intake Total 330 720 60 Output Total 880 915 55 Balance -550 -195 5 Weight 107.5 kg Intake: IV 330 720 60 Amino Acid 5%-D20w+Lytes* 720 60 E* 1,000 ml @ 60 mls/hr IV .BY DURATION [facility] Rx#: [id number] Mvi, Adult No.4 with Vit 330 K 10 ml Trace (Conc-1Ml/ Dose) 1 ml In Amino Acid 5%-D20w+Lytes*E* 1,000 ml @ 30 mls/hr IV .Q24H [facility] Rx#:[id number] Output: Urine 880 915 55 Other: Voiding Method Indwelling Catheter Indwelling Catheter Indwelling Catheter - Exam GENERAL EXAM: Alert, weak, fatigued 74-year-old female patient, on BiPAP at a pressure of 12/8 cm of water with an FiO2 of 100% and the patient is quite restless, tachypneic, using azithromycin of breathing even while on the BiPAP and the patient is thrashing in bed. Her respiratory status as decompensated. Her pulse ox is currently at 90%. She easily desaturates. Were able to put that on a left lateral position which is improved oxygenation. Her current pulse ox is around 90%. HEAD: Normocephalic. EYES: Normal reaction of pupils, equal size. NOSE: Clear with pink turbinates. THROAT: No erythema or exudates. NECK: No masses, no JVD. CHEST: No chest wall deformity. LUNGS: Bilateral scattered rhonchi. The patient has practically lung base bilaterally and she end up having a coughing spell upon generating deep breath. CVS: S1 and S2 normal with no audible murmur, regular rhythm. ABDOMEN: No hepatosplenomegaly, normal bowel sounds, no guarding or rigidity. SPINE: No scoliosis or deformity SKIN: No rashes CENTRAL NERVOUS SYSTEM: No focal deficits, tone is normal in all 4 extremities. EXTREMITIES: There is no peripheral edema. No clubbing, no cyanosis. Peripheral pulses are intact. The patient has a PICC line in the left upper extremity.Less responsive compared to yesterday and the patient is responding to painful stimulation all 4 extremities. No focal neurological deficits. - Labs CBC & Chem 7: 04/26/20 05:23 04/27/20 04:09 Labs: Abnormal Lab Results - Last 24 Hours (Table) 04/26/20 04/26/20 04/26/20 Range/Units 11:31 16:59 23:19 D-Dimer (<0.60) mg/L FEU ABG pH (7.35-7.45) ABG pO2 (83-108) mmHg ABG HCO3 (21-25) mmol/L ABG Total CO2 (19-24) mmol/L ABG O2 Saturation (94-97) % BUN (7-17) mg/dL Glucose (74-99) mg/dL POC Glucose (mg/dL) 300 H 229 H 286 H (75-99) mg/dL Lactate Dehydrogenase (313-618) U/L C-Reactive Protein (<10.0) mg/L 04/27/20 04/27/20 04/27/20 Range/Units 04:09 04:10 04:55 D-Dimer 3.89 H (<0.60) mg/L FEU ABG pH 7.49 H (7.35-7.45) ABG pO2 65 L (83-108) mmHg ABG HCO3 27 H (21-25) mmol/L ABG Total CO2 28 H (19-24) mmol/L ABG O2 Saturation 93.6 L (94-97) % BUN 32 H (7-17) mg/dL Glucose 322 H (74-99) mg/dL POC Glucose (mg/dL) (75-99) mg/dL Lactate Dehydrogenase 2947 H (313-618) U/L C-Reactive Protein 61.5 H (<10.0) mg/L 04/27/20 Range/Units 06:12 D-Dimer (<0.60) mg/L FEU ABG pH (7.35-7.45) ABG pO2 (83-108) mmHg ABG HCO3 (21-25) mmol/L ABG Total CO2 (19-24) mmol/L ABG O2 Saturation (94-97) % BUN (7-17) mg/dL Glucose (74-99) mg/dL POC Glucose (mg/dL) 325 H (75-99) mg/dL Lactate Dehydrogenase (313-618) U/L C-Reactive Protein (<10.0) mg/L Assessment and Plan Plan: 1 Covid 19 related pneumonia with secondary hypoxic respiratory failure. The patient is currently on Decadron 20 mg IV every 24 hours and the patient is also completing a course of Remdesivir obliterated a total of 5 day protocol and she received a unit of less than plasma. Her condition is further decompensated. Chest x-ray showing diffuse bilateral pulmonary infiltrates. D-dimer is elevated. LDH is on the rise. Respiratory status is worse and the patient is struggling to breathe with a high minute ventilation and use of accessory muscles of breathing. Her mentation is altered and she has become more restless and agitated. This is atypical respiratory failure. Blood gases was noted. Discussed with the family. Decided to proceed with intubation mechanical ventilation.. 2 DM , we'll need an insulin drip for blood sugar control. The patient will be intubated and started on enteral feeding for nutritional support and the tibia will be discontinued. 3 Acute CoVID 19 infection, completed Remdesivir , Decadron and convalescent plasma 04/22/2020, 1 units 4 Elevated inflammatory markers secondary to above 5 Febrile illness secondary to above 6 Acute urinary tract infection, cultures pending, gram-negative bacteria with E. coli and the patient remains on IV Rocephin the pro-calcitonin level has been declining. 7 Diabetes mellitus, maintained on an insulin pump on outpatient basis 8 History of hypertension 9 Hyperlipidemia 10 Vitamin D deficiency 11 TPN for nutritional support as the patient is unable to take any form of enteral nutrition. Plan: Intubate the patient We'll start the patient on a tidal volume of 400, PEEP of 15 with a respiratory rate of 26 and FiO2 of 100%. She will likely need sedation with propofol and the dose will be titrated to maintain adequate sedation May use paralytics if needed Continue Decadron 20 mg daily and Remdesivir completed a total of 5 day course, and the patient was given convalescent plasma (1 unit) Lovenox started at a dose of 50 mg subcu twice a day and the dose was modified based on elevation of the d-dimer vitamin supplements Stop TPN and switch this patient to enteral feeding for nutritional support Insulin drip for blood sugar support and stop long-acting insulin Repeat chest x-ray in am Awaiting LDH level discussed the case with the family and I had a lengthy discussion with her son and explained to her the critical nature of her condition and the possibility of her ending up by mechanical ventilator. I updated the son today on the phone and informed of proceeding with intubation mechanical ventilation. Condition is guarded, critical Critical care time, more than 30 minutes, Time with Patient: Greater than 30
[2020-04-27] MEDS ORDERED: INSULIN REGULAR BOLUS (FROM DRIP BAG) IV PRN (08:59)
--- NOTE | 2020-04-27 09:02 | XR ---
EXAMINATION TYPE: XR chest 1V portable DATE OF EXAM: 04/27/2020 COMPARISON: 04/25/2020 INDICATION: Cough and pneumonia TECHNIQUE: Single frontal view of the chest is obtained. FINDINGS: The heart size is normal. The pulmonary vasculature is prominent. Diffuse increased lung markings are present bilaterally. Findings are nonspecific but can be compatib le with atypical pneumonia. Similar to comparison IMPRESSION: 1. Diffuse bilateral lung infiltrates can be compatible with atypical pneumonia.
[2020-04-27 09:30] LABS: ABG Base Excess 0.4 mmol/L; ABG HCO3 26 mmol/L (21-25); ABG PCO2 46 mmHg (35-45); ABG PH 7.36 (7.35-7.45); ABG PO2 63 mmHg (83-108); ABG TCO2 27 mmol/L (19-24); Allen Test Performed? Yes
--- NOTE | 2020-04-27 09:31 | XR ---
EXAMINATION TYPE: XR chest 1V portable DATE OF EXAM: 04/27/2020 COMPARISON: 04/27/2020 INDICATION: Tube placement TECHNIQUE: Single frontal view of the chest is obtained. FINDINGS: The heart size is normal. The pulmonary vasculature is prominent. Diffuse patchy infiltrates are present bilaterally. This appears to be worsening. There is placement of an endotracheal tube with the tip 4.8 cm above the pollo. Nasogastric tube is in place with tip in left upper quadrant of the abdomen. EKG leads overlie the chest. IMPRESSION: 1. Worsening bilateral lung infiltrates. 2. Lines and catheters discussed above.
[2020-04-27] MEDS: ENOXAPARIN 60 MG/0.6 ML SYRINGE SQ SCH ×2 (09:58→19:38)
[2020-04-27] MEDS: CHLORHEXIDINE GLUCONATE 15 ML CUP MUCOUS MEM SCH ×2 (09:58→19:38)
[2020-04-27] MEDS: NOREPINEPHRINE 8 MG in SODIUM CHLORIDE 0.9% 250 ML IV SCH ×2 (10:22→23:13)
[2020-04-27] MEDS: INSULIN REGULAR 100 UNIT in SODIUM CHLORIDE 0.9% 100 ML IV SCH ×2 (10:54→15:25)
[2020-04-27 10:55] LABS: Glucose,Whole Blood 424 mg/dL (75-99)
[2020-04-27 11:42] LABS: Glucose,Whole Blood 365 mg/dL (75-99)
--- NOTE | 2020-04-27 11:43 | P.PCN ---
Date of Procedure: 04/27/20 Preoperative Diagnosis: Acute hypoxic respiratory failure Postoperative Diagnosis: Acute hypoxic respiratory failure Procedure(s) Performed: Insertion of an arterial line Anesthesia: local Surgeon: Criss Bobo Estimated Blood Loss (ml): 0 Pathology: other Condition: critical Disposition: ICU Operative Findings: Indication: Hemodynamic monitoring. A time-out was completed verifying correct patient, procedure, site, positioning, and implant(s) or special equipment if applicable. Allens test was performed to ensure adequate perfusion. The patients right wrist was prepped and draped in sterile fashion. 1% Lidocaine was used to anesthetize the area. An 18G Arrow arterial line was introduced into the radial artery. The catheter was threaded over the guide wire and the needle was removed with appropriate pulsatile blood return. Blood loss was minimal. The catheter was then sutured in place to the skin and a sterile dressing applied. Perfusion to the extremity distal to the point of catheter insertion was checked and found to be adequate. The patient tolerated the procedure well and there were no complications.
[2020-04-27 13:02] LABS: Glucose,Whole Blood 384 mg/dL (75-99)
[2020-04-27 14:14] LABS: Glucose,Whole Blood 277 mg/dL (75-99)
[2020-04-27 14:58] LABS: Glucose,Whole Blood 248 mg/dL (75-99)
[2020-04-27 15:18] LABS: ABG Base Excess -0.4 mmol/L; ABG HCO3 26 mmol/L (21-25); ABG Oxygen Saturation 98.8 % (94-97); ABG PCO2 48 mmHg (35-45); ABG PH 7.33 (7.35-7.45); ABG PO2 122 mmHg (83-108); ABG TCO2 27 mmol/L (19-24); Allen Test Performed? Yes
[2020-04-27] MEDS: SODIUM CHLORIDE 0.9% 1,000 ML IV SCH (15:31)
[2020-04-27 16:12] LABS: Glucose,Whole Blood 197 mg/dL (75-99)
[2020-04-27 17:04] LABS: Glucose,Whole Blood 195 mg/dL (75-99)
--- NOTE | 2020-04-27 17:16 | PN ---
PROGRESS NOTE DATE OF SERVICE: 04/27/2020 REASON FOR FOLLOWUP: COVID-19 pneumonia and UTI. INTERVAL HISTORY: Patient did go into respiratory distress failure and ended up getting intubated. The patient is currently on 80% FiO2. Patient is hemodynamically stable, not on pressor support. No significant purulence through the ET or any diarrhea reported by nursing staff. PHYSICAL EXAMINATION: Her blood pressure is 135/58, pulse of 69, temperature 98.6, pulse ox 93%. General description is an elderly female lying in bed in no distress. Respiratory system: Unlabored breathing. Bilateral scattered rhonchi. Heart S1-S2 regular rate and rhythm. Abdomen is soft, no tenderness. EXTREMITIES: No edema feet. LABS: Hemoglobin 13.1, white count 19,000. BUN of 32, creatinine 0.80. Patient did have a chest x-ray with worsening bilateral lung infiltrates. DIAGNOSTIC IMPRESSION AND PLAN: 1. Patient with acute respiratory failure which is multifactorial. The patient did have COVID-19 infection. The patient has been treated with remdesivir. The patient completed course along with Lovenox and zinc and dexamethasone, now with worsening respiratory status and failure. Sputum culture will be requested and clinically course will monitored closely. 2. E coli urinary tract infection, covered with Rocephin. MMODL / IJN: [id number] / MTDD
[2020-04-27 18:21] LABS: Glucose,Whole Blood 173 mg/dL (75-99)
[2020-04-27] MEDS: ATORVASTATIN 40 MG TAB PO SCH (19:39)
[2020-04-27 20:03] LABS: Glucose,Whole Blood 139 mg/dL (75-99)
[2020-04-27 21:30] LABS: Glucose,Whole Blood 125 mg/dL (75-99)
[2020-04-27 22:35] LABS: Glucose,Whole Blood 129 mg/dL (75-99)
--- NOTE | 2020-04-27 22:58 | P.PN ---
Progress Note - Text Progress Note Date: 04/27/20 History of presenting complaint: Patient was admitted with severe COVID 19 pneumonia, acute hypoxic respiratory failure. Patient was intubated. Today-in the ICU colon. On the ventilator: FiO2 75% a PEEP of 16. Telemetry- sinus rhythm. OG tube in place. Drips include norepinephrine propofol, insulin. Patient sedated Progress review of systems cannot be done, patient intubated Active Medications Acetaminophen (Acetaminophen Tab 325 Mg Tab) 650 mg PO Q6HR PRN PRN Reason: Mild Pain or Fever > 100.5 Last Admin: 04/23/20 20:48 Dose: 650 mg Documented by: Amlodipine Besylate (Amlodipine 10 Mg Tab) 10 mg PO DAILY [facility] Last Admin: 04/27/20 08:07 Dose: 10 mg Documented by: Ascorbic Acid (Ascorbic Acid 500 Mg Tab) 1,000 mg PO DAILY [facility] Last Admin: 04/27/20 08:07 Dose: 1,000 mg Documented by: Atorvastatin Calcium (Atorvastatin 40 Mg Tab) 40 mg PO HS [facility] Last Admin: 04/27/20 19:39 Dose: 40 mg Documented by: Chlorhexidine Gluconate (Chlorhexidine Gluconate 15 Ml Cup) 15 ml MUCOUS MEM BID [facility] Last Admin: 04/27/20 19:38 Dose: 15 ml Documented by: Cholecalciferol (Cholecalciferol 10 Mcg (400 Iu) Tablet) 10 mcg PO DAILY [facility] Last Admin: 04/27/20 08:07 Dose: 10 mcg Documented by: Enoxaparin Sodium (Enoxaparin 60 Mg/0.6 Ml Syringe) 50 mg SQ BID [facility] Last Admin: 04/27/20 19:38 Dose: 50 mg Documented by: Ceftriaxone Sodium 1 gm/ (Sodium Chloride) 50 mls @ 100 mls/hr IVPB Q24H [facility] Last Admin: 04/27/20 14:37 Dose: 100 mls/hr Documented by: Propofol 1,000 mg/ IV Solution 100 mls @ 0 mls/hr IV .Q0M [facility]; Protocol Last Admin: 04/27/20 18:31 Dose: 50 mcg/kg/min, 32.25 mls/hr Documented by: Insulin Human Regular 100 unit (/ Sodium Chloride) 101 mls @ 0 mls/hr IV .Q0M [facility]; Protocol Last Titration: 04/27/20 20:10 Dose: 0 units/hr, 0 mls/hr Documented by: Norepinephrine Bitartrate 8 mg (/ Sodium Chloride) 258 mls @ 10.401 mls/hr IV .Q24H [facility]; Protocol Last Titration: 04/27/20 15:16 Dose: 0.04 mcg/kg/min, 8.321 mls/hr Documented by: Sodium Chloride (Saline 0.9%) 1,000 mls @ 125 mls/hr IV .Q8H [facility] Last Admin: 04/27/20 15:31 Dose: 125 mls/hr Documented by: Insulin Detemir (Insulin Detemir (Levemir) 100 Unit/Ml Syr) 75 unit SQ DAILY@0700 [facility] Last Admin: 04/27/20 08:08 Dose: 75 unit Documented by: Levothyroxine Sodium (Levothyroxine 88 Mcg Tab) 88 mcg PO DAILY@0630 [facility] Last Admin: 04/27/20 06:48 Dose: Not Given Documented by: Miscellaneous Information (Magnesium Replacement Protocol 1 Each Misc) 1 each MISCELLANE DAILY PRN; Protocol PRN Reason: Per Protocol Miscellaneous Information (Potassium Replacement Protocol 1 Each Misc) 1 each MISCELLANE DAILY PRN PRN Reason: Per Protocol Naloxone HCl (Naloxone 0.4 Mg/Ml 1 Ml Vial) 0.2 mg IV Q2M PRN PRN Reason: Opioid Reversal Zinc Sulfate (Zinc Sulfate 220 Mg Cap) 220 mg PO DAILY [facility] Last Admin: 04/27/20 08:09 Dose: 220 mg Documented by: On examination: VITAL SIGNS: 98.6, 24, 137/60, 96% on the ventilator GENERAL APPEARANCE: BMI 40.7, laying in bed, intubated HEENT: Normal external appearance of nose and ear. Oral cavity ET tube and OG tube EYES: Pupils equal. Conjunctiva normal. NECK: JVD not raised. Mass not palpable. RESPIRATORY: Respiratory effort increased Lungs -decreased breath sounds CARDIOVASCULAR: First and second sounds normal. No edema. ABDOMEN: Soft. Liver and spleen not palpable. No tenderness. No mass palpable. PSYCHIATRY: Unable to assess, patient sedated. INVESTIGATIONS, reviewed in the clinical context: Potassium 4 creatinine 0.8 CRP 61.5, d-dimer 3.89 Chest x-ray film shows worsening bilateral infiltrates Assessment and plan: -COVID 19 bilateral pneumonia severe causing secondary hypoxic respiratory failure. She has received Remdesivir, convalescent plasma one unit, Decadron, subcu Lovenox-slow to respond -Septic shock patient requiring norepinephrine-slow to respond -Hypothyroid continue with Synthroid -Acute UTI with cystitis secondary to E. coli-IV ceftriaxone -Essential hypertension, continue with amlodipine -Hyperlipidemia -Vitamin D deficiency -Acute hypoxic respiratory failure, not improving patient will intubated today on April 27, with ventilator support -Diabetes mellitus type 2, uncontrolled with hyperglycemia put on insulin drip- slow to respond -Morbid obesity BMI 40.7
[2020-04-27 23:44] LABS: Glucose,Whole Blood 114 mg/dL (75-99)
[2020-04-27] MEDS ORDERED: CISATRACURIUM 2 MG/ML 5 ML VIAL IV ONE (23:58)
[2020-04-28] MEDS: CISATRACURIUM 200 MG in SODIUM CHLORIDE 0.9% 180 ML IV SCH (00:13)
--- NOTE | 2020-04-28 00:41 | XR ---
EXAMINATION TYPE: XR chest 1V portable DATE OF EXAM: 04/28/2020 COMPARISON: Yesterday HISTORY: Short of breath TECHNIQUE: Single view FINDINGS: There is pulmonary interstitial and airspace edema. There is nasogastric tube in the stomac h. Endotracheal tube is 3.5 cm from the pollo. There are chest leads. Heart size is normal. IMPRESSION: There is pulmonary airspace edema that is slightly improved compared to yesterday.
[2020-04-28 00:46] LABS: Glucose,Whole Blood 134 mg/dL (75-99)
[2020-04-28] MEDS ORDERED: ATROPINE SULFATE 0.1 MG/ML 10ML SYRINGE ONE ×2 (01:12→01:15)
[2020-04-28 02:13] LABS: Glucose,Whole Blood 171 mg/dL (75-99)
[2020-04-28 03:07] LABS: Glucose,Whole Blood 215 mg/dL (75-99)
[2020-04-28 04:47] LABS: Glucose,Whole Blood 170 mg/dL (75-99)
[2020-04-28 05:29] LABS: Basophils # (A) 0.1 k/uL (0-0.2); Basophils % (A) 0 %; Eosinophils % (A) 0 %; HCT 38.1 % (34.0-46.0); HGB 12.1 gm/dL (11.4-16.0); Lymphocytes % (A) 3 %; MCH 29.9 pg (25.0-35.0); MCHC 31.8 g/dL (31.0-37.0); MCV 94.1 fL (80.0-100.0); Mean Platelet Volume 8.7; Monocytes % (A) 3 %; Neutrophils % (A) 92 %; Platelet Count 337 k/uL (150-450); RBC 4.05 m/uL (3.80-5.40); RDW 14.2 % (11.5-15.5); WBC 30.3 k/uL (3.8-10.6)
[2020-04-28 05:49] LABS: ABG HCO3 25 mmol/L (21-25); ABG PCO2 52 mmHg (35-45); ABG PO2 79 mmHg (83-108); ABG TCO2 27 mmol/L (19-24); Allen Test Performed? Yes
[2020-04-28 05:50] LABS: ABG Base Excess -1.1 mmol/L
[2020-04-28] MEDS: LEVOTHYROXINE 88 MCG TAB PO SCH (06:10)
[2020-04-28 06:19] LABS: Glucose,Whole Blood 144 mg/dL (75-99)
[2020-04-28 06:20] LABS: C Reactive Protein 59.4 mg/L (<10.0); Calcium 8.1 mg/dL (8.4-10.2); Magnesium 2.1 mg/dL (1.6-2.3)
[2020-04-28] MEDS: SODIUM CHLORIDE 0.9% 1,000 ML IV SCH ×4 (06:31→22:43)
[2020-04-28] MEDS: INSULIN REGULAR 100 UNIT in SODIUM CHLORIDE 0.9% 100 ML IV SCH (06:34)
[2020-04-28] MEDS: INSULIN DETEMIR (LEVEMIR) 100 UNIT/ML SYR SQ SCH (07:02)
[2020-04-28 07:11] LABS: Glucose,Whole Blood 144 mg/dL (75-99)
[2020-04-28] MEDS: CHOLECALCIFEROL 10 MCG (400 IU) TABLET PO SCH (08:00)
[2020-04-28] MEDS: CHLORHEXIDINE GLUCONATE 15 ML CUP MUCOUS MEM SCH ×2 (08:00→20:23)
[2020-04-28] MEDS: ENOXAPARIN 60 MG/0.6 ML SYRINGE SQ SCH ×2 (08:00→20:23)
[2020-04-28] MEDS: ASCORBIC ACID 500 MG TAB PO SCH (08:00)
[2020-04-28] MEDS: amLODIPine 10 MG TAB PO SCH (08:00)
[2020-04-28] MEDS: ZINC SULFATE 220 MG CAP PO SCH (08:00)
[2020-04-28 08:10] LABS: Glucose,Whole Blood 151 mg/dL (75-99)
[2020-04-28 09:06] LABS: Glucose,Whole Blood 151 mg/dL (75-99)
--- NOTE | 2020-04-28 10:01 | P.PN ---
Subjective Progress Note Date: 04/28/20 This is a pleasant 74-year-old female patient who follows with Dr. Mace as her primary care physician. She has a history of hypertension, hyperlipidemia, hypothyroidism, depression, chronic tobacco dependence, diabetes mellitus with insulin pump. Yesterday she was brought into the emergency room via EMS after developing progressive weakness over the past week. She was unable to get herself up from a chair. Point of care blood glucose measured by EMS was over 600. Urine was positive for nitrates and 180 WBCs. She was given IV fluid boluses. Ceftriaxone and initiated on a heparin drip and admitted to the selective care unit. White count 8.2. Hemoglobin 13.9. Lymphocytes 0.8. Sodium 132. Potassium initially 6.5, currently 4.8 bicarb 19. Anion gap 17 currently 6. Creatinine 1.99. Improved to 1.43. She was found to be positive for munoz virus by PCR. He is seen today in consultation as her oxygen requirements have increased from 6 L to AirVo this morning. Presently on 60 L and 90% FiO2. Temperature 101.7. She is quite weak and fatigued. Chest x-ray revealing bilateral multifocal acute opacities consistent with CoVID 19 infection. Stat labs revealed a d-dimer of 0.83. LDH 1518. C-reactive protein 143. On today's evaluation of 04/23/2020, the patient remains on a combination of high flow oxygen and 100% nonrebreather facemask. The patient is on high flow oxygen at 60 L with an FiO2 of 90% and the patient is also on 100% nonrebreather facemask. Her pulse ox in the order of 92%. Her previous inflammatory markers including CRP and LDH were quite elevated. Repeat chest x-ray was done today and a chest x-ray was reviewed and revealed bilateral multifocal pulmonary opacities/infiltrates consistent with Covid 19 related pneumonia. The patient's is currently laying down supine in bed. She seems to be comfortable and there is no significant respiratory distress and her current pulse ox in the order of 92%. Upon comparing the chest x-rays, no major interval change compared to yesterday's findings. Meanwhile, the patient had further increase for LVH which is up to 1684 and the CRP is at 139. White cell count of 6.6. The patient is currently on Decadron 6 mg, Remdesivir and she is a #2 of treatment. She is also on anticoagulation and she is receiving not receiving anticoagulation and the d-dimer today is at 1.03. Lovenox will be started. She has no specific complaints. She feels tired. She is alert and orientated 3. She is diabetic and she is on a insulin pump on outpatient basis and currently she is receiving Levemir insulin 30 units daily along with NovoLog 7 units 3 times a day with meals and a sliding scale coverage. Blood sugars are in the 200 range and the patient is not having adequate amount of food. She had an acute kidney injury which recovered and the creatinine is normalized. She has a gram-negative bacillus in her urine and the patient is currently on Rocephin. On 04/24/2020, seeing the patient for a follow-up. As mentioned earlier, the patient is a case of Covid 19 infection with extensive bilateral pneumonia and hypoxic respiratory failure. The patient was 100% nonrebreather facemask addition to high flow oxygen. She was still hypoxemic and based on that the patient was switched to a BiPAP and currently pressures are 12/6 with an FiO2 of 100%. She seems to be much more comfortable with the setting of his saturations around 95% and her current respiratory rate is 21 with a minute ventilation of around 8-9 L. The patient is afebrile. The patient's inflammatory markers from today showed an LDH level which is on the rise at 2200 have any to and the CRP level is at 68.7. The patient's white cell count is at 10.4 with a hemoglobin of 11.4. The chest x-ray from today is showing diffuse bilateral pulmonary infiltrates and the infiltrates are essentially perihilar, very much compatible to the chest x-ray from yesterday without any interval worsening. The patient is on Decadron and will increase the dose up to 60 mg IV every 12 hours. The patient is on Lovenox 40 mg subcu for DVT prophylaxis d-dimer is at 1.04. Urine cultures still positive for E. coli and the patient is currently on IV Rocephin. She remains on Levemir insulin 40 units daily and she is also on NovoLog 7 units 3 times a day with meals. Monitor the blood sugar control otherwise for now. No other significant events overnight. She is awake. She is oriented. She is following commands. No nausea. No vomiting. She did have a bout of diarrhea. She is lethargic. 3 2020 the patient is being seen in a follow-up. This morning, the patient is on back on BiPAP. Note that yesterday afternoon she was able to go back to high flow oxygen and she was able to do that until p.m. and subsequently placed back on a BiPAP at a pressure of 10/6 with an FiO2 of 100%. This switch was changes the patient was getting more short of breath. The chest x-ray shows bilateral pulmonary infiltrates scattered throughout the lung franklin bilaterally, perihilar and affecting the upper and lower lobes. No major interval change compared to yesterday's chest x-ray. The patient is still on Decadron 6 mg IV every 12 hours. She is on day #4 of Remdesivir. Her LDH level is up to 2679 and the CRP level is down to 57.2. Her progesterone level was only at 0.42. Her d- dimer is at 0.93. Note that she has already received a unit of, less than plasma. She did not qualify for Actemra the patient had a suspected UTI with E. coli and she remains on IV Rocephin. Note that her pro-calcitonin level has been declining. In terms of blood sugar control, she is on Levemir insulin 60 units daily and she is also taking 7 units with meals and a sliding scale coverage. Unfortunately, her ability to eat is very limited as the patient is very much dependent on the BiPAP. She spent the entire night on BiPAP and this morning, she is able to a tidal volume of 500 and her respiratory rate is in the high 20s to low 30s and she is generating a minute ventilation of at least 15 L. 04/26/2020, the patient Is being seen in follow-up in the intensive care unit. As mentioned earlier, this is a case of bilateral pneumonia secondary to Covid 19. The patient respiratory failure. After being on high flow oxygen along with 100% the patient got switched to BiPAP initiated at pressures of 10/6 with an FiO2 of 100% and subsequently the pressure was brought up to 12/8 cm of water with an FiO2 of 100%. This morning her pulse ox was at 97%, I dropped her down to 90% and the current pulse ox is 93%. She continues to have a high respiratory rate and she was noted to have an elevated respiratory throughout the night. Her respiratory rate is in the mid 20s when she is calm and quiet and it goes up any time she is trying to talk or getting to move in bed. Her current respiratory rate is in the low to mid 30s. Tidal volumes above 700 and she has a high minute ventilation in the order of 18 L per minute. Hemodynamically stable. Afebrile. No significant tachycardia. Blood pressure is stable for now. She is awake and alert. She is a bit anxious. She is on IV fluids running at [facility] and she is on TPN for nutritional support and she is post PICC line insertion was inserted in the left upper extremity. TPN was initiated and the patient is unable to take any form of enteral feeding or oral feeding due to her extreme BiPAP dependence. I also increased her Decadron up to 20 mg IV on a daily basis and the patient is also onn Remdesivir day 5 and Lovenox at a dose of 40 mg by mouth daily. The inflammatory markers on today's evaluation show a d-dimer of 0.9 from yesterday, her CRP is up at 62.5 and LDH is still pending for now. Pro-calcitonin level is down to 0.4 as the patient is being treated for a E. coli urinary tract infection. I talked to her son yesterday and I updated her on the condition. She is extremely critical. We are still avoiding intubation mechanical ventilation on her as long as she is able to tolerate the BiPAP. Sugar is elevated. The patient would benefit from a insulin drip of the blood sugar is elevated. The patient is currently on Levemir insulin 60 units along with a sliding scale coverage. We'll evaluate her blood sugar during the day and decide on insulin drip 2020, the patient is obviously decompensated and she's been having worsening shortness of breath and increased difficulty in breathing since yesterday evening. This started around 3 AM where she and some desaturation. At around 5 AM, blood gases was done that showed a pH of 7.49 with a pCO2 of 36 and pO2 of 65 and this was done on a BiPAP of 12/8 with an FiO2 of 100%. She is quite tachypneic with a high minute ventilation and she has become more confused and struggling to breathe and pulling on her lines. LDH level is up to 2947, CRP level is at 61.5. She is afebrile. She is on high dose Decadron and she is also completed one units of, less than plasma and the patient received Remdesi vir per protocol. The patient remains hemodynamically stable on no pressors. Based on the rest of the blood work, the patient has a stable renal function with a creatinine of 0.8 with a mean of 32. Electrodes are all within normal limits. The white cell count today is at 19 and this was not listed from yesterday. The d-dimer is up to 3.89. The patient is on Lovenox prophylactic dose of 40 mg subcu every 12 hours. on 04/28/2020 the patient is intubated on a mechanical ventilator for: 19 re lated pneumonia and the patient is being seen for a follow-up. On today's evaluation, the patient is sedated with propofol at 20 mcg/kg per minute.. Overnight, the patient was asynchronous with a mechanical ventilator. As such, the patient was started on Nimbex which is currently running at 1 mcg/kg per minute. The patient is well sedated and paralyzed for now. She is calm and comfortable. She is on assist control mode of ventilation at the rate of 26 with a tidal volume of 400 and FiO2 of 75% with a PEEP of 16. The peak airway pressure is 38-40 and is static airway pressures around 37. The patient is on IV fluids and currently she is on normal saline running at 25 mL an hour. The patient is also on insulin drip running at 5 units an hour. She has adequate urine output. She remains on high-dose Decadron 20 mg IV 24 hours. She also received remdesivir and convalescent plasma.The blood gases from today showed a pH of 7.3 with a pCO2 of 52 and pO2 of 79 on the above-mentioned vascular resistance 8. The patient has a white cell count of 30.3. Hemoglobin 12.1. D- dimer is up to 7.55. The patient remains on Lovenox 50 mg subcu every 12 hours. The inflammatory markers show a CRP level of 59, LDH level is still elevated at 2260 and the patient's interleukin-6 level is at 96.7. Total stone on Levaquin for a few days ago was down to 0.42. Urine culture was positive for E. coli and the patient is covered with IV Rocephin. The patient is afebrile for now. The neck fluid balance over the past 24 hours has been +2.3 L. Objective - Vital Signs Vital signs: Vital Signs Temp 97.5 F L 04/28/20 08:00 Pulse 59 L 04/28/20 08:00 Resp 26 H 04/28/20 08:00 BP 136/59 04/28/20 08:00 Pulse Ox 96 04/28/20 08:00 Intake & Output 04/27/20 04/28/20 04/28/20 18:59 06:59 18:59 Intake Total 3683.792 5919.474 300 Output Total 695 575 85 Balance 138.173 9793.474 215 Weight 107.5 kg 103 kg Intake: IV 1220 1500 250 0.9 750 1500 250 Amino Acid 5%-D20w+Lytes* 420 E* 1,000 ml @ 60 mls/hr IV .BY DURATION [facility] Rx#: [id number] cefTRIAXone 1 gm In 50 Sodium Chloride 0.9% 50 ml @ 100 mls/hr IVPB Q24H [facility] Rx#:[id number] Intake, IV Titration 384.891 370.474 Amount Cisatracurium 200 mg In 42.033 Sodium Chloride 0.9% 180 ml @ 1 MCG/KG/MIN 6.45 mls/hr IV .Q24H [facility] Rx#: [id number] Insulin Regular 100 unit 133.926 46.966 In Sodium Chloride 0.9% 100 ml @ Per Protocol IV .Q0M [facility] Rx#:[id number] Norepinephrine 8 mg In 50.965 80.991 Sodium Chloride 0.9% 250 ml @ 0.05 MCG/KG/MIN 10. 401 mls/hr IV .Q24H [facility] Rx#:[id number] propofoL 1,000 mg In 200.000 200.484 Empty Bag 1 bag @ Titrate IV .Q0M [facility] Rx#: [id number] Tube Feeding 100 20 Other 60 30 Output: Urine 695 575 85 Other: Voiding Method Indwelling Catheter Indwelling Catheter Indwelling Catheter ABP, PAP, CO, CI - Last Documented Arterial Blood Pressure 139/39 - Exam GENERAL EXAM: Alert, weak, fatigued 74-year-old female patient, sedated, paralyzed, intubated on a mechanical ventilator and quiet synchronous with the mechanical ventilator for now. HEAD: Normocephalic. EYES: Normal reaction of pupils, equal size. NOSE: Clear with pink turbinates. THROAT: No erythema or exudates. NECK: No masses, no JVD. CHEST: No chest wall deformity. LUNGS: Bilateral scattered rhonchi. The patient has practically lung base bilaterally and she end up having a coughing spell upon generating deep breath. CVS: S1 and S2 normal with no audible murmur, regular rhythm. ABDOMEN: No hepatosplenomegaly, normal bowel sounds, no guarding or rigidity. SPINE: No scoliosis or deformity SKIN: No rashes CENTRAL NERVOUS SYSTEMthe patient is sedated and paralyzed for now. the p atient's pupils were equal and the reactive to light. EXTREMITIES: There is no peripheral edema. No clubbing, no cyanosis. Peripheral pulses are intact. The patient has a PICC line in the left upper extremity.Less responsive compared to yesterday and the patient is responding to painful stimulation all 4 extremities. No focal neurological deficits. - Labs CBC & Chem 7: 04/28/20 04:35 04/28/20 04:35 Labs: Abnormal Lab Results - Last 24 Hours (Table) 04/26/20 04/27/20 04/27/20 Range/Units 05:23 10:52 11:41 WBC (3.8-10.6) k/uL Neutrophils # (1.3-7.7) k/uL D-Dimer (<0.60) mg/L FEU ABG pH (7.35-7.45) ABG pCO2 (35-45) mmHg ABG pO2 (83-108) mmHg ABG HCO3 (21-25) mmol/L ABG Total CO2 (19-24) mmol/L ABG O2 Saturation (94-97) % Chloride (98-107) mmol/L BUN (7-17) mg/dL Glucose (74-99) mg/dL POC Glucose (mg/dL) 424 H 365 H (75-99) mg/dL Calcium (8.4-10.2) mg/dL Phosphorus (2.5-4.5) mg/dL Lactate Dehydrogenase (313-618) U/L C-Reactive Protein (<10.0) mg/L Interleukin 6 96.7 H (<6.4) pg/mL 04/27/20 04/27/20 04/27/20 Range/Units 13:01 14:13 14:56 WBC (3.8-10.6) k/uL Neutrophils # (1.3-7.7) k/uL D-Dimer (<0.60) mg/L FEU ABG pH (7.35-7.45) ABG pCO2 (35-45) mmHg ABG pO2 (83-108) mmHg ABG HCO3 (21-25) mmol/L ABG Total CO2 (19-24) mmol/L ABG O2 Saturation (94-97) % Chloride (98-107) mmol/L BUN (7-17) mg/dL Glucose (74-99) mg/dL POC Glucose (mg/dL) 384 H 277 H 248 H (75-99) mg/dL Calcium (8.4-10.2) mg/dL Phosphorus (2.5-4.5) mg/dL Lactate Dehydrogenase (313-618) U/L C-Reactive Protein (<10.0) mg/L Interleukin 6 (<6.4) pg/mL 04/27/20 04/27/20 04/27/20 Range/Units 15:16 16:10 17:03 WBC (3.8-10.6) k/uL Neutrophils # (1.3-7.7) k/uL D-Dimer (<0.60) mg/L FEU ABG pH 7.33 L (7.35-7.45) ABG pCO2 48 H (35-45) mmHg ABG pO2 122 H (83-108) mmHg ABG HCO3 26 H (21-25) mmol/L ABG Total CO2 27 H (19-24) mmol/L ABG O2 Saturation 98.8 H (94-97) % Chloride (98-107) mmol/L BUN (7-17) mg/dL Glucose (74-99) mg/dL POC Glucose (mg/dL) 197 H 195 H (75-99) mg/dL Calcium (8.4-10.2) mg/dL Phosphorus (2.5-4.5) mg/dL Lactate Dehydrogenase (313-618) U/L C-Reactive Protein (<10.0) mg/L Interleukin 6 (<6.4) pg/mL 04/27/20 04/27/2021 Range/Units 18:20 19:51 21:19 WBC (3.8-10.6) k/uL Neutrophils # (1.3-7.7) k/uL D-Dimer (<0.60) mg/L FEU ABG pH (7.35-7.45) ABG pCO2 (35-45) mmHg ABG pO2 (83-108) mmHg ABG HCO3 (21-25) mmol/L ABG Total CO2 (19-24) mmol/L ABG O2 Saturation (94-97) % Chloride (98-107) mmol/L BUN (7-17) mg/dL Glucose (74-99) mg/dL POC Glucose (mg/dL) 173 H 139 H 125 H (75-99) mg/dL Calcium (8.4-10.2) mg/dL Phosphorus (2.5-4.5) mg/dL Lactate Dehydrogenase (313-618) U/L C-Reactive Protein (<10.0) mg/L Interleukin 6 (<6.4) pg/mL 04/27/20 04/27/20 04/28/20 Range/Units 22:23 23:32 00:44 WBC (3.8-10.6) k/uL Neutrophils # (1.3-7.7) k/uL D-Dimer (<0.60) mg/L FEU ABG pH (7.35-7.45) ABG pCO2 (35-45) mmHg ABG pO2 (83-108) mmHg ABG HCO3 (21-25) mmol/L ABG Total CO2 (19-24) mmol/L ABG O2 Saturation (94-97) % Chloride (98-107) mmol/L BUN (7-17) mg/dL Glucose (74-99) mg/dL POC Glucose (mg/dL) 129 H 114 H 134 H (75-99) mg/dL Calcium (8.4-10.2) mg/dL Phosphorus (2.5-4.5) mg/dL Lactate Dehydrogenase (313-618) U/L C-Reactive Protein (<10.0) mg/L Interleukin 6 (<6.4) pg/mL 04/28/20 04/28/20 04/28/20 Range/Units 02:01 02:55 04:34 WBC (3.8-10.6) k/uL Neutrophils # (1.3-7.7) k/uL D-Dimer (<0.60) mg/L FEU ABG pH (7.35-7.45) ABG pCO2 (35-45) mmHg ABG pO2 (83-108) mmHg ABG HCO3 (21-25) mmol/L ABG Total CO2 (19-24) mmol/L ABG O2 Saturation (94-97) % Chloride (98-107) mmol/L BUN (7-17) mg/dL Glucose (74-99) mg/dL POC Glucose (mg/dL) 171 H 215 H 170 H (75-99) mg/dL Calcium (8.4-10.2) mg/dL Phosphorus (2.5-4.5) mg/dL Lactate Dehydrogenase (313-618) U/L C-Reactive Protein (<10.0) mg/L Interleukin 6 (<6.4) pg/mL 04/28/20 04/28/20 04/28/20 Range/Units 04:35 04:35 04:35 WBC 30.3 H (3.8-10.6) k/uL Neutrophils # 28.0 H (1.3-7.7) k/uL D-Dimer 7.55 H (<0.60) mg/L FEU ABG pH (7.35-7.45) ABG pCO2 (35-45) mmHg ABG pO2 (83-108) mmHg ABG HCO3 (21-25) mmol/L ABG Total CO2 (19-24) mmol/L ABG O2 Saturation (94-97) % Chloride 111 H (98-107) mmol/L BUN 37 H (7-17) mg/dL Glucose 181 H (74-99) mg/dL POC Glucose (mg/dL) (75-99) mg/dL Calcium 8.1 L (8.4-10.2) mg/dL Phosphorus 5.0 H (2.5-4.5) mg/dL Lactate Dehydrogenase 2260 H (313-618) U/L C-Reactive Protein 59.4 H (<10.0) mg/L Interleukin 6 (<6.4) pg/mL 04/28/20 04/28/20 04/28/20 Range/Units 05:05 06:18 07:00 WBC (3.8-10.6) k/uL Neutrophils # (1.3-7.7) k/uL D-Dimer (<0.60) mg/L FEU ABG pH 7.30 L (7.35-7.45) ABG pCO2 52 H (35-45) mmHg ABG pO2 79 L (83-108) mmHg ABG HCO3 (21-25) mmol/L ABG Total CO2 27 H (19-24) mmol/L ABG O2 Saturation (94-97) % Chloride (98-107) mmol/L BUN (7-17) mg/dL Glucose (74-99) mg/dL POC Glucose (mg/dL) 144 H 144 H (75-99) mg/dL Calcium (8.4-10.2) mg/dL Phosphorus (2.5-4.5) mg/dL Lactate Dehydrogenase (313-618) U/L C-Reactive Protein (<10.0) mg/L Interleukin 6 (<6.4) pg/mL 04/28/20 04/28/20 Range/Units 08:08 09:05 WBC (3.8-10.6) k/uL Neutrophils # (1.3-7.7) k/uL D-Dimer (<0.60) mg/L FEU ABG pH (7.35-7.45) ABG pCO2 (35-45) mmHg ABG pO2 (83-108) mmHg ABG HCO3 (21-25) mmol/L ABG Total CO2 (19-24) mmol/L ABG O2 Saturation (94-97) % Chloride (98-107) mmol/L BUN (7-17) mg/dL Glucose (74-99) mg/dL POC Glucose (mg/dL) 151 H 151 H (75-99) mg/dL Calcium (8.4-10.2) mg/dL Phosphorus (2.5-4.5) mg/dL Lactate Dehydrogenase (313-618) U/L C-Reactive Protein (<10.0) mg/L Interleukin 6 (<6.4) pg/mL Assessment and Plan Plan: 1 Covid 19 related pneumonia with secondary hypoxic respiratory failure. The patient is currently on Decadron 20 mg IV every 24 hours and the patient is also completed a course of Remdesivir 5 day protocol and she received a unit convalescent plasma. currently, the patient is intubated on mechanical ventilator. She had to be intubated yesterday because of worsening respiratory status and she has been intubated on 04/27/2020. She is currently sedated, paralyzed, adequate oxygenation on 16 PEEP with an FiO2 of 75%. Requiring low- dose norepinephrine infusion or hemodynamic support. 2 DM , currently on insulin drip running at 5 units an hour 3 Acute CoVID 19 infection, completed Remdesivir , Decadron and convalescent plasma 04/22/2020, 1 unit 4 Elevated inflammatory markers secondary to above, were persistent elevation of the LDH, CRP and further rise in the d-dimer. Currently on Lovenox 50 mg subcu every 12 hours. 5 Febrile illness secondary to above 6 Acute urinary tract infection, cultures pending, gram-negative bacteria with E. coli and the patient remains on IV Rocephin the pro-calcitonin level has been declining. 7 Diabetes mellitus, maintained on an insulin pump on outpatient basis 8 History of hypertension 9 Hyperlipidemia 10 Vitamin D deficiency 11 enteral feeding for nutritional support was initiated with vital high prot ein at the rate of 20 mL an hour. Plan: continue ventilator support and the patient is currently on a PEEP of 16 with an FiO2 of 35% and a tidal volume of 375 The patient sedated with propofol Give the patient her left holiday and decide if she needs paralysis for now Continue Decadron 20 mg daily and Remdesivir completed a total of 5 day course, and the patient was given convalescent plasma (1 unit) Lovenox 50 mg subcu twice a day and the dose was modified based on elevation of the d-dimer vitamin supplements Vital high protein for enteral feeding and nutritional support Insulin drip for blood sugar support Repeat chest x-ray in am LDH, CRP and d-dimer is markedly elevated wean off norepinephrine infusion and discontinue Continue ventilator support and the family will be updated on her condition Continue enteral feeding for nutritional support Condition is critical and prognosis poor based on the above Critical care time, more than 30 minutes, Time with Patient: Greater than 30
[2020-04-28 10:14] LABS: Glucose,Whole Blood 169 mg/dL (75-99)
[2020-04-28 11:15] LABS: Glucose,Whole Blood 174 mg/dL (75-99)
[2020-04-28 12:10] LABS: Glucose,Whole Blood 179 mg/dL (75-99)
[2020-04-28 13:21] LABS: Glucose,Whole Blood 167 mg/dL (75-99)
[2020-04-28 14:13] LABS: Glucose,Whole Blood 160 mg/dL (75-99)
[2020-04-28 14:59] LABS: Glucose,Whole Blood 168 mg/dL (75-99)
[2020-04-28] MEDS: DEXAMETHASONE SOD PHOSPHATE 20 MG in DEXTROSE 5% IN WATER 50 ML IV SCH ×2 (16:16)
[2020-04-28 16:35] LABS: LD Isoenzymes 1 16 % (19-38); LD Isoenzymes 2 31 % (30-43); LD Isoenzymes 3 27 % (16-26); LD Isoenzymes 4 14 % (3-12); LD Isoenzymes 5 12 % (3-14); Lactacte Dehydrogenase(LD) ISO 1039 U/L (120-250)
[2020-04-28 16:53] LABS: Glucose,Whole Blood 175 mg/dL (75-99)
[2020-04-28 19:06] LABS: Glucose,Whole Blood 190 mg/dL (75-99)
[2020-04-28 20:17] LABS: Glucose,Whole Blood 221 mg/dL (75-99)
[2020-04-28] MEDS: ATORVASTATIN 40 MG TAB PO SCH (20:23)
[2020-04-28 21:03] LABS: Glucose,Whole Blood 197 mg/dL (75-99)
[2020-04-28] MEDS ORDERED: SODIUM CHLORIDE 0.9% 1,000 ML IV ONE (21:38)
--- NOTE | 2020-04-28 22:19 | P.PN ---
Progress Note - Text Progress Note Date: 04/28/20 History of presenting complaint: Patient was admitted with severe COVID 19 pneumonia, acute hypoxic respiratory failure. Patient was intubated. Today-in the ICU . Ventilator: FiO2 75. He was 16. Telemetry-sinus rhythm. Does include propofol, insulin, Nimbex, norepinephrine. Progress review of systems cannot be done, patient intubated Active Medications Acetaminophen (Acetaminophen Tab 325 Mg Tab) 650 mg PO Q6HR PRN PRN Reason: Mild Pain or Fever > 100.5 Last Admin: 04/23/20 20:48 Dose: 650 mg Documented by: Amlodipine Besylate (Amlodipine 10 Mg Tab) 10 mg PO DAILY [facility] Last Admin: 04/28/20 08:00 Dose: Not Given Documented by: Ascorbic Acid (Ascorbic Acid 500 Mg Tab) 1,000 mg PO DAILY [facility] Last Admin: 04/28/20 08:00 Dose: 1,000 mg Documented by: Atorvastatin Calcium (Atorvastatin 40 Mg Tab) 40 mg PO HS [facility] Last Admin: 04/28/20 20:23 Dose: 40 mg Documented by: Chlorhexidine Gluconate (Chlorhexidine Gluconate 15 Ml Cup) 15 ml MUCOUS MEM BID [facility] Last Admin: 04/28/20 20:23 Dose: 15 ml Documented by: Cholecalciferol (Cholecalciferol 10 Mcg (400 Iu) Tablet) 10 mcg PO DAILY [facility] Last Admin: 04/28/20 08:00 Dose: 10 mcg Documented by: Enoxaparin Sodium (Enoxaparin 60 Mg/0.6 Ml Syringe) 50 mg SQ BID [facility] Last Admin: 04/28/20 20:23 Dose: 50 mg Documented by: Ceftriaxone Sodium 1 gm/ (Sodium Chloride) 50 mls @ 100 mls/hr IVPB Q24H [facility] Last Admin: 04/28/20 16:17 Dose: 100 mls/hr Documented by: Propofol 1,000 mg/ IV Solution 100 mls @ 0 mls/hr IV .Q0M [facility]; Protocol Last Titration: 04/28/20 16:07 Dose: Infused Documented by: Insulin Human Regular 100 unit (/ Sodium Chloride) 101 mls @ 0 mls/hr IV .Q0M [facility]; Protocol Last Titration: 04/28/20 21:09 Dose: 5 units/hr, 5.05 mls/hr Documented by: Norepinephrine Bitartrate 8 mg (/ Sodium Chloride) 258 mls @ 10.401 mls/hr IV .Q24H [facility]; Protocol Last Titration: 04/28/20 19:07 Dose: 0.04 mcg/kg/min, 8.321 mls/hr Documented by: Cisatracurium Besylate 200 mg/ (Sodium Chloride) 200 mls @ 6.45 mls/hr IV .Q24H [facility]; Protocol Last Titration: 04/28/20 18:23 Dose: 1 mcg/kg/min, 6.45 mls/hr Documented by: Dexamethasone Sodium Phosphate (20 mg/ Dextrose/Water) 52 mls @ 100 mls/hr IV DAILY [facility] Last Admin: 04/28/20 16:16 Dose: 100 mls/hr Documented by: Sodium Chloride (Saline 0.9%) 1,000 mls @ 999 mls/hr IV .Q1H1M ONE Stop: 04/28/20 22:38 Last Admin: 04/28/20 21:46 Dose: 999 mls/hr Documented by: Sodium Chloride (Saline 0.9%) 1,000 mls @ 75 mls/hr IV .[id number] [facility] Insulin Detemir (Insulin Detemir (Levemir) 100 Unit/Ml Syr) 75 unit SQ DAILY@0700 [facility] Last Admin: 04/28/20 07:02 Dose: 75 unit Documented by: Levothyroxine Sodium (Levothyroxine 88 Mcg Tab) 88 mcg PO DAILY@0630 [facility] Last Admin: 04/28/20 06:10 Dose: 88 mcg Documented by: Miscellaneous Information (Magnesium Replacement Protocol 1 Each Misc) 1 each MISCELLANE DAILY PRN; Protocol PRN Reason: Per Protocol Miscellaneous Information (Potassium Replacement Protocol 1 Each Misc) 1 each MISCELLANE DAILY PRN PRN Reason: Per Protocol Naloxone HCl (Naloxone 0.4 Mg/Ml 1 Ml Vial) 0.2 mg IV Q2M PRN PRN Reason: Opioid Reversal Zinc Sulfate (Zinc Sulfate 220 Mg Cap) 220 mg PO DAILY [facility] Last Admin: 04/28/20 08:00 Dose: 220 mg Documented by: On examination: VITAL SIGNS: 37.8, 58, 26, 108/57, 99% on the ventilator GENERAL APPEARANCE: BMI 40.7, laying in bed, intubated HEENT: Normal external appearance of nose and ear. Oral cavity ET tube and OG tube EYES: Pupils equal. Conjunctiva normal. NECK: JVD not raised. Mass not palpable. RESPIRATORY: Respiratory effort increased Lungs -decreased breath sounds CARDIOVASCULAR: First and second sounds normal. No edema. ABDOMEN: Soft. Liver and spleen not palpable. No tenderness. No mass palpable. PSYCHIATRY: Unable to assess, patient sedated. INVESTIGATIONS, reviewed in the clinical context: April 28: WBC 30.3 hemoglobin 12.1 potassium 4 creatinine 0.85 d-dimer 7.55 CRP 59.4 Potassium 4 creatinine 0.8 CRP 61.5, d-dimer 3.89 Chest x-ray film shows worsening bilateral infiltrates Assessment and plan: -COVID 19 bilateral pneumonia severe causing secondary hypoxic respiratory failure. She has received Remdesivir, convalescent plasma one unit, Decadron, subcu Lovenox-slow to respond -Septic shock patient requiring norepinephrine-slow to respond -Hypothyroid continue with Synthroid -Acute UTI with cystitis secondary to E. coli-IV ceftriaxone -Essential hypertension, continue with amlodipine -Hyperlipidemia -Vitamin D deficiency -Acute hypoxic respiratory failure, intubated today on April 27, with ventilator support-slow to respond -Diabetes mellitus type 2, uncontrolled with hyperglycemia put on insulin drip- slow to respond -Morbid obesity BMI 40.7 Prognosis guarded. Continue current medications. Including propofol, insulin drip, Nimbex, norepinephrine
[2020-04-28 23:43] LABS: Glucose,Whole Blood 192 mg/dL (75-99)
[2020-04-29] MEDS: INSULIN REGULAR 100 UNIT in SODIUM CHLORIDE 0.9% 100 ML IV SCH ×3 (00:02→19:12)
[2020-04-29] MEDS: CISATRACURIUM 200 MG in SODIUM CHLORIDE 0.9% 180 ML IV SCH ×2 (00:02→23:39)
[2020-04-29 01:22] LABS: Glucose,Whole Blood 210 mg/dL (75-99)
[2020-04-29 03:15] LABS: Glucose,Whole Blood 185 mg/dL (75-99)
[2020-04-29 04:01] LABS: Glucose,Whole Blood 213 mg/dL (75-99)
[2020-04-29 04:25] LABS: Basophils % (A) 0 %; Eosinophils % (A) 0 %; HCT 37.7 % (34.0-46.0); HGB 11.9 gm/dL (11.4-16.0); Hypochromasia Slight; Lymphocytes # (A) 0.5 k/uL (1.0-4.8); Lymphocytes % (A) 4 %; MCH 30.4 pg (25.0-35.0); MCHC 31.6 g/dL (31.0-37.0); MCV 96.1 fL (80.0-100.0); Mean Platelet Volume 8.6; Monocytes # (A) 0.7 k/uL (0-1.0); Monocytes % (A) 4 %; Neutrophils # (A) 13.5 k/uL (1.3-7.7); Neutrophils % (A) 91 %; Platelet Count 225 k/uL (150-450); RBC 3.93 m/uL (3.80-5.40); RDW 13.8 % (11.5-15.5); WBC 14.9 k/uL (3.8-10.6)
[2020-04-29 04:44] LABS: ALT 42 U/L (4-34); AST 123 U/L (14-36); African American GFR (CKD) >90 (>60 ml/min/1.73 sqM); Albumin 2.2 g/dL (3.5-5.0); Alkaline Phosphatase 53 U/L (38-126); Anion Gap 2 mmol/L; Blood Urea Nitrogen 37 mg/dL (7-17); C Reactive Protein 45.5 mg/L (<10.0); Calcium 7.6 mg/dL (8.4-10.2); Carbon Dioxide 26 mmol/L (22-30); Chloride 114 mmol/L (98-107); Glucose 210 mg/dL (74-99); LDH 1915 U/L (313-618); Non-African American GFR(CKD) 81 (>60 ml/min/1.73 sqM); Potassium 4.3 mmol/L (3.5-5.1); Sodium 142 mmol/L (137-145); Total Bilirubin 0.3 mg/dL (0.2-1.3); Total Protein 4.9 g/dL (6.3-8.2)
[2020-04-29 05:19] LABS: ABG Base Excess -1.9 mmol/L; ABG HCO3 25 mmol/L (21-25); ABG Oxygen Saturation 90.1 % (94-97); ABG PCO2 54 mmHg (35-45); ABG PH 7.27 (7.35-7.45); ABG PO2 61 mmHg (83-108); ABG TCO2 27 mmol/L (19-24)
[2020-04-29 05:21] LABS: Allen Test Performed? yes
[2020-04-29 05:27] LABS: Glucose,Whole Blood 195 mg/dL (75-99)
[2020-04-29 05:57] LABS: Glucose,Whole Blood 181 mg/dL (75-99)
[2020-04-29 06:10] LABS: Creatine Kinase 6715 U/L (30-135)
[2020-04-29] MEDS: LEVOTHYROXINE 88 MCG TAB PO SCH (06:16)
[2020-04-29] MEDS: INSULIN DETEMIR (LEVEMIR) 100 UNIT/ML SYR SQ SCH (06:16)
[2020-04-29 06:48] LABS: Glucose,Whole Blood 172 mg/dL (75-99)
--- NOTE | 2020-04-29 07:37 | XR ---
EXAMINATION TYPE: XR chest 1V portable DATE OF EXAM: 04/29/2020 COMPARISON: Chest x-ray 04/28/2020 HISTORY: Intubated TECHNIQUE: Single frontal view of the chest is obtained. FINDINGS: Endotracheal tube, NG tube, left-sided PICC line are overlying appropriate positions. Diff use groundglass opacity, airspace disease present within the lungs. There is no evident pneumothorax. The hemidiaphragms are obscured in the interval, cardiac mediastinal silhouette thought likely to be stable accounting for differences in technique, the aorta is dense. IMPRESSION: Progression of bilateral airspace disease, correlate for pneumonia, pulmonary edema, [place] S
[2020-04-29 07:42] LABS: Glucose,Whole Blood 162 mg/dL (75-99)
[2020-04-29] MEDS: CHLORHEXIDINE GLUCONATE 15 ML CUP MUCOUS MEM SCH ×2 (08:22→20:50)
[2020-04-29] MEDS: ASCORBIC ACID 500 MG TAB PO SCH (08:22)
[2020-04-29] MEDS: CHOLECALCIFEROL 10 MCG (400 IU) TABLET PO SCH (08:22)
[2020-04-29] MEDS: ENOXAPARIN 60 MG/0.6 ML SYRINGE SQ SCH ×2 (08:22→20:50)
[2020-04-29] MEDS: ZINC SULFATE 220 MG CAP PO SCH (08:22)
[2020-04-29] MEDS: amLODIPine 10 MG TAB PO SCH (08:23)
[2020-04-29] MEDS: DEXAMETHASONE SOD PHOSPHATE 20 MG in DEXTROSE 5% IN WATER 50 ML IV SCH ×2 (08:30)
[2020-04-29] MEDS ORDERED: FUROSEMIDE 10 MG/ML 4 ML VIAL IV STA (08:37)
--- NOTE | 2020-04-29 08:45 | P.PN ---
Subjective Progress Note Date: 04/29/20 This is a pleasant 74-year-old female patient who follows with Dr. Mace as her primary care physician. She has a history of hypertension, hyperlipidemia, hypothyroidism, depression, chronic tobacco dependence, diabetes mellitus with insulin pump. Yesterday she was brought into the emergency room via EMS after developing progressive weakness over the past week. She was unable to get herself up from a chair. Point of care blood glucose measured by EMS was over 600. Urine was positive for nitrates and 180 WBCs. She was given IV fluid boluses. Ceftriaxone and initiated on a heparin drip and admitted to the selective care unit. White count 8.2. Hemoglobin 13.9. Lymphocytes 0.8. Sodium 132. Potassium initially 6.5, currently 4.8 bicarb 19. Anion gap 17 currently 6. Creatinine 1.99. Improved to 1.43. She was found to be positive for munoz virus by PCR. He is seen today in consultation as her oxygen requirements have increased from 6 L to AirVo this morning. Presently on 60 L and 90% FiO2. Temperature 101.7. She is quite weak and fatigued. Chest x-ray revealing bilateral multifocal acute opacities consistent with CoVID 19 infection. Stat labs revealed a d-dimer of 0.83. LDH 1518. C-reactive protein 143. On today's evaluation of 04/23/2020, the patient remains on a combination of high flow oxygen and 100% nonrebreather facemask. The patient is on high flow oxygen at 60 L with an FiO2 of 90% and the patient is also on 100% nonrebreather facemask. Her pulse ox in the order of 92%. Her previous inflammatory markers including CRP and LDH were quite elevated. Repeat chest x-ray was done today and a chest x-ray was reviewed and revealed bilateral multifocal pulmonary opacities/infiltrates consistent with Covid 19 related pneumonia. The patient's is currently laying down supine in bed. She seems to be comfortable and there is no significant respiratory distress and her current pulse ox in the order of 92%. Upon comparing the chest x-rays, no major interval change compared to yesterday's findings. Meanwhile, the patient had further increase for LVH which is up to 1684 and the CRP is at 139. White cell count of 6.6. The patient is currently on Decadron 6 mg, Remdesivir and she is a #2 of treatment. She is also on anticoagulation and she is receiving not receiving anticoagulation and the d-dimer today is at 1.03. Lovenox will be started. She has no specific complaints. She feels tired. She is alert and orientated 3. She is diabetic and she is on a insulin pump on outpatient basis and currently she is receiving Levemir insulin 30 units daily along with NovoLog 7 units 3 times a day with meals and a sliding scale coverage. Blood sugars are in the 200 range and the patient is not having adequate amount of food. She had an acute kidney injury which recovered and the creatinine is normalized. She has a gram-negative bacillus in her urine and the patient is currently on Rocephin. On 04/24/2020, seeing the patient for a follow-up. As mentioned earlier, the patient is a case of Covid 19 infection with extensive bilateral pneumonia and hypoxic respiratory failure. The patient was 100% nonrebreather facemask addition to high flow oxygen. She was still hypoxemic and based on that the patient was switched to a BiPAP and currently pressures are 12/6 with an FiO2 of 100%. She seems to be much more comfortable with the setting of his saturations around 95% and her current respiratory rate is 21 with a minute ventilation of around 8-9 L. The patient is afebrile. The patient's inflammatory markers from today showed an LDH level which is on the rise at 2200 have any to and the CRP level is at 68.7. The patient's white cell count is at 10.4 with a hemoglobin of 11.4. The chest x-ray from today is showing diffuse bilateral pulmonary infiltrates and the infiltrates are essentially perihilar, very much compatible to the chest x-ray from yesterday without any interval worsening. The patient is on Decadron and will increase the dose up to 60 mg IV every 12 hours. The patient is on Lovenox 40 mg subcu for DVT prophylaxis d-dimer is at 1.04. Urine cultures still positive for E. coli and the patient is currently on IV Rocephin. She remains on Levemir insulin 40 units daily and she is also on NovoLog 7 units 3 times a day with meals. Monitor the blood sugar control otherwise for now. No other significant events overnight. She is awake. She is oriented. She is following commands. No nausea. No vomiting. She did have a bout of diarrhea. She is lethargic. 3 2020 the patient is being seen in a follow-up. This morning, the patient is on back on BiPAP. Note that yesterday afternoon she was able to go back to high flow oxygen and she was able to do that until p.m. and subsequently placed back on a BiPAP at a pressure of 10/6 with an FiO2 of 100%. This switch was changes the patient was getting more short of breath. The chest x-ray shows bilateral pulmonary infiltrates scattered throughout the lung franklin bilaterally, perihilar and affecting the upper and lower lobes. No major interval change compared to yesterday's chest x-ray. The patient is still on Decadron 6 mg IV every 12 hours. She is on day #4 of Remdesivir. Her LDH level is up to 2679 and the CRP level is down to 57.2. Her progesterone level was only at 0.42. Her d- dimer is at 0.93. Note that she has already received a unit of, less than plasma. She did not qualify for Actemra the patient had a suspected UTI with E. coli and she remains on IV Rocephin. Note that her pro-calcitonin level has been declining. In terms of blood sugar control, she is on Levemir insulin 60 units daily and she is also taking 7 units with meals and a sliding scale coverage. Unfortunately, her ability to eat is very limited as the patient is very much dependent on the BiPAP. She spent the entire night on BiPAP and this morning, she is able to a tidal volume of 500 and her respiratory rate is in the high 20s to low 30s and she is generating a minute ventilation of at least 15 L. 04/26/2020, the patient Is being seen in follow-up in the intensive care unit. As mentioned earlier, this is a case of bilateral pneumonia secondary to Covid 19. The patient respiratory failure. After being on high flow oxygen along with 100% the patient got switched to BiPAP initiated at pressures of 10/6 with an FiO2 of 100% and subsequently the pressure was brought up to 12/8 cm of water with an FiO2 of 100%. This morning her pulse ox was at 97%, I dropped her down to 90% and the current pulse ox is 93%. She continues to have a high respiratory rate and she was noted to have an elevated respiratory throughout the night. Her respiratory rate is in the mid 20s when she is calm and quiet and it goes up any time she is trying to talk or getting to move in bed. Her current respiratory rate is in the low to mid 30s. Tidal volumes above 700 and she has a high minute ventilation in the order of 18 L per minute. Hemodynamically stable. Afebrile. No significant tachycardia. Blood pressure is stable for now. She is awake and alert. She is a bit anxious. She is on IV fluids running at [employer] and she is on TPN for nutritional support and she is post PICC line insertion was inserted in the left upper extremity. TPN was initiated and the patient is unable to take any form of enteral feeding or oral feeding due to her extreme BiPAP dependence. I also increased her Decadron up to 20 mg IV on a daily basis and the patient is also onn Remdesivir day 5 and Lovenox at a dose of 40 mg by mouth daily. The inflammatory markers on today's evaluation show a d-dimer of 0.9 from yesterday, her CRP is up at 62.5 and LDH is still pending for now. Pro-calcitonin level is down to 0.4 as the patient is being treated for a E. coli urinary tract infection. I talked to her son yesterday and I updated her on the condition. She is extremely critical. We are still avoiding intubation mechanical ventilation on her as long as she is able to tolerate the BiPAP. Sugar is elevated. The patient would benefit from a insulin drip of the blood sugar is elevated. The patient is currently on Levemir insulin 60 units along with a sliding scale coverage. We'll evaluate her blood sugar during the day and decide on insulin drip 2020, the patient is obviously decompensated and she's been having worsening shortness of breath and increased difficulty in breathing since yesterday evening. This started around 3 AM where she and some desaturation. At around 5 AM, blood gases was done that showed a pH of 7.49 with a pCO2 of 36 and pO2 of 65 and this was done on a BiPAP of 12/8 with an FiO2 of 100%. She is quite tachypneic with a high minute ventilation and she has become more confused and struggling to breathe and pulling on her lines. LDH level is up to 2947, CRP level is at 61.5. She is afebrile. She is on high dose Decadron and she is also completed one units of, less than plasma and the patient received Remdesi vir per protocol. The patient remains hemodynamically stable on no pressors. Based on the rest of the blood work, the patient has a stable renal function with a creatinine of 0.8 with a mean of 32. Electrodes are all within normal limits. The white cell count today is at 19 and this was not listed from yesterday. The d-dimer is up to 3.89. The patient is on Lovenox prophylactic dose of 40 mg subcu every 12 hours. on 04/28/2020 the patient is intubated on a mechanical ventilator for: 19 re lated pneumonia and the patient is being seen for a follow-up. On today's evaluation, the patient is sedated with propofol at 20 mcg/kg per minute.. Overnight, the patient was asynchronous with a mechanical ventilator. As such, the patient was started on Nimbex which is currently running at 1 mcg/kg per minute. The patient is well sedated and paralyzed for now. She is calm and comfortable. She is on assist control mode of ventilation at the rate of 26 with a tidal volume of 400 and FiO2 of 75% with a PEEP of 16. The peak airway pressure is 38-40 and is static airway pressures around 37. The patient is on IV fluids and currently she is on normal saline running at 25 mL an hour. The patient is also on insulin drip running at 5 units an hour. She has adequate urine output. She remains on high-dose Decadron 20 mg IV 24 hours. She also received remdesivir and convalescent plasma.The blood gases from today showed a pH of 7.3 with a pCO2 of 52 and pO2 of 79 on the above-mentioned vascular resistance 8. The patient has a white cell count of 30.3. Hemoglobin 12.1. D- dimer is up to 7.55. The patient remains on Lovenox 50 mg subcu every 12 hours. The inflammatory markers show a CRP level of 59, LDH level is still elevated at 2260 and the patient's interleukin-6 level is at 96.7. Total stone on Levaquin for a few days ago was down to 0.42. Urine culture was positive for E. coli and the patient is covered with IV Rocephin. The patient is afebrile for now. The neck fluid balance over the past 24 hours has been +2.3 L. 7 2020, the patient is still intubated on mechanical ventilation. She got intubated on the 2020 for complications related to COVID 19 related pneumonia and respiratory failure with hypoxic respiratory failure as the patient developed diffuse bilateral pulmonary infiltrates, she failed high flow oxygen, she failed BiPAP and ultimately she had to be intubated and placed on a mechanical ventilator. The patient has a peak airway pressure of 40, static airway pressure is 38, and the patient is headed into ARDS. She was given high- dose Decadron. She was given a definitive convalescent plasma and she was also given Remdesivir unfortunately, her condition progressed and she had to be intubated. This morning, she is sedated with propofol running at 45 mg/kg per minute. She is also paralyzed and the patient was given Nimbex over the past 48 hours and Nimbex is running at 1 mcg/kg per minute. She is an assist-control mode of ventilation at the rate of 26 with a tidal volume of 400 and the feet is currently at 16 with an FiO2 of 75. Her blood gases from today showed a pH of 7.27 with a pCO2 54 and pO2 of 60. The chest x-ray still showing diffuse bilateral pulmonary infiltrates, probably slightly worse and ET tube is in a good location. The patient is also on Lovenox a dose of 50 mg subcutaneous every 12 hours. Inflammatory markers from today showing a LDH level of 1915 which is slightly lower, her CRP is 45, nevertheless, the patient has developed an acute rhabdomyolysis with a CPK level of 6715. She is also on Lovenox for a d-dimer of 3.51 which is improving compared to yesterday. She is afebrile. She is on low-dose pressors and norepinephrine is running at 0.04 mcg/kg per minute. She has an adequate urine output. Infected urine output dropped yesterday and she was given a liter bolus and she was maintained on normal saline at the rate of 75 an hour. The fluid balance is been +4.8 L over the past 24 hours. She is afebrile. She remains on Rocephin for an E. coli in her urine. She is receiving enteral feeding for nutritional support in the form of vital high protein at the rate of 20 mL an hour. Objective - Vital Signs Vital signs: Vital Signs Temp 97.8 F 04/29/20 04:00 Pulse 73 04/29/20 07:00 Resp 26 H 04/29/20 07:00 BP 140/58 04/29/20 07:00 Pulse Ox 94 L 04/29/20 07:00 Intake & Output 04/28/20 04/29/20 04/29/20 18:59 06:59 18:59 Intake Total 3523.487 2774.453 112.17 Output Total 435 450 50 Balance 0200.142 6342.453 62.17 Weight 104.9 kg Intake: IV 760 590 75 0.9 @ 75 mL/hr 600 450 75 Insulin Regular 100 unit 50 In Sodium Chloride 0.9% 100 ml @ Per Protocol IV .Q0M [facility] Rx#:[id number] Sodium Chloride 0.9% 1, 60 140 000 ml @ 20 mls/hr IV . Q24H [facility] Rx#:[id number] cefTRIAXone 1 gm In 50 Sodium Chloride 0.9% 50 ml @ 100 mls/hr IVPB Q24H [facility] Rx#:[id number] Intake, IV Titration 921.466 3063.453 17.17 Amount Cisatracurium 200 mg In 58.093 36.443 Sodium Chloride 0.9% 180 ml @ 1 MCG/KG/MIN 6.45 mls/hr IV .Q24H [facility] Rx#: [id number] Insulin Regular 100 unit 19.19 139.010 17.17 In Sodium Chloride 0.9% 100 ml @ Per Protocol IV .Q0M [facility] Rx#:[id number] Norepinephrine 8 mg In 157.575 0 Sodium Chloride 0.9% 250 ml @ 0.05 MCG/KG/MIN 10. 401 mls/hr IV .Q24H [facility] Rx#:[id number] Sodium Chloride 0.9% 1, 3000 000 ml @ 999 mls/hr IV . Q1H1M ONE Rx#:[id number] propofoL 1,000 mg In 200 100 Empty Bag 1 bag @ Titrate IV .Q0M FIORD[facility] Rx#: [id number] Tube Feeding 260 240 20 Other 90 90 Output: Urine 435 450 50 Other: Voiding Method Indwelling Catheter Indwelling Catheter ABP, PAP, CO, CI - Last Documented Arterial Blood Pressure 113/35 - Exam GENERAL EXAM: Alert, weak, fatigued 74-year-old female patient, sedated, paralyzed, intubated on a mechanical ventilator and quiet synchronous with the mechanical ventilator for now. HEAD: Normocephalic. EYES: Normal reaction of pupils, equal size. NOSE: Clear with pink turbinates. THROAT: No erythema or exudates. NECK: No masses, no JVD. CHEST: No chest wall deformity. LUNGS: Bilateral scattered rhonchi. The patient has practically lung base bilaterally and she end up having a coughing spell upon generating deep breath. CVS: S1 and S2 normal with no audible murmur, regular rhythm. ABDOMEN: No hepatosplenomegaly, normal bowel sounds, no guarding or rigidity. SPINE: No scoliosis or deformity SKIN: No rashes CENTRAL NERVOUS SYSTEMthe patient is sedated and paralyzed for now. the patient's pupils were equal and the reactive to light. EXTREMITIES: There is no peripheral edema. No clubbing, no cyanosis. Peripheral pulses are intact. The patient has a PICC line in the left upper extremity.Less responsive compared to yesterday and the patient is responding to painful stimulation all 4 extremities. No focal neurological deficits. - Labs CBC & Chem 7: 04/29/20 04:00 04/29/20 04:00 Labs: Abnormal Lab Results - Last 24 Hours (Table) 04/26/20 04/28/20 04/28/20 Range/Units 05:23 09:05 10:13 WBC (3.8-10.6) k/uL Neutrophils # (1.3-7.7) k/uL Lymphocytes # (1.0-4.8) k/uL D-Dimer (<0.60) mg/L FEU ABG pH (7.35-7.45) ABG pCO2 (35-45) mmHg ABG pO2 (83-108) mmHg ABG Total CO2 (19-24) mmol/L ABG O2 Saturation (94-97) % Chloride (98-107) mmol/L BUN (7-17) mg/dL Glucose (74-99) mg/dL POC Glucose (mg/dL) 151 H 169 H (75-99) mg/dL Calcium (8.4-10.2) mg/dL AST (14-36) U/L ALT (4-34) U/L Lactate Dehydrogenase (313-618) U/L LD Isoenzymes 1039 H (120-250) U/L LD 1 16 L (19-38) % LD 3 27 H (16-26) % LD 4 14 H (3-12) % Creatine Kinase (30-135) U/L C-Reactive Protein (<10.0) mg/L Total Protein (6.3-8.2) g/dL Albumin (3.5-5.0) g/dL 04/28/20 04/28/20 04/28/20 Range/Units 11:01 12:09 13:20 WBC (3.8-10.6) k/uL Neutrophils # (1.3-7.7) k/uL Lymphocytes # (1.0-4.8) k/uL D-Dimer (<0.60) mg/L FEU ABG pH (7.35-7.45) ABG pCO2 (35-45) mmHg ABG pO2 (83-108) mmHg ABG Total CO2 (19-24) mmol/L ABG O2 Saturation (94-97) % Chloride (98-107) mmol/L BUN (7-17) mg/dL Glucose (74-99) mg/dL POC Glucose (mg/dL) 174 H 179 H 167 H (75-99) mg/dL Calcium (8.4-10.2) mg/dL AST (14-36) U/L ALT (4-34) U/L Lactate Dehydrogenase (313-618) U/L LD Isoenzymes (120-250) U/L LD 1 (19-38) % LD 3 (16-26) % LD 4 (3-12) % Creatine Kinase (30-135) U/L C-Reactive Protein (<10.0) mg/L Total Protein (6.3-8.2) g/dL Albumin (3.5-5.0) g/dL 04/28/20 04/28/20 04/28/20 Range/Units 14:11 14:57 16:52 WBC (3.8-10.6) k/uL Neutrophils # (1.3-7.7) k/uL Lymphocytes # (1.0-4.8) k/uL D-Dimer (<0.60) mg/L FEU ABG pH (7.35-7.45) ABG pCO2 (35-45) mmHg ABG pO2 (83-108) mmHg ABG Total CO2 (19-24) mmol/L ABG O2 Saturation (94-97) % Chloride (98-107) mmol/L BUN (7-17) mg/dL Glucose (74-99) mg/dL POC Glucose (mg/dL) 160 H 168 H 175 H (75-99) mg/dL Calcium (8.4-10.2) mg/dL AST (14-36) U/L ALT (4-34) U/L Lactate Dehydrogenase (313-618) U/L LD Isoenzymes (120-250) U/L LD 1 (19-38) % LD 3 (16-26) % LD 4 (3-12) % Creatine Kinase (30-135) U/L C-Reactive Protein (<10.0) mg/L Total Protein (6.3-8.2) g/dL Albumin (3.5-5.0) g/dL 04/28/20 04/28/20 04/28/20 Range/Units 19:04 20:16 21:02 WBC (3.8-10.6) k/uL Neutrophils # (1.3-7.7) k/uL Lymphocytes # (1.0-4.8) k/uL D-Dimer (<0.60) mg/L FEU ABG pH (7.35-7.45) ABG pCO2 (35-45) mmHg ABG pO2 (83-108) mmHg ABG Total CO2 (19-24) mmol/L ABG O2 Saturation (94-97) % Chloride (98-107) mmol/L BUN (7-17) mg/dL Glucose (74-99) mg/dL POC Glucose (mg/dL) 190 H 221 H 197 H (75-99) mg/dL Calcium (8.4-10.2) mg/dL AST (14-36) U/L ALT (4-34) U/L Lactate Dehydrogenase (313-618) U/L LD Isoenzymes (120-250) U/L LD 1 (19-38) % LD 3 (16-26) % LD 4 (3-12) % Creatine Kinase (30-135) U/L C-Reactive Protein (<10.0) mg/L Total Protein (6.3-8.2) g/dL Albumin (3.5-5.0) g/dL 04/28/20 04/29/20 04/29/20 Range/Units 23:41 01:21 03:14 WBC (3.8-10.6) k/uL Neutrophils # (1.3-7.7) k/uL Lymphocytes # (1.0-4.8) k/uL D-Dimer (<0.60) mg/L FEU ABG pH (7.35-7.45) ABG pCO2 (35-45) mmHg ABG pO2 (83-108) mmHg ABG Total CO2 (19-24) mmol/L ABG O2 Saturation (94-97) % Chloride (98-107) mmol/L BUN (7-17) mg/dL Glucose (74-99) mg/dL POC Glucose (mg/dL) 192 H 210 H 185 H (75-99) mg/dL Calcium (8.4-10.2) mg/dL AST (14-36) U/L ALT (4-34) U/L Lactate Dehydrogenase (313-618) U/L LD Isoenzymes (120-250) U/L LD 1 (19-38) % LD 3 (16-26) % LD 4 (3-12) % Creatine Kinase (30-135) U/L C-Reactive Protein (<10.0) mg/L Total Protein (6.3-8.2) g/dL Albumin (3.5-5.0) g/dL 04/29/20 04/29/20 04/29/20 Range/Units 03:59 04:00 04:00 WBC (3.8-10.6) k/uL Neutrophils # (1.3-7.7) k/uL Lymphocytes # (1.0-4.8) k/uL D-Dimer 3.51 H (<0.60) mg/L FEU ABG pH (7.35-7.45) ABG pCO2 (35-45) mmHg ABG pO2 (83-108) mmHg ABG Total CO2 (19-24) mmol/L ABG O2 Saturation (94-97) % Chloride 114 H (98-107) mmol/L BUN 37 H (7-17) mg/dL Glucose 210 H (74-99) mg/dL POC Glucose (mg/dL) 213 H (75-99) mg/dL Calcium 7.6 L (8.4-10.2) mg/dL AST 123 H (14-36) U/L ALT 42 H (4-34) U/L Lactate Dehydrogenase 1915 H (313-618) U/L LD Isoenzymes (120-250) U/L LD 1 (19-38) % LD 3 (16-26) % LD 4 (3-12) % Creatine Kinase 6715 H* (30-135) U/L C-Reactive Protein 45.5 H (<10.0) mg/L Total Protein 4.9 L (6.3-8.2) g/dL Albumin 2.2 L (3.5-5.0) g/dL 04/29/20 04/29/20 04/29/20 Range/Units 04:00 05:12 05:16 WBC 14.9 H (3.8-10.6) k/uL Neutrophils # 13.5 H (1.3-7.7) k/uL Lymphocytes # 0.5 L (1.0-4.8) k/uL D-Dimer (<0.60) mg/L FEU ABG pH 7.27 L (7.35-7.45) ABG pCO2 54 H (35-45) mmHg ABG pO2 61 L (83-108) mmHg ABG Total CO2 27 H (19-24) mmol/L ABG O2 Saturation 90.1 L (94-97) % Chloride (98-107) mmol/L BUN (7-17) mg/dL Glucose (74-99) mg/dL POC Glucose (mg/dL) 195 H (75-99) mg/dL Calcium (8.4-10.2) mg/dL AST (14-36) U/L ALT (4-34) U/L Lactate Dehydrogenase (313-618) U/L LD Isoenzymes (120-250) U/L LD 1 (19-38) % LD 3 (16-26) % LD 4 (3-12) % Creatine Kinase (30-135) U/L C-Reactive Protein (<10.0) mg/L Total Protein (6.3-8.2) g/dL Albumin (3.5-5.0) g/dL 04/29/20 04/29/20 04/29/20 Range/Units 05:55 06:46 07:40 WBC (3.8-10.6) k/uL Neutrophils # (1.3-7.7) k/uL Lymphocytes # (1.0-4.8) k/uL D-Dimer (<0.60) mg/L FEU ABG pH (7.35-7.45) ABG pCO2 (35-45) mmHg ABG pO2 (83-108) mmHg ABG Total CO2 (19-24) mmol/L ABG O2 Saturation (94-97) % Chloride (98-107) mmol/L BUN (7-17) mg/dL Glucose (74-99) mg/dL POC Glucose (mg/dL) 181 H 172 H 162 H (75-99) mg/dL Calcium (8.4-10.2) mg/dL AST (14-36) U/L ALT (4-34) U/L Lactate Dehydrogenase (313-618) U/L LD Isoenzymes (120-250) U/L LD 1 (19-38) % LD 3 (16-26) % LD 4 (3-12) % Creatine Kinase (30-135) U/L C-Reactive Protein (<10.0) mg/L Total Protein (6.3-8.2) g/dL Albumin (3.5-5.0) g/dL Microbiology - Last 24 Hours (Table) 04/28/20 03:26 Gram Stain - Preliminary Sputum Sputum Culture - Preliminary Assessment and Plan Plan: 1 Covid 19 related pneumonia with secondary ARDS and hypoxic respiratory failure. The patient is currently on Decadron 20 mg IV every 24 hours and the patient is also completed a course of Remdesivir 5 day protocol and she received a unit convalescent plasma. currently, the patient is intubated on mechanical ventilator. He was of her timing and underlying infection, we were unable to provide any other treatment such as [id number] treatment for this patient. In any rate, the patient is currently in ARDS. We'll going to utilize a lowvolume high PEEP system to optimize her respiratory status. Her peak and static pressures are quite elevated. The patient has diffuse bilateral pulmonary infiltrates consistent with ARDS. P/F shows less than 100. 2 DM , currently on insulin drip running at 9 units an hour addition to a Levemir insulin at a dose of 75 units daily basis. 3 Acute CoVID 19 infection, completed Remdesivir , Decadron and convalescent plasma 04/22/2020, 1 unit 4 Elevated inflammatory markers secondary to above, were persistent elevation of the LDH, CRP and further rise in the d-dimer. Currently on Lovenox 50 mg subcu every 12 hours. The LDH/ d-dimer is slightly lower on today's evaluation. 5 Febrile illness secondary to above 6 Acute urinary tract infection, cultures pending, gram-negative bacteria with E. coli and the patient remains on IV Rocephin the pro-calcitonin level has been declining. 7 Diabetes mellitus, maintained on an insulin pump on outpatient basis 8 History of hypertension 9 Hyperlipidemia 10 Vitamin D deficiency 11 enteral feeding for nutritional support was initiated with vital high protein at the rate of 20 mL an hour. 12 mild rhabdomyolysis with elevation of the CPK levels Plan: continue ventilator support and the patient is the current ventilator settings will include a PEEP of 16 with an FiO2 of 60% and a tidal volume of 375 The patient sedated with propofol mild my plan is to add fentanyl and gradually wean off the propofol lower-level specially the patient is having some mild rhabdomyolysis. We'll monitor CPK. We'll take this patient also off paralytics and the patient will be given a paralytic holiday today. Continue Decadron as a dose of 6 mg IV every 24 hours and Remdesivir completed a total of 5 day course, and the patient was given convalescent plasma (1 unit) Lovenox 50 mg subcu twice a day and the dose was modified based on elevation of the d-dimer vitamin supplements Vital high protein for enteral feeding and nutritional support Insulin drip for blood sugar support in combination with Levemir insulin at a dose of 75 units a daily basis Repeat chest x-ray in am LDH, CRP and d-dimer is markedly elevated wean off norepinephrine infusion and discontinue IV fluids to KVO Give the patient Lasix 40 mg IV 2 doses over the next 24 hours Continue ventilator support and the family will be updated on her condition Continue enteral feeding for nutritional support Condition is critical and prognosis poor based on the above Critical care time, more than 30 minutes, Time with Patient: Greater than 30
[2020-04-29] MEDS: SODIUM CHLORIDE 0.9% 1,000 ML IV SCH (08:48)
[2020-04-29] MEDS: PANTOPRAZOLE 40 MG/10 ML VIAL IVP SCH (08:50)
[2020-04-29] MEDS: NOREPINEPHRINE 8 MG in SODIUM CHLORIDE 0.9% 250 ML IV SCH (08:52)
[2020-04-29 09:13] LABS: Glucose,Whole Blood 165 mg/dL (75-99)
[2020-04-29] MEDS: fentaNYL (PF) 1,000 MCG in SODIUM CHLORIDE 0.9% 80 ML IV SCH ×3 (09:28→21:13)
[2020-04-29 09:54] LABS: Ferritin 973.7 ng/mL (10.0-291.0)
[2020-04-29 10:08] LABS: Glucose,Whole Blood 186 mg/dL (75-99)
[2020-04-29 10:58] LABS: Glucose,Whole Blood 188 mg/dL (75-99)
[2020-04-29 12:04] LABS: Glucose,Whole Blood 175 mg/dL (75-99)
[2020-04-29 14:09] LABS: Glucose,Whole Blood 165 mg/dL (75-99)
[2020-04-29 15:06] LABS: Glucose,Whole Blood 169 mg/dL (75-99)
[2020-04-29 16:16] LABS: Glucose,Whole Blood 172 mg/dL (75-99)
[2020-04-29 17:07] LABS: Glucose,Whole Blood 163 mg/dL (75-99)
[2020-04-29 18:09] LABS: Glucose,Whole Blood 180 mg/dL (75-99)
[2020-04-29 19:08] LABS: Glucose,Whole Blood 184 mg/dL (75-99)
--- NOTE | 2020-04-29 19:09 | P.PN ---
Progress Note - Text Progress Note Date: 04/29/20 History of presenting complaint: Patient was admitted with severe COVID 19 pneumonia, acute hypoxic respiratory failure. Patient was intubated. Today-in the ICU . Ventilator-FiO2 6 and a PEEP of 16. Telemetry sinus rhythm. Drips include insulin, propofol, we will fed. Nimbex was discontinued. Today. Started on fentanyl drip by Dr. Bobo. Patient is having moderate cream- colored thick secretions. Otherwise sedated. Progress review of systems cannot be done, patient intubated Active Medications Acetaminophen (Acetaminophen Tab 325 Mg Tab) 650 mg PO Q6HR PRN PRN Reason: Mild Pain or Fever > 100.5 Last Admin: 04/23/20 20:48 Dose: 650 mg Documented by: Amlodipine Besylate (Amlodipine 10 Mg Tab) 10 mg PO DAILY [facility] Last Admin: 04/29/20 08:23 Dose: Not Given Documented by: Ascorbic Acid (Ascorbic Acid 500 Mg Tab) 1,000 mg PO DAILY [facility] Last Admin: 04/29/20 08:22 Dose: 1,000 mg Documented by: Atorvastatin Calcium (Atorvastatin 40 Mg Tab) 40 mg PO HS [facility] Last Admin: 04/28/20 20:23 Dose: 40 mg Documented by: Chlorhexidine Gluconate (Chlorhexidine Gluconate 15 Ml Cup) 15 ml MUCOUS MEM BID [facility] Last Admin: 04/29/20 08:22 Dose: 15 ml Documented by: Cholecalciferol (Cholecalciferol 10 Mcg (400 Iu) Tablet) 10 mcg PO DAILY [facility] Last Admin: 04/29/20 08:22 Dose: 10 mcg Documented by: Dexamethasone Sodium Phosphate (Dexamethasone Sod Phosphate 10 Mg/Ml 1 Ml Vial) 6 mg IV DAILY [facility] Enoxaparin Sodium (Enoxaparin 60 Mg/0.6 Ml Syringe) 50 mg SQ BID [facility] Last Admin: 04/29/20 08:22 Dose: 50 mg Documented by: Furosemide (Furosemide 10 Mg/Ml 4 Ml Vial) 40 mg IV DAILY [facility] Stop: 04/29/20 21:01 Propofol 1,000 mg/ IV Solution 100 mls @ 0 mls/hr IV .Q0M [facility]; Protocol Last Titration: 04/29/20 13:31 Dose: 40 mcg/kg/min, 25.176 mls/hr Documented by: Insulin Human Regular 100 unit (/ Sodium Chloride) 101 mls @ 0 mls/hr IV .Q0M [facility]; Protocol Last Titration: 04/29/20 12:25 Dose: 10 units/hr, 10.1 mls/hr Documented by: Norepinephrine Bitartrate 8 mg (/ Sodium Chloride) 258 mls @ 10.401 mls/hr IV .Q24H [facility]; Protocol Last Titration: 04/29/20 13:51 Dose: 0.05 mcg/kg/min, 10.401 mls/hr Documented by: Cisatracurium Besylate 200 mg/ (Sodium Chloride) 200 mls @ 6.45 mls/hr IV .Q24H [facility]; Protocol Last Titration: 04/29/20 09:37 Dose: 0 mcg/kg/min, 0 mls/hr Documented by: Sodium Chloride (Saline 0.9%) 1,000 mls @ 20 mls/hr IV .Q24H [facility] Last Admin: 04/29/20 08:48 Dose: 20 mls/hr Documented by: Fentanyl Citrate 1,000 mcg/ (Sodium Chloride) 100 mls @ 0 mls/hr IV .Q0M [facility]; Protocol Last Admin: 04/29/20 14:03 Dose: 1.3 mcg/kg/hr, 13.637 mls/hr Documented by: Insulin Detemir (Insulin Detemir (Levemir) 100 Unit/Ml Syr) 75 unit SQ DAILY@0700 [facility] Last Admin: 04/29/20 06:16 Dose: 75 unit Documented by: Levothyroxine Sodium (Levothyroxine 88 Mcg Tab) 88 mcg PO DAILY@0630 [facility] Last Admin: 04/29/20 06:16 Dose: 88 mcg Documented by: Miscellaneous Information (Magnesium Replacement Protocol 1 Each Misc) 1 each MISCELLANE DAILY PRN; Protocol PRN Reason: Per Protocol Miscellaneous Information (Potassium Replacement Protocol 1 Each Misc) 1 each MISCELLANE DAILY PRN PRN Reason: Per Protocol Naloxone HCl (Naloxone 0.4 Mg/Ml 1 Ml Vial) 0.2 mg IV Q2M PRN PRN Reason: Opioid Reversal Pantoprazole Sodium (Pantoprazole 40 Mg/10 Ml Vial) 40 mg IVP DAILY [facility] Last Admin: 04/29/20 08:50 Dose: 40 mg Documented by: Zinc Sulfate (Zinc Sulfate 220 Mg Cap) 220 mg PO DAILY [facility] Last Admin: 04/29/20 08:22 Dose: 220 mg Documented by: On examination: VITAL SIGNS: 97.3, 55, 27, 135/42, 93% on the ventilator GENERAL APPEARANCE: BMI 40.7, laying in bed, intubated HEENT: Normal external appearance of nose and ear. Oral cavity ET tube and OG tube EYES: Pupils equal. Conjunctiva normal. NECK: JVD not raised. Mass not palpable. RESPIRATORY: Respiratory effort increased Lungs -decreased breath sounds CARDIOVASCULAR: First and second sounds normal. No edema. ABDOMEN: Soft. Liver and spleen not palpable. No tenderness. No mass palpable. PSYCHIATRY: Unable to assess, patient sedated. INVESTIGATIONS, reviewed in the clinical context: April 29: WBC 14.9 hemoglobin 11.9 d-dimer 3.51 potassium 4.3 creatinine 0.74 CRP 45.5 April 28: WBC 30.3 hemoglobin 12.1 potassium 4 creatinine 0.85 d-dimer 7.55 CRP 59.4 Potassium 4 creatinine 0.8 CRP 61.5, d-dimer 3.89 Chest x-ray film shows worsening bilateral infiltrates Assessment and plan: -COVID 19 bilateral pneumonia severe causing secondary hypoxic respiratory failure. She has received Remdesivir, convalescent plasma one unit, Decadron, subcu Lovenox-slow to respond -Septic shock patient requiring norepinephrine-slow to respond -Hypothyroid continue with Synthroid -Acute UTI with cystitis secondary to E. coli-IV ceftriaxone -Essential hypertension, currently blood pressures running low. -Hyperlipidemia -Vitamin D deficiency -Acute hypoxic respiratory failure, intubated on April 27, with ventilator support-slow to respond -Diabetes mellitus type 2, uncontrolled with hyperglycemia ;on insulin drip-slow to respond -Morbid obesity BMI 40.7 Prognosis guarded. Continue current medications. Including propofol, insulin drip, fentanyl, norepinephrine
[2020-04-29 20:00] LABS: Glucose,Whole Blood 153 mg/dL (75-99)
[2020-04-29] MEDS: ATORVASTATIN 40 MG TAB PO SCH (20:50)
[2020-04-29] MEDS ORDERED: FUROSEMIDE 10 MG/ML 4 ML VIAL IV SCH (21:00)
[2020-04-29 21:04] LABS: Glucose,Whole Blood 164 mg/dL (75-99)
--- NOTE | 2020-04-29 22:25 | PN ---
PROGRESS NOTE DATE OF SERVICE: 04/29/2020 REASON FOR FOLLOWUP: 1. Pneumonia. 2. UTI. INTERVAL HISTORY: The patient remains to be afebrile. The patient is hemodynamically stable, not on pressor support. FiO2 is currently stable to 60%. No significant purulent secretions in the ET or any diarrhea reported by the nursing staff. The patient on the vent, unable to provide any history. PHYSICAL EXAMINATION: Blood pressure 136/51, pulse of 51, temperature 98. She is 92% on 50% FiO2. GENERAL description is an elderly female lying in bed in no distress. RESPIRATORY system: Unlabored breathing with decreased intensity of breath sounds. HEART: S1-S2 regular. ABDOMEN: Soft, no tenderness. LABS: Hemoglobin 11.1, white count 14.9, BUN of 37, creatinine 0.74. Sputum pending. DIAGNOSTIC IMPRESSION AND PLAN: 1. Patient with acute respiratory failure, likely complication of acute COVID-19 infection with possible acute respiratory distress syndrome pattern. The patient is currently being monitored and treated closely. Currently on dexamethasone, Lovenox, zinc, ascorbic acid that will be continued. Clinical suspicion low for secondary bacterial pneumonia. We will obtain sputum culture and adjust antibiotic if needed. 2. Patient with E coli urinary tract infection that has been adequately treated. MMODL / IJN: [id number] / MTDD
[2020-04-29 22:57] LABS: Glucose,Whole Blood 150 mg/dL (75-99)
[2020-04-30 01:03] LABS: Glucose,Whole Blood 124 mg/dL (75-99)
[2020-04-30 02:09] LABS: Glucose,Whole Blood 165 mg/dL (75-99)
[2020-04-30 03:05] LABS: Glucose,Whole Blood 154 mg/dL (75-99)
[2020-04-30] MEDS: INSULIN REGULAR 100 UNIT in SODIUM CHLORIDE 0.9% 100 ML IV SCH ×2 (03:41→13:15)
[2020-04-30] MEDS: fentaNYL (PF) 1,000 MCG in SODIUM CHLORIDE 0.9% 80 ML IV SCH ×3 (03:42→18:24)
[2020-04-30 03:55] LABS: Glucose,Whole Blood 140 mg/dL (75-99)
[2020-04-30 04:06] LABS: Basophils # (A) 0.1 k/uL (0-0.2); Basophils % (A) 0 %; Eosinophils % (A) 0 %; HCT 38.5 % (34.0-46.0); HGB 12.2 gm/dL (11.4-16.0); Lymphocytes # (A) 0.8 k/uL (1.0-4.8); Lymphocytes % (A) 3 %; MCH 30.2 pg (25.0-35.0); MCHC 31.6 g/dL (31.0-37.0); MCV 95.4 fL (80.0-100.0); Mean Platelet Volume 8.5; Monocytes # (A) 0.8 k/uL (0-1.0); Monocytes % (A) 3 %; Neutrophils # (A) 24.3 k/uL (1.3-7.7); Neutrophils % (A) 93 %; Platelet Count 348 k/uL (150-450); RBC 4.04 m/uL (3.80-5.40); RDW 14.1 % (11.5-15.5); WBC 26.2 k/uL (3.8-10.6)
[2020-04-30 04:22] LABS: Albumin 2.4 g/dL (3.5-5.0); C Reactive Protein 32.5 mg/L (<10.0); Calcium 7.7 mg/dL (8.4-10.2); Potassium 4.5 mmol/L (3.5-5.1); Total Bilirubin 0.3 mg/dL (0.2-1.3); Total Protein 5.2 g/dL (6.3-8.2)
[2020-04-30 05:11] LABS: Glucose,Whole Blood 170 mg/dL (75-99)
[2020-04-30 05:36] LABS: ABG Base Excess 0.4 mmol/L; ABG HCO3 27 mmol/L (21-25); ABG Oxygen Saturation 94.6 % (94-97); ABG PCO2 55 mmHg (35-45); ABG PO2 73 mmHg (83-108); ABG TCO2 29 mmol/L (19-24); Allen Test Performed? Yes
[2020-04-30 05:56] LABS: Glucose,Whole Blood 167 mg/dL (75-99)
[2020-04-30] MEDS: LEVOTHYROXINE 88 MCG TAB PO SCH (06:56)
[2020-04-30] MEDS: INSULIN DETEMIR (LEVEMIR) 100 UNIT/ML SYR SQ SCH (06:56)
[2020-04-30 07:03] LABS: Glucose,Whole Blood 167 mg/dL (75-99)
--- NOTE | 2020-04-30 07:22 | XR ---
EXAMINATION TYPE: XR chest 1V portable DATE OF EXAM: 04/30/2020 Comparison: 04/29/2020 Clinical History: 74-year-old female Tube placement Findings: ET tube is satisfactory. NG tube courses below the diaphragm. Left CVC tip in the upper right atrium. Heart limits of normal in size. Diffuse airspace opacities have become slightly less confluent steve red to prior exam. Small effusions. Impression: 1. Diffuse bilateral airspace disease persists but has shown some improvement as compared to prior ex am. 2. Continued small effusions with adjacent atelectasis and/or consolidation.
[2020-04-30] MEDS: ASCORBIC ACID 500 MG TAB PO SCH (08:04)
[2020-04-30] MEDS: CHOLECALCIFEROL 10 MCG (400 IU) TABLET PO SCH (08:04)
[2020-04-30] MEDS: PANTOPRAZOLE 40 MG/10 ML VIAL IVP SCH (08:05)
[2020-04-30] MEDS: DEXAMETHASONE SOD PHOSPHATE 10 MG/ML 1 ML VIAL IV SCH (08:05)
[2020-04-30] MEDS: ZINC SULFATE 220 MG CAP PO SCH (08:05)
[2020-04-30] MEDS: ENOXAPARIN 60 MG/0.6 ML SYRINGE SQ SCH ×2 (08:05→21:02)
[2020-04-30] MEDS: CHLORHEXIDINE GLUCONATE 15 ML CUP MUCOUS MEM SCH ×2 (08:06→21:02)
[2020-04-30] MEDS: amLODIPine 10 MG TAB PO SCH (08:06)
[2020-04-30 08:26] LABS: Glucose,Whole Blood 157 mg/dL (75-99)
[2020-04-30] MEDS: NOREPINEPHRINE 8 MG in SODIUM CHLORIDE 0.9% 250 ML IV SCH (08:59)
[2020-04-30 10:00] LABS: Glucose,Whole Blood 144 mg/dL (75-99)
[2020-04-30] MEDS ORDERED: FUROSEMIDE 10 MG/ML 4 ML VIAL IV STA (10:02)
[2020-04-30 11:02] LABS: Glucose,Whole Blood 144 mg/dL (75-99)
[2020-04-30 12:20] LABS: Glucose,Whole Blood 156 mg/dL (75-99)
[2020-04-30] MEDS: SODIUM CHLORIDE 0.9% 1,000 ML IV SCH (13:14)
[2020-04-30 13:49] VITALS: BMI 40.3
[2020-04-30 14:00] LABS: Glucose,Whole Blood 135 mg/dL (75-99)
--- NOTE | 2020-04-30 14:21 | P.PN ---
Subjective Progress Note Date: 04/30/20 Principal diagnosis: Acute hypoxic respiratory failure with ARDS secondary to covid 19 pneumonitis. This is a pleasant 74-year-old female patient who follows with Dr. Mace as h er primary care physician. She has a history of hypertension, hyperlipidemia, hypothyroidism, depression, chronic tobacco dependence, diabetes mellitus with insulin pump. Yesterday she was brought into the emergency room via EMS after developing progressive weakness over the past week. She was unable to get herself up from a chair. Point of care blood glucose measured by EMS was over 600. Urine was positive for nitrates and 180 WBCs. She was given IV fluid boluses. Ceftriaxone and initiated on a heparin drip and admitted to the selective care unit. White count 8.2. Hemoglobin 13.9. Lymphocytes 0.8. Sodium 132. Potassium initially 6.5, currently 4.8 bicarb 19. Anion gap 17 currently 6. Creatinine 1.99. Improved to 1.43. She was found to be positive for munoz virus by PCR. He is seen today in consultation as her oxygen requirements have increased from 6 L to AirVo this morning. Presently on 60 L and 90% FiO2. Temperature 101.7. She is quite weak and fatigued. Chest x-ray revealing bilateral multifocal acute opacities consistent with CoVID 19 infection. Stat labs revealed a d-dimer of 0.83. LDH 1518. C-reactive protein 143. On today's evaluation of 04/23/2020, the patient remains on a combination of high flow oxygen and 100% nonrebreather facemask. The patient is on high flow oxygen at 60 L with an FiO2 of 90% and the patient is also on 100% nonrebreather facemask. Her pulse ox in the order of 92%. Her previous inflammatory markers including CRP and LDH were quite elevated. Repeat chest x-ray was done today and a chest x-ray was reviewed and revealed bilateral multifocal pulmonary opacities/infiltrates consistent with Covid 19 related pneumonia. The patient's is currently laying down supine in bed. She seems to be comfortable and there is no significant respiratory distress and her current pulse ox in the order of 92%. Upon comparing the chest x-rays, no major interval change compared to yesterday's findings. Meanwhile, the patient had further increase for LVH which is up to 1684 and the CRP is at 139. White cell count of 6.6. The patient is currently on Decadron 6 mg, Remdesivir and she is a #2 of treatment. She is also on anticoagulation and she is receiving not receiving anticoagulation and the d-dimer today is at 1.03. Lovenox will be started. She has no specific complaints. She feels tired. She is alert and orientated 3. She is diabetic and she is on a insulin pump on outpatient basis and currently she is receiving Levemir insulin 30 units daily along with NovoLog 7 units 3 times a day with meals and a sliding scale coverage. Blood sugars are in the 200 range and the patient is not having adequate amount of food. She had an acute kidney injury which recovered and the creatinine is normalized. She has a gram-negative bacillus in her urine and the patient is currently on Rocephin. 7 2020, the patient is still intubated on mechanical ventilation. She got intubated on the 2020 for complications related to COVID 19 related pneumonia and respiratory failure with hypoxic respiratory failure as the patient developed diffuse bilateral pulmonary infiltrates, she failed high flow oxygen, she failed BiPAP and ultimately she had to be intubated and placed on a mechanical ventilator. The patient has a peak airway pressure of 40, static airway pressure is 38, and the patient is headed into ARDS. She was given high- dose Decadron. She was given a definitive convalescent plasma and she was also given Remdesivir unfortunately, her condition progressed and she had to be intubated. This morning, she is sedated with propofol running at 45 mg/kg per minute. She is also paralyzed and the patient was given Nimbex over the past 48 hours and Nimbex is running at 1 mcg/kg per minute. She is an assist-control mode of ventilation at the rate of 26 with a tidal volume of 400 and the feet is currently at 16 with an FiO2 of 75. Her blood gases from today showed a pH of 7.27 with a pCO2 54 and pO2 of 60. The chest x-ray still showing diffuse bilateral pulmonary infiltrates, probably slightly worse and ET tube is in a good location. The patient is also on Lovenox a dose of 50 mg subcutaneous ev giovana 12 hours. Inflammatory markers from today showing a LDH level of 1915 which is slightly lower, her CRP is 45, nevertheless, the patient has developed an acute rhabdomyolysis with a CPK level of 6715. She is also on Lovenox for a d- dimer of 3.51 which is improving compared to yesterday. She is afebrile. She is on low-dose pressors and norepinephrine is running at 0.04 mcg/kg per minute. She has an adequate urine output. Infected urine output dropped yesterday and she was given a liter bolus and she was maintained on normal saline at the rate of 75 an hour. The fluid balance is been +4.8 L over the past 24 hours. She is afebrile. She remains on Rocephin for an E. coli in her urine. She is receiving enteral feeding for nutritional support in the form of vital high protein at the rate of 20 mL an hour. Patient was reevaluated today on 04/29/2020, remains intubated and mechanically ventilated. Patient is on assist control rate of 26, tidal volume of 375 FiO2 is 50% and PEEP is 16. ABG showed a pO2 of 73 pCO2 of 55 pH of 7.30. Hence the patient was maintained on the same ventilator settings. Her on 50% and PEEP of 16. She is on multiple drips including norepinephrine at 0.03 mcg/kg/m. She is on propofol at 40 mcg/kg/m. Fentanyl 1.3 mcg/kg/h. And she went off Nimbex yesterday. Patient is receiving Lasix to keep her dry, and her BNP level is pending echocardiogram is pending only because the chest x-ray showed dramatic improvement overnight, and I'm not really sure whether the patient had significant pulmonary edema or is at the higher PEEP that is causing significant improvement in the chest x-ray appearance. I did order another dose of Lasix to be given. WBC count is 26.2 hemoglobin is 12.2. D-dimer is 3.10 coming down nicely. Electrolytes are normal, bicarb is 27. BUN is 41 and creatinine 0.93. Interleukin-6 was noted to be high at 96.7. C-reactive protein is down to 32.5. LDH is down to 1915 from 2260 2 days ago. Again her chest x-ray did show significant improvement in her bilateral arms. Disease with continued small effusions and atelectasis at the bases. Objective - Vital Signs Vital signs: Vital Signs Temp 97.6 F 04/30/20 12:00 Pulse 51 L 04/30/20 14:00 Resp 26 H 04/30/20 14:00 BP 137/57 04/30/20 14:00 Pulse Ox 92 L 04/30/20 14:00 Intake & Output 04/29/20 04/30/20 04/30/20 18:59 06:59 18:59 Intake Total 0353.522 3834.614 932.265 Output Total 940 1030 535 Balance 348.489 296.614 397.265 Weight 106.5 kg 106.5 kg Intake: IV 450 273 184 0.9 @ 75 mL/hr 75 Dexamethasone Sod 50 Phosphate 20 mg In Dextrose 5% in Water 50 ml @ 100 mls/hr IV DAILY [facility] Rx#:[id number] Sodium Chloride 0.9% 1, 275 240 160 000 ml @ 20 mls/hr IV . Q24H [facility] Rx#:[id number] a-line flush 33 24 cefTRIAXone 1 gm In 50 Sodium Chloride 0.9% 50 ml @ 100 mls/hr IVPB Q24H [facility] Rx#:[id number] Intake, IV Titration 508.489 703.614 434.265 Amount Cisatracurium 200 mg In 58.641 Sodium Chloride 0.9% 180 ml @ 1 MCG/KG/MIN 6.45 mls/hr IV .Q24H [facility] Rx#: [id number] Insulin Regular 100 unit 71.693 167.071 85.749 In Sodium Chloride 0.9% 100 ml @ Per Protocol IV .Q0M [facility] Rx#:[id number] Norepinephrine 8 mg In 118.904 150.398 101.546 Sodium Chloride 0.9% 250 ml @ 0.05 MCG/KG/MIN 10. 401 mls/hr IV .Q24H [facility] Rx#:[id number] fentaNYL (PF) 1,000 mcg 59.251 186.145 100 In Sodium Chloride 0.9% 80 ml @ Per Protocol IV . Q0M [facility] Rx#:[id number] propofoL 1,000 mg In 200.000 200 146.970 Empty Bag 1 bag @ Titrate IV .Q0M [facility] Rx#: [id number] Tube Feeding 240 260 214 Other 90 90 100 Output: Urine 940 1030 535 Other: Voiding Method Indwelling Catheter Indwelling Catheter Indwelling Catheter ABP, PAP, CO, CI - Last Documented Arterial Blood Pressure 129/41 - Exam GENERAL EXAM: Revealed 74-year-old female intubated, mechanically ventilated, sedated, calm. On propofol and fentanyl, off Nimbex HEAD: Normocephalic. Endotracheal tube and orogastric tube are intact. EYES: Normal reaction of pupils, equal size. NOSE: Clear with pink turbinates. THROAT: No erythema or exudates. NECK: No masses, no JVD. CHEST: No chest wall deformity. LUNGS: Bilateral scattered rhonchi. Noted mostly at the bases bilaterally. CVS: S1 and S2 normal with no audible murmur, regular rhythm. ABDOMEN: Flat soft nontender no megaly no rebound no guarding. SKIN: No rashes CENTRAL NERVOUS : Could not be assessed. A shunt is sedated but not paralyzed Extremities: a PICC line in the left upper extremity.otherwise no significant findings - Labs CBC & Chem 7: 04/30/20 03:50 04/30/20 03:50 Labs: Abnormal Lab Results - Last 24 Hours (Table) 04/29/20 04/29/20 04/29/20 Range/Units 14:08 15:05 16:15 WBC (3.8-10.6) k/uL Neutrophils # (1.3-7.7) k/uL Lymphocytes # (1.0-4.8) k/uL D-Dimer (<0.60) mg/L FEU ABG pH (7.35-7.45) ABG pCO2 (35-45) mmHg ABG pO2 (83-108) mmHg ABG HCO3 (21-25) mmol/L ABG Total CO2 (19-24) mmol/L Sodium (137-145) mmol/L Chloride (98-107) mmol/L BUN (7-17) mg/dL Glucose (74-99) mg/dL POC Glucose (mg/dL) 165 H 169 H 172 H (75-99) mg/dL Calcium (8.4-10.2) mg/dL AST (14-36) U/L ALT (4-34) U/L C-Reactive Protein (<10.0) mg/L Total Protein (6.3-8.2) g/dL Albumin (3.5-5.0) g/dL 04/29/20 04/29/20 04/29/20 Range/Units 17:06 18:08 19:07 WBC (3.8-10.6) k/uL Neutrophils # (1.3-7.7) k/uL Lymphocytes # (1.0-4.8) k/uL D-Dimer (<0.60) mg/L FEU ABG pH (7.35-7.45) ABG pCO2 (35-45) mmHg ABG pO2 (83-108) mmHg ABG HCO3 (21-25) mmol/L ABG Total CO2 (19-24) mmol/L Sodium (137-145) mmol/L Chloride (98-107) mmol/L BUN (7-17) mg/dL Glucose (74-99) mg/dL POC Glucose (mg/dL) 163 H 180 H 184 H (75-99) mg/dL Calcium (8.4-10.2) mg/dL AST (14-36) U/L ALT (4-34) U/L C-Reactive Protein (<10.0) mg/L Total Protein (6.3-8.2) g/dL Albumin (3.5-5.0) g/dL 04/29/20 04/29/20 04/29/20 Range/Units 19:59 21:03 22:55 WBC (3.8-10.6) k/uL Neutrophils # (1.3-7.7) k/uL Lymphocytes # (1.0-4.8) k/uL D-Dimer (<0.60) mg/L FEU ABG pH (7.35-7.45) ABG pCO2 (35-45) mmHg ABG pO2 (83-108) mmHg ABG HCO3 (21-25) mmol/L ABG Total CO2 (19-24) mmol/L Sodium (137-145) mmol/L Chloride (98-107) mmol/L BUN (7-17) mg/dL Glucose (74-99) mg/dL POC Glucose (mg/dL) 153 H 164 H 150 H (75-99) mg/dL Calcium (8.4-10.2) mg/dL AST (14-36) U/L ALT (4-34) U/L C-Reactive Protein (<10.0) mg/L Total Protein (6.3-8.2) g/dL Albumin (3.5-5.0) g/dL 04/30/20 04/30/20 04/30/20 Range/Units 01:01 02:08 03:03 WBC (3.8-10.6) k/uL Neutrophils # (1.3-7.7) k/uL Lymphocytes # (1.0-4.8) k/uL D-Dimer (<0.60) mg/L FEU ABG pH (7.35-7.45) ABG pCO2 (35-45) mmHg ABG pO2 (83-108) mmHg ABG HCO3 (21-25) mmol/L ABG Total CO2 (19-24) mmol/L Sodium (137-145) mmol/L Chloride (98-107) mmol/L BUN (7-17) mg/dL Glucose (74-99) mg/dL POC Glucose (mg/dL) 124 H 165 H 154 H (75-99) mg/dL Calcium (8.4-10.2) mg/dL AST (14-36) U/L ALT (4-34) U/L C-Reactive Protein (<10.0) mg/L Total Protein (6.3-8.2) g/dL Albumin (3.5-5.0) g/dL 04/30/20 04/30/20 04/30/20 Range/Units 03:50 03:50 03:50 WBC 26.2 H (3.8-10.6) k/uL Neutrophils # 24.3 H (1.3-7.7) k/uL Lymphocytes # 0.8 L (1.0-4.8) k/uL D-Dimer 3.10 H (<0.60) mg/L FEU ABG pH (7.35-7.45) ABG pCO2 (35-45) mmHg ABG pO2 (83-108) mmHg ABG HCO3 (21-25) mmol/L ABG Total CO2 (19-24) mmol/L Sodium 146 H (137-145) mmol/L Chloride 113 H (98-107) mmol/L BUN 41 H (7-17) mg/dL Glucose 162 H (74-99) mg/dL POC Glucose (mg/dL) (75-99) mg/dL Calcium 7.7 L (8.4-10.2) mg/dL AST 82 H (14-36) U/L ALT 45 H (4-34) U/L C-Reactive Protein 32.5 H (<10.0) mg/L Total Protein 5.2 L (6.3-8.2) g/dL Albumin 2.4 L (3.5-5.0) g/dL 04/30/20 04/30/20 04/30/20 Range/Units 03:53 05:09 05:30 WBC (3.8-10.6) k/uL Neutrophils # (1.3-7.7) k/uL Lymphocytes # (1.0-4.8) k/uL D-Dimer (<0.60) mg/L FEU ABG pH 7.30 L (7.35-7.45) ABG pCO2 55 H (35-45) mmHg ABG pO2 73 L (83-108) mmHg ABG HCO3 27 H (21-25) mmol/L ABG Total CO2 29 H (19-24) mmol/L Sodium (137-145) mmol/L Chloride (98-107) mmol/L BUN (7-17) mg/dL Glucose (74-99) mg/dL POC Glucose (mg/dL) 140 H 170 H (75-99) mg/dL Calcium (8.4-10.2) mg/dL AST (14-36) U/L ALT (4-34) U/L C-Reactive Protein (<10.0) mg/L Total Protein (6.3-8.2) g/dL Albumin (3.5-5.0) g/dL 04/30/20 04/30/20 04/30/20 Range/Units 05:53 07:01 08:17 WBC (3.8-10.6) k/uL Neutrophils # (1.3-7.7) k/uL Lymphocytes # (1.0-4.8) k/uL D-Dimer (<0.60) mg/L FEU ABG pH (7.35-7.45) ABG pCO2 (35-45) mmHg ABG pO2 (83-108) mmHg ABG HCO3 (21-25) mmol/L ABG Total CO2 (19-24) mmol/L Sodium (137-145) mmol/L Chloride (98-107) mmol/L BUN (7-17) mg/dL Glucose (74-99) mg/dL POC Glucose (mg/dL) 167 H 167 H 157 H (75-99) mg/dL Calcium (8.4-10.2) mg/dL AST (14-36) U/L ALT (4-34) U/L C-Reactive Protein (<10.0) mg/L Total Protein (6.3-8.2) g/dL Albumin (3.5-5.0) g/dL 04/30/20 04/30/20 04/30/20 Range/Units 09:57 10:58 12:17 WBC (3.8-10.6) k/uL Neutrophils # (1.3-7.7) k/uL Lymphocytes # (1.0-4.8) k/uL D-Dimer (<0.60) mg/L FEU ABG pH (7.35-7.45) ABG pCO2 (35-45) mmHg ABG pO2 (83-108) mmHg ABG HCO3 (21-25) mmol/L ABG Total CO2 (19-24) mmol/L Sodium (137-145) mmol/L Chloride (98-107) mmol/L BUN (7-17) mg/dL Glucose (74-99) mg/dL POC Glucose (mg/dL) 144 H 144 H 156 H (75-99) mg/dL Calcium (8.4-10.2) mg/dL AST (14-36) U/L ALT (4-34) U/L C-Reactive Protein (<10.0) mg/L Total Protein (6.3-8.2) g/dL Albumin (3.5-5.0) g/dL 04/30/20 Range/Units 13:57 WBC (3.8-10.6) k/uL Neutrophils # (1.3-7.7) k/uL Lymphocytes # (1.0-4.8) k/uL D-Dimer (<0.60) mg/L FEU ABG pH (7.35-7.45) ABG pCO2 (35-45) mmHg ABG pO2 (83-108) mmHg ABG HCO3 (21-25) mmol/L ABG Total CO2 (19-24) mmol/L Sodium (137-145) mmol/L Chloride (98-107) mmol/L BUN (7-17) mg/dL Glucose (74-99) mg/dL POC Glucose (mg/dL) 135 H (75-99) mg/dL Calcium (8.4-10.2) mg/dL AST (14-36) U/L ALT (4-34) U/L C-Reactive Protein (<10.0) mg/L Total Protein (6.3-8.2) g/dL Albumin (3.5-5.0) g/dL Microbiology - Last 24 Hours (Table) 04/28/20 03:26 Gram Stain - Final Sputum Sputum Culture - Final Assessment and Plan Assessment: Impression: Acute hypoxic respiratory failure secondary to covid 19 pneumonitis and ARDS. Patient is still requiring relatively high PEEP and FiO2 at 50% at present. Acute covid 19 pneumonia, patient completed remdesivir, remains on Decadron, and she received 1 unit of convalescent plasma. Elevated inflammatory markers secondary to above. Patient remains on Lovenox subcu every 12 hours. Acute urinary tract infection secondary to E. coli. Remains on IV Rocephin. Type 2 diabetes. Patient has insulin pump on outpatient basis. Benign essential hypertension. Suspect some component of acute diastolic congestive heart failure, echocardiogram is pending, BNP level is pending, in the meantime diuretics. Mild rhabdomyolysis with elevation of CPK levels. History of vitamin D deficiency. Recommendation: Continue ventilatory support. No changes made, FiO2 remains at 50% PEEP is at 16. Continue sedation. Continue nutritional support. Continue GI and DVT prophylaxis/remains on Lovenox 50 mg subcu twice a day. Continue Decadron. Completed a total of 5 day course of remdesivir and 1 unit of convalescent plasma. Continue enteral feeding. Continue insulin as per protocol as well as Levemir insulin. Continue to monitor inflammatory markers. Wean off pressors if possible. Continue Lasix. Patient remains critically ill, prognosis is guarded. Critical care time is over 30 minutes Time with Patient: Greater than 30
[2020-04-30 14:53] LABS: Glucose,Whole Blood 141 mg/dL (75-99)
[2020-04-30 16:20] LABS: Glucose,Whole Blood 145 mg/dL (75-99)
[2020-04-30 18:07] LABS: Glucose,Whole Blood 152 mg/dL (75-99)
[2020-04-30 20:23] LABS: Glucose,Whole Blood 184 mg/dL (75-99)
--- NOTE | 2020-04-30 20:56 | P.PN ---
Progress Note - Text Progress Note Date: 04/30/20 History of presenting complaint: Patient was admitted with severe COVID 19 pneumonia, acute hypoxic respiratory failure. Patient was intubated. Today-in the ICU . On the ventilator. 2 feeding at 20 mL an hour. Endotracheal tube and OG tube. Drips include insulin, propofol, fentanyl, norepinephrine. Telemetry shows sinus rhythm. Progress review of systems cannot be done, patient intubated Active Medications Acetaminophen (Acetaminophen Tab 325 Mg Tab) 650 mg PO Q6HR PRN PRN Reason: Mild Pain or Fever > 100.5 Last Admin: 04/23/20 20:48 Dose: 650 mg Documented by: Amlodipine Besylate (Amlodipine 10 Mg Tab) 10 mg PO DAILY [facility] Last Admin: 04/30/20 08:06 Dose: Not Given Documented by: Ascorbic Acid (Ascorbic Acid 500 Mg Tab) 1,000 mg PO DAILY [facility] Last Admin: 04/30/20 08:04 Dose: 1,000 mg Documented by: Atorvastatin Calcium (Atorvastatin 40 Mg Tab) 40 mg PO HS [facility] Last Admin: 04/29/20 20:50 Dose: 40 mg Documented by: Chlorhexidine Gluconate (Chlorhexidine Gluconate 15 Ml Cup) 15 ml MUCOUS MEM BID [facility] Last Admin: 04/30/20 08:06 Dose: 15 ml Documented by: Cholecalciferol (Cholecalciferol 10 Mcg (400 Iu) Tablet) 10 mcg PO DAILY [facility] Last Admin: 04/30/20 08:04 Dose: 10 mcg Documented by: Dexamethasone Sodium Phosphate (Dexamethasone Sod Phosphate 10 Mg/Ml 1 Ml Vial) 6 mg IV DAILY [facility] Last Admin: 04/30/20 08:05 Dose: 6 mg Documented by: Enoxaparin Sodium (Enoxaparin 60 Mg/0.6 Ml Syringe) 50 mg SQ BID [facility] Last Admin: 04/30/20 08:05 Dose: 50 mg Documented by: Propofol 1,000 mg/ IV Solution 100 mls @ 0 mls/hr IV .Q0M [facility]; Protocol Last Admin: 04/30/20 18:09 Dose: 40 mcg/kg/min, 25.56 mls/hr Documented by: Insulin Human Regular 100 unit (/ Sodium Chloride) 101 mls @ 0 mls/hr IV .Q0M [facility]; Protocol Last Titration: 04/30/20 14:57 Dose: 8 units/hr, 8.08 mls/hr Documented by: Norepinephrine Bitartrate 8 mg (/ Sodium Chloride) 258 mls @ 10.401 mls/hr IV .Q24H [facility]; Protocol Last Titration: 04/30/20 16:00 Dose: 0.02 mcg/kg/min, 4.16 mls/hr Documented by: Cisatracurium Besylate 200 mg/ (Sodium Chloride) 200 mls @ 6.45 mls/hr IV .Q24H [facility]; Protocol Last Admin: 04/29/20 23:39 Dose: Not Given Documented by: Sodium Chloride (Saline 0.9%) 1,000 mls @ 20 mls/hr IV .Q24H [facility] Last Admin: 04/30/20 13:14 Dose: 20 mls/hr Documented by: Fentanyl Citrate 1,000 mcg/ (Sodium Chloride) 100 mls @ 0 mls/hr IV .Q0M [facility]; Protocol Last Admin: 04/30/20 18:24 Dose: 1.3 mcg/kg/hr, 13.637 mls/hr Documented by: Insulin Detemir (Insulin Detemir (Levemir) 100 Unit/Ml Syr) 75 unit SQ DAILY@0700 [facility] Last Admin: 04/30/20 06:56 Dose: 75 unit Documented by: Levothyroxine Sodium (Levothyroxine 88 Mcg Tab) 88 mcg PO DAILY@0630 [facility] Last Admin: 04/30/20 06:56 Dose: 88 mcg Documented by: Miscellaneous Information (Magnesium Replacement Protocol 1 Each Misc) 1 each MISCELLANE DAILY PRN; Protocol PRN Reason: Per Protocol Miscellaneous Information (Potassium Replacement Protocol 1 Each Misc) 1 each MISCELLANE DAILY PRN PRN Reason: Per Protocol Naloxone HCl (Naloxone 0.4 Mg/Ml 1 Ml Vial) 0.2 mg IV Q2M PRN PRN Reason: Opioid Reversal Pantoprazole Sodium (Pantoprazole 40 Mg/10 Ml Vial) 40 mg IVP DAILY [facility] Last Admin: 04/30/20 08:05 Dose: 40 mg Documented by: Zinc Sulfate (Zinc Sulfate 220 Mg Cap) 220 mg PO DAILY [facility] Last Admin: 04/30/20 08:05 Dose: 220 mg Documented by: On examination: VITAL SIGNS: 97.9, 48, 26, 1 22 x 50, 104 x 34, 93% on the ventilator GENERAL APPEARANCE: BMI 40.7, laying in bed, intubated HEENT: Normal external appearance of nose and ear. Oral cavity ET tube and OG tube EYES: Pupils equal. Conjunctiva normal. NECK: JVD not raised. Mass not palpable. RESPIRATORY: Respiratory effort increased Lungs -decreased breath sounds CARDIOVASCULAR: First and second sounds normal. No edema. ABDOMEN: Soft. Liver and spleen not palpable. No tenderness. No mass palpable. PSYCHIATRY: Unable to assess, patient sedated. INVESTIGATIONS, reviewed in the clinical context: April 30: Obesity 26.2 hemoglobin 12.2 d-dimer 3.1 potassium 4.5 creatinine 0.93 CRP 32.5. Check stat x-ray diffuse bilateral airspace disease. April 29: WBC 14.9 hemoglobin 11.9 d-dimer 3.51 potassium 4.3 creatinine 0.74 CRP 45.5 April 28: WBC 30.3 hemoglobin 12.1 potassium 4 creatinine 0.85 d-dimer 7.55 CRP 59.4 Potassium 4 creatinine 0.8 CRP 61.5, d-dimer 3.89 Chest x-ray film shows worsening bilateral infiltrates Assessment and plan: -COVID 19 bilateral pneumonia severe causing secondary hypoxic respiratory failure. received Remdesivir, convalescent plasma one unit, Decadron, subcu Lovenox-slow to respond -Septic shock patient requiring norepinephrine-slow to respond -Hypothyroid continue with Synthroid -Acute UTI with cystitis secondary to E. coli-IV ceftriaxone -Essential hypertension, currently blood pressures running low. -Hyperlipidemia -Vitamin D deficiency -Acute hypoxic respiratory failure, intubated on April 27, with ventilator support-slow to respond -Diabetes mellitus type 2, uncontrolled with hyperglycemia ;on insulin drip-slow to respond -Morbid obesity BMI 40.7 Prognosis guarded. Continue current medications. Including propofol, insulin drip, fentanyl, norepinephrine
[2020-04-30] MEDS: ATORVASTATIN 40 MG TAB PO SCH (21:02)
[2020-04-30 21:08] LABS: Glucose,Whole Blood 161 mg/dL (75-99)
[2020-04-30 22:03] LABS: Glucose,Whole Blood 156 mg/dL (75-99)
[2020-04-30] MEDS: CISATRACURIUM 200 MG in SODIUM CHLORIDE 0.9% 180 ML IV SCH (22:25)
[2020-05-01 00:07] LABS: Glucose,Whole Blood 165 mg/dL (75-99)
[2020-05-01] MEDS: INSULIN REGULAR 100 UNIT in SODIUM CHLORIDE 0.9% 100 ML IV SCH ×2 (00:56→13:46)
[2020-05-01] MEDS: fentaNYL (PF) 1,000 MCG in SODIUM CHLORIDE 0.9% 80 ML IV SCH ×4 (00:57→20:36)
[2020-05-01 02:02] LABS: Glucose,Whole Blood 166 mg/dL (75-99)
[2020-05-01 03:59] LABS: Glucose,Whole Blood 158 mg/dL (75-99)
--- NOTE | 2020-05-01 04:27 | PN ---
PROGRESS NOTE DATE OF SERVICE: 04/30/2020 REASON FOR FOLLOWUP: Pneumonia. INTERVAL HISTORY: The patient is currently afebrile. The patient is hemodynamically stable. FiO2 is currently stable at 50%. No significant purulent secretions through the ET or any diarrhea reported by nursing staff. PHYSICAL EXAMINATION: Blood pressure 120/50 with a pulse of 48. Temperature 97.6. She is 96% on 50% FIO2. General description is an elderly female lying in bed, intubated on the vent. Respiratory system: Unlabored breathing. Mild scattered rhonchi in the bases. Heart S1-S2 regular rhythm. ABDOMEN: Soft no tenderness. LABS: Hemoglobin is 12.9, white count 6.2, BUN of 41, creatinine 0.93. DIAGNOSTIC IMPRESSION AND PLAN: 1. Patient with acute respiratory failure which is multifactorial in this patient who did have COVID-19 infection with worsening respiratory status. Clinical suspicion low for underlying secondary bacterial pneumonia. Elevated white count more likely due to steroid effect. We will repeat a CRP and procalcitonin in the morning. Did spike a fever. Check cultures before starting any further antibiotics. 2. E coli urinary tract infection that has been adequately treated. MMODL / IJN: [id number] /
[2020-05-01 05:52] LABS: ABG Base Excess 1.3 mmol/L; ABG HCO3 28 mmol/L (21-25); ABG Oxygen Saturation 92.2 % (94-97); ABG PCO2 60 mmHg (35-45); ABG PH 7.28 (7.35-7.45); ABG PO2 66 mmHg (83-108); ABG TCO2 30 mmol/L (19-24); Allen Test Performed? Yes
[2020-05-01 06:02] LABS: Basophils # (A) 0.1 k/uL (0-0.2); Basophils % (A) 0 %; Eosinophils % (A) 0 %; HCT 35.1 % (34.0-46.0); HGB 11.6 gm/dL (11.4-16.0); Hypochromasia Slight; Lymphocytes % (A) 4 %; MCH 31.7 pg (25.0-35.0); MCV 95.9 fL (80.0-100.0); Mean Platelet Volume 8.9; Monocytes # (A) 0.9 k/uL (0-1.0); Monocytes % (A) 4 %; Neutrophils # (A) 19.7 k/uL (1.3-7.7); Neutrophils % (A) 90 %; Platelet Count 246 k/uL (150-450); RBC 3.66 m/uL (3.80-5.40); WBC 21.9 k/uL (3.8-10.6)
[2020-05-01 06:06] LABS: Glucose,Whole Blood 176 mg/dL (75-99)
[2020-05-01 06:20] LABS: Albumin 2.4 g/dL (3.5-5.0); C Reactive Protein 23.8 mg/L (<10.0); Calcium 7.6 mg/dL (8.4-10.2); Total Bilirubin 0.3 mg/dL (0.2-1.3)
--- NOTE | 2020-05-01 06:30 | XR ---
EXAMINATION TYPE: XR chest 1V portable DATE OF EXAM: 05/01/2020 CLINICAL HISTORY: Difficulty breathing progress study. Covid positive. TECHNIQUE: Single AP portable semiupright view of the chest is obtained. COMPARISON: Chest x-ray from one day earlier and older studies. FINDINGS: Stable endotracheal tube, orogastric tube, and left-sided PICC line. Persistent bilateral multifocal increased opacities greatest in the bases right greater than left. Cardiac silhouette size stable and within normal limits without prescribed change aortic knob. Multilevel spurring in the sp ine redemonstrated. IMPRESSION: Persistent bilateral multifocal acute opacities consistent with history of covid-19 infec tion. No significant change from one day earlier.
[2020-05-01] MEDS: INSULIN DETEMIR (LEVEMIR) 100 UNIT/ML SYR SQ SCH (07:39)
[2020-05-01] MEDS: LEVOTHYROXINE 88 MCG TAB PO SCH (07:39)
[2020-05-01 07:46] LABS: Glucose,Whole Blood 155 mg/dL (75-99)
[2020-05-01] MEDS: ZINC SULFATE 220 MG CAP PO SCH (07:51)
[2020-05-01] MEDS: ASCORBIC ACID 500 MG TAB PO SCH (07:51)
[2020-05-01] MEDS: PANTOPRAZOLE 40 MG/10 ML VIAL IVP SCH (07:52)
[2020-05-01] MEDS: amLODIPine 10 MG TAB PO SCH ×2 (07:52→10:08)
[2020-05-01] MEDS: DEXAMETHASONE SOD PHOSPHATE 10 MG/ML 1 ML VIAL IV SCH ×2 (07:53→20:06)
[2020-05-01] MEDS: CHLORHEXIDINE GLUCONATE 15 ML CUP MUCOUS MEM SCH ×2 (07:54→20:05)
[2020-05-01] MEDS: CHOLECALCIFEROL 10 MCG (400 IU) TABLET PO SCH (09:05)
[2020-05-01 10:24] LABS: Glucose,Whole Blood 154 mg/dL (75-99)
[2020-05-01] MEDS: LACTULOSE 20 GM/30 ML CUP PO SCH ×2 (10:29→20:05)
--- NOTE | 2020-05-01 11:00 | ECHOF ---
Referral Reason:COVID, RESP FAILURE MEASUREMENTS -------- HEIGHT: 170.2 cm WEIGHT: 108.9 kg BP: IVSd: 1.4 cm (0.6 - 1.1) LVIDd: 3.8 cm (3.9 - 5.3) LVPWd: 1.1 cm (0.6 - 1.1) IVSs: 1.7 cm LVIDs: 2.7 cm LVPWs: 1.6 cm LA Diam: 3.2 cm (2.7 - 3.8) MV EXCURSION: 13.666 mm (> 18.000) MV EF SLOPE: 55 mm/s (70 - 150) MV E Clarence: 0.58 m/s MV DecT: 221 ms MV A Clarence: 0.73 m/s MV E/A Ratio: 0.79 RAP: 10.00 mmHg RVSP: 25.96 mmHg FINDINGS -------- Sinus rhythm. This was a technically adequate study. Pt. is positive for Covid. The left ventricular size is normal. There is mild concentric left ventricular hypertrophy. Overa ll left ventricular systolic function is normal with, an EF between 55 - 60 %. The right ventricle is normal in size. The left atrial size is normal. The right atrial size is normal. The aortic valve is trileaflet, and appears structurally normal. No aortic stenosis or regurgitation. The mitral valve is normal. Mild mitral regurgitation is present. Mild tricuspid regurgitation present. Right ventricular systolic pressure is normal at < 35 mmHg. There is no evidence of pulmonary hypertension. The pulmonic valve was not well visualized. There is no pulmonic regurgitation present. The aortic root size is normal. There is a trivial pericardial effusion present. CONCLUSIONS -------- 1. Pt. is positive for Covid. 2. There is mild concentric left ventricular hypertrophy. 3. Overall left ventricular systolic function is normal with, an EF between 55 - 60 %. 4. The left atrial size is normal. 5. The aortic valve is trileaflet, and appears structurally normal. No aortic stenosis or regurgitati on. 6. Mild mitral regurgitation is present. 7. Mild tricuspid regurgitation present. DIRECTOR OF LABOR RELATIONS: Jayne Betancourt RDCS
[2020-05-01] MEDS: ENOXAPARIN 60 MG/0.6 ML SYRINGE SQ SCH ×2 (11:27→20:05)
[2020-05-01 11:42] LABS: Glucose,Whole Blood 155 mg/dL (75-99)
[2020-05-01] MEDS: NOREPINEPHRINE 8 MG in SODIUM CHLORIDE 0.9% 250 ML IV SCH (12:14)
[2020-05-01] MEDS: SODIUM CHLORIDE 0.9% 1,000 ML IV SCH (13:11)
[2020-05-01 13:54] LABS: Glucose,Whole Blood 162 mg/dL (75-99)
--- NOTE | 2020-05-01 14:55 | P.PN ---
Subjective Progress Note Date: 05/01/20 Principal diagnosis: Acute hypoxic respiratory failure with ARDS secondary to covid 19 pneumonitis. This is a pleasant 74-year-old female patient who follows with Dr. Mace as h er primary care physician. She has a history of hypertension, hyperlipidemia, hypothyroidism, depression, chronic tobacco dependence, diabetes mellitus with insulin pump. Yesterday she was brought into the emergency room via EMS after developing progressive weakness over the past week. She was unable to get herself up from a chair. Point of care blood glucose measured by EMS was over 600. Urine was positive for nitrates and 180 WBCs. She was given IV fluid boluses. Ceftriaxone and initiated on a heparin drip and admitted to the selective care unit. White count 8.2. Hemoglobin 13.9. Lymphocytes 0.8. Sodium 132. Potassium initially 6.5, currently 4.8 bicarb 19. Anion gap 17 currently 6. Creatinine 1.99. Improved to 1.43. She was found to be positive for munoz virus by PCR. He is seen today in consultation as her oxygen requirements have increased from 6 L to AirVo this morning. Presently on 60 L and 90% FiO2. Temperature 101.7. She is quite weak and fatigued. Chest x-ray revealing bilateral multifocal acute opacities consistent with CoVID 19 infection. Stat labs revealed a d-dimer of 0.83. LDH 1518. C-reactive protein 143. On today's evaluation of 04/23/2020, the patient remains on a combination of high flow oxygen and 100% nonrebreather facemask. The patient is on high flow oxygen at 60 L with an FiO2 of 90% and the patient is also on 100% nonrebreather facemask. Her pulse ox in the order of 92%. Her previous inflammatory markers including CRP and LDH were quite elevated. Repeat chest x-ray was done today and a chest x-ray was reviewed and revealed bilateral multifocal pulmonary opacities/infiltrates consistent with Covid 19 related pneumonia. The patient's is currently laying down supine in bed. She seems to be comfortable and there is no significant respiratory distress and her current pulse ox in the order of 92%. Upon comparing the chest x-rays, no major interval change compared to yesterday's findings. Meanwhile, the patient had further increase for LVH which is up to 1684 and the CRP is at 139. White cell count of 6.6. The patient is currently on Decadron 6 mg, Remdesivir and she is a #2 of treatment. She is also on anticoagulation and she is receiving not receiving anticoagulation and the d-dimer today is at 1.03. Lovenox will be started. She has no specific complaints. She feels tired. She is alert and orientated 3. She is diabetic and she is on a insulin pump on outpatient basis and currently she is receiving Levemir insulin 30 units daily along with NovoLog 7 units 3 times a day with meals and a sliding scale coverage. Blood sugars are in the 200 range and the patient is not having adequate amount of food. She had an acute kidney injury which recovered and the creatinine is normalized. She has a gram-negative bacillus in her urine and the patient is currently on Rocephin. 7 2020, the patient is still intubated on mechanical ventilation. She got intubated on the 2020 for complications related to COVID 19 related pneumonia and respiratory failure with hypoxic respiratory failure as the patient developed diffuse bilateral pulmonary infiltrates, she failed high flow oxygen, she failed BiPAP and ultimately she had to be intubated and placed on a mechanical ventilator. The patient has a peak airway pressure of 40, static airway pressure is 38, and the patient is headed into ARDS. She was given high- dose Decadron. She was given a definitive convalescent plasma and she was also given Remdesivir unfortunately, her condition progressed and she had to be intubated. This morning, she is sedated with propofol running at 45 mg/kg per minute. She is also paralyzed and the patient was given Nimbex over the past 48 hours and Nimbex is running at 1 mcg/kg per minute. She is an assist-control mode of ventilation at the rate of 26 with a tidal volume of 400 and the feet is currently at 16 with an FiO2 of 75. Her blood gases from today showed a pH of 7.27 with a pCO2 54 and pO2 of 60. The chest x-ray still showing diffuse bilateral pulmonary infiltrates, probably slightly worse and ET tube is in a good location. The patient is also on Lovenox a dose of 50 mg subcutaneous ev giovana 12 hours. Inflammatory markers from today showing a LDH level of 1915 which is slightly lower, her CRP is 45, nevertheless, the patient has developed an acute rhabdomyolysis with a CPK level of 6715. She is also on Lovenox for a d- dimer of 3.51 which is improving compared to yesterday. She is afebrile. She is on low-dose pressors and norepinephrine is running at 0.04 mcg/kg per minute. She has an adequate urine output. Infected urine output dropped yesterday and she was given a liter bolus and she was maintained on normal saline at the rate of 75 an hour. The fluid balance is been +4.8 L over the past 24 hours. She is afebrile. She remains on Rocephin for an E. coli in her urine. She is receiving enteral feeding for nutritional support in the form of vital high protein at the rate of 20 mL an hour. Patient was reevaluated today on 04/29/2020, remains intubated and mechanically ventilated. Patient is on assist control rate of 26, tidal volume of 375 FiO2 is 50% and PEEP is 16. ABG showed a pO2 of 73 pCO2 of 55 pH of 7.30. Hence the patient was maintained on the same ventilator settings. Her on 50% and PEEP of 16. She is on multiple drips including norepinephrine at 0.03 mcg/kg/m. She is on propofol at 40 mcg/kg/m. Fentanyl 1.3 mcg/kg/h. And she went off Nimbex yesterday. Patient is receiving Lasix to keep her dry, and her BNP level is pending echocardiogram is pending only because the chest x-ray showed dramatic improvement overnight, and I'm not really sure whether the patient had significant pulmonary edema or is at the higher PEEP that is causing significant improvement in the chest x-ray appearance. I did order another dose of Lasix to be given. WBC count is 26.2 hemoglobin is 12.2. D-dimer is 3.10 coming down nicely. Electrolytes are normal, bicarb is 27. BUN is 41 and creatinine 0.93. Interleukin-6 was noted to be high at 96.7. C-reactive protein is down to 32.5. LDH is down to 1915 from 2260 2 days ago. Again her chest x-ray did show significant improvement in her bilateral arms. Disease with continued small effusions and atelectasis at the bases. Patient was reevaluated today on 05/01/2020, patient remains in the ICU, intubated and mechanically ventilated. Her ventilator settings are tidal volume of 375, FiO2 is 50%, PEEP is 16. ABG showed a pO2 of 66 pCO2 of 60 pH of 7.28, tidal volume was increased to 400, FiO2 was increased to 55%, patient remains on fentanyl at 1.3 mcg/kg/m, propofol 40 mcg/kg/m, insulin at 8 units per hour. She is on enteral feeding via orogastric tube, tolerating feeding well. Chest x-ray continues to show bilateral infiltrates, labs were reviewed, CPK is improving. Decadron was increased to 6 mg twice a day. C-reactive protein, LDH, and d-dimer were all noted. Her C-reactive protein is down to 23.8, and LDH is 1915 from 2 days ago. WBC count is 21.9 hemoglobin is 11.6. Electrol ytes are normal BUN is 54 creatinine 0.92. Objective - Vital Signs Vital signs: Vital Signs Temp 97.8 F 05/01/20 04:00 Pulse 52 L 05/01/20 14:00 Resp 26 H 05/01/20 14:00 BP 114/56 05/01/20 12:00 Pulse Ox 81 L 05/01/20 14:00 Intake & Output 04/30/20 05/01/20 05/01/20 18:59 06:59 18:59 Intake Total 3545.506 9056.001 977.757 Output Total 785 565 380 Balance 643.676 700.001 597.757 Weight 106.5 kg Intake: IV 276 276 184 Sodium Chloride 0.9% 1, 240 240 160 000 ml @ 20 mls/hr IV . Q24H [facility] Rx#:[id number] a-line flush 36 36 24 Intake, IV Titration 638.676 457.001 461.757 Amount Insulin Regular 100 unit 85.749 80.665 101 In Sodium Chloride 0.9% 100 ml @ Per Protocol IV .Q0M [facility] Rx#:[id number] Norepinephrine 8 mg In 107.543 70.928 Sodium Chloride 0.9% 250 ml @ 0.05 MCG/KG/MIN 10. 401 mls/hr IV .Q24H [facility] Rx#:[id number] fentaNYL (PF) 1,000 mcg 198.414 89.322 177.049 In Sodium Chloride 0.9% 80 ml @ Per Protocol IV . Q0M [facility] Rx#:[id number] propofoL 1,000 mg In 246.970 287.014 112.78 Empty Bag 1 bag @ Titrate IV .Q0M [facility] Rx#: [id number] Tube Feeding 384 442 272 Other 130 90 60 Output: Urine 785 565 380 Other: Voiding Method Indwelling Catheter Indwelling Catheter Indwelling Catheter ABP, PAP, CO, CI - Last Documented Arterial Blood Pressure 126/41 - Exam GENERAL EXAM: Revealed 74-year-old female intubated, mechanically ventilated, sedated, calm. Remains On propofol and fentanyl HEAD: Normocephalic. Endotracheal tube and orogastric tube are intact. EYES: Normal reaction of pupils, equal size. NOSE: Clear with pink turbinates. THROAT: No erythema or exudates. NECK: No masses, no JVD. CHEST: No chest wall deformity. LUNGS: Bilateral scattered rhonchi. Noted mostly at the bases bilaterally. CVS: S1 and S2 normal with no audible murmur, regular rhythm. ABDOMEN: Flat soft nontender no megaly no rebound no guarding. SKIN: No rashes CENTRAL NERVOUS : Could not be assessed. Patient is quite sedated. Extremities: No clubbing, no edema or cyanosis - Labs CBC & Chem 7: 05/01/20 05:37 05/01/20 05:37 Labs: Abnormal Lab Results - Last 24 Hours (Table) 04/30/20 04/30/20 04/30/20 Range/Units 14:51 16:19 18:05 WBC (3.8-10.6) k/uL RBC (3.80-5.40) m/uL Neutrophils # (1.3-7.7) k/uL ABG pH (7.35-7.45) ABG pCO2 (35-45) mmHg ABG pO2 (83-108) mmHg ABG HCO3 (21-25) mmol/L ABG Total CO2 (19-24) mmol/L ABG O2 Saturation (94-97) % Chloride (98-107) mmol/L BUN (7-17) mg/dL Glucose (74-99) mg/dL POC Glucose (mg/dL) 141 H 145 H 152 H (75-99) mg/dL Calcium (8.4-10.2) mg/dL AST (14-36) U/L ALT (4-34) U/L Creatine Kinase (30-135) U/L C-Reactive Protein (<10.0) mg/L Total Protein (6.3-8.2) g/dL Albumin (3.5-5.0) g/dL 04/30/20 04/30/20 04/30/20 Range/Units 20:22 21:07 22:01 WBC (3.8-10.6) k/uL RBC (3.80-5.40) m/uL Neutrophils # (1.3-7.7) k/uL ABG pH (7.35-7.45) ABG pCO2 (35-45) mmHg ABG pO2 (83-108) mmHg ABG HCO3 (21-25) mmol/L ABG Total CO2 (19-24) mmol/L ABG O2 Saturation (94-97) % Chloride (98-107) mmol/L BUN (7-17) mg/dL Glucose (74-99) mg/dL POC Glucose (mg/dL) 184 H 161 H 156 H (75-99) mg/dL Calcium (8.4-10.2) mg/dL AST (14-36) U/L ALT (4-34) U/L Creatine Kinase (30-135) U/L C-Reactive Protein (<10.0) mg/L Total Protein (6.3-8.2) g/dL Albumin (3.5-5.0) g/dL 05/01/20 05/01/20 05/01/20 Range/Units 00:06 02:01 03:58 WBC (3.8-10.6) k/uL RBC (3.80-5.40) m/uL Neutrophils # (1.3-7.7) k/uL ABG pH (7.35-7.45) ABG pCO2 (35-45) mmHg ABG pO2 (83-108) mmHg ABG HCO3 (21-25) mmol/L ABG Total CO2 (19-24) mmol/L ABG O2 Saturation (94-97) % Chloride (98-107) mmol/L BUN (7-17) mg/dL Glucose (74-99) mg/dL POC Glucose (mg/dL) 165 H 166 H 158 H (75-99) mg/dL Calcium (8.4-10.2) mg/dL AST (14-36) U/L ALT (4-34) U/L Creatine Kinase (30-135) U/L C-Reactive Protein (<10.0) mg/L Total Protein (6.3-8.2) g/dL Albumin (3.5-5.0) g/dL 05/01/20 05/01/20 05/01/20 Range/Units 05:37 05:37 05:45 WBC 21.9 H (3.8-10.6) k/uL RBC 3.66 L (3.80-5.40) m/uL Neutrophils # 19.7 H (1.3-7.7) k/uL ABG pH 7.28 L (7.35-7.45) ABG pCO2 60 H (35-45) mmHg ABG pO2 66 L (83-108) mmHg ABG HCO3 28 H (21-25) mmol/L ABG Total CO2 30 H (19-24) mmol/L ABG O2 Saturation 92.2 L (94-97) % Chloride 111 H (98-107) mmol/L BUN 54 H (7-17) mg/dL Glucose 167 H (74-99) mg/dL POC Glucose (mg/dL) (75-99) mg/dL Calcium 7.6 L (8.4-10.2) mg/dL AST 107 H (14-36) U/L ALT 53 H (4-34) U/L Creatine Kinase 2623 H* (30-135) U/L C-Reactive Protein 23.8 H (<10.0) mg/L Total Protein 5.0 L (6.3-8.2) g/dL Albumin 2.4 L (3.5-5.0) g/dL 05/01/20 05/01/20 05/01/20 Range/Units 06:04 07:45 10:23 WBC (3.8-10.6) k/uL RBC (3.80-5.40) m/uL Neutrophils # (1.3-7.7) k/uL ABG pH (7.35-7.45) ABG pCO2 (35-45) mmHg ABG pO2 (83-108) mmHg ABG HCO3 (21-25) mmol/L ABG Total CO2 (19-24) mmol/L ABG O2 Saturation (94-97) % Chloride (98-107) mmol/L BUN (7-17) mg/dL Glucose (74-99) mg/dL POC Glucose (mg/dL) 176 H 155 H 154 H (75-99) mg/dL Calcium (8.4-10.2) mg/dL AST (14-36) U/L ALT (4-34) U/L Creatine Kinase (30-135) U/L C-Reactive Protein (<10.0) mg/L Total Protein (6.3-8.2) g/dL Albumin (3.5-5.0) g/dL 05/01/20 05/01/20 Range/Units 11:41 13:52 WBC (3.8-10.6) k/uL RBC (3.80-5.40) m/uL Neutrophils # (1.3-7.7) k/uL ABG pH (7.35-7.45) ABG pCO2 (35-45) mmHg ABG pO2 (83-108) mmHg ABG HCO3 (21-25) mmol/L ABG Total CO2 (19-24) mmol/L ABG O2 Saturation (94-97) % Chloride (98-107) mmol/L BUN (7-17) mg/dL Glucose (74-99) mg/dL POC Glucose (mg/dL) 155 H 162 H (75-99) mg/dL Calcium (8.4-10.2) mg/dL AST (14-36) U/L ALT (4-34) U/L Creatine Kinase (30-135) U/L C-Reactive Protein (<10.0) mg/L Total Protein (6.3-8.2) g/dL Albumin (3.5-5.0) g/dL Assessment and Plan Assessment: Impression: Acute hypoxic respiratory failure secondary to covid 19 pneumonitis and ARDS. Patient is still requiring relatively high PEEP and FiO2 at 50% at present. Acute covid 19 pneumonia, patient completed remdesivir, remains on Decadron, and she received 1 unit of convalescent plasma. Elevated inflammatory markers secondary to above. Patient remains on Lovenox subcu every 12 hours. Acute urinary tract infection secondary to E. coli. Remains on IV Rocephin. Type 2 diabetes. Patient has insulin pump on outpatient basis. Benign essential hypertension. Suspect some component of acute diastolic congestive heart failure, echocardiogram showed good LV function. Mild rhabdomyolysis with elevation of CPK levels. History of vitamin D deficiency. Recommendation: Continue ventilatory support. No changes made, tidal volume increased to 400. FiO2 increased to 55% PEEP is at 16. Continue sedation. Continue nutritional support. Continue GI and DVT prophylaxis/remains on Lovenox 50 mg subcu twice a day. Continue Decadron. Completed a total of 5 day course of remdesivir and 1 unit of convalescent plasma. Continue enteral feeding. Continue insulin as per protocol as well as Levemir insulin. Continue to monitor inflammatory markers. Continue Lasix. Patient remains critically ill, prognosis is guarded. Critical care time is over 30 minutes Time with Patient: Greater than 30
[2020-05-01 15:26] LABS: Ferritin 936.1 ng/mL (10.0-291.0)
[2020-05-01 15:46] LABS: Glucose,Whole Blood 162 mg/dL (75-99)
[2020-05-01 17:43] LABS: Glucose,Whole Blood 155 mg/dL (75-99)
[2020-05-01] MEDS: ATORVASTATIN 40 MG TAB PO SCH (20:05)
--- NOTE | 2020-05-01 20:29 | P.PN ---
Progress Note - Text Progress Note Date: 05/01/20 History of presenting complaint: Patient was admitted with severe COVID 19 pneumonia, acute hypoxic respiratory failure. Patient was intubated. Today-in the ICU Endotracheal tube and OG tube. Drips include insulin, fentanyl, norepinephrine. Telemetry shows sinus rhythm. 2 feeding at 34 mL an hour Progress review of systems cannot be done, patient intubated Active Medications Acetaminophen (Acetaminophen Tab 325 Mg Tab) 650 mg PO Q6HR PRN PRN Reason: Mild Pain or Fever > 100.5 Last Admin: 04/23/20 20:48 Dose: 650 mg Documented by: Amlodipine Besylate (Amlodipine 10 Mg Tab) 10 mg PO DAILY [facility] Last Admin: 05/01/20 10:08 Dose: Not Given Documented by: Ascorbic Acid (Ascorbic Acid 500 Mg Tab) 1,000 mg PO DAILY [facility] Last Admin: 05/01/20 07:51 Dose: 1,000 mg Documented by: Atorvastatin Calcium (Atorvastatin 40 Mg Tab) 40 mg PO HS [facility] Last Admin: 05/01/20 20:05 Dose: 40 mg Documented by: Chlorhexidine Gluconate (Chlorhexidine Gluconate 15 Ml Cup) 15 ml MUCOUS MEM BID [facility] Last Admin: 05/01/20 20:05 Dose: 15 ml Documented by: Cholecalciferol (Cholecalciferol 10 Mcg (400 Iu) Tablet) 10 mcg PO DAILY [facility] Last Admin: 05/01/20 09:05 Dose: 10 mcg Documented by: Dexamethasone Sodium Phosphate (Dexamethasone Sod Phosphate 10 Mg/Ml 1 Ml Vial) 6 mg IV BID [facility] Last Admin: 05/01/20 20:06 Dose: 6 mg Documented by: Enoxaparin Sodium (Enoxaparin 60 Mg/0.6 Ml Syringe) 50 mg SQ BID [facility] Last Admin: 05/01/20 20:05 Dose: 50 mg Documented by: Propofol 1,000 mg/ IV Solution 100 mls @ 0 mls/hr IV .Q0M [facility]; Protocol Last Admin: 05/01/20 16:23 Dose: 50 mcg/kg/min, 31.95 mls/hr Documented by: Insulin Human Regular 100 unit (/ Sodium Chloride) 101 mls @ 0 mls/hr IV .Q0M [facility]; Protocol Last Admin: 05/01/20 13:46 Dose: 8 units/hr, 8.08 mls/hr Documented by: Norepinephrine Bitartrate 8 mg (/ Sodium Chloride) 258 mls @ 10.401 mls/hr IV .Q24H [facility]; Protocol Last Admin: 05/01/20 12:14 Dose: Not Given Documented by: Sodium Chloride (Saline 0.9%) 1,000 mls @ 20 mls/hr IV .Q24H [facility] Last Admin: 05/01/20 13:11 Dose: 20 mls/hr Documented by: Fentanyl Citrate 1,000 mcg/ (Sodium Chloride) 100 mls @ 0 mls/hr IV .Q0M [facility]; Protocol Last Admin: 05/01/20 15:37 Dose: 2 mcg/kg/hr, 20.98 mls/hr Documented by: Insulin Detemir (Insulin Detemir (Levemir) 100 Unit/Ml Syr) 75 unit SQ DAILY@0700 [facility] Last Admin: 05/01/20 07:39 Dose: 75 unit Documented by: Lactulose (Lactulose 20 Gm/30 Ml Cup) 30 gm PO HS [facility] Last Admin: 05/01/20 20:05 Dose: 30 gm Documented by: Levothyroxine Sodium (Levothyroxine 88 Mcg Tab) 88 mcg PO DAILY@0630 [facility] Last Admin: 05/01/20 07:39 Dose: 88 mcg Documented by: Miscellaneous Information (Magnesium Replacement Protocol 1 Each Misc) 1 each MISCELLANE DAILY PRN; Protocol PRN Reason: Per Protocol Miscellaneous Information (Potassium Replacement Protocol 1 Each Misc) 1 each M ISCELLANE DAILY PRN PRN Reason: Per Protocol Naloxone HCl (Naloxone 0.4 Mg/Ml 1 Ml Vial) 0.2 mg IV Q2M PRN PRN Reason: Opioid Reversal Pantoprazole Sodium (Pantoprazole 40 Mg/10 Ml Vial) 40 mg IVP DAILY [facility] Last Admin: 05/01/20 07:52 Dose: 40 mg Documented by: Zinc Sulfate (Zinc Sulfate 220 Mg Cap) 220 mg PO DAILY [facility] Last Admin: 05/01/20 07:51 Dose: 220 mg Documented by: On examination: VITAL SIGNS: 97.6, 53, 26, 117/59, 90% on the ventilator 50% GENERAL APPEARANCE: BMI 40.7, laying in bed, intubated HEENT: Normal external appearance of nose and ear. Oral cavity ET tube and OG tube EYES: Pupils equal. Conjunctiva normal. NECK: JVD not raised. Mass not palpable. RESPIRATORY: Respiratory effort increased Lungs -decreased breath sounds CARDIOVASCULAR: First and second sounds normal. No edema. ABDOMEN: Soft. Liver and spleen not palpable. No tenderness. No mass palpable. PSYCHIATRY: Unable to assess, patient sedated. INVESTIGATIONS, reviewed in the clinical context: May 01: WBC 21.9 hemoglobin 11.6 platelets 246 potassium 5 creatinine 0.9 to CRP 23.8 ABG pH 7.28 pCO2 of 60 April 30: 26.2 hemoglobin 12.2 d-dimer 3.1 potassium 4.5 creatinine 0.93 CRP 32.5. Check stat x-ray diffuse bilateral airspace disease. April 29: WBC 14.9 hemoglobin 11.9 d-dimer 3.51 potassium 4.3 creatinine 0.74 CRP 45.5 April 28: WBC 30.3 hemoglobin 12.1 potassium 4 creatinine 0.85 d-dimer 7.55 CRP 59.4 Potassium 4 creatinine 0.8 CRP 61.5, d-dimer 3.89 Chest x-ray film shows worsening bilateral infiltrates Assessment and plan: -COVID 19 bilateral pneumonia severe causing secondary hypoxic respiratory failure. received Remdesivir, convalescent plasma one unit, Decadron, subcu Lovenox-slow to respond -Septic shock patient requiring norepinephrine-slow to respond -Hypothyroid continue with Synthroid -Acute UTI with cystitis secondary to E. coli-IV ceftriaxone-completed course -Essential hypertension, currently blood pressures running low. -Hyperlipidemia -Vitamin D deficiency -Acute hypoxic respiratory failure, intubated on April 27, with ventilator support-slow to respond -Diabetes mellitus type 2, uncontrolled with hyperglycemia ;on insulin drip-slow to respond -Morbid obesity BMI 40.7 Prognosis guarded. Continue current medications. Unfortunately also admitted patient's in the ER today. He did inquire about her.
[2020-05-01 22:00] LABS: Glucose,Whole Blood 166 mg/dL (75-99)
--- NOTE | 2020-05-01 22:38 | PN ---
PROGRESS NOTE DATE OF SERVICE: 05/01/2020 REASON FOR FOLLOWUP: Pneumonia. INTERVAL HISTORY: The patient is currently afebrile. The patient is hemodynamically stable, not on pressor support. FiO2 is currently at 60%. No significant purulent secretions in the ET or diarrhea reported by the nursing staff. PHYSICAL EXAMINATION: Her blood pressure is 127/45 with a pulse of 55, temperature 98. She is 100% on 50% FiO2. General description is an elderly female lying in bed in no distress. RESPIRATORY SYSTEM: Unlabored breathing with decreased breath sounds at the base. No wheeze. HEART: S1, S2. Regular rate and rhythm. ABDOMEN: Soft. No tenderness. LABS: Hemoglobin is 11.6, white count 21.9, BUN of 54, creatinine 0.92. DIAGNOSTIC IMPRESSION AND PLAN: Patient with acute respiratory failure which is multifactorial in this patient who did have a component of COVID-19 infection, now with worsening respiratory status, possible cytokine storm. No evidence of any pneumonia. White count is showing a downward trend with no fever. Monitor closely off antibiotic therapy. Continue supportive care. MMODL / IJN: [id number] / MTDD
[2020-05-02 00:11] LABS: Glucose,Whole Blood 199 mg/dL (75-99)
[2020-05-02 01:57] LABS: Glucose,Whole Blood 198 mg/dL (75-99)
[2020-05-02] MEDS: fentaNYL (PF) 1,000 MCG in SODIUM CHLORIDE 0.9% 80 ML IV SCH ×5 (01:57→21:23)
[2020-05-02] MEDS: INSULIN REGULAR 100 UNIT in SODIUM CHLORIDE 0.9% 100 ML IV SCH ×2 (03:08→14:36)
[2020-05-02 04:17] LABS: Glucose,Whole Blood 186 mg/dL (75-99)
[2020-05-02 04:44] LABS: Basophils % (A) 0 %; Eosinophils % (A) 0 %; HCT 29.9 % (34.0-46.0); Hypochromasia Moderate; Lymphocytes # (A) 0.5 k/uL (1.0-4.8); Lymphocytes % (A) 4 %; MCH 30.4 pg (25.0-35.0); MCHC 31.8 g/dL (31.0-37.0); MCV 95.8 fL (80.0-100.0); Mean Platelet Volume 9.3; Monocytes # (A) 0.3 k/uL (0-1.0); Monocytes % (A) 3 %; Neutrophils # (A) 11.4 k/uL (1.3-7.7); Neutrophils % (A) 93 %; Platelet Count 175 k/uL (150-450); RBC 3.13 m/uL (3.80-5.40); RDW 14.3 % (11.5-15.5); WBC 12.3 k/uL (3.8-10.6)
[2020-05-02 05:00] LABS: C Reactive Protein 30.5 mg/L (<10.0)
[2020-05-02 05:13] LABS: Calcium 7.5 mg/dL (8.4-10.2); Potassium 4.8 mmol/L (3.5-5.1); Total Bilirubin 0.2 mg/dL (0.2-1.3); Total Protein 4.4 g/dL (6.3-8.2)
[2020-05-02 05:17] LABS: HGB 9.5 gm/dL (11.4-16.0)
[2020-05-02 05:25] LABS: ABG Base Excess 1.2 mmol/L; ABG HCO3 28 mmol/L (21-25); ABG PCO2 61 mmHg (35-45); ABG PH 7.27 (7.35-7.45); ABG PO2 76 mmHg (83-108); ABG TCO2 30 mmol/L (19-24)
[2020-05-02 05:49] LABS: Allen Test Performed? no
[2020-05-02] MEDS: INSULIN DETEMIR (LEVEMIR) 100 UNIT/ML SYR SQ SCH (06:06)
[2020-05-02] MEDS: LEVOTHYROXINE 88 MCG TAB PO SCH (06:06)
[2020-05-02 06:39] LABS: Glucose,Whole Blood 170 mg/dL (75-99)
--- NOTE | 2020-05-02 07:50 | XR ---
EXAMINATION TYPE: XR chest 1V portable DATE OF EXAM: 05/02/2020 Comparison: 05/01/2020 Clinical History: 74-year-old female Tube placement Findings: ET tube tip 4.8 cm from the pollo at the level of the medial clavicular heads. Left CVC tip in the r ight atrium. Heart borderline in size. Diffuse bilateral airspace disease persists, similar to slight ly worsened from prior. Unable to exclude small effusions given the basilar density. NG tube in place . Impression: Worsening bilateral airspace disease. Unable to exclude small effusions given the degree of basilar d ensity.
[2020-05-02] MEDS ORDERED: FUROSEMIDE 10 MG/ML 4 ML VIAL IV STA (07:54)
[2020-05-02] MEDS: PANTOPRAZOLE 40 MG/10 ML VIAL IVP SCH (08:00)
[2020-05-02] MEDS: CHLORHEXIDINE GLUCONATE 15 ML CUP MUCOUS MEM SCH ×2 (08:01→21:22)
[2020-05-02] MEDS: DEXAMETHASONE SOD PHOSPHATE 10 MG/ML 1 ML VIAL IV SCH ×2 (08:01→21:22)
[2020-05-02] MEDS: ZINC SULFATE 220 MG CAP PO SCH (08:01)
[2020-05-02] MEDS: ASCORBIC ACID 500 MG TAB PO SCH (08:01)
[2020-05-02] MEDS: amLODIPine 10 MG TAB PO SCH (08:02)
[2020-05-02 08:12] LABS: Glucose,Whole Blood 140 mg/dL (75-99)
[2020-05-02] MEDS: CHOLECALCIFEROL 10 MCG (400 IU) TABLET PO SCH (09:11)
[2020-05-02] MEDS: ENOXAPARIN 60 MG/0.6 ML SYRINGE SQ SCH ×2 (09:11→21:22)
[2020-05-02 10:20] LABS: Glucose,Whole Blood 147 mg/dL (75-99)
[2020-05-02 11:53] LABS: Glucose,Whole Blood 146 mg/dL (75-99)
[2020-05-02 13:53] LABS: Glucose,Whole Blood 146 mg/dL (75-99)
--- NOTE | 2020-05-02 14:08 | P.PN ---
Subjective Progress Note Date: 05/02/20 Principal diagnosis: Acute hypoxic respiratory failure with ARDS secondary to covid 19 pneumonitis. This is a pleasant 74-year-old female patient who follows with Dr. Mace as h er primary care physician. She has a history of hypertension, hyperlipidemia, hypothyroidism, depression, chronic tobacco dependence, diabetes mellitus with insulin pump. Yesterday she was brought into the emergency room via EMS after developing progressive weakness over the past week. She was unable to get herself up from a chair. Point of care blood glucose measured by EMS was over 600. Urine was positive for nitrates and 180 WBCs. She was given IV fluid boluses. Ceftriaxone and initiated on a heparin drip and admitted to the selective care unit. White count 8.2. Hemoglobin 13.9. Lymphocytes 0.8. Sodium 132. Potassium initially 6.5, currently 4.8 bicarb 19. Anion gap 17 currently 6. Creatinine 1.99. Improved to 1.43. She was found to be positive for munoz virus by PCR. He is seen today in consultation as her oxygen requirements have increased from 6 L to AirVo this morning. Presently on 60 L and 90% FiO2. Temperature 101.7. She is quite weak and fatigued. Chest x-ray revealing bilateral multifocal acute opacities consistent with CoVID 19 infection. Stat labs revealed a d-dimer of 0.83. LDH 1518. C-reactive protein 143. On today's evaluation of 04/23/2020, the patient remains on a combination of high flow oxygen and 100% nonrebreather facemask. The patient is on high flow oxygen at 60 L with an FiO2 of 90% and the patient is also on 100% nonrebreather facemask. Her pulse ox in the order of 92%. Her previous inflammatory markers including CRP and LDH were quite elevated. Repeat chest x-ray was done today and a chest x-ray was reviewed and revealed bilateral multifocal pulmonary opacities/infiltrates consistent with Covid 19 related pneumonia. The patient's is currently laying down supine in bed. She seems to be comfortable and there is no significant respiratory distress and her current pulse ox in the order of 92%. Upon comparing the chest x-rays, no major interval change compared to yesterday's findings. Meanwhile, the patient had further increase for LVH which is up to 1684 and the CRP is at 139. White cell count of 6.6. The patient is currently on Decadron 6 mg, Remdesivir and she is a #2 of treatment. She is also on anticoagulation and she is receiving not receiving anticoagulation and the d-dimer today is at 1.03. Lovenox will be started. She has no specific complaints. She feels tired. She is alert and orientated 3. She is diabetic and she is on a insulin pump on outpatient basis and currently she is receiving Levemir insulin 30 units daily along with NovoLog 7 units 3 times a day with meals and a sliding scale coverage. Blood sugars are in the 200 range and the patient is not having adequate amount of food. She had an acute kidney injury which recovered and the creatinine is normalized. She has a gram-negative bacillus in her urine and the patient is currently on Rocephin. 7 2020, the patient is still intubated on mechanical ventilation. She got intubated on the 2020 for complications related to COVID 19 related pneumonia and respiratory failure with hypoxic respiratory failure as the patient developed diffuse bilateral pulmonary infiltrates, she failed high flow oxygen, she failed BiPAP and ultimately she had to be intubated and placed on a mechanical ventilator. The patient has a peak airway pressure of 40, static airway pressure is 38, and the patient is headed into ARDS. She was given high- dose Decadron. She was given a definitive convalescent plasma and she was also given Remdesivir unfortunately, her condition progressed and she had to be intubated. This morning, she is sedated with propofol running at 45 mg/kg per minute. She is also paralyzed and the patient was given Nimbex over the past 48 hours and Nimbex is running at 1 mcg/kg per minute. She is an assist-control mode of ventilation at the rate of 26 with a tidal volume of 400 and the feet is currently at 16 with an FiO2 of 75. Her blood gases from today showed a pH of 7.27 with a pCO2 54 and pO2 of 60. The chest x-ray still showing diffuse bilateral pulmonary infiltrates, probably slightly worse and ET tube is in a good location. The patient is also on Lovenox a dose of 50 mg subcutaneous ev giovana 12 hours. Inflammatory markers from today showing a LDH level of 1915 which is slightly lower, her CRP is 45, nevertheless, the patient has developed an acute rhabdomyolysis with a CPK level of 6715. She is also on Lovenox for a d- dimer of 3.51 which is improving compared to yesterday. She is afebrile. She is on low-dose pressors and norepinephrine is running at 0.04 mcg/kg per minute. She has an adequate urine output. Infected urine output dropped yesterday and she was given a liter bolus and she was maintained on normal saline at the rate of 75 an hour. The fluid balance is been +4.8 L over the past 24 hours. She is afebrile. She remains on Rocephin for an E. coli in her urine. She is receiving enteral feeding for nutritional support in the form of vital high protein at the rate of 20 mL an hour. Patient was reevaluated today on 04/29/2020, remains intubated and mechanically ventilated. Patient is on assist control rate of 26, tidal volume of 375 FiO2 is 50% and PEEP is 16. ABG showed a pO2 of 73 pCO2 of 55 pH of 7.30. Hence the patient was maintained on the same ventilator settings. Her on 50% and PEEP of 16. She is on multiple drips including norepinephrine at 0.03 mcg/kg/m. She is on propofol at 40 mcg/kg/m. Fentanyl 1.3 mcg/kg/h. And she went off Nimbex yesterday. Patient is receiving Lasix to keep her dry, and her BNP level is pending echocardiogram is pending only because the chest x-ray showed dramatic improvement overnight, and I'm not really sure whether the patient had significant pulmonary edema or is at the higher PEEP that is causing significant improvement in the chest x-ray appearance. I did order another dose of Lasix to be given. WBC count is 26.2 hemoglobin is 12.2. D-dimer is 3.10 coming down nicely. Electrolytes are normal, bicarb is 27. BUN is 41 and creatinine 0.93. Interleukin-6 was noted to be high at 96.7. C-reactive protein is down to 32.5. LDH is down to 1915 from 2260 2 days ago. Again her chest x-ray did show significant improvement in her bilateral arms. Disease with continued small effusions and atelectasis at the bases. Patient was reevaluated today on 05/01/2020, patient remains in the ICU, intubated and mechanically ventilated. Her ventilator settings are tidal volume of 375, FiO2 is 50%, PEEP is 16. ABG showed a pO2 of 66 pCO2 of 60 pH of 7.28, tidal volume was increased to 400, FiO2 was increased to 55%, patient remains on fentanyl at 1.3 mcg/kg/m, propofol 40 mcg/kg/m, insulin at 8 units per hour. She is on enteral feeding via orogastric tube, tolerating feeding well. Chest x-ray continues to show bilateral infiltrates, labs were reviewed, CPK is improving. Decadron was increased to 6 mg twice a day. C-reactive protein, LDH, and d-dimer were all noted. Her C-reactive protein is down to 23.8, and LDH is 1915 from 2 days ago. WBC count is 21.9 hemoglobin is 11.6. Electrol ytes are normal BUN is 54 creatinine 0.92. Patient was reevaluated today on 05/02/2020, remains in the ICU, intubated and mechanically ventilated, patient was initially intubated on 04/27/2020. patient is on assist control rate of 26, volume is 400, FiO2 was increased to 85% last night because the patient desaturated and she was bradycardic for a brief period of time. She is on assist control rate of 16. ABG showed a pO2 of 76 pCO2 of 61 pH of 7.27. Considering the patient had significantly high peak airway pressure and plateau pressures in the 30s, I recommended cutting down the tidal volume to 375 and increase the rate to 30. Down her FiO2 down to 70%, and will titrate accordingly her FiO2 based on O2 saturation. Patient is on IV fluids KVO, propofol at 60 mcg/kg/m, fentanyl 2 mcg/kg per hour, she is off norepinephrine, and she remains on insulin at 9 units per hour. Chest x-ray c ontinues to show bilateral infiltrates, not much of a change noted in the last few days. CBC is relatively normal, WBC count is coming down nicely to 12.3. Hemoglobin is 9.5. Electrolytes, basic metabolic profile are normal. BUN is 53 creatinine 0.79. CPK continues to trend down to 2128, and her LDH is down to 1331, C-reactive protein is about the same at 30.5 pro calcitonin is 0.08 Objective - Vital Signs Vital signs: Vital Signs Temp 97.6 F 05/02/20 14:00 Pulse 59 L 05/02/20 14:00 Resp 30 H 05/02/20 14:00 BP 113/52 05/02/20 12:00 Pulse Ox 85 L 05/02/20 14:00 Intake & Output 05/01/20 05/02/20 05/02/20 18:59 06:59 18:59 Intake Total 7919.476 7710.594 586 Output Total 893 319 4804 Balance 769.198 992.594 -544 Weight 106.5 kg Intake: IV 276 276 184 Sodium Chloride 0.9% 1, 240 240 160 000 ml @ 20 mls/hr IV . Q24H [facility] Rx#:[id number] a-line flush 36 36 24 Intake, IV Titration 550.198 728.594 100 Amount Insulin Regular 100 unit 101 140.070 In Sodium Chloride 0.9% 100 ml @ Per Protocol IV .Q0M [facility] Rx#:[id number] Norepinephrine 8 mg In 70.928 Sodium Chloride 0.9% 250 ml @ 0.05 MCG/KG/MIN 10. 401 mls/hr IV .Q24H [facility] Rx#:[id number] fentaNYL (PF) 1,000 mcg 197.330 296.508 100 In Sodium Chloride 0.9% 80 ml @ Per Protocol IV . Q0M [facility] Rx#:[id number] propofoL 1,000 mg In 180.94 292.016 Empty Bag 1 bag @ Titrate IV .Q0M [facility] Rx#: [id number] Tube Feeding 408 408 272 Other 90 210 30 Output: Urine 906 662 3303 Other: Voiding Method Indwelling Catheter Indwelling Catheter Indwelling Catheter ABP, PAP, CO, CI - Last Documented Arterial Blood Pressure 119/40 - Exam GENERAL EXAM: Revealed 74-year-old female intubated, mechanically ventilated, sedated, calm. On fentanyl and propofol. Not requiring any Nimbex. HEAD: Normocephalic. Endotracheal tube and orogastric tube are intact. EYES: Normal reaction of pupils, equal size. NOSE: Clear with pink turbinates. THROAT: No erythema or exudates. NECK: No masses, no JVD. CHEST: No chest wall deformity. LUNGS: Bilateral scattered rhonchi. Noted mostly at the bases bilaterally. CVS: S1 and S2 normal with no audible murmur, regular rhythm. ABDOMEN: Flat soft nontender no megaly no rebound no guarding. SKIN: No rashes CENTRAL NERVOUS : Could not be assessed. Patient is quite sedated. Extremities: No clubbing, no edema or cyanosis - Labs CBC & Chem 7: 05/02/20 04:10 05/02/20 04:10 Labs: Abnormal Lab Results - Last 24 Hours (Table) 05/01/20 05/01/20 05/01/20 Range/Units 05:37 15:43 17:41 WBC (3.8-10.6) k/uL RBC (3.80-5.40) m/uL Hgb (11.4-16.0) gm/dL Hct (34.0-46.0) % Neutrophils # (1.3-7.7) k/uL Lymphocytes # (1.0-4.8) k/uL D-Dimer (<0.60) mg/L FEU ABG pH (7.35-7.45) ABG pCO2 (35-45) mmHg ABG pO2 (83-108) mmHg ABG HCO3 (21-25) mmol/L ABG Total CO2 (19-24) mmol/L Chloride (98-107) mmol/L BUN (7-17) mg/dL Glucose (74-99) mg/dL POC Glucose (mg/dL) 162 H 155 H (75-99) mg/dL Calcium (8.4-10.2) mg/dL Ferritin 936.1 H (10.0-291.0) ng/mL AST (14-36) U/L ALT (4-34) U/L Lactate Dehydrogenase (313-618) U/L Creatine Kinase (30-135) U/L C-Reactive Protein (<10.0) mg/L Total Protein (6.3-8.2) g/dL Albumin (3.5-5.0) g/dL 05/01/20 05/02/20 05/02/20 Range/Units 21:59 00:09 01:55 WBC (3.8-10.6) k/uL RBC (3.80-5.40) m/uL Hgb (11.4-16.0) gm/dL Hct (34.0-46.0) % Neutrophils # (1.3-7.7) k/uL Lymphocytes # (1.0-4.8) k/uL D-Dimer (<0.60) mg/L FEU ABG pH (7.35-7.45) ABG pCO2 (35-45) mmHg ABG pO2 (83-108) mmHg ABG HCO3 (21-25) mmol/L ABG Total CO2 (19-24) mmol/L Chloride (98-107) mmol/L BUN (7-17) mg/dL Glucose (74-99) mg/dL POC Glucose (mg/dL) 166 H 199 H 198 H (75-99) mg/dL Calcium (8.4-10.2) mg/dL Ferritin (10.0-291.0) ng/mL AST (14-36) U/L ALT (4-34) U/L Lactate Dehydrogenase (313-618) U/L Creatine Kinase (30-135) U/L C-Reactive Protein (<10.0) mg/L Total Protein (6.3-8.2) g/dL Albumin (3.5-5.0) g/dL 05/02/20 05/02/20 05/02/20 Range/Units 04:10 04:10 04:10 WBC 12.3 H (3.8-10.6) k/uL RBC 3.13 L (3.80-5.40) m/uL Hgb 9.5 L D (11.4-16.0) gm/dL Hct 29.9 L (34.0-46.0) % Neutrophils # 11.4 H (1.3-7.7) k/uL Lymphocytes # 0.5 L (1.0-4.8) k/uL D-Dimer 1.54 H (<0.60) mg/L FEU ABG pH (7.35-7.45) ABG pCO2 (35-45) mmHg ABG pO2 (83-108) mmHg ABG HCO3 (21-25) mmol/L ABG Total CO2 (19-24) mmol/L Chloride (98-107) mmol/L BUN (7-17) mg/dL Glucose (74-99) mg/dL POC Glucose (mg/dL) (75-99) mg/dL Calcium (8.4-10.2) mg/dL Ferritin (10.0-291.0) ng/mL AST (14-36) U/L ALT (4-34) U/L Lactate Dehydrogenase 1331 H (313-618) U/L Creatine Kinase 2128 H* (30-135) U/L C-Reactive Protein 30.5 H (<10.0) mg/L Total Protein (6.3-8.2) g/dL Albumin (3.5-5.0) g/dL 05/02/20 05/02/20 05/02/20 Range/Units 04:10 04:15 05:24 WBC (3.8-10.6) k/uL RBC (3.80-5.40) m/uL Hgb (11.4-16.0) gm/dL Hct (34.0-46.0) % Neutrophils # (1.3-7.7) k/uL Lymphocytes # (1.0-4.8) k/uL D-Dimer (<0.60) mg/L FEU ABG pH 7.27 L (7.35-7.45) ABG pCO2 61 H (35-45) mmHg ABG pO2 76 L (83-108) mmHg ABG HCO3 28 H (21-25) mmol/L ABG Total CO2 30 H (19-24) mmol/L Chloride 112 H (98-107) mmol/L BUN 53 H (7-17) mg/dL Glucose 178 H (74-99) mg/dL POC Glucose (mg/dL) 186 H (75-99) mg/dL Calcium 7.5 L (8.4-10.2) mg/dL Ferritin (10.0-291.0) ng/mL AST 101 H (14-36) U/L ALT 51 H (4-34) U/L Lactate Dehydrogenase (313-618) U/L Creatine Kinase (30-135) U/L C-Reactive Protein (<10.0) mg/L Total Protein 4.4 L (6.3-8.2) g/dL Albumin 2.0 L (3.5-5.0) g/dL 05/02/20 05/02/20 05/02/20 Range/Units 06:37 08:10 10:17 WBC (3.8-10.6) k/uL RBC (3.80-5.40) m/uL Hgb (11.4-16.0) gm/dL Hct (34.0-46.0) % Neutrophils # (1.3-7.7) k/uL Lymphocytes # (1.0-4.8) k/uL D-Dimer (<0.60) mg/L FEU ABG pH (7.35-7.45) ABG pCO2 (35-45) mmHg ABG pO2 (83-108) mmHg ABG HCO3 (21-25) mmol/L ABG Total CO2 (19-24) mmol/L Chloride (98-107) mmol/L BUN (7-17) mg/dL Glucose (74-99) mg/dL POC Glucose (mg/dL) 170 H 140 H 147 H (75-99) mg/dL Calcium (8.4-10.2) mg/dL Ferritin (10.0-291.0) ng/mL AST (14-36) U/L ALT (4-34) U/L Lactate Dehydrogenase (313-618) U/L Creatine Kinase (30-135) U/L C-Reactive Protein (<10.0) mg/L Total Protein (6.3-8.2) g/dL Albumin (3.5-5.0) g/dL 05/02/20 05/02/20 Range/Units 11:51 13:50 WBC (3.8-10.6) k/uL RBC (3.80-5.40) m/uL Hgb (11.4-16.0) gm/dL Hct (34.0-46.0) % Neutrophils # (1.3-7.7) k/uL Lymphocytes # (1.0-4.8) k/uL D-Dimer (<0.60) mg/L FEU ABG pH (7.35-7.45) ABG pCO2 (35-45) mmHg ABG pO2 (83-108) mmHg ABG HCO3 (21-25) mmol/L ABG Total CO2 (19-24) mmol/L Chloride (98-107) mmol/L BUN (7-17) mg/dL Glucose (74-99) mg/dL POC Glucose (mg/dL) 146 H 146 H (75-99) mg/dL Calcium (8.4-10.2) mg/dL Ferritin (10.0-291.0) ng/mL AST (14-36) U/L ALT (4-34) U/L Lactate Dehydrogenase (313-618) U/L Creatine Kinase (30-135) U/L C-Reactive Protein (<10.0) mg/L Total Protein (6.3-8.2) g/dL Albumin (3.5-5.0) g/dL Assessment and Plan Assessment: Impression: Acute hypoxic respiratory failure secondary to covid 19 pneumonitis and ARDS. Patient is still requiring relatively high PEEP and high FiO2. Patient was initially intubated on 04/27. Acute covid 19 pneumonia, patient completed remdesivir, remains on Decadron, and she received 1 unit of convalescent plasma. Elevated inflammatory markers secondary to above. But seems to be improving and steadily getting better over the last few days. Patient remains on Lovenox subcu every 12 hours. Acute urinary tract infection secondary to E. coli. Remains on IV Rocephin. Type 2 diabetes. Patient has insulin pump on outpatient basis. Benign essential hypertension. Suspect some component of acute diastolic congestive heart failure, echocardiogram showed good LV function. Mild rhabdomyolysis with elevation of CPK levels. CPK seems to be improving over the last few days, but not back to normal. History of vitamin D deficiency. Recommendation: Continue ventilatory support. Change her tidal volume down to 375 increased her rate up to 30, peak airway pressure and plateau pressures are concerning. Continue sedation. Patient was not tolerate holding sedation at this point mostly because she is at high FiO2 and high PEEP. Continue nutritional support. Continue GI and DVT prophylaxis/remains on Lovenox 50 mg subcu twice a day. Continue Decadron. Completed a total of 5 day course of remdesivir and 1 unit of convalescent plasma. Continue enteral feeding. Continue insulin as per protocol as well as Levemir insulin. Continue to monitor inflammatory markers. Given 1 dose of Lasix this morning only Patient remains critically ill, prognosis is guarded. Critical care time is over 30 minutes Time with Patient: Greater than 30
[2020-05-02] MEDS: SODIUM CHLORIDE 0.9% 1,000 ML IV SCH (14:34)
[2020-05-02 15:53] LABS: Glucose,Whole Blood 120 mg/dL (75-99)
[2020-05-02] MEDS: NOREPINEPHRINE 8 MG in SODIUM CHLORIDE 0.9% 250 ML IV SCH (16:03)
[2020-05-02 18:09] LABS: Glucose,Whole Blood 145 mg/dL (75-99)
--- NOTE | 2020-05-02 19:19 | P.PN ---
Progress Note - Text Progress Note Date: 05/02/20 History of presenting complaint: Patient was admitted with severe COVID 19 pneumonia, acute hypoxic respiratory failure. Patient was intubated. Today-in the ICU Endotracheal tube and OG tube. Drips include insulin, fentanyl, norepinephrine. Telemetry shows sinus rhythm. 2 feeding at 34 mL an hour. Ventilator: FiO2 75% and a PEEP of 16. Had an episode earlier bed patient had desaturated. Pulse ox did improve. Progress review of systems cannot be done, patient intubated Active Medications Acetaminophen (Acetaminophen Tab 325 Mg Tab) 650 mg PO Q6HR PRN PRN Reason: Mild Pain or Fever > 100.5 Last Admin: 04/23/20 20:48 Dose: 650 mg Documented by: Amlodipine Besylate (Amlodipine 10 Mg Tab) 10 mg PO DAILY [facility] Last Admin: 05/02/20 08:02 Dose: Not Given Documented by: Ascorbic Acid (Ascorbic Acid 500 Mg Tab) 1,000 mg PO DAILY [facility] Last Admin: 05/02/20 08:01 Dose: 1,000 mg Documented by: Atorvastatin Calcium (Atorvastatin 40 Mg Tab) 40 mg PO HS [facility] Last Admin: 05/01/20 20:05 Dose: 40 mg Documented by: Chlorhexidine Gluconate (Chlorhexidine Gluconate 15 Ml Cup) 15 ml MUCOUS MEM BID [facility] Last Admin: 05/02/20 08:01 Dose: 15 ml Documented by: Cholecalciferol (Cholecalciferol 10 Mcg (400 Iu) Tablet) 10 mcg PO DAILY [facility] Last Admin: 05/02/20 09:11 Dose: 10 mcg Documented by: Dexamethasone Sodium Phosphate (Dexamethasone Sod Phosphate 10 Mg/Ml 1 Ml Vial) 6 mg IV BID [facility] Last Admin: 05/02/20 08:01 Dose: 6 mg Documented by: Enoxaparin Sodium (Enoxaparin 60 Mg/0.6 Ml Syringe) 50 mg SQ BID [facility] Last Admin: 05/02/20 09:11 Dose: 50 mg Documented by: Propofol 1,000 mg/ IV Solution 100 mls @ 0 mls/hr IV .Q0M [facility]; Protocol Last Admin: 05/02/20 18:58 Dose: 60 mcg/kg/min, 38.34 mls/hr Documented by: Insulin Human Regular 100 unit (/ Sodium Chloride) 101 mls @ 0 mls/hr IV .Q0M [facility]; Protocol Last Titration: 05/02/20 18:08 Dose: 7 units/hr, 7.07 mls/hr Documented by: Norepinephrine Bitartrate 8 mg (/ Sodium Chloride) 258 mls @ 10.401 mls/hr IV .Q24H [facility]; Protocol Last Admin: 05/02/20 16:03 Dose: Not Given Documented by: Sodium Chloride (Saline 0.9%) 1,000 mls @ 20 mls/hr IV .Q24H [facility] Last Admin: 05/02/20 14:34 Dose: 20 mls/hr Documented by: Fentanyl Citrate 1,000 mcg/ (Sodium Chloride) 100 mls @ 0 mls/hr IV .Q0M [facility]; Protocol Last Admin: 05/02/20 17:05 Dose: 2 mcg/kg/hr, 20.98 mls/hr Documented by: Insulin Detemir (Insulin Detemir (Levemir) 100 Unit/Ml Syr) 75 unit SQ DAILY@0700 [facility] Last Admin: 05/02/20 06:06 Dose: 75 unit Documented by: Lactulose (Lactulose 20 Gm/30 Ml Cup) 30 gm PO HS [facility] Last Admin: 05/01/20 20:05 Dose: 30 gm Documented by: Levothyroxine Sodium (Levothyroxine 88 Mcg Tab) 88 mcg PO DAILY@0630 [facility] Last Admin: 05/02/20 06:06 Dose: 88 mcg Documented by: Miscellaneous Information (Magnesium Replacement Protocol 1 Each Misc) 1 each MISCELLANE DAILY PRN; Protocol PRN Reason: Per Protocol Miscellaneous Information (Potassium Replacement Protocol 1 Each Misc) 1 each MISCELLANE DAILY PRN PRN Reason: Per Protocol Naloxone HCl (Naloxone 0.4 Mg/Ml 1 Ml Vial) 0.2 mg IV Q2M PRN PRN Reason: Opioid Reversal Pantoprazole Sodium (Pantoprazole 40 Mg/10 Ml Vial) 40 mg IVP DAILY [facility] Last Admin: 05/02/20 08:00 Dose: 40 mg Documented by: Zinc Sulfate (Zinc Sulfate 220 Mg Cap) 220 mg PO DAILY [facility] Last Admin: 05/02/20 08:01 Dose: 220 mg Documented by: On examination: VITAL SIGNS: 96.1, 50, 30, 138/52, 88% on the vent GENERAL APPEARANCE: BMI 40.7, laying in bed, intubated HEENT: Normal external appearance of nose and ear. Oral cavity ET tube and OG tube EYES: Pupils equal. Conjunctiva normal. NECK: JVD not raised. Mass not palpable. RESPIRATORY: Respiratory effort increased Lungs -decreased breath sounds CARDIOVASCULAR: First and second sounds normal. No edema. ABDOMEN: Soft. Liver and spleen not palpable. No tenderness. No mass palpable. PSYCHIATRY: Unable to assess, patient sedated. INVESTIGATIONS, reviewed in the clinical context: May 02: WBC 12.3 hemoglobin 9.5 platelets 175 potassium 4.8 creatinine 0.79 CPK 2128 CRP 30.5 May 01: WBC 21.9 hemoglobin 11.6 platelets 246 potassium 5 creatinine 0.9 to CRP 23.8 ABG pH 7.28 pCO2 of 60 April 30: 26.2 hemoglobin 12.2 d-dimer 3.1 potassium 4.5 creatinine 0.93 CRP 32.5 . Check stat x-ray diffuse bilateral airspace disease. April 29: WBC 14.9 hemoglobin 11.9 d-dimer 3.51 potassium 4.3 creatinine 0.74 CRP 45.5 April 28: WBC 30.3 hemoglobin 12.1 potassium 4 creatinine 0.85 d-dimer 7.55 CRP 59.4 Potassium 4 creatinine 0.8 CRP 61.5, d-dimer 3.89 Chest x-ray film shows worsening bilateral infiltrates Assessment and plan: -COVID 19 bilateral pneumonia severe causing secondary hypoxic respiratory failure. received Remdesivir, convalescent plasma one unit, Decadron, subcu Lovenox-slow to respond -Septic shock patient requiring norepinephrine-slow to respond -Hypothyroid continue with Synthroid -Acute UTI with cystitis secondary to E. coli-IV ceftriaxone-completed course -Essential hypertension, currently blood pressures running low. -Hyperlipidemia -Vitamin D deficiency -Acute hypoxic respiratory failure, intubated on April 27, with ventilator support-slow to respond -Diabetes mellitus type 2, uncontrolled with hyperglycemia ;on insulin drip-slow to respond -Morbid obesity BMI 40.7 Prognosis guarded. Continue current medications.
[2020-05-02 20:12] LABS: Glucose,Whole Blood 131 mg/dL (75-99)
--- NOTE | 2020-05-02 20:17 | XR ---
EXAMINATION TYPE: XR chest 1V portable DATE OF EXAM: 05/02/2020 COMPARISON: Chest x-ray obtained earlier in the morning of 4:51 AM. HISTORY: Shortness of breath TECHNIQUE: Single frontal view of the chest is obtained. FINDINGS: Images demonstrate hazy opacity bilaterally likely representing sequela of CHF. Small left basal pleu ral effusion is suspected. There is likely consolidation and atelectasis at the lung bases. Endotracheal tube and nasogastric tube are in good position. Left-sided PICC line is in unchanged pos ition. Heart and mediastinum are within normal limits. IMPRESSION: Chest x-ray appears slightly improved compared to prior examination. Etiology for shortness of breath is clear. Note: If clinically indicated, CT scan of the chest may be performed to evaluate for pleural effusion and atelectasis or consolidation. CT scan of the chest with contrast may be performed for pulmonary embolism. Please correlate clinically.
[2020-05-02] MEDS ORDERED: FUROSEMIDE 10 MG/ML 10 ML VIAL IV STA (20:27)
[2020-05-02] MEDS: LACTULOSE 20 GM/30 ML CUP PO SCH (21:22)
[2020-05-02] MEDS: ATORVASTATIN 40 MG TAB PO SCH (21:22)
[2020-05-02 21:48] LABS: Glucose,Whole Blood 133 mg/dL (75-99)
--- NOTE | 2020-05-02 23:24 | PN ---
PROGRESS NOTE DATE OF SERVICE: 05/02/2020 REASON FOR FOLLOWUP: COVID-19 infection. INTERVAL HISTORY: The patient is currently afebrile. The patient is hemodynamically stable, not on any pressor support. The patient did have hypoxemia and FiO2 is currently at 100%. No purulent secretions in the ET or any diarrhea reported by the nursing staff. PHYSICAL EXAMINATION: Blood pressure 114/74 with a pulse of 55, temperature 97.8. She is 89% on 100% FiO2. General description is an elderly female intubated on the vent. RESPIRATORY SYSTEM: Unlabored breathing with decreased intensity of breath sounds. No wheeze. HEART: S1, S2. Regular rate and rhythm. ABDOMEN: Soft. No tenderness. LABS: Hemoglobin 9.5, white count 12.3, BUN of 53, creatinine 0.79. Liver enzymes are elevated. Procalcitonin is normal. DIAGNOSTIC IMPRESSION AND PLAN: Patient with acute respiratory failure. Chest x-ray did show slight improvement; however, the patient did have worsening of hypoxemia and FiO2 is currently up to 100%, more likely secondary to ARDS. Clinically not behaving as secondary bacterial pneumonia with normal procalcitonin, and the white count has shown a downward trend. Patient will be monitored closely off antibiotic therapy. Continue with supportive care. MMODL / IJN: [id number] / IRMA
[2020-05-03 00:01] LABS: Glucose,Whole Blood 156 mg/dL (75-99)
[2020-05-03] MEDS: fentaNYL (PF) 1,000 MCG in SODIUM CHLORIDE 0.9% 80 ML IV SCH ×6 (02:12→23:28)
[2020-05-03 02:18] LABS: Glucose,Whole Blood 164 mg/dL (75-99)
[2020-05-03 04:14] LABS: Glucose,Whole Blood 167 mg/dL (75-99)
[2020-05-03 04:28] LABS: Basophils % (A) 0 %; Eosinophils # (A) 0.1 k/uL (0-0.7); Eosinophils % (A) 0 %; HCT 28.1 % (34.0-46.0); HGB 9.4 gm/dL (11.4-16.0); Lymphocytes # (A) 0.5 k/uL (1.0-4.8); Lymphocytes % (A) 3 %; MCH 31.4 pg (25.0-35.0); MCHC 33.4 g/dL (31.0-37.0); Mean Platelet Volume 9.4; Monocytes # (A) 0.5 k/uL (0-1.0); Monocytes % (A) 3 %; Neutrophils # (A) 13.2 k/uL (1.3-7.7); Neutrophils % (A) 93 %; Platelet Count 174 k/uL (150-450); RBC 2.99 m/uL (3.80-5.40); RDW 13.9 % (11.5-15.5); WBC 14.3 k/uL (3.8-10.6)
[2020-05-03 04:59] LABS: Albumin 2.1 g/dL (3.5-5.0); C Reactive Protein 37.9 mg/L (<10.0); Calcium 7.5 mg/dL (8.4-10.2); Total Bilirubin 0.3 mg/dL (0.2-1.3); Total Protein 4.5 g/dL (6.3-8.2)
[2020-05-03 05:41] LABS: ABG Base Excess 4.5 mmol/L; ABG HCO3 31 mmol/L (21-25); ABG Oxygen Saturation 89.9 % (94-97); ABG PCO2 61 mmHg (35-45); ABG PH 7.31 (7.35-7.45); ABG PO2 61 mmHg (83-108); ABG TCO2 33 mmol/L (19-24); Allen Test Performed? Yes
[2020-05-03] MEDS: INSULIN DETEMIR (LEVEMIR) 100 UNIT/ML SYR SQ SCH (06:26)
[2020-05-03] MEDS: LEVOTHYROXINE 88 MCG TAB PO SCH (06:26)
[2020-05-03 06:34] LABS: Glucose,Whole Blood 161 mg/dL (75-99)
--- NOTE | 2020-05-03 07:48 | XR ---
EXAMINATION TYPE: XR chest 1V portable DATE OF EXAM: 05/03/2020 COMPARISON: 05/02/2020 HISTORY: Shortness of breath TECHNIQUE: Single frontal view of the chest is obtained. FINDINGS: ET and NG tube stable. Left-sided PICC line stable. Diffuse interstitial and alveolar emi rock with bilateral consolidation and pleural effusion. No pneumothorax. Heart size stable. Hypertroph ic change of the spine. IMPRESSION: 1. Correlate for ARDS, diffuse pneumonia or pulmonary edema. Findings stable.
[2020-05-03 08:04] LABS: Glucose,Whole Blood 146 mg/dL (75-99)
[2020-05-03] MEDS: PANTOPRAZOLE 40 MG/10 ML VIAL IVP SCH (08:30)
[2020-05-03] MEDS: ASCORBIC ACID 500 MG TAB PO SCH (08:31)
[2020-05-03] MEDS: DEXAMETHASONE SOD PHOSPHATE 10 MG/ML 1 ML VIAL IV SCH ×2 (08:31→20:26)
[2020-05-03] MEDS: ZINC SULFATE 220 MG CAP PO SCH (08:31)
[2020-05-03] MEDS: CHLORHEXIDINE GLUCONATE 15 ML CUP MUCOUS MEM SCH ×2 (08:31→20:26)
[2020-05-03] MEDS: ENOXAPARIN 60 MG/0.6 ML SYRINGE SQ SCH ×2 (08:42→20:39)
[2020-05-03] MEDS: CHOLECALCIFEROL 10 MCG (400 IU) TABLET PO SCH (08:43)
[2020-05-03] MEDS ORDERED: FUROSEMIDE 10 MG/ML 4 ML VIAL IV STA (09:14)
[2020-05-03] MEDS: amLODIPine 10 MG TAB PO SCH (09:59)
[2020-05-03 10:11] LABS: Glucose,Whole Blood 122 mg/dL (75-99)
[2020-05-03] MEDS: INSULIN REGULAR 100 UNIT in SODIUM CHLORIDE 0.9% 100 ML IV SCH (10:55)
[2020-05-03 11:00] LABS: Glucose,Whole Blood 134 mg/dL (75-99)
[2020-05-03 12:19] LABS: Glucose,Whole Blood 137 mg/dL (75-99)
[2020-05-03] MEDS: NOREPINEPHRINE 8 MG in SODIUM CHLORIDE 0.9% 250 ML IV SCH (13:08)
[2020-05-03] MEDS: SODIUM CHLORIDE 0.9% 1,000 ML IV SCH (13:19)
--- NOTE | 2020-05-03 13:53 | P.PN ---
Subjective Progress Note Date: 05/03/20 Principal diagnosis: Acute hypoxic respiratory failure with ARDS secondary to covid 19 pneumonitis. This is a pleasant 74-year-old female patient who follows with Dr. Mace as h er primary care physician. She has a history of hypertension, hyperlipidemia, hypothyroidism, depression, chronic tobacco dependence, diabetes mellitus with insulin pump. Yesterday she was brought into the emergency room via EMS after developing progressive weakness over the past week. She was unable to get herself up from a chair. Point of care blood glucose measured by EMS was over 600. Urine was positive for nitrates and 180 WBCs. She was given IV fluid boluses. Ceftriaxone and initiated on a heparin drip and admitted to the selective care unit. White count 8.2. Hemoglobin 13.9. Lymphocytes 0.8. Sodium 132. Potassium initially 6.5, currently 4.8 bicarb 19. Anion gap 17 currently 6. Creatinine 1.99. Improved to 1.43. She was found to be positive for munoz virus by PCR. He is seen today in consultation as her oxygen requirements have increased from 6 L to AirVo this morning. Presently on 60 L and 90% FiO2. Temperature 101.7. She is quite weak and fatigued. Chest x-ray revealing bilateral multifocal acute opacities consistent with CoVID 19 infection. Stat labs revealed a d-dimer of 0.83. LDH 1518. C-reactive protein 143. On today's evaluation of 04/23/2020, the patient remains on a combination of high flow oxygen and 100% nonrebreather facemask. The patient is on high flow oxygen at 60 L with an FiO2 of 90% and the patient is also on 100% nonrebreather facemask. Her pulse ox in the order of 92%. Her previous inflammatory markers including CRP and LDH were quite elevated. Repeat chest x-ray was done today and a chest x-ray was reviewed and revealed bilateral multifocal pulmonary opacities/infiltrates consistent with Covid 19 related pneumonia. The patient's is currently laying down supine in bed. She seems to be comfortable and there is no significant respiratory distress and her current pulse ox in the order of 92%. Upon comparing the chest x-rays, no major interval change compared to yesterday's findings. Meanwhile, the patient had further increase for LVH which is up to 1684 and the CRP is at 139. White cell count of 6.6. The patient is currently on Decadron 6 mg, Remdesivir and she is a #2 of treatment. She is also on anticoagulation and she is receiving not receiving anticoagulation and the d-dimer today is at 1.03. Lovenox will be started. She has no specific complaints. She feels tired. She is alert and orientated 3. She is diabetic and she is on a insulin pump on outpatient basis and currently she is receiving Levemir insulin 30 units daily along with NovoLog 7 units 3 times a day with meals and a sliding scale coverage. Blood sugars are in the 200 range and the patient is not having adequate amount of food. She had an acute kidney injury which recovered and the creatinine is normalized. She has a gram-negative bacillus in her urine and the patient is currently on Rocephin. 7 2020, the patient is still intubated on mechanical ventilation. She got intubated on the 2020 for complications related to COVID 19 related pneumonia and respiratory failure with hypoxic respiratory failure as the patient developed diffuse bilateral pulmonary infiltrates, she failed high flow oxygen, she failed BiPAP and ultimately she had to be intubated and placed on a mechanical ventilator. The patient has a peak airway pressure of 40, static airway pressure is 38, and the patient is headed into ARDS. She was given high- dose Decadron. She was given a definitive convalescent plasma and she was also given Remdesivir unfortunately, her condition progressed and she had to be intubated. This morning, she is sedated with propofol running at 45 mg/kg per minute. She is also paralyzed and the patient was given Nimbex over the past 48 hours and Nimbex is running at 1 mcg/kg per minute. She is an assist-control mode of ventilation at the rate of 26 with a tidal volume of 400 and the feet is currently at 16 with an FiO2 of 75. Her blood gases from today showed a pH of 7.27 with a pCO2 54 and pO2 of 60. The chest x-ray still showing diffuse bilateral pulmonary infiltrates, probably slightly worse and ET tube is in a good location. The patient is also on Lovenox a dose of 50 mg subcutaneous ev giovana 12 hours. Inflammatory markers from today showing a LDH level of 1915 which is slightly lower, her CRP is 45, nevertheless, the patient has developed an acute rhabdomyolysis with a CPK level of 6715. She is also on Lovenox for a d- dimer of 3.51 which is improving compared to yesterday. She is afebrile. She is on low-dose pressors and norepinephrine is running at 0.04 mcg/kg per minute. She has an adequate urine output. Infected urine output dropped yesterday and she was given a liter bolus and she was maintained on normal saline at the rate of 75 an hour. The fluid balance is been +4.8 L over the past 24 hours. She is afebrile. She remains on Rocephin for an E. coli in her urine. She is receiving enteral feeding for nutritional support in the form of vital high protein at the rate of 20 mL an hour. Patient was reevaluated today on 04/29/2020, remains intubated and mechanically ventilated. Patient is on assist control rate of 26, tidal volume of 375 FiO2 is 50% and PEEP is 16. ABG showed a pO2 of 73 pCO2 of 55 pH of 7.30. Hence the patient was maintained on the same ventilator settings. Her on 50% and PEEP of 16. She is on multiple drips including norepinephrine at 0.03 mcg/kg/m. She is on propofol at 40 mcg/kg/m. Fentanyl 1.3 mcg/kg/h. And she went off Nimbex yesterday. Patient is receiving Lasix to keep her dry, and her BNP level is pending echocardiogram is pending only because the chest x-ray showed dramatic improvement overnight, and I'm not really sure whether the patient had significant pulmonary edema or is at the higher PEEP that is causing significant improvement in the chest x-ray appearance. I did order another dose of Lasix to be given. WBC count is 26.2 hemoglobin is 12.2. D-dimer is 3.10 coming down nicely. Electrolytes are normal, bicarb is 27. BUN is 41 and creatinine 0.93. Interleukin-6 was noted to be high at 96.7. C-reactive protein is down to 32.5. LDH is down to 1915 from 2260 2 days ago. Again her chest x-ray did show significant improvement in her bilateral arms. Disease with continued small effusions and atelectasis at the bases. Patient was reevaluated today on 05/01/2020, patient remains in the ICU, intubated and mechanically ventilated. Her ventilator settings are tidal volume of 375, FiO2 is 50%, PEEP is 16. ABG showed a pO2 of 66 pCO2 of 60 pH of 7.28, tidal volume was increased to 400, FiO2 was increased to 55%, patient remains on fentanyl at 1.3 mcg/kg/m, propofol 40 mcg/kg/m, insulin at 8 units per hour. She is on enteral feeding via orogastric tube, tolerating feeding well. Chest x-ray continues to show bilateral infiltrates, labs were reviewed, CPK is improving. Decadron was increased to 6 mg twice a day. C-reactive protein, LDH, and d-dimer were all noted. Her C-reactive protein is down to 23.8, and LDH is 1915 from 2 days ago. WBC count is 21.9 hemoglobin is 11.6. Electrol ytes are normal BUN is 54 creatinine 0.92. Patient was reevaluated today on 05/02/2020, remains in the ICU, intubated and mechanically ventilated, patient was initially intubated on 04/27/2020. patient is on assist control rate of 26, volume is 400, FiO2 was increased to 85% last night because the patient desaturated and she was bradycardic for a brief period of time. She is on assist control rate of 16. ABG showed a pO2 of 76 pCO2 of 61 pH of 7.27. Considering the patient had significantly high peak airway pressure and plateau pressures in the 30s, I recommended cutting down the tidal volume to 375 and increase the rate to 30. Down her FiO2 down to 70%, and will titrate accordingly her FiO2 based on O2 saturation. Patient is on IV fluids KVO, propofol at 60 mcg/kg/m, fentanyl 2 mcg/kg per hour, she is off norepinephrine, and she remains on insulin at 9 units per hour. Chest x-ray c ontinues to show bilateral infiltrates, not much of a change noted in the last few days. CBC is relatively normal, WBC count is coming down nicely to 12.3. Hemoglobin is 9.5. Electrolytes, basic metabolic profile are normal. BUN is 53 creatinine 0.79. CPK continues to trend down to 2128, and her LDH is down to 1331, C-reactive protein is about the same at 30.5 pro calcitonin is 0.08 Patient was reevaluated today on 05/03/2020, remains in the ICU, intubated and mechanically ventilated. Patient is on assist control rate of 130, tidal volume is 375 FiO2 is 100% and PEEP of 16 ABG this morning showed worsening oxygenation in spite of high PEEP and high FiO2. Her pO2 is 61 pCO2 61 pH of 7.31. Patient still requiring propofol at 40 mcg/kg/m, fentanyl 2 mcg/kg/h she is also on insulin at 7 units per hour. She is on enteral feeding at goal. Chest x-ray continues to show worsening bilateral interstitial infiltrates and ARDS. Patient is not doing well, basically I believe the patient is worse now compared to what she was even few days ago. Yesterday I updated her son on her conditi on, and CODE STATUS was changed to DO NOT RESUSCITATE, may even consider comfort care, family is undecided at this point yet. This is yet to be decided upon by her son. CBC showed the risk of 14.3 hemoglobin 9.4. Electrolytes and renal profile are relatively normal. CPK is down to 1434 LDH is down to 1286 and her C-reactive protein is borderline elevated at 37.9. Objective - Vital Signs Vital signs: Vital Signs Temp 97.3 F L 05/03/20 12:00 Pulse 50 L 05/03/20 12:00 Resp 30 H 05/03/20 12:00 BP 115/47 05/03/20 12:00 Pulse Ox 93 L 05/03/20 12:00 Intake & Output 05/02/20 05/03/20 05/03/20 18:59 06:59 18:59 Intake Total 3764.753 9417.458 545.647 Output Total 1335 1810 925 Balance -231.101 -469.542 -379.353 Weight 106.5 kg Intake: IV 276 276 138 Sodium Chloride 0.9% 1, 240 240 120 000 ml @ 20 mls/hr IV . Q24H [facility] Rx#:[id number] a-line flush 36 36 18 Intake, IV Titration 373.899 734.458 257.647 Amount Insulin Regular 100 unit 73.899 29.862 56.371 In Sodium Chloride 0.9% 100 ml @ Per Protocol IV .Q0M [facility] Rx#:[id number] fentaNYL (PF) 1,000 mcg 200 279.029 93.711 In Sodium Chloride 0.9% 80 ml @ Per Protocol IV . Q0M [facility]ORDAL[facility] Rx#:[id number] propofoL 1,000 mg In 100 425.567 107.565 Empty Bag 1 bag @ Titrate IV .Q0M [facility]ORDAL[facility]A Rx#: [id number] Tube Feeding 394 240 120 Other 60 90 30 Output: Urine 1335 1810 925 Other: Voiding Method Indwelling Catheter Indwelling Catheter Indwelling Catheter ABP, PAP, CO, CI - Last Documented Arterial Blood Pressure 126/45 - Exam GENERAL EXAM: Revealed 74-year-old female intubated, mechanically ventilated, sedated, calm. On fentanyl and propofol. HEAD: Normocephalic. Endotracheal tube and orogastric tube are intact. EYES: Normal reaction of pupils, equal size. NOSE: Clear with pink turbinates. THROAT: No erythema or exudates. NECK: No masses, no JVD. CHEST: No chest wall deformity. LUNGS: Bilateral scattered rhonchi. Noted mostly at the bases bilaterally. CVS: S1 and S2 normal with no audible murmur, regular rhythm. ABDOMEN: Flat soft nontender no megaly no rebound no guarding. SKIN: No rashes CENTRAL NERVOUS : Could not be assessed. Patient is quite sedated. Extremities: No clubbing, no edema or cyanosis - Labs CBC & Chem 7: 05/03/20 04:05 05/03/20 04:05 Labs: Abnormal Lab Results - Last 24 Hours (Table) 05/02/20 05/02/20 05/02/20 Range/Units 13:50 15:51 18:06 WBC (3.8-10.6) k/uL RBC (3.80-5.40) m/uL Hgb (11.4-16.0) gm/dL Hct (34.0-46.0) % Neutrophils # (1.3-7.7) k/uL Lymphocytes # (1.0-4.8) k/uL D-Dimer (<0.60) mg/L FEU ABG pH (7.35-7.45) ABG pCO2 (35-45) mmHg ABG pO2 (83-108) mmHg ABG HCO3 (21-25) mmol/L ABG Total CO2 (19-24) mmol/L ABG O2 Saturation (94-97) % Chloride (98-107) mmol/L Carbon Dioxide (22-30) mmol/L BUN (7-17) mg/dL Glucose (74-99) mg/dL POC Glucose (mg/dL) 146 H 120 H 145 H (75-99) mg/dL Calcium (8.4-10.2) mg/dL AST (14-36) U/L ALT (4-34) U/L Lactate Dehydrogenase (313-618) U/L Creatine Kinase (30-135) U/L C-Reactive Protein (<10.0) mg/L Total Protein (6.3-8.2) g/dL Albumin (3.5-5.0) g/dL 05/02/20 05/02/20 05/03/20 Range/Units 20:11 21:46 00:00 WBC (3.8-10.6) k/uL RBC (3.80-5.40) m/uL Hgb (11.4-16.0) gm/dL Hct (34.0-46.0) % Neutrophils # (1.3-7.7) k/uL Lymphocytes # (1.0-4.8) k/uL D-Dimer (<0.60) mg/L FEU ABG pH (7.35-7.45) ABG pCO2 (35-45) mmHg ABG pO2 (83-108) mmHg ABG HCO3 (21-25) mmol/L ABG Total CO2 (19-24) mmol/L ABG O2 Saturation (94-97) % Chloride (98-107) mmol/L Carbon Dioxide (22-30) mmol/L BUN (7-17) mg/dL Glucose (74-99) mg/dL POC Glucose (mg/dL) 131 H 133 H 156 H (75-99) mg/dL Calcium (8.4-10.2) mg/dL AST (14-36) U/L ALT (4-34) U/L Lactate Dehydrogenase (313-618) U/L Creatine Kinase (30-135) U/L C-Reactive Protein (<10.0) mg/L Total Protein (6.3-8.2) g/dL Albumin (3.5-5.0) g/dL 05/03/20 05/03/20 05/03/20 Range/Units 02:16 04:05 04:05 WBC (3.8-10.6) k/uL RBC (3.80-5.40) m/uL Hgb (11.4-16.0) gm/dL Hct (34.0-46.0) % Neutrophils # (1.3-7.7) k/uL Lymphocytes # (1.0-4.8) k/uL D-Dimer 1.65 H (<0.60) mg/L FEU ABG pH (7.35-7.45) ABG pCO2 (35-45) mmHg ABG pO2 (83-108) mmHg ABG HCO3 (21-25) mmol/L ABG Total CO2 (19-24) mmol/L ABG O2 Saturation (94-97) % Chloride 108 H (98-107) mmol/L Carbon Dioxide 32 H (22-30) mmol/L BUN 60 H (7-17) mg/dL Glucose 162 H (74-99) mg/dL POC Glucose (mg/dL) 164 H (75-99) mg/dL Calcium 7.5 L (8.4-10.2) mg/dL AST 94 H (14-36) U/L ALT 53 H (4-34) U/L Lactate Dehydrogenase 1286 H (313-618) U/L Creatine Kinase 1434 H* (30-135) U/L C-Reactive Protein 37.9 H (<10.0) mg/L Total Protein 4.5 L (6.3-8.2) g/dL Albumin 2.1 L (3.5-5.0) g/dL 05/03/20 05/03/20 05/03/20 Range/Units 04:05 04:12 05:38 WBC 14.3 H (3.8-10.6) k/uL RBC 2.99 L (3.80-5.40) m/uL Hgb 9.4 L (11.4-16.0) gm/dL Hct 28.1 L (34.0-46.0) % Neutrophils # 13.2 H (1.3-7.7) k/uL Lymphocytes # 0.5 L (1.0-4.8) k/uL D-Dimer (<0.60) mg/L FEU ABG pH 7.31 L (7.35-7.45) ABG pCO2 61 H (35-45) mmHg ABG pO2 61 L (83-108) mmHg ABG HCO3 31 H (21-25) mmol/L ABG Total CO2 33 H (19-24) mmol/L ABG O2 Saturation 89.9 L (94-97) % Chloride (98-107) mmol/L Carbon Dioxide (22-30) mmol/L BUN (7-17) mg/dL Glucose (74-99) mg/dL POC Glucose (mg/dL) 167 H (75-99) mg/dL Calcium (8.4-10.2) mg/dL AST (14-36) U/L ALT (4-34) U/L Lactate Dehydrogenase (313-618) U/L Creatine Kinase (30-135) U/L C-Reactive Protein (<10.0) mg/L Total Protein (6.3-8.2) g/dL Albumin (3.5-5.0) g/dL 05/03/20 05/03/20 05/03/20 Range/Units 06:22 08:03 10:09 WBC (3.8-10.6) k/uL RBC (3.80-5.40) m/uL Hgb (11.4-16.0) gm/dL Hct (34.0-46.0) % Neutrophils # (1.3-7.7) k/uL Lymphocytes # (1.0-4.8) k/uL D-Dimer (<0.60) mg/L FEU ABG pH (7.35-7.45) ABG pCO2 (35-45) mmHg ABG pO2 (83-108) mmHg ABG HCO3 (21-25) mmol/L ABG Total CO2 (19-24) mmol/L ABG O2 Saturation (94-97) % Chloride (98-107) mmol/L Carbon Dioxide (22-30) mmol/L BUN (7-17) mg/dL Glucose (74-99) mg/dL POC Glucose (mg/dL) 161 H 146 H 122 H (75-99) mg/dL Calcium (8.4-10.2) mg/dL AST (14-36) U/L ALT (4-34) U/L Lactate Dehydrogenase (313-618) U/L Creatine Kinase (30-135) U/L C-Reactive Protein (<10.0) mg/L Total Protein (6.3-8.2) g/dL Albumin (3.5-5.0) g/dL 05/03/20 05/03/20 Range/Units 10:58 12:07 WBC (3.8-10.6) k/uL RBC (3.80-5.40) m/uL Hgb (11.4-16.0) gm/dL Hct (34.0-46.0) % Neutrophils # (1.3-7.7) k/uL Lymphocytes # (1.0-4.8) k/uL D-Dimer (<0.60) mg/L FEU ABG pH (7.35-7.45) ABG pCO2 (35-45) mmHg ABG pO2 (83-108) mmHg ABG HCO3 (21-25) mmol/L ABG Total CO2 (19-24) mmol/L ABG O2 Saturation (94-97) % Chloride (98-107) mmol/L Carbon Dioxide (22-30) mmol/L BUN (7-17) mg/dL Glucose (74-99) mg/dL POC Glucose (mg/dL) 134 H 137 H (75-99) mg/dL Calcium (8.4-10.2) mg/dL AST (14-36) U/L ALT (4-34) U/L Lactate Dehydrogenase (313-618) U/L Creatine Kinase (30-135) U/L C-Reactive Protein (<10.0) mg/L Total Protein (6.3-8.2) g/dL Albumin (3.5-5.0) g/dL Assessment and Plan Assessment: Impression: Acute hypoxic respiratory failure secondary to covid 19 pneumonitis and ARDS. Patient is still requiring relatively high PEEP and high FiO2. Patient was initially intubated on 04/27. Acute covid 19 pneumonia, patient completed remdesivir, remains on Decadron, and she received 1 unit of convalescent plasma. Elevated inflammatory markers secondary to above. No significant clinical improvement in spite of improvement in her inflammatory markers. Acute urinary tract infection secondary to E. coli. Remains on IV Rocephin. Type 2 diabetes. Patient has insulin pump on outpatient basis. Benign essential hypertension. Suspect some component of acute diastolic congestive heart failure, echocardiogram showed good LV function. Mild rhabdomyolysis with elevation of CPK levels. CPK seems to be improving over the last few days, but not back to normal. History of vitamin D deficiency. Recommendation: Updated her son on her condition yesterday, and CODE STATUS was changed to DO NOT RESUSCITATE. Son is considering comfort care if no significant improvement in the next couple of days. Continue ventilatory support. Continue sedation. Continue nutritional support. Continue GI and DVT prophylaxis/remains on Lovenox 50 mg subcu twice a day. Continue Decadron. Completed a total of 5 day course of remdesivir and 1 unit of convalescent plasma. Continue enteral feeding. Continue insulin as per protocol as well as Levemir insulin. Continue to monitor inflammatory markers. Patient remains critically ill, prognosis is guarded. Critical care time is over 30 minutes Time with Patient: Greater than 30
[2020-05-03 14:02] LABS: Glucose,Whole Blood 168 mg/dL (75-99)
[2020-05-03 16:00] LABS: Glucose,Whole Blood 144 mg/dL (75-99)
[2020-05-03 18:00] LABS: Glucose,Whole Blood 134 mg/dL (75-99)
--- NOTE | 2020-05-03 18:33 | PN ---
PROGRESS NOTE DATE OF SERVICE: 05/03/2020 REASON FOR FOLLOWUP: Pneumonia. INTERVAL HISTORY: The patient is currently afebrile. The patient is hemodynamically stable, not on pressor support. FiO2 is currently at 50%. No significant purulent secretions through the ET or any diarrhea reported by the nursing staff. PHYSICAL EXAMINATION: Blood pressure 122/43, pulse 49, temperature 98. She is 95% on 80% FiO2. General description is an elderly female lying in bed in no distress. RESPIRATORY SYSTEM: Unlabored breathing with decreased intensity of breath sounds. No wheeze. HEART: S1, S2. Regular rate and rhythm. ABDOMEN: Soft. No tenderness. LABS: Hemoglobin is 9.4, white count 14.3, BUN of 60, creatinine 0.93. DIAGNOSTIC IMPRESSION AND PLAN: 1. Patient with acute respiratory failure which is secondary to acute COVID-19 infection with subsequent worsening, possible ARDS. Clinically not behaving as a bacterial pneumonia. Sputum culture has been negative so far. 2. Elevated white count, more likely steroid effect. We will monitor closely. Continue supportive care. MMODL / IJN: [id number] / IRMA
[2020-05-03 19:37] LABS: LD Isoenzymes 1 19 % (19-38); LD Isoenzymes 2 37 % (30-43); LD Isoenzymes 3 20 % (16-26); LD Isoenzymes 4 11 % (3-12); LD Isoenzymes 5 13 % (3-14); Lactacte Dehydrogenase(LD) ISO 523 U/L (120-250)
[2020-05-03 19:37] LABS: Glucose,Whole Blood 137 mg/dL (75-99)
--- NOTE | 2020-05-03 20:24 | P.PN ---
Progress Note - Text Progress Note Date: 05/03/20 History of presenting complaint: Patient was admitted with severe COVID 19 pneumonia, acute hypoxic respiratory failure. Patient was intubated. Patient not be responding well. Dr. lanier spoke to family/son. Patient made DO NOT RESUSCITATE Today-ICU Endotracheal tube and OG tube. Drips include insulin, fentanyl, propofol Telemetry shows sinus rhythm. Tube feeding Ventilator: FiO2 80% and a PEEP of 16. Progress review of systems cannot be done, patient intubated Active Medications Acetaminophen (Acetaminophen Tab 325 Mg Tab) 650 mg PO Q6HR PRN PRN Reason: Mild Pain or Fever > 100.5 Last Admin: 04/23/20 20:48 Dose: 650 mg Documented by: Amlodipine Besylate (Amlodipine 10 Mg Tab) 10 mg PO DAILY [facility] Last Admin: 05/03/20 09:59 Dose: 10 mg Documented by: Ascorbic Acid (Ascorbic Acid 500 Mg Tab) 1,000 mg PO DAILY [facility] Last Admin: 05/03/20 08:31 Dose: 1,000 mg Documented by: Atorvastatin Calcium (Atorvastatin 40 Mg Tab) 40 mg PO HS [facility] Last Admin: 05/02/20 21:22 Dose: 40 mg Documented by: Chlorhexidine Gluconate (Chlorhexidine Gluconate 15 Ml Cup) 15 ml MUCOUS MEM BID [facility] Last Admin: 05/03/20 08:31 Dose: 15 ml Documented by: Cholecalciferol (Cholecalciferol 10 Mcg (400 Iu) Tablet) 10 mcg PO DAILY [facility] Last Admin: 05/03/20 08:43 Dose: 10 mcg Documented by: Dexamethasone Sodium Phosphate (Dexamethasone Sod Phosphate 10 Mg/Ml 1 Ml Vial) 6 mg IV BID [facility] Last Admin: 05/03/20 08:31 Dose: 6 mg Documented by: Enoxaparin Sodium (Enoxaparin 60 Mg/0.6 Ml Syringe) 50 mg SQ BID [facility] Last Admin: 05/03/20 08:42 Dose: 50 mg Documented by: Propofol 1,000 mg/ IV Solution 100 mls @ 0 mls/hr IV .Q0M [facility]; Protocol Last Admin: 05/03/20 17:06 Dose: 50 mcg/kg/min, 31.95 mls/hr Documented by: Insulin Human Regular 100 unit (/ Sodium Chloride) 101 mls @ 0 mls/hr IV .Q0M [facility]; Protocol Last Titration: 05/03/20 17:59 Dose: 0 units/hr, 0 mls/hr Documented by: Norepinephrine Bitartrate 8 mg (/ Sodium Chloride) 258 mls @ 10.401 mls/hr IV .Q24H [facility]; Protocol Last Admin: 05/03/20 13:08 Dose: Not Given Documented by: Sodium Chloride (Saline 0.9%) 1,000 mls @ 20 mls/hr IV .Q24H [facility] Last Admin: 05/03/20 13:19 Dose: 20 mls/hr Documented by: Fentanyl Citrate 1,000 mcg/ (Sodium Chloride) 100 mls @ 0 mls/hr IV .Q0M [facility]; Protocol Last Admin: 05/03/20 19:09 Dose: 2 mcg/kg/hr, 20.98 mls/hr Documented by: Insulin Detemir (Insulin Detemir (Levemir) 100 Unit/Ml Syr) 75 unit SQ DAILY@0700 [facility] Last Admin: 05/03/20 06:26 Dose: 75 unit Documented by: Lactulose (Lactulose 20 Gm/30 Ml Cup) 30 gm PO HS [facility] Last Admin: 05/02/20 21:22 Dose: 30 gm Documented by: Levothyroxine Sodium (Levothyroxine 88 Mcg Tab) 88 mcg PO DAILY@0630 [facility] Last Admin: 05/03/20 06:26 Dose: 88 mcg Documented by: Miscellaneous Information (Magnesium Replacement Protocol 1 Each Misc) 1 each MISCELLANE DAILY PRN; Protocol PRN Reason: Per Protocol Miscellaneous Information (Potassium Replacement Protocol 1 Each Misc) 1 each MISCELLANE DAILY PRN PRN Reason: Per Protocol Naloxone HCl (Naloxone 0.4 Mg/Ml 1 Ml Vial) 0.2 mg IV Q2M PRN PRN Reason: Opioid Reversal Pantoprazole Sodium (Pantoprazole 40 Mg/10 Ml Vial) 40 mg IVP DAILY [facility] Last Admin: 05/03/20 08:30 Dose: 40 mg Documented by: Zinc Sulfate (Zinc Sulfate 220 Mg Cap) 220 mg PO DAILY [facility] Last Admin: 05/03/20 08:31 Dose: 220 mg Documented by: On examination: VITAL SIGNS: 97.7, 46, 30, 118/57, 95% on the ventilator GENERAL APPEARANCE: , laying in bed, intubated HEENT: Normal external appearance of nose and ear. Oral cavity ET tube and OG tube PSYCHIATRY: Unable to assess, patient sedated. Rest of the physical exam as per pulmonary/nursing INVESTIGATIONS, reviewed in the clinical context: May 03: WBC 14.3 hemoglobin 9.4 platelets 174 potassium 5 creatinine 0.93 d- dimer 1.65 CRP 37.9 CPK 1434 May 02: WBC 12.3 hemoglobin 9.5 platelets 175 potassium 4.8 creatinine 0.79 CPK 2128 CRP 30.5 May 01: WBC 21.9 hemoglobin 11.6 platelets 246 potassium 5 creatinine 0.9 to CRP 23.8 ABG pH 7.28 pCO2 of 60 April 30: 26.2 hemoglobin 12.2 d-dimer 3.1 potassium 4.5 creatinine 0.93 CRP 32.5. Check stat x-ray diffuse bilateral airspace disease. April 29: WBC 14.9 hemoglobin 11.9 d-dimer 3.51 potassium 4.3 creatinine 0.74 CRP 45.5 April 28: WBC 30.3 hemoglobin 12.1 potassium 4 creatinine 0.85 d-dimer 7.55 CRP 59.4 Potassium 4 creatinine 0.8 CRP 61.5, d-dimer 3.89 Chest x-ray film shows worsening bilateral infiltrates Assessment and plan: -COVID 19 bilateral pneumonia severe causing secondary hypoxic respiratory failure. received Remdesivir, convalescent plasma one unit, Decadron, subcu not improving -Septic shock patient requiring currently off norepinephrine. -Hypothyroid continue with Synthroid -Acute UTI with cystitis secondary to E. coli-IV ceftriaxone-completed course -Essential hypertension, currently blood pressures running low. -Hyperlipidemia -Vitamin D deficiency -Acute hypoxic respiratory failure, intubated on April 27, with ventilator worsening -Diabetes mellitus type 2, uncontrolled with hyperglycemia ;on insulin drip-slow to respond -Morbid obesity BMI 40.7 -Acute rhabdomyolysis multifactorial -Normocytic anemia, possibly combination of underlying condition and hospital- acquired anemia from blood draw Prognosis guarded. Continue current medications.
[2020-05-03] MEDS: ATORVASTATIN 40 MG TAB PO SCH (20:26)
[2020-05-03] MEDS: LACTULOSE 20 GM/30 ML CUP PO SCH (20:26)
[2020-05-03 22:09] LABS: Glucose,Whole Blood 149 mg/dL (75-99)
[2020-05-03 23:46] LABS: Glucose,Whole Blood 156 mg/dL (75-99)
[2020-05-04 01:59] LABS: Glucose,Whole Blood 161 mg/dL (75-99)
[2020-05-04 03:48] LABS: Glucose,Whole Blood 169 mg/dL (75-99)
[2020-05-04] MEDS: fentaNYL (PF) 1,000 MCG in SODIUM CHLORIDE 0.9% 80 ML IV SCH ×2 (04:04→08:07)
[2020-05-04 04:05] LABS: Basophils # (A) 0.1 k/uL (0-0.2); Basophils % (A) 0 %; Eosinophils % (A) 0 %; HCT 31.7 % (34.0-46.0); HGB 10.5 gm/dL (11.4-16.0); Lymphocytes # (A) 0.6 k/uL (1.0-4.8); Lymphocytes % (A) 4 %; MCV 93.9 fL (80.0-100.0); Mean Platelet Volume 9.4; Monocytes # (A) 0.4 k/uL (0-1.0); Monocytes % (A) 2 %; Neutrophils # (A) 15.4 k/uL (1.3-7.7); Neutrophils % (A) 93 %; Platelet Count 195 k/uL (150-450); RBC 3.37 m/uL (3.80-5.40); RDW 13.7 % (11.5-15.5); WBC 16.5 k/uL (3.8-10.6)
[2020-05-04 05:22] LABS: ABG HCO3 33 mmol/L (21-25); ABG Oxygen Saturation 89.1 % (94-97); ABG PCO2 58 mmHg (35-45); ABG PH 7.35 (7.35-7.45); ABG TCO2 34 mmol/L (19-24); Allen Test Performed? Yes
[2020-05-04 05:25] LABS: ABG PO2 59 mmHg (83-108)
[2020-05-04 06:11] LABS: Glucose,Whole Blood 160 mg/dL (75-99)
[2020-05-04] MEDS: LEVOTHYROXINE 88 MCG TAB PO SCH (06:21)
[2020-05-04] MEDS: INSULIN DETEMIR (LEVEMIR) 100 UNIT/ML SYR SQ SCH (06:21)
[2020-05-04 07:11] LABS: Albumin 2.5 g/dL (3.5-5.0); C Reactive Protein 52.6 mg/L (<10.0); Calcium 8.1 mg/dL (8.4-10.2); Potassium 5.2 mmol/L (3.5-5.1); Total Bilirubin 0.4 mg/dL (0.2-1.3); Total Protein 5.3 g/dL (6.3-8.2)
--- NOTE | 2020-05-04 07:54 | XR ---
EXAMINATION TYPE: XR chest 1V portable DATE OF EXAM: 05/04/2020 Comparison: 05/03/2020 Clinical History: 74-year-old female Covid Findings: ET tube is satisfactory. NG tube courses below the diaphragm. Left PICC tip in the right atrium. Cont inued diffuse bilateral airspace disease without significant change. Impression: Continued diffuse bilateral airspace disease without significant change.
[2020-05-04 07:55] LABS: Glucose,Whole Blood 111 mg/dL (75-99)
[2020-05-04] MEDS: PANTOPRAZOLE 40 MG/10 ML VIAL IVP SCH (08:06)
[2020-05-04] MEDS: amLODIPine 10 MG TAB PO SCH (08:06)
[2020-05-04] MEDS: CHLORHEXIDINE GLUCONATE 15 ML CUP MUCOUS MEM SCH ×2 (08:06→20:36)
[2020-05-04] MEDS: ASCORBIC ACID 500 MG TAB PO SCH (08:06)
[2020-05-04] MEDS: ZINC SULFATE 220 MG CAP PO SCH (08:06)
[2020-05-04] MEDS: DEXAMETHASONE SOD PHOSPHATE 10 MG/ML 1 ML VIAL IV SCH (08:06)
[2020-05-04] MEDS: ENOXAPARIN 60 MG/0.6 ML SYRINGE SQ SCH ×2 (08:10→21:25)
[2020-05-04] MEDS: CHOLECALCIFEROL 10 MCG (400 IU) TABLET PO SCH (08:10)
[2020-05-04 10:02] LABS: Glucose,Whole Blood 120 mg/dL (75-99)
[2020-05-04] MEDS ORDERED: FUROSEMIDE 10 MG/ML 4 ML VIAL IV STA (10:39)
[2020-05-04] MEDS: NOREPINEPHRINE 8 MG in SODIUM CHLORIDE 0.9% 250 ML IV SCH (10:45)
[2020-05-04 12:23] LABS: Glucose,Whole Blood 150 mg/dL (75-99)
[2020-05-04] MEDS: SODIUM CHLORIDE 0.9% 1,000 ML IV SCH (12:35)
[2020-05-04] MEDS: fentaNYL (PF) 2,500 MCG in SODIUM CHLORIDE 0.9% 200 ML IV SCH (12:47)
[2020-05-04 12:58] LABS: Glucose,Whole Blood 148 mg/dL (75-99)
[2020-05-04 13:31] LABS: Glucose,Whole Blood 151 mg/dL (75-99)
--- NOTE | 2020-05-04 14:26 | P.PN ---
Subjective Progress Note Date: 05/04/20 Principal diagnosis: Acute hypoxic respiratory failure with ARDS secondary to covid 19 pneumonitis. This is a pleasant 74-year-old female patient who follows with Dr. Mace as h er primary care physician. She has a history of hypertension, hyperlipidemia, hypothyroidism, depression, chronic tobacco dependence, diabetes mellitus with insulin pump. Yesterday she was brought into the emergency room via EMS after developing progressive weakness over the past week. She was unable to get herself up from a chair. Point of care blood glucose measured by EMS was over 600. Urine was positive for nitrates and 180 WBCs. She was given IV fluid boluses. Ceftriaxone and initiated on a heparin drip and admitted to the selective care unit. White count 8.2. Hemoglobin 13.9. Lymphocytes 0.8. Sodium 132. Potassium initially 6.5, currently 4.8 bicarb 19. Anion gap 17 currently 6. Creatinine 1.99. Improved to 1.43. She was found to be positive for munoz virus by PCR. He is seen today in consultation as her oxygen requirements have increased from 6 L to AirVo this morning. Presently on 60 L and 90% FiO2. Temperature 101.7. She is quite weak and fatigued. Chest x-ray revealing bilateral multifocal acute opacities consistent with CoVID 19 infection. Stat labs revealed a d-dimer of 0.83. LDH 1518. C-reactive protein 143. On today's evaluation of 04/23/2020, the patient remains on a combination of high flow oxygen and 100% nonrebreather facemask. The patient is on high flow oxygen at 60 L with an FiO2 of 90% and the patient is also on 100% nonrebreather facemask. Her pulse ox in the order of 92%. Her previous inflammatory markers including CRP and LDH were quite elevated. Repeat chest x-ray was done today and a chest x-ray was reviewed and revealed bilateral multifocal pulmonary opacities/infiltrates consistent with Covid 19 related pneumonia. The patient's is currently laying down supine in bed. She seems to be comfortable and there is no significant respiratory distress and her current pulse ox in the order of 92%. Upon comparing the chest x-rays, no major interval change compared to yesterday's findings. Meanwhile, the patient had further increase for LVH which is up to 1684 and the CRP is at 139. White cell count of 6.6. The patient is currently on Decadron 6 mg, Remdesivir and she is a #2 of treatment. She is also on anticoagulation and she is receiving not receiving anticoagulation and the d-dimer today is at 1.03. Lovenox will be started. She has no specific complaints. She feels tired. She is alert and orientated 3. She is diabetic and she is on a insulin pump on outpatient basis and currently she is receiving Levemir insulin 30 units daily along with NovoLog 7 units 3 times a day with meals and a sliding scale coverage. Blood sugars are in the 200 range and the patient is not having adequate amount of food. She had an acute kidney injury which recovered and the creatinine is normalized. She has a gram-negative bacillus in her urine and the patient is currently on Rocephin. 7 2020, the patient is still intubated on mechanical ventilation. She got intubated on the 2020 for complications related to COVID 19 related pneumonia and respiratory failure with hypoxic respiratory failure as the patient developed diffuse bilateral pulmonary infiltrates, she failed high flow oxygen, she failed BiPAP and ultimately she had to be intubated and placed on a mechanical ventilator. The patient has a peak airway pressure of 40, static airway pressure is 38, and the patient is headed into ARDS. She was given high- dose Decadron. She was given a definitive convalescent plasma and she was also given Remdesivir unfortunately, her condition progressed and she had to be intubated. This morning, she is sedated with propofol running at 45 mg/kg per minute. She is also paralyzed and the patient was given Nimbex over the past 48 hours and Nimbex is running at 1 mcg/kg per minute. She is an assist-control mode of ventilation at the rate of 26 with a tidal volume of 400 and the feet is currently at 16 with an FiO2 of 75. Her blood gases from today showed a pH of 7.27 with a pCO2 54 and pO2 of 60. The chest x-ray still showing diffuse bilateral pulmonary infiltrates, probably slightly worse and ET tube is in a good location. The patient is also on Lovenox a dose of 50 mg subcutaneous ev giovana 12 hours. Inflammatory markers from today showing a LDH level of 1915 which is slightly lower, her CRP is 45, nevertheless, the patient has developed an acute rhabdomyolysis with a CPK level of 6715. She is also on Lovenox for a d- dimer of 3.51 which is improving compared to yesterday. She is afebrile. She is on low-dose pressors and norepinephrine is running at 0.04 mcg/kg per minute. She has an adequate urine output. Infected urine output dropped yesterday and she was given a liter bolus and she was maintained on normal saline at the rate of 75 an hour. The fluid balance is been +4.8 L over the past 24 hours. She is afebrile. She remains on Rocephin for an E. coli in her urine. She is receiving enteral feeding for nutritional support in the form of vital high protein at the rate of 20 mL an hour. Patient was reevaluated today on 04/29/2020, remains intubated and mechanically ventilated. Patient is on assist control rate of 26, tidal volume of 375 FiO2 is 50% and PEEP is 16. ABG showed a pO2 of 73 pCO2 of 55 pH of 7.30. Hence the patient was maintained on the same ventilator settings. Her on 50% and PEEP of 16. She is on multiple drips including norepinephrine at 0.03 mcg/kg/m. She is on propofol at 40 mcg/kg/m. Fentanyl 1.3 mcg/kg/h. And she went off Nimbex yesterday. Patient is receiving Lasix to keep her dry, and her BNP level is pending echocardiogram is pending only because the chest x-ray showed dramatic improvement overnight, and I'm not really sure whether the patient had significant pulmonary edema or is at the higher PEEP that is causing significant improvement in the chest x-ray appearance. I did order another dose of Lasix to be given. WBC count is 26.2 hemoglobin is 12.2. D-dimer is 3.10 coming down nicely. Electrolytes are normal, bicarb is 27. BUN is 41 and creatinine 0.93. Interleukin-6 was noted to be high at 96.7. C-reactive protein is down to 32.5. LDH is down to 1915 from 2260 2 days ago. Again her chest x-ray did show significant improvement in her bilateral arms. Disease with continued small effusions and atelectasis at the bases. Patient was reevaluated today on 05/01/2020, patient remains in the ICU, intubated and mechanically ventilated. Her ventilator settings are tidal volume of 375, FiO2 is 50%, PEEP is 16. ABG showed a pO2 of 66 pCO2 of 60 pH of 7.28, tidal volume was increased to 400, FiO2 was increased to 55%, patient remains on fentanyl at 1.3 mcg/kg/m, propofol 40 mcg/kg/m, insulin at 8 units per hour. She is on enteral feeding via orogastric tube, tolerating feeding well. Chest x-ray continues to show bilateral infiltrates, labs were reviewed, CPK is improving. Decadron was increased to 6 mg twice a day. C-reactive protein, LDH, and d-dimer were all noted. Her C-reactive protein is down to 23.8, and LDH is 1915 from 2 days ago. WBC count is 21.9 hemoglobin is 11.6. Electrol ytes are normal BUN is 54 creatinine 0.92. Patient was reevaluated today on 05/02/2020, remains in the ICU, intubated and mechanically ventilated, patient was initially intubated on 04/27/2020. patient is on assist control rate of 26, volume is 400, FiO2 was increased to 85% last night because the patient desaturated and she was bradycardic for a brief period of time. She is on assist control rate of 16. ABG showed a pO2 of 76 pCO2 of 61 pH of 7.27. Considering the patient had significantly high peak airway pressure and plateau pressures in the 30s, I recommended cutting down the tidal volume to 375 and increase the rate to 30. Down her FiO2 down to 70%, and will titrate accordingly her FiO2 based on O2 saturation. Patient is on IV fluids KVO, propofol at 60 mcg/kg/m, fentanyl 2 mcg/kg per hour, she is off norepinephrine, and she remains on insulin at 9 units per hour. Chest x-ray c ontinues to show bilateral infiltrates, not much of a change noted in the last few days. CBC is relatively normal, WBC count is coming down nicely to 12.3. Hemoglobin is 9.5. Electrolytes, basic metabolic profile are normal. BUN is 53 creatinine 0.79. CPK continues to trend down to 2128, and her LDH is down to 1331, C-reactive protein is about the same at 30.5 pro calcitonin is 0.08 Patient was reevaluated today on 05/03/2020, remains in the ICU, intubated and mechanically ventilated. Patient is on assist control rate of 130, tidal volume is 375 FiO2 is 100% and PEEP of 16 ABG this morning showed worsening oxygenation in spite of high PEEP and high FiO2. Her pO2 is 61 pCO2 61 pH of 7.31. Patient still requiring propofol at 40 mcg/kg/m, fentanyl 2 mcg/kg/h she is also on insulin at 7 units per hour. She is on enteral feeding at goal. Chest x-ray continues to show worsening bilateral interstitial infiltrates and ARDS. Patient is not doing well, basically I believe the patient is worse now compared to what she was even few days ago. Yesterday I updated her son on her conditi on, and CODE STATUS was changed to DO NOT RESUSCITATE, may even consider comfort care, family is undecided at this point yet. This is yet to be decided upon by her son. CBC showed the risk of 14.3 hemoglobin 9.4. Electrolytes and renal profile are relatively normal. CPK is down to 1434 LDH is down to 1286 and her C-reactive protein is borderline elevated at 37.9. Reevaluated today on 05/04/2020, patient remains in the ICU, intubated and mechanically ventilated. She is on assist control rate of 30 tidal volume 375 FiO2 is up to 80% today, PEEP is at 16. Chest x-ray continues to show worsening infiltrates bilaterally underlying interstitial edema is not entirely ruled out, hence the patient will be given another dose of Lasix this morning at 40 mg IV push. ABG showed a pO2 of 59 pCO2 of 58 pH of 7.35. WBC count is 16.5 hemoglobin is 10.7 LDH is going up to 1690, CPK is 2463 and pro calcitonin 0.08. Again not much change noted in the last 24 hours. Patient remains sedated, she is on the prevent at 50 mcg/kg/m and she is on fentanyl at 2 mcg/kg/h. Objective - Vital Signs Vital signs: Vital Signs Temp 98.7 F 05/04/20 12:00 Pulse 42 L 05/04/20 13:00 Resp 30 H 05/04/20 13:00 BP 129/55 05/04/20 13:00 Pulse Ox 92 L 05/04/20 13:00 Intake & Output 05/03/20 05/04/20 05/04/20 18:59 06:59 18:59 Intake Total 6764.059 1734.709 814.129 Output Total 3111 842 7469 Balance -563.425 391.709 -275.871 Weight 106.5 kg Intake: IV 288 312 182 Sodium Chloride 0.9% 1, 240 240 140 000 ml @ 20 mls/hr IV . Q24H [facility] Rx#:[id number] a-line flush 48 72 42 Intake, IV Titration 468.575 654.709 384.129 Amount Insulin Regular 100 unit 76.386 15.487 30.889 In Sodium Chloride 0.9% 100 ml @ Per Protocol IV .Q0M [facility] Rx#:[id number] fentaNYL (PF) 1,000 mcg 184.624 269.244 84.969 In Sodium Chloride 0.9% 80 ml @ Per Protocol IV . Q0M [facility] Rx#:[id number] propofoL 1,000 mg In 207.565 369.978 268.271 Empty Bag 1 bag @ Titrate IV .Q0M [facility] Rx#: [id number] Oral 40 Tube Feeding 240 240 148 Other 60 90 60 Output: Urine 1161 189 9115 Other: Voiding Method Indwelling Catheter Indwelling Catheter Indwelling Catheter ABP, PAP, CO, CI - Last Documented Arterial Blood Pressure 127/50 - Exam GENERAL EXAM: Revealed 74-year-old female intubated, mechanically ventilated, sedated, calm. On fentanyl and propofol. HEAD: Normocephalic. Endotracheal tube and orogastric tube are intact. EYES: Normal reaction of pupils, equal size. NOSE: Clear with pink turbinates. THROAT: No erythema or exudates. NECK: No masses, no JVD. CHEST: No chest wall deformity. LUNGS: Bilateral scattered rhonchi. Noted mostly at the bases bilaterally. CVS: S1 and S2 normal with no audible murmur, regular rhythm. ABDOMEN: Flat soft nontender no megaly no rebound no guarding. SKIN: No rashes CENTRAL NERVOUS : Could not be assessed. Patient is quite sedated. Extremities: No clubbing, no edema or cyanosis - Labs CBC & Chem 7: 05/04/20 03:45 05/04/20 03:45 Labs: Abnormal Lab Results - Last 24 Hours (Table) 04/30/20 05/03/20 05/03/20 Range/Units 03:50 15:58 17:58 WBC (3.8-10.6) k/uL RBC (3.80-5.40) m/uL Hgb (11.4-16.0) gm/dL Hct (34.0-46.0) % Neutrophils # (1.3-7.7) k/uL Lymphocytes # (1.0-4.8) k/uL D-Dimer (<0.60) mg/L FEU ABG pCO2 (35-45) mmHg ABG pO2 (83-108) mmHg ABG HCO3 (21-25) mmol/L ABG Total CO2 (19-24) mmol/L ABG O2 Saturation (94-97) % Potassium (3.5-5.1) mmol/L Carbon Dioxide (22-30) mmol/L BUN (7-17) mg/dL Glucose (74-99) mg/dL POC Glucose (mg/dL) 144 H 134 H (75-99) mg/dL Calcium (8.4-10.2) mg/dL AST (14-36) U/L ALT (4-34) U/L Lactate Dehydrogenase (313-618) U/L LD Isoenzymes 523 H (120-250) U/L Creatine Kinase (30-135) U/L C-Reactive Protein (<10.0) mg/L Total Protein (6.3-8.2) g/dL Albumin (3.5-5.0) g/dL 05/03/20 05/03/20 05/03/20 Range/Units 19:36 22:07 23:45 WBC (3.8-10.6) k/uL RBC (3.80-5.40) m/uL Hgb (11.4-16.0) gm/dL Hct (34.0-46.0) % Neutrophils # (1.3-7.7) k/uL Lymphocytes # (1.0-4.8) k/uL D-Dimer (<0.60) mg/L FEU ABG pCO2 (35-45) mmHg ABG pO2 (83-108) mmHg ABG HCO3 (21-25) mmol/L ABG Total CO2 (19-24) mmol/L ABG O2 Saturation (94-97) % Potassium (3.5-5.1) mmol/L Carbon Dioxide (22-30) mmol/L BUN (7-17) mg/dL Glucose (74-99) mg/dL POC Glucose (mg/dL) 137 H 149 H 156 H (75-99) mg/dL Calcium (8.4-10.2) mg/dL AST (14-36) U/L ALT (4-34) U/L Lactate Dehydrogenase (313-618) U/L LD Isoenzymes (120-250) U/L Creatine Kinase (30-135) U/L C-Reactive Protein (<10.0) mg/L Total Protein (6.3-8.2) g/dL Albumin (3.5-5.0) g/dL 05/04/20 05/04/20 05/04/20 Range/Units 01:58 03:45 03:45 WBC (3.8-10.6) k/uL RBC (3.80-5.40) m/uL Hgb (11.4-16.0) gm/dL Hct (34.0-46.0) % Neutrophils # (1.3-7.7) k/uL Lymphocytes # (1.0-4.8) k/uL D-Dimer 2.02 H (<0.60) mg/L FEU ABG pCO2 (35-45) mmHg ABG pO2 (83-108) mmHg ABG HCO3 (21-25) mmol/L ABG Total CO2 (19-24) mmol/L ABG O2 Saturation (94-97) % Potassium 5.2 H (3.5-5.1) mmol/L Carbon Dioxide 31 H (22-30) mmol/L BUN 58 H (7-17) mg/dL Glucose 161 H (74-99) mg/dL POC Glucose (mg/dL) 161 H (75-99) mg/dL Calcium 8.1 L (8.4-10.2) mg/dL AST 112 H (14-36) U/L ALT 63 H (4-34) U/L Lactate Dehydrogenase 1690 H (313-618) U/L LD Isoenzymes (120-250) U/L Creatine Kinase 2463 H* (30-135) U/L C-Reactive Protein 52.6 H (<10.0) mg/L Total Protein 5.3 L (6.3-8.2) g/dL Albumin 2.5 L (3.5-5.0) g/dL 05/04/20 05/04/20 05/04/20 Range/Units 03:45 03:45 05:16 WBC 16.5 H (3.8-10.6) k/uL RBC 3.37 L (3.80-5.40) m/uL Hgb 10.5 L (11.4-16.0) gm/dL Hct 31.7 L (34.0-46.0) % Neutrophils # 15.4 H (1.3-7.7) k/uL Lymphocytes # 0.6 L (1.0-4.8) k/uL D-Dimer (<0.60) mg/L FEU ABG pCO2 58 H (35-45) mmHg ABG pO2 59 L* (83-108) mmHg ABG HCO3 33 H (21-25) mmol/L ABG Total CO2 34 H (19-24) mmol/L ABG O2 Saturation 89.1 L (94-97) % Potassium (3.5-5.1) mmol/L Carbon Dioxide (22-30) mmol/L BUN (7-17) mg/dL Glucose (74-99) mg/dL POC Glucose (mg/dL) 169 H (75-99) mg/dL Calcium (8.4-10.2) mg/dL AST (14-36) U/L ALT (4-34) U/L Lactate Dehydrogenase (313-618) U/L LD Isoenzymes (120-250) U/L Creatine Kinase (30-135) U/L C-Reactive Protein (<10.0) mg/L Total Protein (6.3-8.2) g/dL Albumin (3.5-5.0) g/dL 05/04/20 05/04/20 05/04/20 Range/Units 06:10 07:53 10:00 WBC (3.8-10.6) k/uL RBC (3.80-5.40) m/uL Hgb (11.4-16.0) gm/dL Hct (34.0-46.0) % Neutrophils # (1.3-7.7) k/uL Lymphocytes # (1.0-4.8) k/uL D-Dimer (<0.60) mg/L FEU ABG pCO2 (35-45) mmHg ABG pO2 (83-108) mmHg ABG HCO3 (21-25) mmol/L ABG Total CO2 (19-24) mmol/L ABG O2 Saturation (94-97) % Potassium (3.5-5.1) mmol/L Carbon Dioxide (22-30) mmol/L BUN (7-17) mg/dL Glucose (74-99) mg/dL POC Glucose (mg/dL) 160 H 111 H 120 H (75-99) mg/dL Calcium (8.4-10.2) mg/dL AST (14-36) U/L ALT (4-34) U/L Lactate Dehydrogenase (313-618) U/L LD Isoenzymes (120-250) U/L Creatine Kinase (30-135) U/L C-Reactive Protein (<10.0) mg/L Total Protein (6.3-8.2) g/dL Albumin (3.5-5.0) g/dL 05/04/20 05/04/20 05/04/20 Range/Units 12:22 12:56 13:30 WBC (3.8-10.6) k/uL RBC (3.80-5.40) m/uL Hgb (11.4-16.0) gm/dL Hct (34.0-46.0) % Neutrophils # (1.3-7.7) k/uL Lymphocytes # (1.0-4.8) k/uL D-Dimer (<0.60) mg/L FEU ABG pCO2 (35-45) mmHg ABG pO2 (83-108) mmHg ABG HCO3 (21-25) mmol/L ABG Total CO2 (19-24) mmol/L ABG O2 Saturation (94-97) % Potassium (3.5-5.1) mmol/L Carbon Dioxide (22-30) mmol/L BUN (7-17) mg/dL Glucose (74-99) mg/dL POC Glucose (mg/dL) 150 H 148 H 151 H (75-99) mg/dL Calcium (8.4-10.2) mg/dL AST (14-36) U/L ALT (4-34) U/L Lactate Dehydrogenase (313-618) U/L LD Isoenzymes (120-250) U/L Creatine Kinase (30-135) U/L C-Reactive Protein (<10.0) mg/L Total Protein (6.3-8.2) g/dL Albumin (3.5-5.0) g/dL Assessment and Plan Assessment: Impression: Acute hypoxic respiratory failure secondary to covid 19 pneumonitis and ARDS. Still on high PEEP and high FiO2, intubated on 04/27. Acute covid 19 pneumonia, patient completed remdesivir, remains on Decadron, and she received 1 unit of convalescent plasma. Elevated inflammatory markers secondary to above. No significant clinical improvement in spite of improvement in her inflammatory markers. Acute urinary tract infection secondary to E. coli. Remains on IV Rocephin. Type 2 diabetes. Patient has insulin pump on outpatient basis. Benign essential hypertension. Suspect some component of acute diastolic congestive heart failure, ech ocardiogram showed good LV function. Mild rhabdomyolysis with elevation of CPK levels. Numbers are getting worse again, hence I changed Decadron to Solu-Medrol at 40 mg IV push every 6 hours. History of vitamin D deficiency. Recommendation: Continue DO NOT RESUSCITATE CODE STATUS. Family will seriously consider comfort care measures. Continue ventilatory support. Continue sedation. Continue nutritional support. Continue GI and DVT prophylaxis/remains on Lovenox 50 mg subcu twice a day. Changed Decadron to Solu-Medrol. Completed a total of 5 day course of remdesivir and 1 unit of convalescent plasma. Continue insulin as per protocol Continue to monitor inflammatory markers. Patient remains critically ill, prognosis is guarded. Critical care time is over 30 minutes Time with Patient: Greater than 30
[2020-05-04] MEDS: methylPREDNISolone SOD SUCCI 40 MG/ML 1 ML VIAL IV SCH ×3 (15:04→23:08)
[2020-05-04 16:14] LABS: Glucose,Whole Blood 137 mg/dL (75-99)
--- NOTE | 2020-05-04 16:19 | PN ---
PROGRESS NOTE DATE OF SERVICE: 05/04/2020 REASON FOR FOLLOWUP: Pneumonia. INTERVAL HISTORY: The patient is currently afebrile. The patient remains to be intubated on the vent. FiO2 is currently stable at 80%. No significant purulent secretions in the ET or any diarrhea reported. She did have occasional episodes of bradyarrhythmia. PHYSICAL EXAMINATION: Blood pressure 129/55, pulse of 42, temperature 98.7. She is 92% on 80% FiO2. General description is an elderly female lying in bed in no distress. RESPIRATORY SYSTEM: Unlabored breathing, decreased intense breath sounds. No wheeze. HEART: S1, S2. Regular rate and rhythm. ABDOMEN: Soft, no tenderness. LABS: Hemoglobin 10.5, white count 16.5, BUN of 58, creatinine 0.88. Still has elevated CK and CRP. DIAGNOSTIC IMPRESSION AND PLAN: Patient with acute respiratory failure which is multifactorial in this patient who did have a COVID-19 infection with the possible component of ARDS. Clinically not behaving as secondary bacterial pneumonia with culture and blood culture remains negative, white count elevated more likely steroid effect and will monitor closely. Overall poor prognosis and possible consultation for hospice per the nursing staff. MMODL / IJN: [id number] /
[2020-05-04 17:37] LABS: Glucose,Whole Blood 148 mg/dL (75-99)
[2020-05-04 17:58] LABS: Glucose,Whole Blood 166 mg/dL (75-99)
--- NOTE | 2020-05-04 20:09 | P.PN ---
Progress Note - Text Progress Note Date: 05/04/20 History of presenting complaint: Patient was admitted with severe COVID 19 pneumonia, acute hypoxic respiratory failure. Patient was intubated. Patient not be responding well. Dr. lanier spoke to family/son. Patient made DO NOT RESUSCITATE Today-ICU Endotracheal tube and OG tube. Drips include insulin, fentanyl, propofol Telemetry shows sinus rhythm. Tube feeding Ventilator: FiO2 80% and a PEEP of 16. Patient has been having episodes of bradycardia. The patient talks about comfort measures Progress review of systems cannot be done, patient intubated Active Medications Acetaminophen (Acetaminophen Tab 325 Mg Tab) 650 mg PO Q6HR PRN PRN Reason: Mild Pain or Fever > 100.5 Last Admin: 04/23/20 20:48 Dose: 650 mg Documented by: Amlodipine Besylate (Amlodipine 10 Mg Tab) 10 mg PO DAILY [facility] Last Admin: 05/04/20 08:06 Dose: 10 mg Documented by: Ascorbic Acid (Ascorbic Acid 500 Mg Tab) 1,000 mg PO DAILY [facility] Last Admin: 05/04/20 08:06 Dose: 1,000 mg Documented by: Atorvastatin Calcium (Atorvastatin 40 Mg Tab) 40 mg PO HS [facility] Last Admin: 05/03/20 20:26 Dose: 40 mg Documented by: Chlorhexidine Gluconate (Chlorhexidine Gluconate 15 Ml Cup) 15 ml MUCOUS MEM BID [facility] Last Admin: 05/04/20 08:06 Dose: 15 ml Documented by: Cholecalciferol (Cholecalciferol 10 Mcg (400 Iu) Tablet) 10 mcg PO DAILY [facility] Last Admin: 05/04/20 08:10 Dose: 10 mcg Documented by: Enoxaparin Sodium (Enoxaparin 60 Mg/0.6 Ml Syringe) 50 mg SQ BID [facility] Last Admin: 05/04/20 08:10 Dose: 50 mg Documented by: Propofol 1,000 mg/ IV Solution 100 mls @ 0 mls/hr IV .Q0M [facility]; Protocol Last Admin: 05/04/20 16:36 Dose: 50 mcg/kg/min, 31.95 mls/hr Documented by: Insulin Human Regular 100 unit (/ Sodium Chloride) 101 mls @ 0 mls/hr IV .Q0M [facility]; Protocol Last Titration: 05/04/20 17:59 Dose: 4 units/hr, 4.04 mls/hr Documented by: Norepinephrine Bitartrate 8 mg (/ Sodium Chloride) 258 mls @ 10.401 mls/hr IV .Q24H [facility]; Protocol Last Admin: 05/04/20 10:45 Dose: Not Given Documented by: Sodium Chloride (Saline 0.9%) 1,000 mls @ 20 mls/hr IV .Q24H [facility] Last Admin: 05/04/20 12:35 Dose: 20 mls/hr Documented by: Fentanyl Citrate 2,500 mcg/ (Sodium Chloride) 250 mls @ 0 mls/hr IV .Q0M [facility]; Protocol Last Admin: 05/04/20 12:47 Dose: 2 mcg/kg/hr, 21.3 mls/hr Documented by: Insulin Detemir (Insulin Detemir (Levemir) 100 Unit/Ml Syr) 75 unit SQ DAILY@0700 [facility] Last Admin: 05/04/20 06:21 Dose: 75 unit Documented by: Lactulose (Lactulose 20 Gm/30 Ml Cup) 30 gm PO HS [facility] Last Admin: 05/03/20 20:26 Dose: 30 gm Documented by: Levothyroxine Sodium (Levothyroxine 88 Mcg Tab) 88 mcg PO DAILY@0630 [facility] Last Admin: 05/04/20 06:21 Dose: 88 mcg Documented by: Methylprednisolone Sodium Succinate (Methylprednisolone Sod Succi 40 Mg/Ml 1 Ml Vial) 40 mg IV Q6HR [facility] Last Admin: 05/04/20 17:34 Dose: 40 mg Documented by: Miscellaneous Information (Magnesium Replacement Protocol 1 Each Misc) 1 each MISCELLANE DAILY PRN; Protocol PRN Reason: Per Protocol Miscellaneous Information (Potassium Replacement Protocol 1 Each Misc) 1 each MISCELLANE DAILY PRN PRN Reason: Per Protocol Naloxone HCl (Naloxone 0.4 Mg/Ml 1 Ml Vial) 0.2 mg IV Q2M PRN PRN Reason: Opioid Reversal Pantoprazole Sodium (Pantoprazole 40 Mg/10 Ml Vial) 40 mg IVP DAILY [facility] Last Admin: 05/04/20 08:06 Dose: 40 mg Documented by: Zinc Sulfate (Zinc Sulfate 220 Mg Cap) 220 mg PO DAILY [facility] Last Admin: 05/04/20 08:06 Dose: 220 mg Documented by: On examination: VITAL SIGNS: 97.9, 40, 30, 125/56, para 3% on the ventilator GENERAL APPEARANCE: , laying in bed, intubated HEENT: Normal external appearance of nose and ear. Oral cavity ET tube and OG tube PSYCHIATRY: Unable to assess, patient sedated. Rest of the physical exam as per pulmonary/nursing INVESTIGATIONS, reviewed in the clinical context: May 04: WBC 16.5 hemoglobin 10.5 potassium 5.2 creatinine 0.88 April 28: WBC 30.3 hemoglobin 12.1 potassium 4 creatinine 0.85 d-dimer 7.55 CRP 59.4 Potassium 4 creatinine 0.8 CRP 61.5, d-dimer 3.89 Chest x-ray film shows worsening bilateral infiltrates Assessment and plan: -COVID 19 bilateral pneumonia severe causing secondary hypoxic respiratory failure. received Remdesivir, convalescent plasma one unit, Decadron, slowly worsening -Septic shock patient requiring currently off norepinephrine. -Hypothyroid continue with Synthroid -Acute UTI with cystitis secondary to E. coli-IV ceftriaxone-completed course -Essential hypertension, currently blood pressures running low. -Hyperlipidemia -Vitamin D deficiency -Acute hypoxic respiratory failure, intubated on April 27, with ventilator -not improving -Diabetes mellitus type 2, uncontrolled with hyperglycemia ;on insulin drip-slow to respond -Morbid obesity BMI 40.7 -Acute rhabdomyolysis multifactorial -Normocytic anemia, possibly combination of underlying condition and hospital- acquired anemia from blood draw Prognosis not good. Continue current medications.
[2020-05-04] MEDS: LACTULOSE 20 GM/30 ML CUP PO SCH (20:36)
[2020-05-04] MEDS: ATORVASTATIN 40 MG TAB PO SCH (20:36)
[2020-05-04 20:47] LABS: Glucose,Whole Blood 123 mg/dL (75-99)
[2020-05-04 22:15] LABS: Glucose,Whole Blood 157 mg/dL (75-99)
[2020-05-04 23:53] LABS: Glucose,Whole Blood 180 mg/dL (75-99)
[2020-05-04] MEDS: INSULIN REGULAR 100 UNIT in SODIUM CHLORIDE 0.9% 100 ML IV SCH (23:54)
[2020-05-05] MEDS: fentaNYL (PF) 2,500 MCG in SODIUM CHLORIDE 0.9% 200 ML IV SCH ×3 (00:33→22:41)
[2020-05-05 02:04] LABS: Glucose,Whole Blood 131 mg/dL (75-99)
[2020-05-05 04:17] LABS: Glucose,Whole Blood 159 mg/dL (75-99)
[2020-05-05 04:52] LABS: Basophils % (A) 0 %; Eosinophils % (A) 0 %; HCT 29.6 % (34.0-46.0); HGB 9.6 gm/dL (11.4-16.0); Lymphocytes # (A) 0.5 k/uL (1.0-4.8); Lymphocytes % (A) 3 %; MCH 30.2 pg (25.0-35.0); MCHC 32.3 g/dL (31.0-37.0); MCV 93.5 fL (80.0-100.0); Mean Platelet Volume 10.1; Monocytes # (A) 0.6 k/uL (0-1.0); Monocytes % (A) 3 %; Neutrophils # (A) 16.4 k/uL (1.3-7.7); Neutrophils % (A) 93 %; Platelet Count 187 k/uL (150-450); RBC 3.17 m/uL (3.80-5.40); RDW 14.1 % (11.5-15.5); WBC 17.6 k/uL (3.8-10.6)
[2020-05-05 04:56] LABS: ABG Base Excess 8.3 mmol/L; ABG HCO3 34 mmol/L (21-25); ABG Oxygen Saturation 95.7 % (94-97); ABG PCO2 59 mmHg (35-45); ABG PH 7.36 (7.35-7.45); ABG PO2 81 mmHg (83-108); ABG TCO2 36 mmol/L (19-24)
[2020-05-05 05:08] LABS: Albumin 2.4 g/dL (3.5-5.0); C Reactive Protein 61.6 mg/L (<10.0); Calcium 8.2 mg/dL (8.4-10.2); Potassium 5.3 mmol/L (3.5-5.1); Total Bilirubin 0.4 mg/dL (0.2-1.3); Total Protein 4.9 g/dL (6.3-8.2)
[2020-05-05 05:36] LABS: Allen Test Performed? no
[2020-05-05] MEDS: LEVOTHYROXINE 88 MCG TAB PO SCH (06:25)
[2020-05-05] MEDS: methylPREDNISolone SOD SUCCI 40 MG/ML 1 ML VIAL IV SCH ×3 (06:25→19:02)
[2020-05-05 06:34] LABS: Glucose,Whole Blood 158 mg/dL (75-99)
[2020-05-05] MEDS: INSULIN DETEMIR (LEVEMIR) 100 UNIT/ML SYR SQ SCH (06:37)
--- NOTE | 2020-05-05 07:14 | XR ---
EXAMINATION TYPE: XR chest 1V portable DATE OF EXAM: 05/05/2020 COMPARISON: 05/04/2020 HISTORY: Covid TECHNIQUE: Single frontal view of the chest is obtained. FINDINGS: There is diffuse interstitial and partially consolidative opacity essentially unchanged com pared to the prior study. There is a PICC line the SVC/RA junction there is an ET tube and NG tube un changed. IMPRESSION: Diffuse lung infiltrates with essentially no interval change.
[2020-05-05] MEDS: amLODIPine 10 MG TAB PO SCH (08:47)
[2020-05-05] MEDS: CHOLECALCIFEROL 10 MCG (400 IU) TABLET PO SCH (08:47)
[2020-05-05] MEDS: ASCORBIC ACID 500 MG TAB PO SCH (08:47)
[2020-05-05] MEDS: PANTOPRAZOLE 40 MG/10 ML VIAL IVP SCH (08:48)
[2020-05-05] MEDS: ZINC SULFATE 220 MG CAP PO SCH (08:48)
[2020-05-05] MEDS: ENOXAPARIN 60 MG/0.6 ML SYRINGE SQ SCH ×2 (08:48→21:04)
[2020-05-05] MEDS: CHLORHEXIDINE GLUCONATE 15 ML CUP MUCOUS MEM SCH ×2 (08:48→21:04)
[2020-05-05 08:56] LABS: Glucose,Whole Blood 148 mg/dL (75-99)
[2020-05-05 10:47] LABS: Glucose,Whole Blood 159 mg/dL (75-99)
[2020-05-05 12:19] LABS: Glucose,Whole Blood 163 mg/dL (75-99)
[2020-05-05] MEDS: SODIUM CHLORIDE 0.9% 1,000 ML IV SCH (12:24)
--- NOTE | 2020-05-05 12:44 | P.PN ---
Subjective Progress Note Date: 05/05/20 Principal diagnosis: Acute hypoxic respiratory failure with ARDS secondary to covid 19 pneumonitis. This is a pleasant 74-year-old female patient who follows with Dr. Mace as h er primary care physician. She has a history of hypertension, hyperlipidemia, hypothyroidism, depression, chronic tobacco dependence, diabetes mellitus with insulin pump. Yesterday she was brought into the emergency room via EMS after developing progressive weakness over the past week. She was unable to get herself up from a chair. Point of care blood glucose measured by EMS was over 600. Urine was positive for nitrates and 180 WBCs. She was given IV fluid boluses. Ceftriaxone and initiated on a heparin drip and admitted to the selective care unit. White count 8.2. Hemoglobin 13.9. Lymphocytes 0.8. Sodium 132. Potassium initially 6.5, currently 4.8 bicarb 19. Anion gap 17 currently 6. Creatinine 1.99. Improved to 1.43. She was found to be positive for munoz virus by PCR. He is seen today in consultation as her oxygen requirements have increased from 6 L to AirVo this morning. Presently on 60 L and 90% FiO2. Temperature 101.7. She is quite weak and fatigued. Chest x-ray revealing bilateral multifocal acute opacities consistent with CoVID 19 infection. Stat labs revealed a d-dimer of 0.83. LDH 1518. C-reactive protein 143. On today's evaluation of 04/23/2020, the patient remains on a combination of high flow oxygen and 100% nonrebreather facemask. The patient is on high flow oxygen at 60 L with an FiO2 of 90% and the patient is also on 100% nonrebreather facemask. Her pulse ox in the order of 92%. Her previous inflammatory markers including CRP and LDH were quite elevated. Repeat chest x-ray was done today and a chest x-ray was reviewed and revealed bilateral multifocal pulmonary opacities/infiltrates consistent with Covid 19 related pneumonia. The patient's is currently laying down supine in bed. She seems to be comfortable and there is no significant respiratory distress and her current pulse ox in the order of 92%. Upon comparing the chest x-rays, no major interval change compared to yesterday's findings. Meanwhile, the patient had further increase for LVH which is up to 1684 and the CRP is at 139. White cell count of 6.6. The patient is currently on Decadron 6 mg, Remdesivir and she is a #2 of treatment. She is also on anticoagulation and she is receiving not receiving anticoagulation and the d-dimer today is at 1.03. Lovenox will be started. She has no specific complaints. She feels tired. She is alert and orientated 3. She is diabetic and she is on a insulin pump on outpatient basis and currently she is receiving Levemir insulin 30 units daily along with NovoLog 7 units 3 times a day with meals and a sliding scale coverage. Blood sugars are in the 200 range and the patient is not having adequate amount of food. She had an acute kidney injury which recovered and the creatinine is normalized. She has a gram-negative bacillus in her urine and the patient is currently on Rocephin. 7 2020, the patient is still intubated on mechanical ventilation. She got intubated on the 2020 for complications related to COVID 19 related pneumonia and respiratory failure with hypoxic respiratory failure as the patient developed diffuse bilateral pulmonary infiltrates, she failed high flow oxygen, she failed BiPAP and ultimately she had to be intubated and placed on a mechanical ventilator. The patient has a peak airway pressure of 40, static airway pressure is 38, and the patient is headed into ARDS. She was given high- dose Decadron. She was given a definitive convalescent plasma and she was also given Remdesivir unfortunately, her condition progressed and she had to be intubated. This morning, she is sedated with propofol running at 45 mg/kg per minute. She is also paralyzed and the patient was given Nimbex over the past 48 hours and Nimbex is running at 1 mcg/kg per minute. She is an assist-control mode of ventilation at the rate of 26 with a tidal volume of 400 and the feet is currently at 16 with an FiO2 of 75. Her blood gases from today showed a pH of 7.27 with a pCO2 54 and pO2 of 60. The chest x-ray still showing diffuse bilateral pulmonary infiltrates, probably slightly worse and ET tube is in a good location. The patient is also on Lovenox a dose of 50 mg subcutaneous ev giovana 12 hours. Inflammatory markers from today showing a LDH level of 1915 which is slightly lower, her CRP is 45, nevertheless, the patient has developed an acute rhabdomyolysis with a CPK level of 6715. She is also on Lovenox for a d- dimer of 3.51 which is improving compared to yesterday. She is afebrile. She is on low-dose pressors and norepinephrine is running at 0.04 mcg/kg per minute. She has an adequate urine output. Infected urine output dropped yesterday and she was given a liter bolus and she was maintained on normal saline at the rate of 75 an hour. The fluid balance is been +4.8 L over the past 24 hours. She is afebrile. She remains on Rocephin for an E. coli in her urine. She is receiving enteral feeding for nutritional support in the form of vital high protein at the rate of 20 mL an hour. Patient was reevaluated today on 04/29/2020, remains intubated and mechanically ventilated. Patient is on assist control rate of 26, tidal volume of 375 FiO2 is 50% and PEEP is 16. ABG showed a pO2 of 73 pCO2 of 55 pH of 7.30. Hence the patient was maintained on the same ventilator settings. Her on 50% and PEEP of 16. She is on multiple drips including norepinephrine at 0.03 mcg/kg/m. She is on propofol at 40 mcg/kg/m. Fentanyl 1.3 mcg/kg/h. And she went off Nimbex yesterday. Patient is receiving Lasix to keep her dry, and her BNP level is pending echocardiogram is pending only because the chest x-ray showed dramatic improvement overnight, and I'm not really sure whether the patient had significant pulmonary edema or is at the higher PEEP that is causing significant improvement in the chest x-ray appearance. I did order another dose of Lasix to be given. WBC count is 26.2 hemoglobin is 12.2. D-dimer is 3.10 coming down nicely. Electrolytes are normal, bicarb is 27. BUN is 41 and creatinine 0.93. Interleukin-6 was noted to be high at 96.7. C-reactive protein is down to 32.5. LDH is down to 1915 from 2260 2 days ago. Again her chest x-ray did show significant improvement in her bilateral arms. Disease with continued small effusions and atelectasis at the bases. Patient was reevaluated today on 05/01/2020, patient remains in the ICU, intubated and mechanically ventilated. Her ventilator settings are tidal volume of 375, FiO2 is 50%, PEEP is 16. ABG showed a pO2 of 66 pCO2 of 60 pH of 7.28, tidal volume was increased to 400, FiO2 was increased to 55%, patient remains on fentanyl at 1.3 mcg/kg/m, propofol 40 mcg/kg/m, insulin at 8 units per hour. She is on enteral feeding via orogastric tube, tolerating feeding well. Chest x-ray continues to show bilateral infiltrates, labs were reviewed, CPK is improving. Decadron was increased to 6 mg twice a day. C-reactive protein, LDH, and d-dimer were all noted. Her C-reactive protein is down to 23.8, and LDH is 1915 from 2 days ago. WBC count is 21.9 hemoglobin is 11.6. Electrol ytes are normal BUN is 54 creatinine 0.92. Patient was reevaluated today on 05/02/2020, remains in the ICU, intubated and mechanically ventilated, patient was initially intubated on 04/27/2020. patient is on assist control rate of 26, volume is 400, FiO2 was increased to 85% last night because the patient desaturated and she was bradycardic for a brief period of time. She is on assist control rate of 16. ABG showed a pO2 of 76 pCO2 of 61 pH of 7.27. Considering the patient had significantly high peak airway pressure and plateau pressures in the 30s, I recommended cutting down the tidal volume to 375 and increase the rate to 30. Down her FiO2 down to 70%, and will titrate accordingly her FiO2 based on O2 saturation. Patient is on IV fluids KVO, propofol at 60 mcg/kg/m, fentanyl 2 mcg/kg per hour, she is off norepinephrine, and she remains on insulin at 9 units per hour. Chest x-ray c ontinues to show bilateral infiltrates, not much of a change noted in the last few days. CBC is relatively normal, WBC count is coming down nicely to 12.3. Hemoglobin is 9.5. Electrolytes, basic metabolic profile are normal. BUN is 53 creatinine 0.79. CPK continues to trend down to 2128, and her LDH is down to 1331, C-reactive protein is about the same at 30.5 pro calcitonin is 0.08 Patient was reevaluated today on 05/03/2020, remains in the ICU, intubated and mechanically ventilated. Patient is on assist control rate of 130, tidal volume is 375 FiO2 is 100% and PEEP of 16 ABG this morning showed worsening oxygenation in spite of high PEEP and high FiO2. Her pO2 is 61 pCO2 61 pH of 7.31. Patient still requiring propofol at 40 mcg/kg/m, fentanyl 2 mcg/kg/h she is also on insulin at 7 units per hour. She is on enteral feeding at goal. Chest x-ray continues to show worsening bilateral interstitial infiltrates and ARDS. Patient is not doing well, basically I believe the patient is worse now compared to what she was even few days ago. Yesterday I updated her son on her conditi on, and CODE STATUS was changed to DO NOT RESUSCITATE, may even consider comfort care, family is undecided at this point yet. This is yet to be decided upon by her son. CBC showed the risk of 14.3 hemoglobin 9.4. Electrolytes and renal profile are relatively normal. CPK is down to 1434 LDH is down to 1286 and her C-reactive protein is borderline elevated at 37.9. Reevaluated today on 05/04/2020, patient remains in the ICU, intubated and mechanically ventilated. She is on assist control rate of 30 tidal volume 375 FiO2 is up to 80% today, PEEP is at 16. Chest x-ray continues to show worsening infiltrates bilaterally underlying interstitial edema is not entirely ruled out, hence the patient will be given another dose of Lasix this morning at 40 mg IV push. ABG showed a pO2 of 59 pCO2 of 58 pH of 7.35. WBC count is 16.5 hemoglobin is 10.7 LDH is going up to 1690, CPK is 2463 and pro calcitonin 0.08. Again not much change noted in the last 24 hours. Patient remains sedated, she is on the prevent at 50 mcg/kg/m and she is on fentanyl at 2 mcg/kg/h. Patient was reevaluated today on 05/05/2020, remains intubated and mechanically ventilated. Remains on assist control rate of 30 tidal volume is 375 FiO2 is 100%, and PEEP is at 16 which I increased up to 18. ABG on the percent earlier today showed a pO2 of 81 pCO2 of 59 pH of 7.36. Patient remains on fentanyl at 2 mcg/kg/h, propofol at 50 mcg/kg/m, insulin at 30 units per hour. IV fluid at KVO, and she is on enteral feeding vital HPI 28 mL per hour. Basically up to goal. No significant improvement noted in this patient over the last few days, chest x-ray continues to show bilateral interstitial infiltrates. Her overall clinical status is not improving however it is considered to be slightly worse now that she is requiring higher PEEP and high FiO2. Family has been made aware of her condition, and dad still undecided regarding comfort care measures. WBC count today is 17.6 hemoglobin is 9.6. BUN is 56 creatinine 0.86 bicarb is 36, potassium is 5.3 inflammatory markers remain high but bit better compared to the last few days LDH was 1690 yesterday. CPK is down to 1394 and pro calcitonin is 0.08 Objective - Vital Signs Vital signs: Vital Signs Temp 98.3 F 05/05/20 06:00 Pulse 79 05/05/20 06:59 Resp 30 H 05/05/20 06:59 BP 131/61 05/04/20 22:00 Pulse Ox 93 L 05/05/20 06:59 Intake & Output 05/04/20 05/05/20 05/05/20 18:59 06:59 18:59 Intake Total 9531.019 9634.638 601.907 Output Total 1990 975 150 Balance -710.020 380.638 451.907 Weight 106.5 kg Intake: IV 338 303 46 Sodium Chloride 0.9% 1, 260 240 40 000 ml @ 20 mls/hr IV . Q24H [facility] Rx#:[id number] a-line flush 78 63 6 Intake, IV Titration 495.980 659.638 469.907 Amount Insulin Regular 100 unit 42.740 27.523 24.492 In Sodium Chloride 0.9% 100 ml @ Per Protocol IV .Q0M [facility] Rx#:[id number] fentaNYL (PF) 1,000 mcg 84.969 In Sodium Chloride 0.9% 80 ml @ Per Protocol IV . Q0M [facility] Rx#:[id number] fentaNYL (PF) 2,500 mcg 250 247.435 In Sodium Chloride 0.9% 200 ml @ Per Protocol IV .Q0M [facility] Rx#:[id number] propofoL 1,000 mg In 368.271 382.115 197.98 Empty Bag 1 bag @ Titrate IV .Q0M [facility] Rx#: [id number] Oral 40 Tube Feeding 316 333 56 Other 90 60 30 Output: Urine 1989 975 150 Other: Voiding Method Indwelling Catheter Indwelling Catheter Indwelling Catheter ABP, PAP, CO, CI - Last Documented Arterial Blood Pressure 130/43 - Exam GENERAL EXAM: Revealed 74-year-old female intubated, mechanically ventilated, sedated, calm. On fentanyl and propofol. HEAD: Normocephalic. Endotracheal tube and orogastric tube are intact. EYES: Normal reaction of pupils, equal size. NOSE: Clear with pink turbinates. THROAT: No erythema or exudates. NECK: No masses, no JVD. CHEST: No chest wall deformity. LUNGS: Bilateral scattered rhonchi. Noted mostly at the bases bilaterally. CVS: S1 and S2 normal with no audible murmur, regular rhythm. ABDOMEN: Flat soft nontender no megaly no rebound no guarding. SKIN: No rashes CENTRAL NERVOUS : Could not be assessed. Patient is quite sedated. Extremities: No clubbing, no edema or cyanosis - Labs CBC & Chem 7: 05/05/20 04:25 05/05/20 04:25 Labs: Abnormal Lab Results - Last 24 Hours (Table) 05/04/20 05/04/20 05/04/20 Range/Units 12:56 13:30 16:11 WBC (3.8-10.6) k/uL RBC (3.80-5.40) m/uL Hgb (11.4-16.0) gm/dL Hct (34.0-46.0) % Neutrophils # (1.3-7.7) k/uL Lymphocytes # (1.0-4.8) k/uL ABG pCO2 (35-45) mmHg ABG pO2 (83-108) mmHg ABG HCO3 (21-25) mmol/L ABG Total CO2 (19-24) mmol/L Potassium (3.5-5.1) mmol/L Carbon Dioxide (22-30) mmol/L BUN (7-17) mg/dL Glucose (74-99) mg/dL POC Glucose (mg/dL) 148 H 151 H 137 H (75-99) mg/dL Calcium (8.4-10.2) mg/dL AST (14-36) U/L ALT (4-34) U/L Creatine Kinase (30-135) U/L C-Reactive Protein (<10.0) mg/L Total Protein (6.3-8.2) g/dL Albumin (3.5-5.0) g/dL 05/04/20 05/04/20 05/04/20 Range/Units 17:36 17:57 20:46 WBC (3.8-10.6) k/uL RBC (3.80-5.40) m/uL Hgb (11.4-16.0) gm/dL Hct (34.0-46.0) % Neutrophils # (1.3-7.7) k/uL Lymphocytes # (1.0-4.8) k/uL ABG pCO2 (35-45) mmHg ABG pO2 (83-108) mmHg ABG HCO3 (21-25) mmol/L ABG Total CO2 (19-24) mmol/L Potassium (3.5-5.1) mmol/L Carbon Dioxide (22-30) mmol/L BUN (7-17) mg/dL Glucose (74-99) mg/dL POC Glucose (mg/dL) 148 H 166 H 123 H (75-99) mg/dL Calcium (8.4-10.2) mg/dL AST (14-36) U/L ALT (4-34) U/L Creatine Kinase (30-135) U/L C-Reactive Protein (<10.0) mg/L Total Protein (6.3-8.2) g/dL Albumin (3.5-5.0) g/dL 05/04/20 05/04/20 05/05/20 Range/Units 22:14 23:52 02:03 WBC (3.8-10.6) k/uL RBC (3.80-5.40) m/uL Hgb (11.4-16.0) gm/dL Hct (34.0-46.0) % Neutrophils # (1.3-7.7) k/uL Lymphocytes # (1.0-4.8) k/uL ABG pCO2 (35-45) mmHg ABG pO2 (83-108) mmHg ABG HCO3 (21-25) mmol/L ABG Total CO2 (19-24) mmol/L Potassium (3.5-5.1) mmol/L Carbon Dioxide (22-30) mmol/L BUN (7-17) mg/dL Glucose (74-99) mg/dL POC Glucose (mg/dL) 157 H 180 H 131 H (75-99) mg/dL Calcium (8.4-10.2) mg/dL AST (14-36) U/L ALT (4-34) U/L Creatine Kinase (30-135) U/L C-Reactive Protein (<10.0) mg/L Total Protein (6.3-8.2) g/dL Albumin (3.5-5.0) g/dL 05/05/20 05/05/20 05/05/20 Range/Units 04:15 04:25 04:25 WBC 17.6 H (3.8-10.6) k/uL RBC 3.17 L (3.80-5.40) m/uL Hgb 9.6 L (11.4-16.0) gm/dL Hct 29.6 L (34.0-46.0) % Neutrophils # 16.4 H (1.3-7.7) k/uL Lymphocytes # 0.5 L (1.0-4.8) k/uL ABG pCO2 (35-45) mmHg ABG pO2 (83-108) mmHg ABG HCO3 (21-25) mmol/L ABG Total CO2 (19-24) mmol/L Potassium 5.3 H (3.5-5.1) mmol/L Carbon Dioxide 36 H (22-30) mmol/L BUN 56 H (7-17) mg/dL Glucose 175 H (74-99) mg/dL POC Glucose (mg/dL) 159 H (75-99) mg/dL Calcium 8.2 L (8.4-10.2) mg/dL AST 102 H (14-36) U/L ALT 55 H (4-34) U/L Creatine Kinase 1394 H* (30-135) U/L C-Reactive Protein 61.6 H (<10.0) mg/L Total Protein 4.9 L (6.3-8.2) g/dL Albumin 2.4 L (3.5-5.0) g/dL 03/13/21 03/13/21 03/13/21 Range/Units 04:56 06:33 08:54 WBC (3.8-10.6) k/uL RBC (3.80-5.40) m/uL Hgb (11.4-16.0) gm/dL Hct (34.0-46.0) % Neutrophils # (1.3-7.7) k/uL Lymphocytes # (1.0-4.8) k/uL ABG pCO2 59 H (35-45) mmHg ABG pO2 81 L (83-108) mmHg ABG HCO3 34 H (21-25) mmol/L ABG Total CO2 36 H (19-24) mmol/L Potassium (3.5-5.1) mmol/L Carbon Dioxide (22-30) mmol/L BUN (7-17) mg/dL Glucose (74-99) mg/dL POC Glucose (mg/dL) 158 H 148 H (75-99) mg/dL Calcium (8.4-10.2) mg/dL AST (14-36) U/L ALT (4-34) U/L Creatine Kinase (30-135) U/L C-Reactive Protein (<10.0) mg/L Total Protein (6.3-8.2) g/dL Albumin (3.5-5.0) g/dL 05/05/20 05/05/20 Range/Units 10:47 12:18 WBC (3.8-10.6) k/uL RBC (3.80-5.40) m/uL Hgb (11.4-16.0) gm/dL Hct (34.0-46.0) % Neutrophils # (1.3-7.7) k/uL Lymphocytes # (1.0-4.8) k/uL ABG pCO2 (35-45) mmHg ABG pO2 (83-108) mmHg ABG HCO3 (21-25) mmol/L ABG Total CO2 (19-24) mmol/L Potassium (3.5-5.1) mmol/L Carbon Dioxide (22-30) mmol/L BUN (7-17) mg/dL Glucose (74-99) mg/dL POC Glucose (mg/dL) 159 H 163 H (75-99) mg/dL Calcium (8.4-10.2) mg/dL AST (14-36) U/L ALT (4-34) U/L Creatine Kinase (30-135) U/L C-Reactive Protein (<10.0) mg/L Total Protein (6.3-8.2) g/dL Albumin (3.5-5.0) g/dL Assessment and Plan Assessment: Impression: Acute hypoxic respiratory failure secondary to covid 19 pneumonitis and ARDS. Still on high PEEP and high FiO2, intubated on 04/27. Acute covid 19 pneumonia, patient completed remdesivir, Solu-Medrol, and she received 1 unit of convalescent plasma. Elevated inflammatory markers secondary to above. No significant clinical improvement in spite of improvement in her inflammatory markers. Acute urinary tract infection secondary to E. coli. Treated fully with Rocephin. Type 2 diabetes. Patient has insulin pump on outpatient basis. Benign essential hypertension. Suspect some component of acute diastolic congestive heart failure, echocardiogram showed good LV function. Mild rhabdomyolysis with elevation of CPK levels. History of vitamin D deficiency. Recommendation: Continue DO NOT RESUSCITATE CODE STATUS. Family will seriously consider comfort care measures. Continue ventilatory support. Continue sedation. Continue nutritional support. Continue GI and DVT prophylaxis/remains on Lovenox 50 mg subcu twice a day. Continue Solu-Medrol. Continue to monitor inflammatory markers and to monitor CPK. As well as renal p sara Completed a total of 5 day course of remdesivir and 1 unit of convalescent plasma. Continue insulin as per protocol Increase PEEP to 18. Patient remains critically ill, prognosis is guarded. Critical care time is over 30 minutes Time with Patient: Greater than 30
[2020-05-05 14:25] LABS: Glucose,Whole Blood 140 mg/dL (75-99)
[2020-05-05 16:12] LABS: Glucose,Whole Blood 141 mg/dL (75-99)
[2020-05-05 18:58] LABS: Glucose,Whole Blood 151 mg/dL (75-99)
[2020-05-05] MEDS: LACTULOSE 20 GM/30 ML CUP PO SCH (21:04)
[2020-05-05] MEDS: ATORVASTATIN 40 MG TAB PO SCH (21:04)
[2020-05-05 21:37] LABS: Glucose,Whole Blood 169 mg/dL (75-99)
--- NOTE | 2020-05-05 22:16 | PN ---
PROGRESS NOTE DATE OF SERVICE: 05/05/2020 REASON FOR FOLLOWUP: Pneumonia and leukocytosis. INTERVAL HISTORY: The patient is currently afebrile. The patient is hemodynamically stable, not on pressor support. FiO2 is currently at 85%. No significant purulent secretions through the ET or any other changes reported by the nursing staff. PHYSICAL EXAMINATION: Her blood pressure 123/40 with a pulse of 50, temperature 99. She is 93% on 80% FIO2. General description is an elderly female lying in bed in no distress. Respiratory system: Unlabored breathing, decreased breath sounds at bases. No wheeze. HEART: S1, S2. Regular rate and rhythm. ABDOMEN: Soft, no tenderness. LABS: White count is up to 17,000.. DIAGNOSTIC IMPRESSION/PLAN: 1. This patient with acute respiratory failure, multifactorial in this patient who did have a component of pulmonary infection possible ARDS, currently treated on Solu Medrol along with respiratory support and zinc. 2. Elevated white count more likely steroid related as clinically no new evidence of any worsening infection. MMODL / IJN: [id number] / IRMA
--- NOTE | 2020-05-05 23:25 | P.PN ---
Progress Note - Text Progress Note Date: 05/05/20 History of presenting complaint: Patient was admitted with severe COVID 19 pneumonia, acute hypoxic respiratory failure. Patient was intubated. Patient not be responding well. Dr. lanier spoke to family/son. Patient made DO NOT RESUSCITATE Today-ICU Endotracheal tube and OG tube. Drips include insulin, fentanyl, propofol Telemetry shows sinus rhythm. Tube feeding Ventilator: FiO2 80% and a PEEP of 16. Patient has been having episodes of bradycardia. Overnight again patient had required 100% FiO2. Progress review of systems cannot be done, patient intubated Active Medications Acetaminophen (Acetaminophen Tab 325 Mg Tab) 650 mg PO Q6HR PRN PRN Reason: Mild Pain or Fever > 100.5 Last Admin: 04/23/20 20:48 Dose: 650 mg Documented by: Amlodipine Besylate (Amlodipine 10 Mg Tab) 10 mg PO DAILY [facility] Last Admin: 05/05/20 08:47 Dose: 10 mg Documented by: Ascorbic Acid (Ascorbic Acid 500 Mg Tab) 1,000 mg PO DAILY [facility] Last Admin: 05/05/20 08:47 Dose: 1,000 mg Documented by: Atorvastatin Calcium (Atorvastatin 40 Mg Tab) 40 mg PO HS [facility] Last Admin: 05/05/20 21:04 Dose: 40 mg Documented by: Chlorhexidine Gluconate (Chlorhexidine Gluconate 15 Ml Cup) 15 ml MUCOUS MEM BID [facility] Last Admin: 05/05/20 21:04 Dose: 15 ml Documented by: Cholecalciferol (Cholecalciferol 10 Mcg (400 Iu) Tablet) 10 mcg PO DAILY [facility] Last Admin: 05/05/20 08:47 Dose: 10 mcg Documented by: Enoxaparin Sodium (Enoxaparin 60 Mg/0.6 Ml Syringe) 50 mg SQ BID [facility] Last Admin: 05/05/20 21:04 Dose: 50 mg Documented by: Propofol 1,000 mg/ IV Solution 100 mls @ 0 mls/hr IV .Q0M [facility]; Protocol Last Admin: 05/05/20 21:04 Dose: 50 mcg/kg/min, 31.95 mls/hr Documented by: Insulin Human Regular 100 unit (/ Sodium Chloride) 101 mls @ 0 mls/hr IV .Q0M [facility]; Protocol Last Titration: 05/05/20 14:25 Dose: 3 units/hr, 3.03 mls/hr Documented by: Sodium Chloride (Saline 0.9%) 1,000 mls @ 20 mls/hr IV .Q24H [facility] Last Admin: 05/05/20 12:24 Dose: Not Given Documented by: Fentanyl Citrate 2,500 mcg/ (Sodium Chloride) 250 mls @ 0 mls/hr IV .Q0M [facility]; Protocol Last Admin: 05/05/20 22:41 Dose: 2 mcg/kg/hr, 21.3 mls/hr Documented by: Insulin Detemir (Insulin Detemir (Levemir) 100 Unit/Ml Syr) 75 unit SQ DAILY@0700 [facility] Last Admin: 05/05/20 06:37 Dose: 75 unit Documented by: Lactulose (Lactulose 20 Gm/30 Ml Cup) 30 gm PO HS [facility] Last Admin: 05/05/20 21:04 Dose: 30 gm Documented by: Levothyroxine Sodium (Levothyroxine 88 Mcg Tab) 88 mcg PO DAILY@0630 [facility] Last Admin: 05/05/20 06:25 Dose: 88 mcg Documented by: Methylprednisolone Sodium Succinate (Methylprednisolone Sod Succi 40 Mg/Ml 1 Ml Vial) 40 mg IV Q6HR [facility] Last Admin: 05/05/20 19:02 Dose: Not Given Documented by: Miscellaneous Information (Magnesium Replacement Protocol 1 Each Misc) 1 each MISCELLANE DAILY PRN; Protocol PRN Reason: Per Protocol Miscellaneous Information (Potassium Replacement Protocol 1 Each Misc) 1 each MISCELLANE DAILY PRN PRN Reason: Per Protocol Naloxone HCl (Naloxone 0.4 Mg/Ml 1 Ml Vial) 0.2 mg IV Q2M PRN PRN Reason: Opioid Reversal Pantoprazole Sodium (Pantoprazole 40 Mg/10 Ml Vial) 40 mg IVP DAILY [facility] Last Admin: 05/05/20 08:48 Dose: 40 mg Documented by: Zinc Sulfate (Zinc Sulfate 220 Mg Cap) 220 mg PO DAILY [facility] Last Admin: 05/05/20 08:48 Dose: 220 mg Documented by: On examination: VITAL SIGNS: 98.8, 50, 30, 1 22 x 40, 95% on the ventilator GENERAL APPEARANCE: , laying in bed, intubated HEENT: Normal external appearance of nose and ear. Oral cavity ET tube and OG tube PSYCHIATRY: Unable to assess, patient sedated. Rest of the physical exam as per pulmonary/nursing INVESTIGATIONS, reviewed in the clinical context: May 05: WBC [age]-year-old woman 9.6 platelets 187 potassium 5.3 creatinine 0.86 CRP 61.6 May 04: WBC 16.5 hemoglobin 10.5 potassium 5.2 creatinine 0.88 April 28: WBC 30.3 hemoglobin 12.1 potassium 4 creatinine 0.85 d-dimer 7.55 CRP 59.4 Potassium 4 creatinine 0.8 CRP 61.5, d-dimer 3.89 Chest x-ray film shows worsening bilateral infiltrates Assessment and plan: -COVID 19 bilateral pneumonia severe causing secondary hypoxic respiratory failure. received Remdesivir, convalescent plasma one unit, Decadron, slowly worsening -Septic shock patient requiring currently off norepinephrine. -Hypothyroid continue with Synthroid -Acute UTI with cystitis secondary to E. coli-IV ceftriaxone-completed course -Essential hypertension, currently blood pressures running low. -Hyperlipidemia -Vitamin D deficiency -Acute hypoxic respiratory failure, intubated on April 27, with ventilator -not improving -Diabetes mellitus type 2, uncontrolled with hyperglycemia ;on insulin drip-slow to respond -Morbid obesity BMI 40.7 -Acute rhabdomyolysis multifactorial -Normocytic anemia, possibly combination of underlying condition and hospital- acquired anemia from blood draw -DO NOT RESUSCITATE Prognosis not good. Continue current medications.
[2020-05-06] MEDS: methylPREDNISolone SOD SUCCI 40 MG/ML 1 ML VIAL IV SCH ×3 (00:01→12:10)
[2020-05-06 00:10] LABS: Glucose,Whole Blood 162 mg/dL (75-99)
[2020-05-06 01:55] LABS: Glucose,Whole Blood 166 mg/dL (75-99)
[2020-05-06 04:49] LABS: Glucose,Whole Blood 177 mg/dL (75-99)
[2020-05-06 05:02] LABS: Basophils # (A) 0.1 k/uL (0-0.2); Basophils % (A) 0 %; Eosinophils % (A) 0 %; HCT 28.6 % (34.0-46.0); HGB 9.4 gm/dL (11.4-16.0); Lymphocytes # (A) 0.4 k/uL (1.0-4.8); Lymphocytes % (A) 2 %; MCHC 32.8 g/dL (31.0-37.0); MCV 94.4 fL (80.0-100.0); Mean Platelet Volume 10.4; Monocytes # (A) 0.8 k/uL (0-1.0); Monocytes % (A) 5 %; Neutrophils # (A) 16.8 k/uL (1.3-7.7); Neutrophils % (A) 92 %; Platelet Count 172 k/uL (150-450); RBC 3.03 m/uL (3.80-5.40); RDW 13.8 % (11.5-15.5); WBC 18.3 k/uL (3.8-10.6)
[2020-05-06 05:13] LABS: ABG Base Excess 9.1 mmol/L; ABG HCO3 35 mmol/L (21-25); ABG Oxygen Saturation 95.9 % (94-97); ABG PCO2 63 mmHg (35-45); ABG PH 7.35 (7.35-7.45); ABG PO2 80 mmHg (83-108); ABG TCO2 37 mmol/L (19-24); Allen Test Performed? Yes
[2020-05-06 05:36] LABS: Albumin 2.4 g/dL (3.5-5.0); Calcium 8.4 mg/dL (8.4-10.2); Potassium 5.3 mmol/L (3.5-5.1); Total Bilirubin 0.4 mg/dL (0.2-1.3); Total Protein 4.9 g/dL (6.3-8.2)
[2020-05-06] MEDS: LEVOTHYROXINE 88 MCG TAB PO SCH (06:37)
[2020-05-06] MEDS: INSULIN DETEMIR (LEVEMIR) 100 UNIT/ML SYR SQ SCH (06:45)
[2020-05-06 06:46] LABS: Glucose,Whole Blood 168 mg/dL (75-99)
--- NOTE | 2020-05-06 06:55 | XR ---
EXAMINATION TYPE: XR chest 1V portable DATE OF EXAM: 05/06/2020 COMPARISON: 05/05/2020 HISTORY: Shortness of breath TECHNIQUE: Single frontal view of the chest is obtained. FINDINGS ET tube 5 cm above the pollo. Central venous catheter tip in junction and NG tube stomach. No change in the diffuse predominantly interstitial opacity in the mid and upper lung zones. No harry e in the bibasilar opacities most likely a combination of atelectasis and/or airspace consolidation w ith pleural effusion. IMPRESSION: No significant interval change in lung infiltrates and effusions.
[2020-05-06] MEDS: CHOLECALCIFEROL 10 MCG (400 IU) TABLET PO SCH (08:22)
[2020-05-06] MEDS: ASCORBIC ACID 500 MG TAB PO SCH (08:22)
[2020-05-06] MEDS: ZINC SULFATE 220 MG CAP PO SCH (08:22)
[2020-05-06] MEDS: CHLORHEXIDINE GLUCONATE 15 ML CUP MUCOUS MEM SCH (08:22)
[2020-05-06] MEDS: INSULIN REGULAR 100 UNIT in SODIUM CHLORIDE 0.9% 100 ML IV SCH (08:23)
[2020-05-06] MEDS: amLODIPine 10 MG TAB PO SCH (08:23)
[2020-05-06] MEDS: PANTOPRAZOLE 40 MG/10 ML VIAL IVP SCH (08:23)
[2020-05-06] MEDS: ENOXAPARIN 60 MG/0.6 ML SYRINGE SQ SCH (08:23)
[2020-05-06 08:40] LABS: Glucose,Whole Blood 198 mg/dL (75-99)
[2020-05-06 10:10] VITALS: RESP 30
[2020-05-06 10:30] LABS: Glucose,Whole Blood 209 mg/dL (75-99)
[2020-05-06] MEDS: SODIUM CHLORIDE 0.9% 1,000 ML IV SCH (12:16)
[2020-05-06 12:18] VITALS: TEMP 98.6
[2020-05-06] MEDS: fentaNYL (PF) 2,500 MCG in SODIUM CHLORIDE 0.9% 200 ML IV SCH (12:31)
[2020-05-06 13:09] VITALS: BP 136/58; PULSE 57
[2020-05-06] MEDS: MORPHINE SULFATE 2 MG/ML SYRINGE IV PRN ×2 (13:21→13:49)
--- NOTE | 2020-05-06 14:11 | P.PN ---
Subjective Progress Note Date: 05/06/20 Principal diagnosis: Acute hypoxic respiratory failure with ARDS secondary to covid 19 pneumonitis. This is a pleasant 74-year-old female patient who follows with Dr. Mace as h er primary care physician. She has a history of hypertension, hyperlipidemia, hypothyroidism, depression, chronic tobacco dependence, diabetes mellitus with insulin pump. Yesterday she was brought into the emergency room via EMS after developing progressive weakness over the past week. She was unable to get herself up from a chair. Point of care blood glucose measured by EMS was over 600. Urine was positive for nitrates and 180 WBCs. She was given IV fluid boluses. Ceftriaxone and initiated on a heparin drip and admitted to the selective care unit. White count 8.2. Hemoglobin 13.9. Lymphocytes 0.8. Sodium 132. Potassium initially 6.5, currently 4.8 bicarb 19. Anion gap 17 currently 6. Creatinine 1.99. Improved to 1.43. She was found to be positive for munoz virus by PCR. He is seen today in consultation as her oxygen requirements have increased from 6 L to AirVo this morning. Presently on 60 L and 90% FiO2. Temperature 101.7. She is quite weak and fatigued. Chest x-ray revealing bilateral multifocal acute opacities consistent with CoVID 19 infection. Stat labs revealed a d-dimer of 0.83. LDH 1518. C-reactive protein 143. On today's evaluation of 04/23/2020, the patient remains on a combination of high flow oxygen and 100% nonrebreather facemask. The patient is on high flow oxygen at 60 L with an FiO2 of 90% and the patient is also on 100% nonrebreather facemask. Her pulse ox in the order of 92%. Her previous inflammatory markers including CRP and LDH were quite elevated. Repeat chest x-ray was done today and a chest x-ray was reviewed and revealed bilateral multifocal pulmonary opacities/infiltrates consistent with Covid 19 related pneumonia. The patient's is currently laying down supine in bed. She seems to be comfortable and there is no significant respiratory distress and her current pulse ox in the order of 92%. Upon comparing the chest x-rays, no major interval change compared to yesterday's findings. Meanwhile, the patient had further increase for LVH which is up to 1684 and the CRP is at 139. White cell count of 6.6. The patient is currently on Decadron 6 mg, Remdesivir and she is a #2 of treatment. She is also on anticoagulation and she is receiving not receiving anticoagulation and the d-dimer today is at 1.03. Lovenox will be started. She has no specific complaints. She feels tired. She is alert and orientated 3. She is diabetic and she is on a insulin pump on outpatient basis and currently she is receiving Levemir insulin 30 units daily along with NovoLog 7 units 3 times a day with meals and a sliding scale coverage. Blood sugars are in the 200 range and the patient is not having adequate amount of food. She had an acute kidney injury which recovered and the creatinine is normalized. She has a gram-negative bacillus in her urine and the patient is currently on Rocephin. 7 2020, the patient is still intubated on mechanical ventilation. She got intubated on the 2020 for complications related to COVID 19 related pneumonia and respiratory failure with hypoxic respiratory failure as the patient developed diffuse bilateral pulmonary infiltrates, she failed high flow oxygen, she failed BiPAP and ultimately she had to be intubated and placed on a mechanical ventilator. The patient has a peak airway pressure of 40, static airway pressure is 38, and the patient is headed into ARDS. She was given high- dose Decadron. She was given a definitive convalescent plasma and she was also given Remdesivir unfortunately, her condition progressed and she had to be intubated. This morning, she is sedated with propofol running at 45 mg/kg per minute. She is also paralyzed and the patient was given Nimbex over the past 48 hours and Nimbex is running at 1 mcg/kg per minute. She is an assist-control mode of ventilation at the rate of 26 with a tidal volume of 400 and the feet is currently at 16 with an FiO2 of 75. Her blood gases from today showed a pH of 7.27 with a pCO2 54 and pO2 of 60. The chest x-ray still showing diffuse bilateral pulmonary infiltrates, probably slightly worse and ET tube is in a good location. The patient is also on Lovenox a dose of 50 mg subcutaneous ev giovana 12 hours. Inflammatory markers from today showing a LDH level of 1915 which is slightly lower, her CRP is 45, nevertheless, the patient has developed an acute rhabdomyolysis with a CPK level of 6715. She is also on Lovenox for a d- dimer of 3.51 which is improving compared to yesterday. She is afebrile. She is on low-dose pressors and norepinephrine is running at 0.04 mcg/kg per minute. She has an adequate urine output. Infected urine output dropped yesterday and she was given a liter bolus and she was maintained on normal saline at the rate of 75 an hour. The fluid balance is been +4.8 L over the past 24 hours. She is afebrile. She remains on Rocephin for an E. coli in her urine. She is receiving enteral feeding for nutritional support in the form of vital high protein at the rate of 20 mL an hour. Patient was reevaluated today on 04/29/2020, remains intubated and mechanically ventilated. Patient is on assist control rate of 26, tidal volume of 375 FiO2 is 50% and PEEP is 16. ABG showed a pO2 of 73 pCO2 of 55 pH of 7.30. Hence the patient was maintained on the same ventilator settings. Her on 50% and PEEP of 16. She is on multiple drips including norepinephrine at 0.03 mcg/kg/m. She is on propofol at 40 mcg/kg/m. Fentanyl 1.3 mcg/kg/h. And she went off Nimbex yesterday. Patient is receiving Lasix to keep her dry, and her BNP level is pending echocardiogram is pending only because the chest x-ray showed dramatic improvement overnight, and I'm not really sure whether the patient had significant pulmonary edema or is at the higher PEEP that is causing significant improvement in the chest x-ray appearance. I did order another dose of Lasix to be given. WBC count is 26.2 hemoglobin is 12.2. D-dimer is 3.10 coming down nicely. Electrolytes are normal, bicarb is 27. BUN is 41 and creatinine 0.93. Interleukin-6 was noted to be high at 96.7. C-reactive protein is down to 32.5. LDH is down to 1915 from 2260 2 days ago. Again her chest x-ray did show significant improvement in her bilateral arms. Disease with continued small effusions and atelectasis at the bases. Patient was reevaluated today on 05/01/2020, patient remains in the ICU, intubated and mechanically ventilated. Her ventilator settings are tidal volume of 375, FiO2 is 50%, PEEP is 16. ABG showed a pO2 of 66 pCO2 of 60 pH of 7.28, tidal volume was increased to 400, FiO2 was increased to 55%, patient remains on fentanyl at 1.3 mcg/kg/m, propofol 40 mcg/kg/m, insulin at 8 units per hour. She is on enteral feeding via orogastric tube, tolerating feeding well. Chest x-ray continues to show bilateral infiltrates, labs were reviewed, CPK is improving. Decadron was increased to 6 mg twice a day. C-reactive protein, LDH, and d-dimer were all noted. Her C-reactive protein is down to 23.8, and LDH is 1915 from 2 days ago. WBC count is 21.9 hemoglobin is 11.6. Electrol ytes are normal BUN is 54 creatinine 0.92. Patient was reevaluated today on 05/02/2020, remains in the ICU, intubated and mechanically ventilated, patient was initially intubated on 04/27/2020. patient is on assist control rate of 26, volume is 400, FiO2 was increased to 85% last night because the patient desaturated and she was bradycardic for a brief period of time. She is on assist control rate of 16. ABG showed a pO2 of 76 pCO2 of 61 pH of 7.27. Considering the patient had significantly high peak airway pressure and plateau pressures in the 30s, I recommended cutting down the tidal volume to 375 and increase the rate to 30. Down her FiO2 down to 70%, and will titrate accordingly her FiO2 based on O2 saturation. Patient is on IV fluids KVO, propofol at 60 mcg/kg/m, fentanyl 2 mcg/kg per hour, she is off norepinephrine, and she remains on insulin at 9 units per hour. Chest x-ray c ontinues to show bilateral infiltrates, not much of a change noted in the last few days. CBC is relatively normal, WBC count is coming down nicely to 12.3. Hemoglobin is 9.5. Electrolytes, basic metabolic profile are normal. BUN is 53 creatinine 0.79. CPK continues to trend down to 2128, and her LDH is down to 1331, C-reactive protein is about the same at 30.5 pro calcitonin is 0.08 Patient was reevaluated today on 05/03/2020, remains in the ICU, intubated and mechanically ventilated. Patient is on assist control rate of 130, tidal volume is 375 FiO2 is 100% and PEEP of 16 ABG this morning showed worsening oxygenation in spite of high PEEP and high FiO2. Her pO2 is 61 pCO2 61 pH of 7.31. Patient still requiring propofol at 40 mcg/kg/m, fentanyl 2 mcg/kg/h she is also on insulin at 7 units per hour. She is on enteral feeding at goal. Chest x-ray continues to show worsening bilateral interstitial infiltrates and ARDS. Patient is not doing well, basically I believe the patient is worse now compared to what she was even few days ago. Yesterday I updated her son on her conditi on, and CODE STATUS was changed to DO NOT RESUSCITATE, may even consider comfort care, family is undecided at this point yet. This is yet to be decided upon by her son. CBC showed the risk of 14.3 hemoglobin 9.4. Electrolytes and renal profile are relatively normal. CPK is down to 1434 LDH is down to 1286 and her C-reactive protein is borderline elevated at 37.9. Reevaluated today on 05/04/2020, patient remains in the ICU, intubated and mechanically ventilated. She is on assist control rate of 30 tidal volume 375 FiO2 is up to 80% today, PEEP is at 16. Chest x-ray continues to show worsening infiltrates bilaterally underlying interstitial edema is not entirely ruled out, hence the patient will be given another dose of Lasix this morning at 40 mg IV push. ABG showed a pO2 of 59 pCO2 of 58 pH of 7.35. WBC count is 16.5 hemoglobin is 10.7 LDH is going up to 1690, CPK is 2463 and pro calcitonin 0.08. Again not much change noted in the last 24 hours. Patient remains sedated, she is on the prevent at 50 mcg/kg/m and she is on fentanyl at 2 mcg/kg/h. Patient was reevaluated today on 05/05/2020, remains intubated and mechanically ventilated. Remains on assist control rate of 30 tidal volume is 375 FiO2 is 100%, and PEEP is at 16 which I increased up to 18. ABG on the percent earlier today showed a pO2 of 81 pCO2 of 59 pH of 7.36. Patient remains on fentanyl at 2 mcg/kg/h, propofol at 50 mcg/kg/m, insulin at 30 units per hour. IV fluid at KVO, and she is on enteral feeding vital HPI 28 mL per hour. Basically up to goal. No significant improvement noted in this patient over the last few days, chest x-ray continues to show bilateral interstitial infiltrates. Her overall clinical status is not improving however it is considered to be slightly worse now that she is requiring higher PEEP and high FiO2. Family has been made aware of her condition, and dad still undecided regarding comfort care measures. WBC count today is 17.6 hemoglobin is 9.6. BUN is 56 creatinine 0.86 bicarb is 36, potassium is 5.3 inflammatory markers remain high but bit better compared to the last few days LDH was 1690 yesterday. CPK is down to 1394 and pro calcitonin is 0.08 Patient was reevaluated today on 05/06/2020, remains in the ICU, intubated and mechanically ventilated. She is now on assist control rate of 30 tidal volume is 375 FiO2 is 80% PEEP 18 ABG showed a pO2 of 80 pCO2 of 63 pH of 7.35. Remains on propofol at 50 mcg/kg/m, fentanyl at 2 mcg/kg/h, insulin at 6 units per hour. Remains on Solu-Medrol. And yesterday the PEEP was increased to 18. Minimal improvement in her ABG, but her FiO2 was also increased to 80%, and I cut it down to 70% today. Patient remains on enteral feeding, using vital HP 28 mL's per hour up to goal. Patient remains on GI and DVT prophylaxis chest x-ray continues to show bilateral interstitial infiltrates. CBC and basic metabolic profile are basically unremarkable. BUN is 58 creatinine 0.93. WBC count is 18.3 hemoglobin is 9.4 Objective - Vital Signs Vital signs: Vital Signs Temp 98.6 F 05/06/20 12:00 Pulse 57 L 05/06/20 13:00 Resp 30 H 05/06/20 13:00 BP 136/58 05/06/20 13:00 Pulse Ox 91 L 05/06/20 13:00 Intake & Output 05/05/20 05/06/20 05/06/20 17:59 06:59 18:59 Intake Total 700.720 Output Total 391 Balance 309.720 Weight Intake: IV 138 Sodium Chloride 0.9% 1, 120 000 ml @ 20 mls/hr IV . Q24H [facility] Rx#:[id number] a-line flush 18 Intake, IV Titration 478.720 Amount Insulin Regular 100 unit 30.097 In Sodium Chloride 0.9% 100 ml @ Per Protocol IV .Q0M [facility] Rx#:[id number] fentaNYL (PF) 2,500 mcg 250 In Sodium Chloride 0.9% 200 ml @ Per Protocol IV .Q0M [facility] Rx#:[id number] propofoL 1,000 mg In 198.623 Empty Bag 1 bag @ Titrate IV .Q0M [facility] Rx#: [id number] Tube Feeding 84 Other Output: Urine 391 Other: Voiding Method Indwelling Catheter ABP, PAP, CO, CI - Last Documented Arterial Blood Pressure 125/43 - Exam GENERAL EXAM: Revealed 74-year-old female intubated, mechanically ventilated, sedated, calm. On fentanyl and propofol. HEAD: Normocephalic. Endotracheal tube and orogastric tube are intact. EYES: Normal reaction of pupils, equal size. NOSE: Clear with pink turbinates. THROAT: No erythema or exudates. NECK: No masses, no JVD. CHEST: No chest wall deformity. LUNGS: Bilateral scattered rhonchi. Noted mostly at the bases bilaterally. CVS: S1 and S2 normal with no audible murmur, regular rhythm. ABDOMEN: Flat soft nontender no megaly no rebound no guarding. SKIN: No rashes CENTRAL NERVOUS : Could not be assessed. Patient is quite sedated. Extremities: No clubbing, no edema or cyanosis - Labs CBC & Chem 7: 05/06/20 04:50 05/06/20 04:50 Labs: Abnormal Lab Results - Last 24 Hours (Table) 05/05/20 05/05/20 05/05/20 Range/Units 14:23 16:10 18:56 WBC (3.8-10.6) k/uL RBC (3.80-5.40) m/uL Hgb (11.4-16.0) gm/dL Hct (34.0-46.0) % Neutrophils # (1.3-7.7) k/uL Lymphocytes # (1.0-4.8) k/uL ABG pCO2 (35-45) mmHg ABG pO2 (83-108) mmHg ABG HCO3 (21-25) mmol/L ABG Total CO2 (19-24) mmol/L Potassium (3.5-5.1) mmol/L Carbon Dioxide (22-30) mmol/L BUN (7-17) mg/dL Glucose (74-99) mg/dL POC Glucose (mg/dL) 140 H 141 H 151 H (75-99) mg/dL AST (14-36) U/L ALT (4-34) U/L Total Protein (6.3-8.2) g/dL Albumin (3.5-5.0) g/dL 05/05/20 05/06/20 05/06/20 Range/Units 21:36 00:09 01:54 WBC (3.8-10.6) k/uL RBC (3.80-5.40) m/uL Hgb (11.4-16.0) gm/dL Hct (34.0-46.0) % Neutrophils # (1.3-7.7) k/uL Lymphocytes # (1.0-4.8) k/uL ABG pCO2 (35-45) mmHg ABG pO2 (83-108) mmHg ABG HCO3 (21-25) mmol/L ABG Total CO2 (19-24) mmol/L Potassium (3.5-5.1) mmol/L Carbon Dioxide (22-30) mmol/L BUN (7-17) mg/dL Glucose (74-99) mg/dL POC Glucose (mg/dL) 169 H 162 H 166 H (75-99) mg/dL AST (14-36) U/L ALT (4-34) U/L Total Protein (6.3-8.2) g/dL Albumin (3.5-5.0) g/dL 05/06/20 05/06/20 05/06/20 Range/Units 04:47 04:50 04:50 WBC 18.3 H (3.8-10.6) k/uL RBC 3.03 L (3.80-5.40) m/uL Hgb 9.4 L (11.4-16.0) gm/dL Hct 28.6 L (34.0-46.0) % Neutrophils # 16.8 H (1.3-7.7) k/uL Lymphocytes # 0.4 L (1.0-4.8) k/uL ABG pCO2 (35-45) mmHg ABG pO2 (83-108) mmHg ABG HCO3 (21-25) mmol/L ABG Total CO2 (19-24) mmol/L Potassium 5.3 H (3.5-5.1) mmol/L Carbon Dioxide 36 H (22-30) mmol/L BUN 58 H (7-17) mg/dL Glucose 174 H (74-99) mg/dL POC Glucose (mg/dL) 177 H (75-99) mg/dL AST 84 H (14-36) U/L ALT 56 H (4-34) U/L Total Protein 4.9 L (6.3-8.2) g/dL Albumin 2.4 L (3.5-5.0) g/dL 05/06/20 05/06/20 05/06/20 Range/Units 05:10 06:44 08:39 WBC (3.8-10.6) k/uL RBC (3.80-5.40) m/uL Hgb (11.4-16.0) gm/dL Hct (34.0-46.0) % Neutrophils # (1.3-7.7) k/uL Lymphocytes # (1.0-4.8) k/uL ABG pCO2 63 H (35-45) mmHg ABG pO2 80 L (83-108) mmHg ABG HCO3 35 H (21-25) mmol/L ABG Total CO2 37 H (19-24) mmol/L Potassium (3.5-5.1) mmol/L Carbon Dioxide (22-30) mmol/L BUN (7-17) mg/dL Glucose (74-99) mg/dL POC Glucose (mg/dL) 168 H 198 H (75-99) mg/dL AST (14-36) U/L ALT (4-34) U/L Total Protein (6.3-8.2) g/dL Albumin (3.5-5.0) g/dL 05/06/20 Range/Units 10:29 WBC (3.8-10.6) k/uL RBC (3.80-5.40) m/uL Hgb (11.4-16.0) gm/dL Hct (34.0-46.0) % Neutrophils # (1.3-7.7) k/uL Lymphocytes # (1.0-4.8) k/uL ABG pCO2 (35-45) mmHg ABG pO2 (83-108) mmHg ABG HCO3 (21-25) mmol/L ABG Total CO2 (19-24) mmol/L Potassium (3.5-5.1) mmol/L Carbon Dioxide (22-30) mmol/L BUN (7-17) mg/dL Glucose (74-99) mg/dL POC Glucose (mg/dL) 209 H (75-99) mg/dL AST (14-36) U/L ALT (4-34) U/L Total Protein (6.3-8.2) g/dL Albumin (3.5-5.0) g/dL Assessment and Plan Assessment: Impression: Acute hypoxic respiratory failure secondary to covid 19 pneumonitis and ARDS. PEEP was increased yesterday to 18 and FiO2 was increased overnight to 80% Acute covid 19 pneumonia, patient completed remdesivir, Solu-Medrol, and she received 1 unit of convalescent plasma. Elevated inflammatory markers secondary to above. No significant clinical improvement in spite of improvement in her inflammatory markers. Acute urinary tract infection secondary to E. coli. Treated fully with Rocephin. Type 2 diabetes. Patient has insulin pump on outpatient basis. Benign essential hypertension. Suspect some component of acute diastolic congestive heart failure, echocardiogram showed good LV function. Mild rhabdomyolysis with elevation of CPK levels. History of vitamin D deficiency. Recommendation: DO NOT RESUSCITATE CODE STATUS. May proceed to comfort care measures today when the family decides. Continue ventilatory support. Continue sedation. Continue nutritional support. Continue GI and DVT prophylaxis/remains on Lovenox 50 mg subcu twice a day. Continue Solu-Medrol. Continue to monitor inflammatory markers and to monitor CPK. As well as renal profile Completed a total of 5 day course of remdesivir and 1 unit of convalescent plasma. Continue insulin as per protocol Patient remains critically ill, prognosis is guarded. Critical care time is over 30 minutes Time with Patient: Greater than 30
--- NOTE | 2020-05-06 22:48 | P.DS ---
Providers Date of admission: 04/21/20 21:10 Expected date of discharge: 05/06/20 Attending physician: Estuardo Whalen Consults: 04/22/20 11:15 Consult Physician Routine Consulting Provider: Criss Bobo Consult Reason/Comments: COVID Do you want consulting provider notified?: Yes 04/23/20 12:22 Consult Physician Routine Consulting Provider: Natasha Milian Consult Reason/Comments: COVID positive Do you want consulting provider notified?: Yes Primary care physician: [facility] Course: History of presenting complaint: Patient was admitted with severe COVID 19 pneumonia, acute hypoxic respiratory failure. Patient was intubated. Patient not be responding well. Dr. lanier spoke to family/son. Patient made DO NOT RESUSCITATE Patient had a rather prolonged course in the ICU. Did not improve. Talks were held held primarily by the exhibit specialist with patient's son. Today-patient was terminally extubated and patient succumbed to the same. Consultation: Dr. Bobo and colleagues from pulmonary Dr. Milian from [facility], reviewed in the clinical context: May 05: WBC 18.6-year-old woman 9.6 platelets 187 potassium 5.3 creatinine 0.86 CRP 61.6 May 04: WBC 16.5 hemoglobin 10.5 potassium 5.2 creatinine 0.88 April 28: WBC 30.3 hemoglobin 12.1 potassium 4 creatinine 0.85 d-dimer 7.55 CRP 59.4 Potassium 4 creatinine 0.8 CRP 61.5, d-dimer 3.89 Chest x-ray film shows worsening bilateral infiltrates Cause of : -COVID 19 bilateral pneumonia severe causing secondary hypoxic respiratory failure. received Remdesivir, convalescent plasma one unit, Decadron, slowly worsening Other medical problems -Septic shock patient requiring currently off norepinephrine. -Hypothyroid continue with Synthroid -Acute UTI with cystitis secondary to E. coli-IV ceftriaxone-completed course -Essential hypertension, currently blood pressures running low. -Hyperlipidemia -Vitamin D deficiency -Acute hypoxic respiratory failure, intubated on April 27, with ventilator -not improving -Diabetes mellitus type 2, uncontrolled with hyperglycemia ;on insulin drip-slow to respond -Morbid obesity BMI 40.7 -Acute rhabdomyolysis multifactorial -Normocytic anemia, possibly combination of underlying condition and hospital- acquired anemia from blood draw -DO NOT RESUSCITATE Disposition: Patient Patient Condition at Discharge: Fair Plan - Discharge Summary Discharge Rx Participant: No New Discharge Prescriptions: No Action Levothyroxine Sodium [Synthroid] 88 mcg PO DAILY Insulin Aspart (For Pump) [NovoLOG (For Pump)] 0.01 unit SQ-PUMP CONTINUOUS Acetaminophen Tab [Tylenol Tab] 500 mg PO Q6H PRN PRN Reason: Pain Ergocalciferol [Vitamin D2 (1250 Mcg = 90391 Iu)] See Taper PO DIRECTED Simvastatin 80 mg PO HS metFORMIN HCL ER [Glucophage Xr] 500 mg PO BID amLODIPine [Norvasc] 10 mg PO DAILY Pioglitazone [Actos] 15 mg PO DAILY Carvedilol [Coreg] 12.5 mg PO BID Discharge Medication List Levothyroxine Sodium [Synthroid] 88 mcg PO DAILY 02/22/16 [History] Insulin Aspart (For Pump) [NovoLOG (For Pump)] 0.01 unit SQ-PUMP CONTINUOUS 03/23/16 [History] Acetaminophen Tab [Tylenol Tab] 500 mg PO Q6H PRN 04/21/20 [History] Carvedilol [Coreg] 12.5 mg PO BID 04/21/20 [History] Ergocalciferol [Vitamin D2 (1250 Mcg = 34477 Iu)] See Taper PO DIRECTED 04/21/20 [History] Pioglitazone [Actos] 15 mg PO DAILY 04/21/20 [History] Simvastatin 80 mg PO HS 04/21/20 [History] amLODIPine [Norvasc] 10 mg PO DAILY 04/21/20 [History] metFORMIN HCL ER [Glucophage Xr] 500 mg PO BID 04/21/20 [History] Follow up Appointment(s)/Referral(s): Osbaldo Mace DO [Primary Care Provider] - 1-2 days Discharge Disposition: - Preliminary Cause of Preliminary Cause of : COVID 19 pneumonia
== END 2020-05-06 15:45 | disposition expired | DRG 870 ==
LOC: EC 17:59 → 3SCARD 21:10 → 2SICU 04-22 13:10
PROVIDERS: ADMIT Hospitalist; ATTEND Hospitalist
DX: A41.89 Other specified sepsis (principal); U07.1 COVID-19; J12.82 Pneumonia due to coronavirus disease 2019; E11.10 Type 2 diabetes mellitus with ketoacidosis without coma; R65.21 Severe sepsis with septic shock; J80 Acute respiratory distress syndrome; I50.31 Acute diastolic (congestive) heart failure; N17.9 Acute kidney failure, unspecified; I13.0 Hypertensive heart and chronic kidney disease with heart failure and stage 1 through stage 4 chronic kidney disease, or unspecified chronic kidney disease; M62.82 Rhabdomyolysis; N30.00 Acute cystitis without hematuria; Z68.41 Body mass index [BMI] 40.0-44.9, adult; J98.11 Atelectasis; D63.1 Anemia in chronic kidney disease; D69.6 Thrombocytopenia, unspecified; E11.22 Type 2 diabetes mellitus with diabetic chronic kidney disease; E03.9 Hypothyroidism, unspecified; B96.20 Unspecified Escherichia coli [E. coli] as the cause of diseases classified elsewhere; E66.01 Morbid (severe) obesity due to excess calories; N18.30 Chronic kidney disease, stage 3 unspecified; Z79.4 Long term (current) use of insulin; Z66 Do not resuscitate; Z51.5 Encounter for palliative care; E78.5 Hyperlipidemia, unspecified; E87.5 Hyperkalemia; I49.8 Other specified cardiac arrhythmias; T38.0X5A Adverse effect of glucocorticoids and synthetic analogues, initial encounter; E86.0 Dehydration; E55.9 Vitamin D deficiency, unspecified; Z96.41 Presence of insulin pump (external) (internal); Z79.890 Hormone replacement therapy; Z79.899 Other long term (current) drug therapy; Z86.59 Personal history of other mental and behavioral disorders; Z90.710 Acquired absence of both cervix and uterus; Z87.42 Personal history of other diseases of the female genital tract; Z87.891 Personal history of nicotine dependence; Z88.0 Allergy status to penicillin
CPT/HCPCS: 36415; 36573; 36600; 71045; 80048; 80051; 80053; 81001; 82009; 82330; 82550; 82565; 82728; 82803; 82805; 82947; 83520; 83605; 83615; 83625; 83735; 83880; 84100; 84145; 84478; 84520; 85025; 85027; 85379; 85384; 86140; 86850; 86900; 86901; 87070; 87077; 87086; 87186; 87205; 87635; 93005; 93306; 94002; 94003; 94660; 96361; 96374; 99285